=== PATIENT | female | born 1980 | race Caucasian/White ===

== ENCOUNTER 2018-02-25 14:19 | Observation (INO) | payer OTHER ==
--- OUTSIDE RECORDS SUMMARY | 2018-02-25 14:33 | XMS REPORT | Continuity of Care Document ---
:1980 Author Organization Interface Problems Problem Status Onset Classification Date Comments Source Date Reported Z98.84 Active 11/02/19 [facility] Nasal abscess 09/18/19 09/20/2017 18 [facility] NOSE PAIN Active 09/18/19 18 [facility] UNK Active 08/17/19 18 [facility] Epigastric pain 08/11/19 11/08/2017 18 [facility] SEVERE ABD PAIN X2 Active 08/03/19 DAYS 18 [facility] ACUTE COLITIS/ Active 03/10/20 ACUTE ABDOMINAL 17 [facility] PAIN ABDOMINAL PAIN Active 03/10/20 17 [facility] K95.1 Active 03/06/20 17 [facility] MRSA<sup>1, Active 02/13/20 Problem 11/08/2017 Problem 2</sup> 17 added by [facility] Discern Expert. CELLULITIS, Active 02/12/20 POST-OPERATIVE 17 [facility] COMPLICATION, OTHER Active 02/12/20 17 [facility] HISTORY OF GASTRIC Active 01/16/20 BYPASS, ABDOMINAL 17 [facility] JOSE ABD PAIN Active 01/16/20 17 [facility] K81.1 Active 01/14/20 17 [facility] INTUSSUSCEPTION Active 12/16/19 [facility] CHEST PAIN Active 04/06/20 [place] [id number] Adi Discharge 03/26/20 03/29/2014 [facility] Diagnosis: Benign 14 [facility] paroxysmal vertigo Center DIZZINESS Active 03/22/[address] Center SEIZURES Active 02/23/[address] Center OVERDOSE Active 12/09/[address] Anxiety Resolved Problem 11/08/2017 [facility] Chest pain Active Problem 11/08/2017 [facility] Fatty liver Active Problem 11/08/2017 [facility] Gastric bypass Resolved Problem 11/08/2017 status for obesity [facility] Anxiety and Active Problem 11/08/2017 depression [facility] History of heart Active Problem 11/08/2017 attack [facility] Schizoaffective Resolved Problem 11/08/2017 [facility] [place], [place] Seizure Resolved Problem 11/08/2017 [facility] Anxiety Resolved Problem 04/11/2016 [facility] Schizoaffective Resolved Problem 04/11/2016 [facility] [place] [facility] Seizure Resolved Problem 04/11/2016 [facility] Final: 12/19/2016 Intussusception [facility] CHF (<span Resolved Problem 11/08/2017 ID="[id number]"> [facility] Confirmed</span>) ND (<span Resolved Problem 11/08/2017 ID="[id number]"> [facility] Confirmed</span>) Final: Chronic 02/06/2017 cholecystitis [facility] Encounter for 09/14/2017 screening for [facility] malignant neoplasm of colon Diaphragmatic 09/14/2017 hernia without [facility] obstruction or gangrene Unspecified 09/14/2017 chronic gastritis [facility] without bleeding Gastro-esophageal 09/14/2017 reflux disease [facility] without esophagitis Old myocardial 11/08/2017 infarction [facility] Heart failure, 11/08/2017 unspecified [facility] Anxiety disorder, 09/14/2017 unspecified [facility] Fatty liver, not 09/14/2017 elsewhere [facility] classified Schizophrenia, 09/14/2017 unspecified [facility] Unspecified 09/14/2017 convulsions [facility] Unspecified 09/14/2017 osteoarthritis, [facility] unspecified site Nonrheumatic 09/14/2017 mitral prolapse [facility] Right upper 11/08/2017 quadrant pain [facility] Lower abdominal 11/08/2017 pain, unspecified [facility] Nicotine 11/08/2017 dependence, [facility] cigarettes, uncomplicated [facility] use of 11/08/2017 antithrombotics/an [facility] tiplatelets Morbid obesity Active Problem 03/28/2017 2.16.840.1. [id number] 1.. Anxiety Active Problem 03/28/2017 2.16.840.1. [id number] 1.. Leukocytosis Active Diagnosis 03/28/2017 2.16.840.1. [id number] 1.. Cellulitis Active Problem 03/28/2017 2.16.840.1. [id number] 1.. CAD Active Problem 03/28/2017 2.16.840.1. [id number] 1.. Murmur, cardiac Active Problem 03/28/2017 2.16.840.1. 600579.4.39 1 HTN Active Problem 03/28/2017 2.16.840.1. 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 [id number] , Enayet Rahim Encounter to Active Diagnosis 03/01/2017 Enayet establish care Rahim History of gastric Active Diagnosis 09/20/2017 En[facility] bypass Rahim Intractable Active Problem 09/26/2017 [facility] migraine with aura Rahim with status migrainosus Hx MRSA infection Active Diagnosis 09/26/2017 Enayet Rahim Cellulitis of nose Active Diagnosis 09/26/2017 Enayet Rahim Lower abdominal Active Diagnosis 08/11/2017 [facility] pain Rahim [id number] Active [facility] [place] [facility] FEBRILE Active [facility] CONVULSIONS [facility] Medical Center OTHER SPECIFIED Active POSTPROCEDURAL [facility] UNSPECIFIED Active ABDOMINAL PAIN [facility] CHRONIC Active CHOLECYSTITIS [facility] INTUSSUSCEPTION Active [facility] CELLULITIS, Active [facility] UNSPECIFIED [place] UNSPECIFIED Active COMPLICATION OF [facility] PROCEDURE, I SINGLE LIVEBORN Active , DELIVERED [facility] VAGINA Medications Medication Details Route Status Patient Ordering Order Source Instructions Provider Date Acetaminophen 1 tab, PO, No Longer 09/17/ 300 MG / Q6H, # 6 tab, Active 2017 Codeine 0 Refill(s) Phosphate 30 MG Oral Tablet [Tylenol with Codeine #3] tramadol 50 mg=1 tab, Inactive 09/17/ hydrochloride PO, Q4H, # 5 2018 [facility] 50 MG Oral tab, 0 Tablet Refill(s) Mupirocin 0.02 1 appl, TOP, Active MG/MG Topical BID, Apply to 2017 [facility] Ointment affected [Bactroban] area(s), X 7 day, # 22 gm, 0 Refill(s) Bactrim DS 1 tablet Orally Active 800-160 MG Latoya 09/15/ Enayet Orally Twice 2018 Rahim a day Sodium Chloride 1,000 mL, No Longer 0.9% IV 1,000 Rate: 25 Active 2017 [facility] mL ml/hr, Infuse over: 40 hr, Route: IV, Dosing Weight 67.273 kg, Total Volume: 1,000, Start date: 09/05/17 7:56:00 CDT, Duration: 1 day, Stop date: 09/06/17 7:55:00 CDT, 1.69, m2 NS (Bolus) IV 1,000 mL, Inactive 1,000 ml/hr, 2017 [facility] Infuse Over: 1 hr, Route: IV, ONCE, Priority: STAT, Dosing Weight 65.455 kg, Start date: 08/02/17 17:44:00 CDT, Stop date: 08/02/17 17:44:00 CDT Ondansetron 4 mg, 2 mL, Inactive Route: IVP, 2017 [facility] Drug form: INJ, ONCE, Dosing Weight 65.455, kg, Priority: STAT, Start date: 08/02/17 15:57:00 CDT, Stop date: 08/02/17 15:57:00 CDTNotes: (Same as: Zofran) MEDICATION WASTE Product Size: 4 mg Product Wasted: ___ mg Saline Flush 10 mL, Route: Inactive 0.9% IVP, Drug 2017 [facility] Form: INJ, Dosing Weight 65.455, kg, PRN, PRN Line Flush, Start date: 08/02/17 15:57:00 CDT, Duration: 30 day, Stop date: 09/01/17 15:56:00 CDTNotes: (Same as: BD Posiflush) [employer]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 Orally Active 10 MG Orally Latoya 07/06/ Enayet the tongue Once a day as 2018 Rahim and allow to needed dissolve as needed one time potassium 20 mEq, 1 Inactive 03/11/ MH chloride tab, Route: 2016 [facility] PO, Drug form: ERTAB, ONCE, Dosing Weight 63.636, kg, Start date: 03/11/17 14:43:00 CDT, Stop date: 03/11/17 14:43:00 CDTNotes: (Same as: K-Dur 20) "Do Not Crush" With food and full glass of water potassium 10 mEq, 100 Inactive 03/11/ MH chloride mL, Route: 2016 [facility] IVPB, Drug form: INJ, Q1H, Dosing Weight 63.636, kg, Total Dose=20 meq, Start date: 03/11/17 9:00:00 CDT, Duration: 2 doses or times, Stop date: 03/11/17 10:00:00 CDT, Peripheral LineNotes: Infuse at a rate of 10 mEq/hr. (Same as: KCL) sodium chloride 1,000 mL, Inactive 03/11/ MH 0.9% 1000 ml Rate: 75 2016 [facility] INJ 1,000 mL ml/hr, Infuse over: 13.3 hr, Route: IV, Dosing Weight 63.636 kg, Total Volume: 1,000, Start date: 03/11/17 6:47:00 CDT, Duration: 30 day, Stop date: 04/10/17 6:46:00 ENERGY DIRECTOR sodium 15 mmol, 5 Inactive 03/11/ MH phosphate + D5W mL, Route: 2016 [facility] 250 mL IVPB, PRN, Dosing Weight 63.636, kg, PRN Abnormal Lab Result, For NON-ICU Patients Only., Start date: 03/11/17 6:46:00 CDT, Duration: 30 day, Stop date: 04/10/17 5:45:00 ENERGY DIRECTOR potassium 15 mmol, 5 Inactive 03/11/ MH phosphate + mL, Route: 2016 [facility] sodium chloride IVPB, PRN, 0.9% INJ 250 mL Dosing Weight 63.636, kg, PRN Abnormal Lab Result, For NON-ICU Patients Only., Start date: 03/11/17 6:46:00 CDT, Duration: 30 day, Stop date: 04/10/17 5:45:00 CSTNotes: (Same as: K Phosphate.) 1 mMol phoshate has 1.47 mEq potassium Infuse over 4 hours potassium 2 pkt, Route: Inactive phosphate-sodiu PO, Drug 2016 [facility] phosphate 250 Form: mg-280 mg-160 PDR/REC, mg oral powder Dosing Weight for 63.636, kg, reconstitution PRN, PRN Abnormal Lab Result, For NON-ICU Patients Only, Start date: 03/11/17 6:46:00 CDT, Duration: 30 day, Stop date: 04/10/17 5:45:00 CSTNotes: (Same as: Phos-NaK) Each 1.5 gm pkt has 250mg phosphorous. Mix w/2.5oz water and stir. potassium 20 mEq, 15 Inactive chloride mL, Route: 2016 [facility] [place], Drug form: LIQ, PRN, Dosing Weight 63.636, kg, PRN Abnormal Lab Result, For NON-ICU Patients Only, Start date: 03/11/17 6:46:00 CDT, Duration: 30 day, Stop date: 04/10/17 5:45:00 CSTNotes: (Same as: Potassium Chloride) calcium 2 gm, 20 mL, Inactive gluconate + Route: IV2016 [facility] sodium chloride PRN, Dosing 0.9% INJ 100 mL Weight 63.636, kg, PRN Abnormal Lab Result, For NON-ICU Patients Only., Start date: 03/11/17 6:46:00 CDT, Duration: 30 day, Stop date: 04/10/17 5:45:00 CSTNotes: WASTE: F/P - Sink; E - Municipal Trash Bin magnesium 2 gm, 50 mL, Inactive sulfate Route: IV2016 [facility] Drug form: INJ, PRN, Dosing Weight 63.636, kg, PRN Abnormal Lab Result, For NON-ICU Patients Only., Start date: 03/11/17 6:46:00 CDT, Duration: 30 day, Stop date: 04/10/17 5:45:00 CSTNotes: WASTE: F/P - Sink; E - Municipal Trash Bin magnesium oxide 800 mg, 2 Inactive tab, Route: 2016 [facility] PO, Drug form: TAB, PRN, Dosing Weight 63.636, kg, PRN Abnormal Lab Result, For NON-ICU Patients Only., Start date: 03/11/17 6:46:00 CDT, Duration: 30 day, Stop date: 04/10/17 5:45:00 CSTNotes: (Same as: Mag-Ox 400) Magnesium oxide [id number] elemental magnesium Dose=____mg magnesium oxide (___mg elemental magnesium) acetaminophen-h 1 tab, Route: No Longer ydrocodone 325 PO, Drug Active 2016 [facility] mg-5 mg oral Form: TAB, tablet Dosing Weight 63.636, kg, Q4H, PRN Pain Score 4-6, Start date: 03/10/17 22:28:00 CDT, Duration: 30 day, Stop date: 04/09/17 22:27:00 CSTNotes: (Same as: [place] 325/5) Do not exceed 4gm/day of acetaminophen . ondansetron 4 mg, 2 mL, No Longer Route: IVP, Active 2016 [facility] Drug form: INJ, Q4H, Dosing Weight 63.636, kg, PRN Nausea, Start date: 03/10/17 21:50:00 CDT, Duration: 30 day, Stop date: 04/09/17 21:49:00 CSTNotes: (Same as: Krishna) MEDICATION WASTE Product Size: 4 mg Product Wasted: ___ mg morphine 4 mg, 1 mL, No Longer Sulfate Route: IVP, Active 2016 [facility] Drug form: SOLN, Q4H, Dosing Weight 63.636, kg, PRN Pain Score 7-10, Start date: 03/10/17 21:48:00 CDT, Duration: 30 day, Stop date: 04/09/17 21:47:00 CSTNotes: (Same as:MORPhine Sulfate) aspirin 81 mg, PO, Active Daily, 0 2016 Refill(s) nitroglycerin 0.4 mg=1 tab, Active 0.4 mg SL, Q5Min, 2016 sublingual PRN Chest tablet Pain, Give up to 3 doses. Call 911 if pain persists., # 25 tab, 3 Refill(s) Ranexa 500 mg 500 mg=1 tab, Active oral tablet, PO, BID, # 60 2016 [facility] extended tab, 0 release Refill(s) morphine 4 mg, Route: Inactive Sulfate IVP, ONCE, 2016 [facility] Dosing Weight 63.636, kg, Priority: STAT, Start date: 03/10/17 19:07:00 CDT, Stop date: 03/10/17 19:07:00 CDT ondansetron 4 mg, Route: Inactive IVP, Drug 2016 [facility] form: INJ, ONCE, Dosing Weight 63.636, kg, Priority: STAT, Start date: 03/10/17 14:07:00 CDT, Stop date: 03/10/17 14:07:00 CDT morphine 4 mg, Route: Inactive Sulfate IVP, ONCE, 2016 [facility] Dosing Weight 63.636, kg, Priority: STAT, Start date: 03/10/17 14:07:00 CDT, Stop date: 03/10/17 14:07:00 CDT Sodium Chloride 1,000 mL, Inactive 0.9% (Bolus) IV Infuse Over: 2016 [facility] 1 hr, Route: IV, ONCE, Priority: STAT, Dosing Weight 63.636 kg, Start date: 03/10/17 14:06:00 CDT, Duration: 1 doses or times, Stop date: 03/10/17 14:06:00 CDT Saline Flush 10 mL, Route: No Longer 0.9% IVP, Drug Active 2016 [facility] Form: INJ, Dosing Weight 60, kg, PRN, PRN Line Flush, Start date: 03/10/17 13:37:00 CDT, Duration: 30 day, Stop date: 04/09/17 12:36:00 CSTNotes: (Same as: BD Posiflush) Chlorhexidine as directed Externally Active 2 % Reyes ..840.1 Gluconate Externally 2016 .205776.4. once a day 68 Bactroban Nasal as directed Nasally Active 2 % Nasally Reyes .16.840.1 Twice a day [id number]. 68 Doxycycline 1 tablet Orally Active 100 MG Orally [facility] .16.840.1 Hyclate every 12 hrs 2016 .793236.4. [id number] 68 Acetaminophen 1-2 tab, PO, Active 325 MG / Q6H, PRN 2016 [facility] Hydrocodone Pain, X 5 Bitartrate 7.5 day, # 30 MG Oral Tablet tab, 0 [[place] 7.5/325] Refill(s), given to patient hydrocortisone See Active 10 mg oral Instructions, 2016 tablet 2 tab PO in the morning, 1 tab in the afternoon, # 90 tab, 0 Refill(s), Pharmacy: [facility] [id number] Hydrocortisone 20 mg, 2 tab, No Longer Route: PO, Active 2016 Drug form: TAB, BID, Dosing Weight 60, kg, Start date: 02/16/17 17:00:00 CDT, Duration: 30 day, Stop date: 03/18/17 9:00:00 CSTNotes: (Same as: Cortef) Take with food. MiraLax 17 gm, 1 pkt, No Longer Route: PO, Active 2016 [facility] Drug form: PWDR, Daily, Start date: 02/16/17 14:05:00 CDT, Duration: 30 day, Stop date: 03/18/17 9:00:00 CSTNotes: Dissolve in 8 oz of water or juice. (Same as: Miralax) Levaquin 500 mg, 100 Inactive mL, Route: 2016 PO, Drug form: SOLN, [id number], Dosing Weight 60, kg, Start date: 02/16/17 6:00:00 CDT, Stop date: 02/19/17 6:00:00 CDT, ABX Indication: Skin/Soft Tissue InfectionNote s: (Same as:Levaquin) TPN, adult 1,850 mL, No Longer solution 1,850 Rate: 75 Active 2016 mL ml/hr, Infuse over: 24.7 hr, Route: IV, Dosing Weight 60 kg, Total Volume: 1,850, Start date: 02/15/17 22:00:00 CDT, Duration: 1 day, Stop date: 02/16/17 21:59:00 CDT RN-do not RN-do not Inactive give vanc dose give vanc 2016 [facility] til trough dose til drawn 02/15 @ trough drawn 1944 02/15 @ 1944, attn, Drug form: MISC, Route: MISC, ONCE, 02/15/17 19:15:00 CDT, Stop date: 02/15/17 19:15:00 CDT Hydrocortisone 50 mg, 1 mL, No Longer Route: IV, Active 2016 [facility] Drug form: PDR/INJ, BID, Dosing Weight 60, kg, Start date: 02/15/17 17:00:00 CDT, Duration: 30 day, Stop date: 03/17/17 9:00:00 CSTNotes: (Same as: Solu-CORTEF) TPN, adult 1,850 mL, No Longer solution 1,850 Rate: 75 Active 2016 [facility] mL ml/hr, Infuse over: 24.7 hr, Route: IV, Dosing Weight 60 kg, Total Volume: 1,850, Start date: 02/14/17 22:00:00 CDT, Duration: 24 hr, Stop date: 02/15/17 21:59:00 CDT Vancomycin 1,000 mg, No Longer Route: IVPB, Active 2016 [facility] [id number], Dosing Weight 60, kg, Start date: 02/14/17 20:00:00 CDT, Duration: 14 day, Stop date: 02/28/17 12:00:00 CDT, ABX Indication: Skin/Soft Tissue InfectionNote s: TIME CRITICAL MEDICATION (Same As: Vancocin) Infusion rate 2001 mg: infuse over 2.5 hours MEDICATION WASTE Product Size: 1000 mg Product Wasted: __0_ mg Hydrocortisone 50 mg, 1 mL, No Longer Route: IV, Active 2016 [facility] Drug form: PDR/INJ, Q8H, Dosing Weight 60, kg, Start date: 02/14/17 16:00:00 CDT, Duration: 30 day, Stop date: 03/16/17 8:00:00 CSTNotes: (Same as: Solu-CORTEF) Milk of 30 ml, Route: Inactive Magnesia PO, Drug 2016 [facility] Form: SUSP, Dosing Weight 60, kg, ONCE, Start date: 02/14/17 13:39:00 CDT, Stop date: 02/14/17 13:39:00 CDTNotes: (Same as: Milk of Magnesia, MOM) Cosyntropin 250 Inactive microgram, 2016 [facility] Route: IVP, Drug form: PDR/INJ, ONCE, Dosing Weight 60, kg, Priority: STAT, Start date: 02/14/17 11:29:00 CDT, Stop date: 02/14/17 11:29:00 CDTNotes: (Same As: Cortrosyn) RN-do not RN-do not Inactive give vanc dose give vanc 2016 [facility] til trough dose til drawn 02/14 @ trough drawn 1030 02/14 @ 1030, attn, Drug form: MISC, Route: MISC, ONCE, 02/14/17 10:00:00 CDT, Stop date: 02/14/17 10:00:00 CDT potassium 20 mEq, 1 Inactive chloride 20 mEq tab, Route: 2016 [facility] oral tablet, PO, Drug extended form: ERTAB, release ONCE, Dosing Weight 60, kg, Start date: 02/14/17 6:43:00 CDT, Stop date: 02/14/17 6:43:00 CDTNotes: (Same as: K-Dur 20) "Do Not Crush" With food and full glass of water Magnesium 1 gm, 100 mL, Inactive Sulfate Route: IVPB, 2016 [facility] Drug form: INJ, ONCE, Dosing Weight 60, kg, Start date: 02/14/17 6:41:00 CDT, Stop date: 02/14/17 6:41:00 CDTNotes: WASTE: F/P - Sink; E - Municipal Trash Bin TPN, adult 1,850 mL, No Longer // MH solution 1,850 Rate: 75 Active 2016 [facility] mL ml/hr, Infuse over: 24.7 hr, Route: IV, Dosing Weight 60 kg, Total Volume: 1,850, Start date: 02/13/17 22:00:00 CDT, Duration: 1 day, Stop date: 02/14/17 21:59:00 CDT fat emulsion, IV, 31.25 Inactive intravenous 250 ml/hr, Start 2016 [facility] mL date: 02/13/17 22:00:00 CDT, Duration: 1, 250 ml, 60Notes: (Same as: Intralipid, Liposyn) Infuse through a 1.2 micron filter Furosemide 20 20 mg, 1 tab, No Longer MG Oral Tablet Route: PO, Active 2016 [facility] Drug form: TAB, Daily, Dosing Weight 60, kg, Start date: 02/13/17 9:00:00 CDT, Duration: 30 day, Stop date: 03/14/17 9:00:00 CSTNotes: (Same as: Lasix) May cause GI upset. Give with food or milk. Abilify 5 mg, 1 tab, No Longer Route: PO, Active 2016 [facility] Drug form: TAB, Daily, Dosing Weight 60, kg, Start date: 02/13/17 9:00:00 CDT, Stop date: 03/14/17 9:00:00 CSTNotes: Non-Formulary Drug. (Same as: Abilify) Levaquin 500 mg, 100 No Longer mL, Route: Active 2016 [facility] IVPB, Drug form: SOLN, [id number], Dosing Weight 60, kg, Start date: 02/13/17 4:00:00 CDT, Duration: 7 day, Stop date: 02/19/17 4:00:00 CDT, ABX Indication: Skin/Soft Tissue InfectionNote s: (Same as:Levaquin) NS (Bolus) IV 250 mL, 250 Inactive ml/hr, Infuse 2016 [facility] Over: 1 hr, Route: IV, 250, Drug form: INJ, ONCE, Priority: STAT, Dosing Weight 60 kg, Start date: 02/12/17 22:40:00 CDT, Duration: 1 doses or times, Stop date: 02/12/17 22:40:00 CDT Ambien 5 mg, 1 tab, No Longer Route: PO, Active 2016 [facility] Drug form: TAB, Bedtime, Dosing Weight 60, kg, Start date: 02/12/17 21:00:00 CDT, Duration: 30 day, Stop date: 03/13/17 21:00:00 CSTNotes: (Same As: Ambien) 12 HR 500 mg, 1 No Longer ranolazine 500 tab, Route: Active 2016 MG Extended PO, Drug Release Tablet form: TAB, [Ranexa] BID, Dosing Weight 60, kg, Start date: 02/12/17 21:00:00 CDT, Duration: 30 day, Stop date: 03/14/17 9:00:00 CSTNotes: Same as Ranexa "Do Not Crush" Clonazepam 1 mg, 1 tab, No Longer Route: PO, Active 2016 [facility] Drug form: TAB, BID, Dosing Weight 60, kg, Start date: 02/12/17 21:00:00 CDT, Duration: 30 day, Stop date: 03/14/17 9:00:00 CSTNotes: (Same As: KlonoPIN) Enoxaparin 30 mg, 0.3 No Longer mL, Route: Active 2016 [facility] SUB-Q, Drug form: INJ, [id number], Dosing Weight 60, kg, Start date: 02/12/17 21:00:00 CDT, Duration: 30 day, Stop date: 03/14/17 9:00:00 CSTNotes: (Same as: Lovenox) Per RN - supposed to go to OR for minor procedure but MD ended up doing procedure bedside NS (Bolus) IV 500 mL, 500 Inactive ml/hr, Infuse 2016 Over: 1 hr, Route: IV, 500, Drug form: INJ, ONCE, Priority: STAT, Dosing Weight 60 kg, Start date: 02/12/17 18:27:00 CDT, Duration: 1 doses or times, Stop date: 02/12/17 18:27:00 CDT Protonix 40 mg, 1 tab, No Longer Route: PO, Active 2016 [facility] Drug form: ECTAB, Before Dinner, Dosing Weight 60, kg, Start date: 02/12/17 16:30:00 CDT, Duration: 30 day, Stop date: 03/13/17 16:30:00 CSTNotes: Tablet should not be chewed or crushed. (Same as: Protonix) NURSE please NURSE No Longer bring home med please bring Active 2016 [facility] [id number] to home med Pharmacy for TIENLIFPamela to label Pharmacy for label, 1, Drug form: MISC, Route: MISC, TID, 02/12/17 15:00:00 CDT, Duration: 30 day, Stop date: 03/14/17 9:00:00 ENERGY DIRECTOR Vancomycin 1,000 mg, No Longer Route: IVPB, Active 2016 [facility] [id number], Dosing Weight 60, kg, Start date: 02/12/17 11:00:00 CDT, Duration: 7 day, Stop date: 02/18/17 23:00:00 CDT, ABX Indication: Skin/Soft Tissue InfectionNote s: TIME CRITICAL MEDICATION (Same As: Vancocin) Infusion rate 2001 mg: infuse over 2.5 hours MEDICATION WASTE Product Size: 1000 mg Product Wasted: ___ mg Vancomycin 1 ea, Route: Inactive MAYITO MOLINAALL, 2016 [facility] Dosing Weight 60, kg, Start date: 02/12/17 10:00:00 CDT, day, Stop date: 02/12/17 10:00:00 CDT, Pharmacy to dose, ABX Indication: Skin/Soft Tissue Infection Tylenol 650 mg, 2 No Longer tab, Route: Active 2016 [facility] PO, Drug form: TAB, Q6H, Dosing Weight 60, kg, PRN Pain 1-3/Temp > 100.4 F, Start date: 02/12/17 9:44:00 CDT, Duration: 30 day, Stop date: 03/14/17 9:43:00 CSTNotes: Do not exceed 4 gm/day. (Same as: Tylenol) Acetaminophen 1 tab, Route: No Longer 325 MG / PO, Drug Active 2016 [facility] Hydrocodone Form: TAB, Bitartrate 10 Dosing Weight MG Oral Tablet 60, kg, Q4H, [[place] 10/325] PRN Pain Score 6-10, Start date: 02/12/17 9:43:00 CDT, Duration: 30 day, Stop date: 03/14/17 9:42:00 CSTNotes: Do not exceed 4gm/day of acetaminophen . (Same as: [place] 325/10) Acetaminophen 1 tab, Route: No Longer 325 MG / PO, Drug Active 2016 [facility] Hydrocodone Form: TAB, Bitartrate 5 MG Dosing Weight Oral Tablet 60, kg, Q4H, [[place] 5/325] PRN Pain Score 4-6, Start date: 02/12/17 9:43:00 CDT, Duration: 30 day, Stop date: 03/14/17 9:42:00 CSTNotes: (Same as: [place] 325/5) Do not exceed 4gm/day of acetaminophen . Morphine 4 mg, 1 mL, No Longer Route: IVP, Active 2016 [facility] Drug form: SOLN, Q4H, Dosing Weight 60, kg, PRN Pain Score 6-10, Start date: 02/12/17 9:43:00 CDT, Duration: 30 day, Stop date: 03/14/17 9:42:00 CSTNotes: (Same as:MORPhine Sulfate) Saline Flush 10 ml, Route: No Longer 0.9% IVP, Drug Active 2016 [facility] Form: INJ, Dosing Weight 60, kg, PRN, PRN Line Flush, Start date: 02/12/17 9:40:00 CDT, Duration: 30 day, Stop date: 03/14/17 8:39:00 CSTNotes: (Same as: BD Posiflush) D5W 1/2NS + KCL 1,000 mL, No Longer 20mEq/L 1000ml Rate: 75 Active 2016 [facility] ([facility]) 1,000 ml/hr, Infuse mL over: 13.3 hr, Route: IV, Dosing Weight 60 kg, Total Volume: 1,000, Start date: 02/12/17 9:40:00 CDT, Duration: 30 day, Stop date: 03/14/17 9:39:00 CSTNotes: PREMIX IV - Do Not Alter WASTE: F/P - Sink; E - Municipal Trash Bin Ondansetron 4 mg, 2 mL, No Longer Route: IVP, Active 2016 [facility] Drug form: INJ, Q6H, Dosing Weight 60, kg, PRN Nausea & Vomiting, Start date: 02/12/17 9:40:00 CDT, Duration: 30 day, Stop date: 03/14/17 9:39:00 CSTNotes: (Same as: Zofran) MEDICATION WASTE Product Size: 4 mg Product Wasted: ___ mg Levaquin 750 mg, 150 Inactive mL, Route: 2017 [facility] IVPB, Drug form: SOLN, [id number], Dosing Weight 60, kg, Start date: 02/12/17 8:00:00 CDT, Duration: 1 doses or times, Stop date: 02/12/17 8:00:00 CDT, ABX Indication: ED - Suspected SepsisNotes: (Same as:Levaquin) sodium chloride 984.8 mL, Inactive 0.9% 1000 ml Rate: 100 2016 [facility] INJ 984.8 mL + ml/hr, Infuse M.V.I.-12 10 mL over: 10 hr, Daily + folic Route: IV, acid IV 1 mg Dosing Weight Daily + thia 60 kg, Total Volume: 1,000, Start date: 02/12/17 7:52:00 CDT, Duration: 10 hr, Stop date: 02/12/17 17:51:00 CDT Zofran 4 mg, Route: Inactive IVP, Drug 2016 [facility] form: INJ, ONCE, Dosing Weight 60, kg, Priority: STAT, Start date: 02/12/17 5:30:00 CDT, Stop date: 02/12/17 5:30:00 CDT Morphine 2 mg, Route: Inactive IVP, ONCE, 2016 [facility] Dosing Weight 60, kg, Priority: STAT, Start date: 02/12/17 5:29:00 CDT, Stop date: 02/12/17 5:29:00 CDT Sodium Chloride 1,000 mL, Inactive 0.9% IV 1000 mL Rate: 75 2016 [facility] ml/hr, Infuse over: 13.3 hr, Route: IV, Dosing Weight 60 kg, Total Volume: 1,000, Priority: STAT, Start date: 02/12/17 5:29:00 CDT, Duration: 1 doses or times, Stop date: 02/12/17 18:46:00 CDT sodium chloride 984.8 mL, Inactive 0.9% 1000 ml Rate: 100 2016 [facility] INJ 984.8 mL + ml/hr, Infuse M.V.I.-12 10 mL over: 10 hr, Daily + folic Route: IV, acid IV 1 mg Dosing Weight Daily + thia 60 kg, Total Volume: 1,000, Start date: 02/12/17 1:58:00 CDT, Duration: 1 doses or times, Stop date: 02/12/17 11:57:00 CDT Flagyl 500 mg, 100 Inactive mL, Route: 2016 [facility] IVPB, Drug form: INJ, ONCE, Dosing Weight 60, kg, Priority: STAT, Start date: 02/12/17 1:58:00 CDT, Duration: 1 doses or times, Stop date: 02/12/17 1:58:00 CDT, ABX Indication: Intra-abdomin al InfectionNote s: (Same as: Flagyl) Avoid alcohol. Levofloxacin 500 mg, 100 Inactive mL, Route: 2016 [facility] IVPB, Drug form: SOLN, ONCE, Dosing Weight 60, kg, Start date: 02/12/17 1:57:00 CDT, Duration: 1 doses or times, Stop date: 02/12/17 1:57:00 CDT, ABX Indication: Intra-abdomin al InfectionNote s: (Same as:Levaquin) Zofran 4 mg, 2 mL, Inactive Route: IVP2016 [facility] Drug form: INJ, ONCE, Dosing Weight 60, kg, Priority: STAT, Start date: 02/12/17 1:55:00 CDT, Stop date: 02/12/17 1:55:00 CDTNotes: (Same as: Zofran) MEDICATION WASTE Product Size: 4 mg Product Wasted: ___ mg Morphine 4 mg, 1 mL, Inactive Route: IVP, 2016 [facility] Drug form: SOLN, ONCE, Dosing Weight 60, kg, Priority: STAT, Start date: 02/12/17 1:54:00 CDT, Stop date: 02/12/17 1:54:00 CDTNotes: (Same as:MORPhine Sulfate) Sodium Chloride 1,000 mL, Inactive 0.9% (Bolus) IV 1,000 ml/hr, 2016 [facility] Infuse Over: 1 hr, Route: IV, 1,000, Drug form: INJ, ONCE, Priority: STAT, Dosing Weight 60 kg, Start date: 02/12/17 1:53:00 CDT, Duration: 1 doses or times, Stop date: 02/12/17 1:53:00 CDT Tylenol with 15 ml, Route: Inactive Codeine 120 PO, Drug 2016 [facility] mg-12 mg/5 mL Form: LIQ, oral liquid Dosing Weight 62.33, kg, Q4H, PRN Pain Score 1-3, Start date: 02/03/17 7:36:00 CDT, Duration: 30 day, Stop date: 03/05/17 7:35:00 CDTNotes: (acetaminophe n-codeine 120-12 mg/5 ml oral liq) Do not exceed 4gm/day of acetaminophen . (Same as: Tylenol w/Codeine) Omnipaque 300 50 ml, Route: Inactive PO, Drug 2016 [facility] Form: SOLN, Dosing Weight 62.33, kg, ONCE, Start date: 02/02/17 14:28:00 CDT, Stop date: 02/02/17 14:28:00 CDTNotes: (Same as:Omnipaque 300). WASTE: F/P - Black; E - Municipal Trash Bin influenza virus 0.5 mL, Inactive vaccine, Route: IM, 2016 [facility] inactivated Drug Form: SUSP, Daily, Start date: 02/02/17 12:00:00 CDT, Stop date: 02/02/17 23:00:00 CDTNotes: (Same as: Fluzone Quadrivalent, Fluarix Quadrivalent) For 3 years of age and older (0.5 mL IM) Shake well before use Lovenox 30 mg, 0.3 No Longer mL, Route: Active 2016 [facility] SUB-Q, Drug form: INJ, [id number], Dosing Weight 62.33, kg, Start date: 02/01/17 16:00:00 CDT, Duration: 30 day, Stop date: 03/02/17 22:00:00 CDTNotes: (Same as: Lovenox) Hydromorphone 15 mg, 30 mL, No Longer Route: IV, [facility] 2016 [facility] Initial Loading Dose: 0.4mg, COLD STORAGE SUPERINTENDENT Dose: 0.2 mg, COLD STORAGE SUPERINTENDENT Lockout: 10 minutes, Continuous Basal Rate: 0 mg, 4 Hour Limit (In MG): 6, Drug Form: INJ, Continuous, Start date: 02/01/17 10:00:00 CDT, Duration: 30 day, Stop date: 03/03/17...No sydnee: (Same as: Dilaudid) conc=0.5 mg/ml Hydromorphone COLD STORAGE SUPERINTENDENT Dose: ;Delay: ;Basal: Naloxone 0.04 mg, 0.1 No Longer mL, Route: [facility] 2016 [facility] IVP, Drug form: INJ, Q2MIN, Dosing Weight 62.33, kg, PRN Narcotic Reversal, Start date: 02/01/17 9:41:00 CDT, Duration: 30 day, Stop date: 03/03/17 9:40:00 CDTNotes: Same as Narcan influenza virus 0.5 mL, No Longer vaccine, Route: IM, [facility] 2016 [facility] inactivated Drug Form: SUSP, Daily, Start date: 02/01/17 9:00:00 CDT, Duration: 1 doses or times, Stop date: 02/01/17 9:00:00 CDTNotes: (Same as: Fluzone Quadrivalent, Fluarix Quadrivalent) For 3 years of age and older (0.5 mL IM) Shake well before use Metoclopramide 10 mg, 2 mL, No Longer Route: IVP, [facility] 2016 [facility] Drug form: INJ, Q8H, Dosing Weight 61.364, kg, Start date: 02/01/17 0:00:00 CDT, Duration: 30 day, Stop date: 03/02/17 16:00:00 CDTNotes: (Same as: Reglan) Famotidine 20 mg, 2 mL, No Longer Route: IVP, 2016 [facility] Drug form: INJ, Q12H, Dosing Weight 62.33, kg, Start date: 01/31/17 21:00:00 CDT, Duration: 30 day, Stop date: 03/02/17 9:00:00 CDTNotes: (Same as: Pepcid) Can be dilute in 5-10cc NS IVP: Slow IV push over at least 2 minutes. Ondansetron 4 mg, 2 mL, No Longer Route: IVP, Active 2016 [facility] Drug form: INJ, Q4H, Dosing Weight 61.364, kg, Start date: 01/31/17 20:00:00 CDT, Duration: 30 day, Stop date: 03/02/17 16:00:00 CDTNotes: (Same as: Zofran) MEDICATION WASTE Product Size: 4 mg Product Wasted: ___ mg Sucralfate 100 1 gm, 1 tab, No Longer MG/ML Oral Route: PO, Active 2016 [facility] Suspension Drug form: [Carafate] TAB, QID, Dosing Weight 61.364, kg, Start date: 01/31/17 17:00:00 CDT, Duration: 30 day, Stop date: 03/02/17 13:00:00 CDTNotes: May interfere w/enteral feeds - Take 1 hr before or 2 hr after antacids, dairy pdt, meals & minerals - On empty stomach. For patients unable to swallow tablet, dissolve in 10mL - 30mL of water or juice and stir before giving. (Same As: Carafate) Dilaudid 0.5 mg, Inactive Route: IVP, 2016 ONCE, Dosing Weight 62.33, kg, Start date: 01/31/17 16:31:00 CDT, Stop date: 01/31/17 16:31:00 CDT Insulin Lispro 3 unit, 0.03 No Longer mL, Route: Active 2016 [facility] SUB-Q, Drug form: SOLN, Bedtime, Dosing Weight 62.33, kg, PRN Blood Glucose Results, Start date: 01/31/17 16:25:00 CDT, Duration: 30 day, Stop date: 03/02/17 16:24:00 CDTNotes: Roll in palms of hands gently; Do not shake `vigorously. (Same as: Humalog ) "Single Patient Use Only " WASTE: F/P - Black; E - Municipal Trash Bin Stable for 28 days at room temperature. Expires in days from _Date Lactated 1,000 mL, Inactive Ringers Rate: 125 2016 [facility] Injection IV ml/hr, Infuse 1000 mL over: 8 hr, Route: IV, Dosing Weight 62.33 kg, Total Volume: 1,000, Start date: 01/31/17 16:25:00 CDT, Duration: 30 day, Stop date: 03/02/17 16:24:00 CDT Hydromorphone 0.5 mg, 0.5 No Longer mL, Route: Active 2016 [facility] IV, Drug form: INJ, Q3H, Dosing Weight 61.364, kg, PRN Pain Score 6-10, Start date: 01/31/17 16:25:00 CDT, Duration: 30 day, Stop date: 03/02/17 16:24:00 CDT Promethazine 25 mg, 1 No Longer supp, Route: Active 2016 [facility] NM, Drug form: SUPP, Q4H, Dosing Weight 61.364, kg, PRN Nausea & Vomiting, Start date: 01/31/17 16:25:00 CDT, Duration: 30 day, Stop date: 03/02/17 16:24:00 CDTNotes: (Same as: Phenergan) Acetaminophen 15 mL, Route: No Longer 21.7 MG/ML / PO, Drug Active 2016 [facility] Hydrocodone Form: SOLN, Bitartrate 0.5 Dosing Weight MG/ML Oral 62.33, kg, Solution Q4H, PRN Pain Score 4-6, Start date: 01/31/17 16:25:00 CDT, Duration: 30 day, Stop date: 03/02/17 16:24:00 CDTNotes: Do not exceed 4gm/day of acetaminophen . (Same as: [place] 325/7.5) Metoprolol 2.5 mg, 2.5 No Longer mL, Route: Active 2016 [facility] IVP, Drug form: INJ, Q6H, Dosing Weight 62.33, kg, PRN Elevated BP, Systolic BP >180 or Diastolic BP >100, Start date: 01/31/17 16:25:00 CDT, Duration: 30 day, Stop date: 03/02/17 16:24:00 CDTNotes: (Same as: Lopressor) Push over 2 minutes Calcium 1,000 mL, No Longer Chloride 0.0014 Rate: 125 Active 2016 [facility] MEQ/ML / ml/hr, Infuse Potassium over: 8 hr, Chloride 0.004 Route: IV, MEQ/ML / Sodium Dosing Weight Chloride 0.103 62.33 kg, MEQ/ML / Sodium Total Volume: Lactate 0.028 1,000, Start MEQ/ML date: Injectable 01/31/17 Solution 16:25:00 CDT, Duration: 30 day, Stop date: 03/02/17 16:24:00 CDT Dilaudid 0.5 mg, Inactive Route: IVP, 2016 [facility] ONCE, Dosing Weight 62.33, kg, Start date: 01/31/17 16:07:00 CDT, Stop date: 01/31/17 16:07:00 CDT Dilaudid 0.5 mg, Inactive Route: IVP, 2016 [facility] ONCE, Dosing Weight 62.33, kg, Start date: 01/31/17 15:55:00 CDT, Stop date: 01/31/17 15:55:00 CDT hydromorphone Route: IV, Inactive (ANES) Drug form: 2016 [facility] INJ, ONCE, Stop date: 01/31/17 15:47:00 CDT Dilaudid 0.5 mg, Inactive Route: IVP, 2016 [facility] ONCE, Dosing Weight 62.33, kg, Start date: 01/31/17 15:47:00 CDT, Stop date: 01/31/17 15:47:00 CDT rocuronium Route: IV, Inactive (ANES) Drug form: 2016 [facility] INJ, ONCE, Stop date: 01/31/17 14:08:00 CDT lidocaine Route: IV, Inactive (ANES) Drug form: 2016 [facility] INJ, ONCE, Stop date: 01/31/17 14:08:00 CDT fentaNYL (ANES) Route: IV, Inactive Drug form: 2016 [facility] INJ, ONCE, Stop date: 01/31/17 13:38:00 CDT propofol (ANES) Route: IV, Inactive Drug form: 2016 [facility] INJ, ONCE, Stop date: 01/31/17 13:38:00 CDT acetaminophen Route: IV, Inactive (ANES) Drug form: 2016 [facility] INJ, ONCE, Stop date: 01/31/17 13:33:00 CDT midazolam Route: IV, Inactive (ANES) Drug form: 2016 [facility] SOLN, ONCE, Stop date: 01/31/17 13:23:00 CDT ondansetron Route: IV, Inactive (ANES) Drug form: 2016 [facility] INJ, ONCE, Stop date: 01/31/17 13:23:00 CDT levofloxacin Route: IV, Inactive (ANES) Drug form: 2016 [facility] INJ, ONCE, Stop date: 01/31/17 13:18:00 CDT sodium chloride Route: IV, Inactive 0.9% 1000 ml Total Volume: 2016 [facility] INJ (ANES) 1,000, Start date: 01/31/17 12:40:00 CDT, Stop date: 01/31/17 13:40:00 CDT LR 1000 mL INJ Route: IV, Inactive (ANES) Total Volume: 2016 [facility] 1,000, Start date: 01/31/17 12:34:00 CDT, Stop date: 01/31/17 13:34:00 CDT Acetaminophen 1 tab, PO, Active 325 MG / Q6H, 0 2016 [facility] Hydrocodone Refill(s) Bitartrate 5 MG Oral Tablet [[place] 5/325] heparin 5,000 unit, Inactive Route: SUB-Q, 2016 [facility] ONCE, Dosing Weight 62.33, kg, Start date: 01/31/17 11:21:00 CDT, Stop date: 01/31/17 11:21:00 CDT sodium chloride 984.8 mL, Inactive 0.9% 1000 ml Rate: 100 2016 [facility] INJ 984.8 mL + ml/hr, Infuse M.V.I.-12 10 mL over: 10 hr, Daily + folic Route: IV, acid IV 1 mg Dosing Weight Daily + thia 62.33 kg, Total Volume: 1,000, Start date: 01/31/17 11:21:00 CDT, Duration: 1 doses or times, Stop date: 01/31/17 21:20:00 CDT Levofloxacin 500 mg, Inactive Route: IVPB, 2017 [facility] ONCALL, Dosing Weight 62.33, kg, Start date: 01/31/17 11:00:00 CDT, Duration: 1 doses or times, ABX Indication: Surgical Prophylaxis Emend 40 mg, Route: Inactive PO, Drug 2016 [facility] form: CAP, PRE OP, Dosing Weight 61.364, kg, Start date: 01/31/17 11:00:00 CDT, Duration: 1 doses or times Sodium Chloride 984.8 mL, Inactive 0.9% IV 984.8 Rate: 125 2016 [facility] mL + M.V.I.-12 ml/hr, Infuse 10 mL + folic over: 7.9 hr, acid IV 1 mg + Route: IV, thiamine IV 500 Dosing Weight mg 62.33 kg, Total Volume: 984.8, Start date: 01/31/17 10:13:00 CDT, Duration: 1 doses or times, Stop date: 01/31/17 18:06:00 CDT 72 HR 1 patch, Inactive Scopolamine Route: TOP, 2016 [facility] 0.0139 MG/HR Drug Form: Transdermal ERFILM, Patch Dosing Weight 61.364, kg, ONCE, Start date: 01/31/17 10:13:00 CDT, Stop date: 01/31/17 10:13:00 CDT Lactated 1,000 mL, Inactive Ringers Rate: 125 2016 [facility] Injection IV ml/hr, Infuse 1000 mL over: 8 hr, Route: IV, Dosing Weight 62.33 kg, Total Volume: 1,000, Start date: 01/31/17 10:13:00 CDT, Duration: 11 day, Stop date: 02/11/17 10:12:00 CDT thiamine 100 mg 100 mg=1 tab, Active oral tablet PO, Daily, # 2017 [facility] 30 tab, 0 Refill(s), Pharmacy: [facility] [id number] sodium chloride 984.8 mL, Inactive 0.9% 1000 ml Rate: 100 2016 [facility] INJ 984.8 mL + ml/hr, Infuse M.V.I.-12 10 mL over: 10 hr, Daily + folic Route: IV, acid IV 1 mg Dosing Weight Daily + thia 61.364 kg, Total Volume: 1,000, Start date: 01/18/17 11:37:00 CDT, Duration: 1 doses or times, Stop date: 01/18/17 21:36:00 CDT ferric oxide, 300 mg, 15 Inactive saccharated mL, Route: 2016 [facility] IVPB, Drug form: INJ, ONCE, Dosing Weight 61.364, kg, Start date: 01/18/17 7:57:00 CDT, Duration: 1 doses or times, Stop date: 01/18/17 7:57:00 CDTNotes: Each 5ml contains 100mg elemental iron. Mix with NS Non-Formulary (Same as:Venofer) Administer IV only. MEDICATION WASTE Product Size: 100 mg Product Wasted: ___ mg Ferrlecit 100 mg, 8 mL, No Longer Route: IVPB, Active 2016 [facility] Drug form: INJ, ONCE, Dosing Weight 61.364, kg, Start date: 01/17/17 23:28:00 CDT, Stop date: 01/17/17 23:28:00 CDTNotes: (sodium ferric gluconate complex (elemental iron) 62.5 mg/5 ml INJ) "Limited stability. Use immediately after admixture" (Same as: Ferrlecit) MEDICATION WASTE Product Size: 62.5 mg Product Wasted: 25 mg sodium chloride 984.8 mL, Inactive 0.9% 1000 ml Rate: 100 2016 [facility] INJ 984.8 mL + ml/hr, Infuse M.V.I.-12 10 mL over: 10 hr, Daily + folic Route: IV, acid IV 1 mg Dosing Weight Daily + thia 61.364 kg, Total Volume: 1,000, Start date: 01/17/17 12:26:00 CDT, Duration: 1 doses or times, Stop date: 01/17/17 22:25:00 CDT sodium chloride 250 mL, Rate: No Longer 0.9% INJ 250 mL scallop dredger for Active 2016 [facility] use with blood product administratio n, Dosing Weight 61.364, kg, Route: IV, Total Volume: 250, Start Date: 01/17/17 12:20:00 CDT, Duration: 30 day, Stop date: 02/16/17 12:19:00 CDT, Replace Every: 24 hr potassium 10 mEq, 100 Inactive chloride mL, Route: 2016 IVPB, Drug form: INJ, Q1H, Start date: 01/16/17 15:00:00 CDT, Duration: 2 doses or times, Stop date: 01/16/17 16:00:00 CDTNotes: Infuse at a rate of 10 mEq/hr. (Same as: KCL) Potassium 20 mEq, Inactive Chloride Route: IVPB, 2016 [facility] ONCE, Dosing Weight 61.364, kg, Start date: 01/16/17 13:41:00 CDT, Stop date: 01/16/17 13:41:00 CDT D5W 1/2NS + KCL 1,000 mL, No Longer 20mEq/L 1000ml Rate: 60 Active 2016 [facility] (Premix) 1,000 ml/hr, Infuse mL over: 16.7 hr, Route: IV, Dosing Weight 61.364 kg, Total Volume: 1,000, Start date: 01/16/17 13:40:00 CDT, Stop date: 02/15/17 13:39:00 CDTNotes: PREMIX IV - Do Not Alter WASTE: F/P - Sink; E - Municipal Trash Bin Clonazepam 1 mg, 1 tab, No Longer Route: PO, Active 2016 [facility] Drug form: TAB, BID, Dosing Weight 61.364, kg, Start date: 01/16/17 12:00:00 CDT, Duration: 30 day, Stop date: 02/15/17 9:00:00 CDTNotes: (Same As: KlonoPIN) Thiamine 100 mg, 1 mL, No Longer Route: IVPB, Active 2016 [facility] Drug form: INJ, Daily, Dosing Weight 61.364, kg, Priority: NOW, Start date: 01/16/17 9:33:00 CDT, Duration: 30 day, Stop date: 02/15/17 9:00:00 CDTNotes: (Same As: Vitamin B1) Protonix 40 mg, Route: No Longer IVP, Drug Active 2016 [facility] form: INJ, Daily, Dosing Weight 60, kg, Patient is NPO, Start date: 01/16/17 9:00:00 CDT, Duration: 30 day, Stop date: 02/14/17 9:00:00 CDTNotes: For IV push reconstitute with 10 ml 0.9% sodium chloride and push over 2 minutes. (Same as: Protonix) Clonazepam 1 mg, PO, Active BID, 0 2016 Refill(s) Morphine 4 mg, 1 mL, No Longer Route: IV, 2016 [facility] Drug form: SOLN, Q4H, Dosing Weight 60, kg, PRN Pain Score 6-10, Start date: 01/15/17 17:25:00 CDT, Duration: 30 day, Stop date: 02/14/17 17:24:00 CDTNotes: (Same as:MORPhine Sulfate) Clonidine 0.1 mg, 1 No Longer Hydrochloride tab, Route: 2016 [facility] 0.1 MG Oral PO, Drug Tablet form: TAB, Q6H, Dosing Weight 60, kg, PRN Elevated BP, Start date: 01/15/17 17:24:00 CDT, Duration: 30 day, Stop date: 02/14/17 17:23:00 CDT, SBP > 165Notes: (Same As: Catapres) Restoril 15 mg, 1 cap, No Longer Route: PO, 2016 [facility] Drug form: CAP, Bedtime, Dosing Weight 60, kg, PRN Sleep, Start date: 01/15/17 17:24:00 CDT, Duration: 30 day, Stop date: 02/14/17 17:23:00 CDTNotes: (Same As: Restoril) Tylenol 650 mg, 20.3 No Longer mL, Route: 2016 [facility] PO, Drug form: LIQ, Q6H, Dosing Weight 60, kg, PRN Other -See Comment, Start date: 01/15/17 17:24:00 CDT, Duration: 30 day, Stop date: 02/14/17 17:23:00 CDT, fever, pain, headacheNotes : Max acetaminophen =4000mg/day (4 gm/day). (Same as: Tylenol) sodium chloride 1,000 mL, No Longer 0.9% 1000 ml Rate: 100 Active 2016 [facility] INJ 1,000 mL ml/hr, Infuse over: 10 hr, Route: IV, Dosing Weight 60 kg, Total Volume: 1,000, Start date: 01/15/17 17:24:00 CDT, Duration: 30 day, Stop date: 02/14/17 17:23:00 CDT Ondansetron 4 mg, 2 mL, No Longer Route: IVP, Active 2016 [facility] Drug form: INJ, Q6H, Dosing Weight 60, kg, PRN Nausea & Vomiting, Start date: 01/15/17 17:23:00 CDT, Duration: 30 day, Stop date: 02/14/17 17:22:00 CDTNotes: (Same as: Krishna) MEDICATION WASTE Product Size: 4 mg Product Wasted: ___ mg Sodium Chloride 1,000 mL, Inactive 0.9% IV 1000 mL Rate: 100 2016 [facility] + M.V.I.-12 10 ml/hr, Infuse mL Daily + over: 10 hr, folic acid IV 1 Route: IV, mg Daily + Dosing Weight thiamine IV 10 60 kg, Total Volume: 1,000, Start date: 01/15/17 14:50:00 CDT, Duration: 1 doses or times, Stop date: 01/16/17 0:49:00 CDT Morphine 4 mg, 1 mL, Inactive Route: IVP2016 [facility] Drug form: SOLN, ONCE, Dosing Weight 62.273, kg, Priority: STAT, Start date: 01/15/17 14:03:00 CDT, Stop date: 01/15/17 14:03:00 CDTNotes: (Same as:MORPhine Sulfate) Ondansetron 4 mg, 2 mL, Inactive Route: IV2016 [facility] Drug form: INJ, ONCE, Dosing Weight 62.273, kg, Priority: STAT, Start date: 01/15/17 14:03:00 CDT, Stop date: 01/15/17 14:03:00 CDTNotes: (Same as: Zoherber) MEDICATION WASTE Product Size: 4 mg Product Wasted: ___ mg Sodium Chloride 1,000 mL, Inactive 0.9% (Bolus) IV 1000 ml/hr, 2016 [facility] Infuse Over: 1 hr, Route: IV, 1,000, Drug form: INJ, ONCE, Priority: STAT, Dosing Weight 62.273 kg, Start date: 01/15/17 14:03:00 CDT, Duration: 1 doses or times, Stop date: 01/15/17 14:03:00 CDT Saline Flush 10 mL, Route: No Longer 0.9% IVP, Drug Active 2016 [facility] Form: INJ, Dosing Weight 62.273, kg, PRN, PRN Line Flush, Start date: 01/15/17 14:03:00 CDT, Duration: 30 day, Stop date: 02/14/17 14:02:00 CDTNotes: (Same as: BD Posiflush) ferrous sulfate 325 mg, 1 No Longer tab, Route: Active 2016 [facility] PO, Drug form: ECTAB, Daily, Dosing Weight 62.273, kg, Start date: 12/17/16 9:00:00 CDT, Duration: 30 day, Stop date: 01/15/17 9:00:00 CDTNotes: Give with food. "Do Not Crush" Famotidine 20 20 mg, 1 tab, Inactive MG Oral Tablet Route: PO, 2016 [Pepcid] Drug form: TAB, Q12H, Dosing Weight 62.273, kg, Start date: 12/16/16 21:00:00 CDT, Duration: 30 day, Stop date: 01/15/17 9:00:00 CDTNotes: (Same as: Pepcid) Docusate Sodium 100 mg, 1 Inactive 100 MG Oral cap, Route: 2017 [facility] Capsule PO, Drug [Colace] form: CAP, Bedtime, Dosing Weight 62.273, kg, Start date: 12/16/16 21:00:00 CDT, Duration: 30 day, Stop date: 01/14/17 21:00:00 CDTNotes: (Same as: Colace) (Do Not Crush) ferrous sulfate 325 mg, PO, Active 325 mg oral Daily, # 30 2017 [facility] enteric coated tab, 0 tablet Refill(s), Pharmacy: [facility] [id number] Docusate Sodium 100 mg=1 cap, Active 100 MG Oral PO, Bedtime, 2017 [facility] Capsule # 30 cap, 0 [Colace] Refill(s), Pharmacy: [facility] [id number] pantoprazole 20 40 mg=2 tab, Active MG Enteric PO, Daily, # 2017 [facility] Coated Tablet 60 tab, 0 [Protonix] Refill(s), Pharmacy: [facility] [id number] Pepcid 20 mg, 2 mL, No Longer Route: IVP, Active 2016 [facility] Drug form: INJ, Q12H, Dosing Weight 62.273, kg, Start date: 12/15/16 21:00:00 CDT, Duration: 30 day, Stop date: 01/14/17 9:00:00 CDTNotes: (Same as: Pepcid) Can be dilute in 5-10cc NS IVP: Slow IV push over at least 2 minutes. Ambien 10 mg, 1 tab, No Longer Route: PO, Active 2016 [facility] Drug form: TAB, Bedtime, Dosing Weight 62.273, kg, Start date: 12/15/16 21:00:00 CDT, Duration: 30 day, Stop date: 01/13/17 21:00:00 CDTNotes: (Same As: Ambien) Insulin, 4 unit, 0.04 No Longer Aspart, Human mL, Route: Active 2016 [facility] SUB-Q, Drug form: SOLN, TID-Before Meals, Dosing Weight 62.273, kg, PRN Blood Glucose Results, Start date: 12/15/16 20:56:00 CDT, Duration: 30 day, Stop date: 01/14/17 20:55:00 CDTNotes: Roll in palms of hands gently; Do not shake vigorously. (Same as: NovoLOG) "single patient use only" WASTE: F/P - Black; E - Municipal Trash Bin Stable for 28 days at room temperature. Expires in days from _Date Glucagon 1 mg, Route: No Longer IM, Drug Active 2016 [facility] form: PDR/INJ, PRN, Dosing Weight 62.273, kg, PRN Blood Glucose Results, Start date: 12/15/16 20:56:00 CDT, Duration: 30 day, Stop date: 01/14/17 20:55:00 CDT Dextrose 50% 25 gm, 50 mL, No Longer Syringe Route: IVP, Active 2016 [facility] Drug Form: INJ, Dosing Weight 62.273, kg, PRN, PRN Blood Glucose Results, Start date: 12/15/16 20:56:00 CDT, Duration: 30 day, Stop date: 01/14/17 20:55:00 CDT sodium chloride 1,000 mL, Inactive 0.9% 1000 ml Rate: 100 2016 [facility] INJ 1,000 mL + ml/hr, Infuse M.V.I.-12 10 mL over: 10.2 Daily + folic hr, Route: acid IV 1 mg IV, Dosing Daily + thia Weight 62.273 kg, Total Volume: 1,015.2, Start date: 12/15/16 15:54:00 CDT, Duration: 1 doses or times, Stop date: 12/16/16 2:05:00 CDT D5W 1/2NS + KCL 1,000 mL, No Longer 20mEq/L 1000ml Rate: 125 Active 2016 [facility] ([facility]) 1,000 ml/hr, Infuse mL over: 8 hr, Route: IV, Dosing Weight 62.273 kg, Total Volume: 1,000, Start date: 12/15/16 12:18:00 CDT, Duration: 30 day, Stop date: 01/14/17 12:17:00 CDTNotes: PREMIX IV - Do Not Alter WASTE: F/P - Sink; E - Municipal Trash Bin Omnipaque 300 100 ml, Inactive Route: IV, 2016 [facility] Drug Form: SOLN, Dosing Weight 62.273, kg, ONCE, Start date: 12/15/16 11:58:00 CDT, Stop date: 12/15/16 11:58:00 CDTNotes: (Same as:Omnipaque 300). WASTE: F/P - Black; E - [facility] Omnipaque 300 25 ml, Route: Inactive PO, Drug 2016 [facility] Form: SOLN, Dosing Weight 62.273, kg, ONCE, Start date: 12/15/16 11:57:00 CDT, Stop date: 12/15/16 11:57:00 CDTNotes: (Same as:Omnipaque 300). WASTE: F/P - Black; E - [facility] 12 HR 500 mg, 1 No Longer ranolazine 500 tab, Route: Active 2016 MG Extended PO, Drug Release Tablet form: TAB, [Ranexa] BID, Dosing Weight 62.273, kg, Start date: 12/15/16 9:00:00 CDT, Duration: 30 day, Stop date: 01/13/17 17:00:00 CDTNotes: Same as Ranexa "Do Not Crush" Isosorbide 10 mg, 1 tab, No Longer Dinitrate Route: PO, Active 2016 [facility] Drug form: TAB, BID, Dosing Weight 62.273, kg, Start date: 12/15/16 9:00:00 CDT, Duration: 30 day, Stop date: 01/13/17 17:00:00 CDTNotes: (Same as:Isordil) Take on empty stomach/ full glass of water Abilify 5 mg, 1 tab, No Longer Route: PO, Active 2016 [facility] Drug form: TAB, Daily, Dosing Weight 62.273, kg, Start date: 12/15/16 9:00:00 CDT, Duration: 30 day, Stop date: 01/13/17 9:00:00 CDTNotes: Non-Formulary Drug. (Same as: Abilify) Protonix 40 mg, 1 tab, No Longer Route: PO, Active 2016 [facility] Drug form: ECTAB, Before Breakfast, Dosing Weight 62.273, kg, Start date: 12/15/16 7:30:00 CDT, Duration: 30 day, Stop date: 01/13/17 7:30:00 CDTNotes: Tablet should not be chewed or crushed. (Same as: Protonix) Emend 40 mg, 1 cap, Inactive Route: PO, 2016 [facility] Drug form: CAP, ONCE, Dosing Weight 62.273, kg, Start date: 12/15/16 6:00:00 CDT, Stop date: 12/15/16 6:00:00 CDTNotes: Same as: Emend restricted to the Hematology/On cology service for high and moderate emetogenic regimen according to ASCO Guidelines Passthrough Only for Chemotherapy- Induced nausea & vomiting sodium chloride 984.8 mL, Inactive 0.9% 1000 ml Rate: 100 2016 [facility] INJ 984.8 mL + ml/hr, Infuse M.V.I.-12 10 mL over: 10 hr, Daily + folic Route: IV, acid IV 1 mg Dosing Weight Daily + thia 62.273 kg, Total Volume: 1,000, Start date: 12/15/16 5:53:00 CDT, Duration: 3 day, Stop date: 12/18/16 5:52:00 CDT Acetaminophen 1 tab, Route: No Longer 325 MG / PO, Drug Active 2016 [facility] Hydrocodone Form: TAB, Bitartrate 10 Dosing Weight MG Oral Tablet 62.273, kg, [[place] 10/325] Q4H, PRN Pain Score 4-6, Start date: 12/15/16 3:13:00 CDT, Duration: 30 day, Stop date: 01/14/17 3:12:00 CDTNotes: Do not exceed 4gm/day of acetaminophen . (Same as: [place] 325/10) sodium chloride 1,000 mL, Inactive 0.9% 1000 ml Rate: 75 2016 [facility] INJ 1,000 mL ml/hr, Infuse over: 13.3 hr, Route: IV, Dosing Weight 62.273 kg, Total Volume: 1,000, Start date: 12/15/16 3:13:00 CDT, Duration: 30 day, Stop date: 01/14/17 3:12:00 CDT Ondansetron 4 mg, 2 mL, No Longer Route: IVP, Active 2016 [facility] Drug form: INJ, Q6H, Dosing Weight 62.273, kg, PRN Nausea & Vomiting, Start date: 12/15/16 3:11:00 CDT, Duration: 30 day, Stop date: 01/14/17 3:10:00 CDTNotes: (Same as: Zofran) MEDICATION WASTE Product Size: 4 mg Product Wasted: ___ mg Morphine 2 mg, 1 mL, No Longer Route: IVP, Active 2016 [facility] Drug form: INJ, Q4H, Dosing Weight 62.273, kg, PRN Pain Score 7-10, Start date: 12/15/16 3:11:00 CDT, Duration: 30 day, Stop date: 01/14/17 3:10:00 CDTNotes: (Same as:MORPhine Sulfate) Acetaminophen 650 mg, 2 No Longer tab, Route: 2016 [facility] PO, Drug form: TAB, Q4H, Dosing Weight 62.273, kg, PRN Pain 1-3/Temp > 100.4 F, Start date: 12/15/16 3:11:00 CDT, Duration: 30 day, Stop date: 01/14/17 3:10:00 CDTNotes: Do not exceed 4 gm/day. (Same as: Tylenol) Cardizem 0 Refill(s) Active 2016 12 HR 500 mg=1 tab, Active ranolazine 500 PO, BID, # 60 2016 MG Extended tab, 0 Release Tablet Refill(s) [Ranexa] aripiprazole 5 5 mg=1 tab, Active MG Oral Tablet PO, Daily, # 2017 [Abilify] 30 tab, 0 Refill(s) pantoprazole 20 40 mg=2 tab, No Longer MG Enteric PO, Daily, # Active 2016 Coated Tablet 60 tab, 0 [Protonix] Refill(s) Acetaminophen 2 tab, PO, Active 325 MG / Q6H, PRN for 2016 Oxycodone pain, 0 Hydrochloride Refill(s) 10 MG Oral Tablet Furosemide 20 20 mg=1 tab, Active MG Oral Tablet PO, Daily, # 2017 [place] 30 tab, 0 Refill(s) clopidogrel 75 75 mg=1 tab, Active MG Oral Tablet PO, Daily, # 2017 [place] [Plavix] 30 tab, 0 Refill(s) isosorbide 10 mg=1 tab, Active dinitrate 10 mg PO, BID, # 60 2015 [place] oral tablet tab, 0 Refill(s) Aspirin 325 MG 325 mg, No Longer Oral Tablet Route: PO, Active 2015 [place] Drug form: TAB, Daily, Dosing Weight 65.028, kg, Start date: 04/08/16 9:00:00 ENERGY DIRECTOR, Duration: 30 day, Stop date: 05/07/16 9:00:00 ENERGY DIRECTOR Plavix 75 mg, 1 tab, Inactive Route: PO, 2015 [place] Drug form: TAB, Daily, Dosing Weight 65.028, kg, Start date: 04/08/16 9:00:00 ENERGY DIRECTOR, Duration: 30 day, Stop date: 05/07/16 9:00:00 CSTNotes: (Same As: Plavix) Verapamil 40 mg, 1 tab, Inactive Route: PO, 2015 [place] Drug form: TAB, Daily, Dosing Weight 65.028, kg, Start date: 04/08/16 9:00:00 ENERGY DIRECTOR, Duration: 30 day, Stop date: 05/07/16 9:00:00 CSTNotes: (Same As: Luke Zhang) "Avoid grapefruit and grapefruit juice" Clonazepam 1 mg, 1 tab, No Longer Route: PO, Active 2015 [place] Drug form: TAB, BID, Dosing Weight 65.028, kg, Start date: 04/07/16 17:00:00 ENERGY DIRECTOR, Duration: 30 day, Stop date: 05/07/16 9:00:00 CSTNotes: (Same As: KlonoPIN) Isordil 10 mg, 1 tab, No Longer Titradose Route: PO, Active 2015 [place] Drug form: TAB, BID, Dosing Weight 65.028, kg, Start date: 04/07/16 17:00:00 ENERGY DIRECTOR, Duration: 30 day, Stop date: 05/07/16 9:00:00 CSTNotes: (Same as:Isordil) Take on empty stomach/ full glass of water Protonix 40 mg, 1 tab, No Longer Route: PO, Active 2015 [place] Drug form: ECTAB, Before Dinner, Dosing Weight 65.028, kg, Start date: 04/07/16 16:30:00 ENERGY DIRECTOR, Duration: 30 day, Stop date: 05/06/16 16:30:00 CSTNotes: Tablet should not be chewed or crushed. (Same as: Protonix) Morphine 1 mg, 0.5 mL, No Longer Route: IVP, Active 2015 [place] Drug form: INJ, Q4H, Dosing Weight 65.028, kg, PRN Pain Score 7-10, Start date: 04/07/16 14:20:00 ENERGY DIRECTOR, Duration: 30 day, Stop date: 05/07/16 14:19:00 CSTNotes: (Same as:MORPhine Sulfate) Abilify 5 mg, 1 tab, No Longer Route: PO, Active 2015 [place] Drug form: TAB, Daily, Dosing Weight 65.028, kg, Priority: STAT, Start date: 04/07/16 14:09:00 ENERGY DIRECTOR, Duration: 30 day, Stop date: 05/07/16 9:00:00 CSTNotes: Non-Formulary Drug. (Same as: Abilify) Ambien 5 mg, Route: Inactive PO, Bedtime, 2015 [place] Dosing Weight 65.028, kg, PRN as needed for sleep, Start date: 04/07/16 14:06:00 ENERGY DIRECTOR, Duration: 30 day, Stop date: 05/07/16 14:05:00 ENERGY DIRECTOR Saline Flush 10 ml, Route: No Longer 0.9% IVP, Drug Active 2015 [place] Form: INJ, Dosing Weight 61.818, kg, Q12H, Start date: 04/07/16 9:00:00 ENERGY DIRECTOR, Duration: 30 day, Stop date: 05/06/16 21:00:00 CSTNotes: (Same as: BD Posiflush) aspirin 81 mg 81 mg, 1 tab, No Longer tablet, enteric Route: PO, Active 2015 [place] coated Drug form: ECTAB, Daily, Dosing Weight 61.818, kg, Start date: 04/07/16 9:00:00 ENERGY DIRECTOR, Duration: 30 day, Stop date: 05/06/16 9:00:00 CSTNotes: Do not crush or chew. (Same As: Ecotrin) pneumococcal 0.5 mL, Inactive capsular Route: IM, 2015 [place] polysaccharide Drug Form: type 1 vaccine INJ, Daily, / pneumococcal Start date: capsular 04/07/16 polysaccharide 9:00:00 ENERGY DIRECTOR, type 10A Duration: 1 vaccine / doses or pneumococcal times, Stop capsular date: polysaccharide 04/07/16 type 11A 9:00:00 vaccine / CSTNotes: pneumococcal (Same as: capsular Pneumovax 23) polysaccharide Refrigerate type 12F vaccine / pneumococcal capsular polysacchar Ambien 5 mg, 1 tab, No Longer Route: PO, Active 2015 [place] Drug form: TAB, Bedtime, PRN Sleep, Start date: 04/07/16 2:32:00 ENERGY DIRECTOR, Duration: 30 day, Stop date: 05/07/16 2:31:00 CSTNotes: (Same As: Ambien) Saline Flush 10 ml, Route: No Longer 0.9% IVP, Drug Active 2015 [place] Form: INJ, Dosing Weight 61.818, kg, PRN, PRN Line Flush, Start date: 04/07/16 1:32:00 ENERGY DIRECTOR, Duration: 30 day, Stop date: 05/07/16 1:31:00 CSTNotes: (Same as: BD Posiflush) Ondansetron 4 mg, 1 tab, No Longer Route: PO, Active 2015 [place] Drug form: TAB, Q8H, Dosing Weight 61.818, kg, PRN Nausea & Vomiting, Start date: 04/07/16 1:32:00 ENERGY DIRECTOR, Duration: 30 day, Stop date: 05/07/16 1:31:00 CSTNotes: (Same as: Zofran) Nitroglycerin 0.4 mg, 1 No Longer tab, Route: Active 2015 [place] SL, Drug form: TAB, Q5Min, Dosing Weight 61.818, kg, PRN Chest Pain, Start date: 04/07/16 1:32:00 ENERGY DIRECTOR, Duration: 3 doses or times, Stop date: Limited # of timesNotes: (Same as:Nitroquick , Nitrostat) "Do Not Crush" Sublingual tablet Acetaminophen 1 tab, Route: No Longer 325 MG / PO, Drug Active 2015 [place] Hydrocodone Form: TAB, Bitartrate 10 Dosing Weight MG Oral Tablet 61.818, kg, [[place] 10/325] Q4H, PRN Pain Score 1-3, Start date: 04/07/16 1:28:00 ENERGY DIRECTOR, Duration: 30 day, Stop date: 05/07/16 1:27:00 CSTNotes: Do not exceed 4gm/day of acetaminophen . (Same as: [place] 325/10) Ambien 10 mg, Route: Inactive PO, Bedtime, 2015 [place] Dosing Weight 61.818, kg, PRN Insomnia, Start date: 04/07/16 1:28:00 ENERGY DIRECTOR, Duration: 30 day, Stop date: 05/07/16 1:27:00 ENERGY DIRECTOR meclizine 25 mg 25 mg=1 tab, Active [place] oral tablet PO, BID, as 2014 Medical needed for Center dizziness, # 60 tab, 0 Refill(s) Sodium Chloride 1,000 mL, Inactive [place] 0.154 MEQ/ML 1,000 ml/hr, 2013 Medical Injectable Infuse Over: Center Solution 1 hr, Route: IV, 1,000, Drug form: INJ, ONCE, Priority: STAT, Dosing Weight 61.818 kg, Start date: 03/26/14 0:06:00, Duration: 1 doses or times, Stop date: 03/26/14 0:06:00 phenytoin 100 100 mg=1 cap, Active [place] mg oral PO, BID, # 60 2013 Medical capsule, cap, 2 Center extended Refill(s) release Tylenol 650 mg, 2 Inactive [place] tab, Route: 2013 Medical PO, Drug Center form: TAB, Q6H, Dosing Weight 90.909, kg, PRN Pain Score 1-3, Priority: NOW, Start date: 02/24/14 10:14:00, Stop date: 03/26/14 11:10:00Notes : Do not exceed 4 gm/day. (Same as: Tylenol) Tylenol 650 mg, Inactive [facility] Route: PO, 2013 Medical Drug form: Center TAB, Q6H, Dosing Weight 90.909, kg, PRN Pain Score 1-3, Priority: NOW, Start date: 02/24/14 10:11:00, Duration: 30 day, Stop date: 03/26/14 10:10:00 Fluoxetine 80 mg, 4 cap, Inactive [facility] Route: PO2013 Medical Drug form: [place] CAP, Daily, Dosing Weight 90.909, kg, Start date: 02/24/14 9:00:00, Duration: 30 day, Stop date: 03/25/14 9:00:00Notes: (Same as: ProzacJarrettafemeagan) Ambien 5 mg, 1 tab, Inactive [facility] Route: PO2013 Medical Drug form: Center TAB, Bedtime, Dosing Weight 90.909, kg, Start date: 02/24/14 0:45:00, Duration: 30 day, Stop date: 03/25/14 21:00:00Notes : (Same As: Ambien) Ambien 20 mg, PO, Active [facility] Bedtime, 0 2013 Medical Refill(s) Center Lamictal 400 mg, Inactive [facility] Route: PO, 2013 Medical Bedtime, Center Dosing Weight 90.909, kg, Start date: 02/23/14 21:00:00, Duration: 30 day, Stop date: 03/24/14 21:00:00 Lamictal 400 mg, 2 No Longer [facility] tab, Route: Active 2013 Medical PO, Drug Center form: TAB, QAM, Dosing Weight 90.909, kg, Start date: 02/23/14 13:05:00, Duration: 30 day, Stop date: 03/25/14 9:00:00Notes: (Same as:LaMICtal) FLUoxetine 40 80 mg=2 cap, Active [place] mg oral capsule PO, Daily, # 2014 [facility] 30 cap, 0 Center Refill(s) phenytoin 100 100 mg=1 cap, No Longer [place] mg oral PO, BID, 0 Active 2013 [facility] capsule, Refill(s) Center extended release lamotrigine 200 400 mg=2 tab, Active [place] MG Oral Tablet PO, Bedtime, 2013 Medical # 180 tab, 0 Center Refill(s) OXcarbazepine 900 mg=3 tab, Active [place] 300 mg oral PO, BID 2013 Medical tablet Center rizatriptan 10 10 mg=1 tab, Active [place] mg oral tablet, PO, Daily, 2013 Medical disintegrating for migraine Center headache terbinafine 250 250 mg=1 tab, Active [place] mg oral tablet PO, Daily, 0 2013 Medical Refill(s) Center Dilantin 100 mg, 1 No Longer [place] cap, Route: Active 2013 Medical PO, Drug Center form: ERCAP, BID, Dosing Weight 90.909, kg, Start date: 02/23/14 9:00:00, Duration: 30 day, Stop date: 03/24/14 17:00:00Notes : (Same as: Dilantin) Do not open, crush, or chew. Trileptal 900 mg, 3 No Longer [place] tab, Route: Active 2013 Medical PO, Drug Center form: TAB, BID, Dosing Weight 90.909, kg, Start date: 02/23/14 9:00:00, Duration: 30 day, Stop date: 03/24/14 17:00:00Notes : Do not crush or chew. (Same as: Trileptal) Lorazepam 1 mg, 0.5 mL, No Longer [place] Route: IVP, Active 2013 [facility] Drug form: Center INJ, Q15Min, Dosing Weight 90.909, kg, PRN Seizure, Start date: 02/23/14 5:07:00, Duration: 30 day, Stop date: 03/25/14 4:06:00Notes: (Same as: Ativan) Keppra 1,500 mg, Inactive [place] Route: IV, 2013 Medical ONCE, Dosing Center Weight 90.909, kg, Start date: 02/23/14 1:42:00, Stop date: 02/23/14 1:42:00Notes: Same as Keppra Mix with 100ml NS, LR, or D5W Sodium Chloride 1,000 mL, Inactive [place] 0.154 MEQ/ML 1,000 ml/hr, 2013 Medical Injectable Infuse Over: Center Solution 1 hr, Route: IV, ONCE, Priority: STAT, Dosing Weight 90.909 kg, Start date: 02/23/14 1:18:00, Duration: 1 doses or times, Stop date: 02/23/14 1:18:00 Ativan 2 mg, Route: Inactive [place] IVP, Drug 2013 Medical form: INJ, Center ONCE, Dosing Weight 90.909, kg, Priority: STAT, Start date: 02/23/14 1:08:00, Stop date: 02/23/14 1:08:00 Hydrocortisone not defined Oral Active 10 MG Oral [place] 2.16.840.1 .117274.4. [id number] 68 Carafate TK 10 ML PO Oral Active 1 GM/10ML [place] 2.16.840.1 FOUR TIMES A Oral .363312.4. DAY FOR 6 391.11.225 WEEKS 68 Ferrous Sulfate TK 1 T PO QD Oral Active 325 (65 Fe) [place] 2.16.840.1 MG Oral .722283.4. [id number] 68 Aripiprazole TK 1 T PO QD Oral Active 5 MG Oral [place] 2.16.840.1 .599924.4. [id number] 68 Vancomycin HCl not defined Intravenou Active 1.75-0.9 [place] 2.16.840.1 in NaCl s GM/300ML .286619.4. Intravenous [id number] 1 T Sublingual Active 0.4 MG [place] 2.16.840.1 UNDER THE Sublingual .785889.4. TONGUE Q 5 [id number] MINUTES PRN 68 FOR CHEST PAIN. DO NOT EXCEED 3 DOSES IN 15 MINUTES. Oxycodone-Aceta (Schedule II Oral Active 10-325 MG [place] 2.16.840.1 minophen Drug) TK 1 T Oral .866925.4. PO Q 6 H PRN [id number] 1 T Sublingual Active 0.4 MG [place] 2.16.840.1 UNDER THE Sublingual .108386.4. TONGUE Q 5 [id number] MINUTES PRF 68 CHEST PAIN. DO NOT EXCEED 3 DOSES IN 15 MINUTES. Clonazepam (Schedule IV Oral Active 1 MG Oral [place] 2.16.840.1 Drug) TK 1 T .030016.4. PO BID. [id number] 68 Omeprazole TK 1 C PO Oral Active 20 MG Oral [place] 2.16.840.1 TWICE A DAY .219989.4. FOR 6 WEEKS 391.11.225 68 Clopidogrel TK 1 T PO Oral Active 75 MG Oral [place] 2.16.840.1 Bisulfate ONCE D. .177207.4. [id number] 68 Zolpidem (Schedule IV Oral Active 10 MG Oral [place] 2.16.840.1 Tartrate Drug) TK 1 T .257195.4. PO HS PRN [id number] 68 Furosemide TK 1 T PO Oral Active 20 MG Oral [place] 2.16.840.1 ONCE DAILY .656151.4. [id number] 68 Pantoprazole TK 2 TS PO D Oral Active 20 MG Oral [place] 2.16.840.1 Sodium .125793.4. [id number] 68 DOK TK 1 C PO HS Oral Active 100 MG Oral [place] 2.16.840.1 .372473.4. [id number] 68 Hydrocodone-Thomas (Schedule II Oral Active 10-325 MG [place] 2.16.840.1 taminophen Drug) TK 1 T Oral .166748.4. PO Q 6 H 391.11.225 PRN. 68 Ropinirole HCl TK 1 T PO TID Oral Active 1 MG Oral [place] 2.16.840.1 PRN .445678.4. [id number] 68 Vancomycin HCl not defined Intravenou Active 1.75-0.9 [place] 2.16.840.1 in NaCl s GM/300ML .371369.4. Intravenous 391.11.225 68 Clonazepam 1 tablet Orally Active 1 MG Orally Latoya Enayet Twice a day Rahim Abilify 1 tablet Orally Active 5 MG Orally Latoya Enayet Once a day Rahim Ambien 1 tablet at Orally Active 10 mg Orally Latoya Enayet bedtime as Once a day Rahim needed Vancomycin not defined NA Active Latoya Enayet Rahim Aspirin Adult 1 tablet Orally Active 81 MG Orally Latoya Enayet Low Dose Once a day Rahim Plavix 1 tablet Orally Active 75 MG Orally Latoya Enayet Once a day Rahim Nitroglycerin 1 tablet Sublingual Active 0.4 MG Latoya Enayet Sublingual as Rahim needed (prn) Ranexa 1 tablet Orally Active 500 MG Orally Latoya Enayet Twice a day Rahim [place] 1 tablet as Orally Active 10-325 MG Latoya Enayet needed Orally every Rahim 6 hrs Protonix 1 packet Orally Active 40 MG Orally Latoya Enayet BID Rahim Protonix 2 tablets Orally Active 20 MG Orally Latoya Enayet Once a day Rahim Allergies, Adverse Reactions, Alerts Substance Category Reaction Severity Reaction Status Date Comments Source type Reported NSAIDS Adverse Info Not Adverse Active 2.16.840.1 Reaction Available Reaction 7 .840690.4. [id number] 68 penicillin Adverse Info Not Adverse Active Enayet Reaction Available Reaction 8 Rahim Fentanyl Adverse Info Not Adverse Active [place] Reaction Available Reaction 8 Rahim Aspirin Adverse stomach Adverse Active [place] Reaction upset Reaction 8 Rahim aspirin Assertion Drug Active allergy [place] Depo-Provera Assertion Drug Active [facility] allergy [place] fentaNYL Assertion Drug Active MH allergy [place] NSAIDs Assertion Drug Active MH allergy [place] penicillins Assertion Drug Active allergy [place] aspirin<sup> Assertion Drug Active causes MH 1</sup> allergy upset [place] stomach, pt takes Aspirin 81 mg po daily for 2 years now Immunizations Immunization Date Site Status Last Updated Comments Source Given [facility], 7 deltoid inactivated pneumococcal Not Given [facility] 23-valent 6 vaccine pneumococcal Not Given 23-valent 6 [place], vaccine [facility] Results Order Name Results Value Reference Date Interpretation Comments Source Range Small Small bowel Patient Name: MARY SABA 01/16 - bowel series DX /2017 - [place] series DX : 1980; Age: 37 years Female MR: [id number] Read by: Seven Grover MD Dictated Date/time: 01/16/18 11:52 Electronically Signed by: Seven Grover MD 01/16/18 13:24 FINAL REPORT Study: Small bowel series DX 01/16/2018 9:11 AM CDT Clinical Indication: - R11.2 Nausea with vomiting, unspecified, 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 CAT scan March 10, 2017. TECHNIQUE: Patient swallowed water-soluble contrast without difficulty. Multiple images of the abdomen are performed. FINDINGS: SMALL BOWEL: Reservation Clerk image demonstrates a normal bowel gas pattern. There appear to be left upper quadrant renal stones versus granulomas. There is prompt opacification of the stomach and proximal small b owel postingestion. Marked degree of retained material is noted in the stomach. There is prompt progression of contrast through normal-appearing small bowel. Contrast progresses to the colon at 90 minutes. IMPRESSION: Normal small bowel series. Normal progression of contrast to the colon at 90 minutes. [id number] URINE CHEM U Preg Negative Negative 09/05 [facility] (09/05/17 7:46 AM) CHEM PANEL Lipase Lvl 136 unit/L 73 - 393 08/02 [facility] ELECTROLYT AGAP 13.1 meq/L 10.0 - 08/02 ES 20.0 [facility] ELECTROLYT A/G Ratio 1.0 0.7 - 1.6 08/02 [facility] ELECTROLYT Globulin 3.8 g/dL 2.7 - 4.2 08/02 [facility] ELECTROLYT B/C Ratio 30 6 - 25 08/02 [facility] ELECTROLYT eGFR 123 08/02 Result Comment: The eGFR is calculated using the CKD-EPI formula. In most young, healthy individuals the eGFR will be >90 mL/ min/1.73m2. The eGFR declines with age. An eGFR of 60-89 may be normal in ES mL/min/1.7 /2017 some populations, particularly the elderly, for whom the CKD-EPI formula has not been extensively validated. Use of the eGFR is not recommended in the following populations: [facility] 3m2 Individuals with unstable creatinine concentrations, including patients and those with serious co-morbid conditions. Patients with extremes in muscle mass or diet. The data above are obtained from the National Kidney Disease Education Program (NKDEP) which additionally recommends that when the eGFR is used in patients with extremes of body mass index for purposes of drug dosing, the eGFR should be multiplied by the estimated BMI. ELECTROLYT Alk Phos 65 unit/L 39 - 136 08/02 [facility] ELECTROLYT Bili Total 0.3 mg/dL 0.2 - 1.3 08/02 [place] ELECTROLYT Potassium 4.1 meq/L 3.5 - 5.1 08/02 ES Lvl /2017 [place] ELECTROLYT Sodium Lvl 143 meq/L 135 - 145 08/02 [place] ELECTROLYT BUN 16 mg/dL 7 - 22 08/02 [place] ELECTROLYT Glucose Lvl 68 mg/dL 70 - 99 08/02 [place] ELECTROLYT Creatinine 0.53 mg/dL 0.50 - 08/02 [facility] Lvl 1.40 /2017 [place] ELECTROLYT Albumin Lvl 3.7 g/dL 3.5 - 5.0 08/02 [facility] ELECTROLYT Chloride Lvl 109 meq/L 95 - 109 08/02 [facility] ELECTROLYT Calcium Lvl 8.9 mg/dL 8.5 - 10.5 08/02 [facility] ELECTROLYT CO2 25 meq/L 24 - 32 08/02 [place] ELECTROLYT Total 7.5 g/dL 6.4 - 8.4 08/02 [facility] ELECTROLYT AST 15 unit/L 0 - 37 08/02 [facility] ELECTROLYT ALT 25 unit/L 0 - 65 08/02 [facility] HEMATOLOGY Platelet 302 K/CMM 133 - 450 08/02 [facility] HEMATOLOGY MCHC 32.5 g/dL 32.0 - 08/02 36.0 [facility] HEMATOLOGY RDW 18.4 % 11.5 - 08/02 14. [facility] HEMATOLOGY MCH 26.4 pg 27.0 - 08/02 31.0 [facility] HEMATOLOGY Hct 41.7 % 36.0 - 08/02 48.0 [facility] HEMATOLOGY Hgb 13.5 g/dL 12.0 - 08/02 16. [facility] HEMATOLOGY MCV 81.4 fL 80.0 - 08/02 98.0 [facility] HEMATOLOGY MPV 9.0 fL 7.4 - 10.4 08/02 [facility] HEMATOLOGY WBC 8.8 K/CMM 3.7 - 10.4 08/02 [facility] HEMATOLOGY RBC 5.12 M/CMM 4.20 - 08/02 MH 5.40 /2018 [facility] HEMATOLOGY Basophils # 0.1 K/CMM 0.0 - 0.2 08/02 [facility] HEMATOLOGY Monocytes # 0.5 K/CMM 0.0 - 0.8 08/02 [facility] HEMATOLOGY Lymphocytes 2.6 K/CMM 1.0 - 5.5 08/02 MH # /2018 [facility] HEMATOLOGY Segs-Bands # 5.5 K/CMM 1.5 - 8.1 08/02 [facility] HEMATOLOGY Basophils 0.7 % 0.0 - 1.0 08/02 [facility] HEMATOLOGY Eosinophils 0.5 % 0.0 - 4.0 08/02 [facility] HEMATOLOGY Lymphocytes 29.9 % 20.0 - 08/02 MH 40.0 /2017 [facility] HEMATOLOGY Segs 62.7 % 45.0 - 08/02 MH 75.0 /2017 [facility] HEMATOLOGY Monocytes 6.2 % 2.0 - 12.0 08/02 [facility] URINE AND UA RBC 51 /HPF 0 - 2 08/02 STOOL [place] URINE AND UA WBC 2 /HPF 0 - 5 08/02 [facility] URINE AND UA Mucus Few /LPF None Seen 08/02 STOOL /LPF [facility] URINE AND UA Sq Epi Moderate Few /LPF 08/02 STOOL /LPF /2017 [facility] URINE AND UA <=1.0 0.1 - 1.0 08/02 STOOL Urobilinogen mg/dL /2017 [facility] URINE AND UA Turbidity Clear Clear 08/02 [place] (08/02/17 5:33 PM) URINE AND UA Color Yellow Yellow 08/02 STOOL [facility] *NA* (08/02/17 5:33 PM) URINE AND UA Ketones Negative Negative 08/02 [facility] mg/dL mg/dL /2017 [facility] URINE AND UA Glucose Negative Negative 08/02 [facility] mg/dL mg/dL [facility] URINE AND UA Spec Grav 1.034 <=1.030 08/02 [facility] URINE AND UA Protein Negative Negative 08/02 [facility] mg/dL mg/dL [facility] URINE AND UA pH 5.0 5.0 - 8.0 08/02 [place] URINE AND UA Bili Negative Negative 08/02 [facility] *NA* (08/02/17 5:33 PM) URINE AND UA Leuk Est Negative Negative 08/02 [facility] (08/02/17 5:33 PM) URINE AND UA Blood Small Negative 08/02 [facility] *ABN* (08/02/17 5:33 PM) URINE AND UA Nitrite Negative Negative 08/02 [facility] (08/02/17 5:33 PM) URINE CHEM U Preg Negative Negative 08/02 [facility] (08/02/17 5:33 PM) CARDIAC BNP 62 pg/mL <=100 03/11 ENZYMES pg/mL [facility] ELECTROLYT Chloride Lvl 110 meq/L 95 - 109 03/11 ES [facility] ELECTROLYT Calcium Lvl 7.7 mg/dL 8.5 - 10.5 03/11 [facility] ELECTROLYT CO2 24 meq/L 24 - 32 03/11 [facility] ELECTROLYT AGAP 12.1 meq/L 10.0 - 03/11 ES 20.0 [facility] ELECTROLYT Potassium 3.1 meq/L 3.5 - 5.1 03/11 ES Lvl [facility] ELECTROLYT Sodium Lvl 143 meq/L 135 - 145 03/11 [facility] [facility] ELECTROLYT Creatinine 0.38 mg/dL 0.50 - 03/11 ES Lvl 1.40 [facility] ELECTROLYT eGFR 137 03/11 Result Comment: The eGFR is calculated using the CKD-EPI formula. In most young, healthy individuals the eGFR will be >90 mL/ min/1.73m2. The eGFR declines with age. An eGFR of 60-89 may be normal in [facility] mL/min/1.7 /2016 some populations, particularly the elderly, for whom the CKD-EPI formula has not been extensively validated. Use of the eGFR is not recommended in the following populations: [facility] 3m2 Individuals with unstable creatinine concentrations, including patients and those with serious co-morbid conditions. Patients with extremes in muscle mass or diet. The data above are obtained from the National Kidney Disease Education Program (NKDEP) which additionally recommends that when the eGFR is used in patients with extremes of body mass index for purposes of drug dosing, the eGFR should be multiplied by the estimated BMI. ELECTROLYT BUN 11 mg/dL 7 - 22 03/11 [facility] ELECTROLYT Glucose Lvl 95 mg/dL 70 - 99 03/11 [facility] HEMATOLOGY MPV 8.5 fL 7.4 - 10.4 03/11 [facility] HEMATOLOGY Platelet 214 K/CMM 133 - 450 03/11 [facility] HEMATOLOGY RDW 24.3 % 11.5 - 03/11 14.5 [facility] HEMATOLOGY RBC 3.78 M/CMM 4.20 - 03/11 5.40 [facility] HEMATOLOGY WBC 5.2 K/CMM 3.7 - 10.4 03/11 [facility] HEMATOLOGY MCHC 31.8 g/dL 32.0 - 03/11 36.0 [facility] HEMATOLOGY MCH 24.9 pg 27.0 - 03/11 31.0 [facility] HEMATOLOGY MCV 78.2 fL 80.0 - 03/11 98.0 [facility] HEMATOLOGY Hct 29.6 % 36.0 - 03/11 48.0 [facility] HEMATOLOGY Hgb 9.4 g/dL 12.0 - 03/11 16.0 [facility] HEMATOLOGY Microcyte 1+ None Seen 03/11 [facility] *ABN* (03/11/17 4:24 AM) HEMATOLOGY Lymphocytes 2.4 K/CMM 1.0 - 5.5 03/11 /2016 [facility] HEMATOLOGY Monocytes # 0.4 K/CMM 0.0 - 0.8 03/11 [facility] HEMATOLOGY Eosinophils 0.3 K/CMM 0.0 - 0.5 03/11 /2016 [facility] HEMATOLOGY Segs-Bands # 2.1 K/CMM 1.5 - 8.1 03/11 [facility] HEMATOLOGY Basophils 0.9 % 0.0 - 1.0 03/11 [facility] HEMATOLOGY Lymphocytes 45.6 % 20.0 - 03/11 40.0 [facility] HEMATOLOGY Eosinophils 5.0 % 0.0 - 4.0 03/11 [facility] HEMATOLOGY Monocytes 8.3 % 2.0 - 12.0 03/11 [facility] HEMATOLOGY Segs 40.2 % 45.0 - 03/11 75.0 [facility] HEMATOLOGY Plt Morph Normal 03/11 [facility] (03/11/17 4:24 AM) Chest Chest 1view Clinical Indication: - anasarca 03/10 - 1view DX DX /2016 - [facility] Comparison: March 06, 2017 Read by: Jarrett Rueda MD Dictated Date/time: 03/10/17 23:01 FINDINGS: Electronically Signed by: Jarrett Rueda MD 03/10/17 23:02 FINAL REPORT The frontal chest radiograph shows normal lung volumes without interstitial or airspace opacities, pleural effusions or pneumothorax. The cardiomediastinal contours are normal. The trachea is midline. There are no clinically significant osseous abnormalities noted. Right-sided PICC catheter tip remains in the superior vena cava near the cavoatrial junction. IMPRESSION: No chest radiographic evidence of acute cardiopulmonary disease. SL: 82 CHEM PANEL Lipase Lvl 175 unit/L 73 - 393 03/10 [facility] CHEM PANEL BUN 12 mg/dL 7 - 22 03/10 [facility] CHEM PANEL Glucose Lvl 92 mg/dL 70 - 99 03/10 [facility] CHEM PANEL Chloride Lvl 108 meq/L 95 - 109 03/10 [facility] CHEM PANEL Potassium 3.5 meq/L 3.5 - 5.1 03/10 Lvl [facility] CHEM PANEL Sodium Lvl 141 meq/L 135 - 145 03/10 [facility] CHEM PANEL Creatinine 0.51 mg/dL 0.50 - 03/10 Lvl 1.40 [facility] CHEM PANEL eGFR 125 03/10 Result Comment: The eGFR is calculated using the CKD-EPI formula. In most young, healthy individuals the eGFR will be >90 mL/ min/1.73m2. The eGFR declines with age. An eGFR of 60-89 may be normal in mL/min/1.7 some populations, particularly the elderly, for whom the CKD-EPI formula has not been extensively validated. Use of the eGFR is not recommended in the following populations: [facility] 3m2 Individuals with unstable creatinine concentrations, including patients and those with serious co-morbid conditions. Patients with extremes in muscle mass or diet. The data above are obtained from the National Kidney Disease Education Program (NKDEP) which additionally recommends that when the eGFR is used in patients with extremes of body mass index for purposes of drug dosing, the eGFR should be multiplied by the estimated BMI. CHEM PANEL AST 16 unit/L 0 - 37 03/10 [facility] CHEM PANEL Alk Phos 86 unit/L 39 - 136 03/10 [facility] CHEM PANEL Bili Total 0.2 mg/dL 0.2 - 1.3 03/10 [facility] CHEM PANEL Total 7.8 g/dL 6.4 - 8.4 03/10 [facility] CHEM PANEL Albumin Lvl 3.9 g/dL 3.5 - 5.0 03/10 [facility] CHEM PANEL ALT 24 unit/L 0 - 65 03/10 [facility] CHEM PANEL CO2 26 meq/L 24 - 32 03/10 [facility] CHEM PANEL Calcium Lvl 9.1 mg/dL 8.5 - 10.5 03/10 [facility] CHEM PANEL Globulin 3.9 g/dL 2.7 - 4.2 03/10 [facility] CHEM PANEL A/G Ratio 1.0 0.7 - 1.6 03/10 [facility] CHEM PANEL AGAP 10.5 meq/L 10.0 - 03/10 20.0 [facility] CHEM PANEL B/C Ratio 24 6 - 25 03/10 [facility] HEMATOLOGY Segs-Bands # 5.8 K/CMM 1.5 - 8.1 03/10 [facility] HEMATOLOGY Basophils 0.6 % 0.0 - 1.0 03/10 [facility] HEMATOLOGY Monocytes 5.2 % 2.0 - 12.0 03/10 [facility] HEMATOLOGY Segs 77.0 % 45.0 - 03/10 75.0 /2016 [facility] HEMATOLOGY Lymphocytes 16.1 % 20.0 - 03/10 40.0 [facility] HEMATOLOGY Lymphocytes 1.2 K/CMM 1.0 - 5.5 03/10 MH /2016 [facility] HEMATOLOGY Monocytes # 0.4 K/CMM 0.0 - 0.8 03/10 [facility] HEMATOLOGY Anisocyte 2+ None Seen 03/10 [facility] *ABN* (03/10/17 2:17 PM) HEMATOLOGY Microcyte 1+ None Seen 03/10 [facility] *ABN* (03/10/17 2:17 PM) HEMATOLOGY Hypochrom 1+ None Seen 03/10 [facility] (03/10/17 2:17 PM) HEMATOLOGY Eosinophils 0.1 K/CMM 0.0 - 0.5 03/10 /2016 [facility] HEMATOLOGY Eosinophils 1.1 % 0.0 - 4.0 03/10 [facility] HEMATOLOGY Polychrom Slight 03/10 [facility] HEMATOLOGY Large Plt Moderate None Seen 03/10 [facility] *ABN* (03/10/17 2:17 PM) HEMATOLOGY RDW 25.1 % 11.5 - 03/10 14.5 /2016 [facility] HEMATOLOGY Platelet 296 K/CMM 133 - 450 03/10 [facility] HEMATOLOGY MPV 8.2 fL 7.4 - 10.4 03/10 [facility] HEMATOLOGY RBC 4.74 M/CMM 4.20 - 03/10 5.40 /2016 [facility] HEMATOLOGY WBC 7.5 K/CMM 3.7 - 10.4 03/10 [facility] HEMATOLOGY MCHC 31.9 g/dL 32.0 - 03/10 36.0 /2016 [facility] HEMATOLOGY MCH 25.0 pg 27.0 - 03/10 31.0 /2016 [facility] HEMATOLOGY MCV 78.3 fL 80.0 - 03/10 98.0 /2016 [facility] HEMATOLOGY Hct 37.2 % 36.0 - 03/10 48.0 [facility] HEMATOLOGY Hgb 11.9 g/dL 12.0 - 03/10 16.0 [facility] URINE AND UA <=1.0 0.1 - 1.0 03/10 STOOL Urobilinogen mg/dL /2016 [facility] URINE AND UA Color Ltyellow 03/10 [facility] URINE AND UA pH 8.0 5.0 - 8.0 03/10 [facility] URINE AND UA Protein Negative Negative 03/10 STOOL mg/dL mg/dL [facility] URINE AND UA Spec Grav 1.013 <=1.030 03/10 [facility] URINE AND UA Turbidity Clear Clear 03/10 [facility] (03/10/17 2:17 PM) URINE AND UA Nitrite Negative Negative 03/10 STOOL [facility] (03/10/17 2:17 PM) URINE AND UA Blood Negative Negative 03/10 [facility] (03/10/17 2:17 PM) URINE AND UA Bili Negative Negative 03/10 [facility] *NA* (03/10/17 2:17 PM) URINE AND UA Ketones Negative Negative 03/10 STOOL mg/dL mg/dL [facility] URINE AND UA Glucose Negative Negative 03/10 STOOL mg/dL mg/dL [facility] URINE AND UA RBC 2 /HPF 0 - 2 03/10 STOOL [facility] URINE AND UA WBC 1 /HPF 0 - 5 03/10 STOOL [facility] URINE AND UA Sq Epi Occasional Few /LPF 03/10 STOOL /LPF [facility] URINE AND UA Leuk Est Negative Negative 03/10 STOOL [facility] (03/10/17 2:17 PM) URINE CHEM U Preg Negative Negative 03/10 [facility] (03/10/17 2:17 PM) CHEM PANEL Lactic Acid 1.3 mMol/L 0.5 - 2.2 03/10 Lvl [facility] ED ED Patient Name: MARY SABA 03/10 - Abdomen/Pe Abdomen/Pelv - [facility] lvis IV is IV : 1980; Age: 36 years y/o Female contrast contrast only CT only CT MR: [id number] Read by: Andi Mulligan MD Dictated Date/time: 03/10/17 16:19 Electronically Signed by: Andi Mulligan MD 03/10/17 16:44 FINAL REPORT Study: ED Abdomen/Pelvis IV contrast only CT 03/10/2017 1:37 PM CDT Ordering Physician: Jose Otto Comparison: 02/12/2017 CT Radiation Dose DLP mGy-cm Clinical Indication: 100ml omnipaque, ct [id number] - Abdominal pain. Postoperative surgical infection cleared on February 05. Increased pain fever today.; Multiple computerized axial tomograms of the abdomen and pelvis were obtained after administration of IV contrast and without oral contrast. The lack of oral contrast limits diagnostic detail at the ent musa tract and mesentery. 2-D sagittal and coronal reformation reconstruction images were obtained. Lung bases are clear. Postoperative changes are noted at the stomach. Surgical clips are noted at the gallbladder fossa status post cholecystectomy. Compensatory dilatation of the biliary tree status post cholecystectomy is noted. Correlation with liver function tests to exclude an obstructive pattern i s suggested. A 3 mm and a 4 mm nonobstructing calculi are noted at the mid left kidney. Liver, kidneys, spleen, pancreas and adrenal glands have an otherwise normal CT appearance. No adenopathy, abdominal mass or free fluid. No pneumoperitoneum. Generalized skin thickening and subcutaneous edema are noted at the abdomen and pelvis. Soft tissue thickening at the umbilicus is noted. A 9 x 11 mm fluid collection with rim enhancement is noted at th e supraumbilical abdominal wall in the midline (series 2, image 50). A 7 mm fluid collection with rim enhancement is noted at the infraumbilical abdominal wall in the midline (series 2, image 60). Posto perative change is noted in the midline at the infraumbilical abdominal wall. A tiny to small infraumbilical ventral abdominal wall hernia defect is noted in the midline (series 2, image 69). Interval removal of skin luis antonio at the incision. Fluidic distention of proximal jejunum and distal ileum is noted. A single dilated fluid-filled segments of small bowel is noted at the proximal jejunum at the left upper quadrant. Generalized small bow el wall and mucosal fold thickening is noted accentuated by incomplete distention. Fluidic stool and bowel wall thickening with stranding in the perirectal and pericolonic fat is noted at the rectum and sigmoid colon. Fluidic stool and bowel wall thickening are noted at the right, transverse and descending colon as well as the flexures. The appendix is not conclusively identified. A tampon is in place at the vagina. The uterus and adnexa are unremarkable. Tiny amount of free fluid is noted at the pelvis. There is mild urinary bladder wall thickening which is nonspecific. IMPRESSION: 1. Nonspecific proctocolitis without toxic megacolon. 2. Generalized enteritis to be distinguished from anasarca. 3. Near complete resolution of incisional fluid collection at the ventral abdominal wall in the midline with 2 small rim-enhancing fluid collections at the supraumbilical and infraumbilical abdominal wall in the midline as described above. 4. Generalized skin thickening and subcutaneous edema at the abdomen and pelvis is suggestive of anasarca or persistent "3rd spacing". 5. Localized ileus at the proximal jejunum. 6. Postoperative change at the stomach. Status post cholecystectomy. 7. Tiny amount of free fluid is noted at the pelvis. 8. Mild nonspecific urinary bladder wall thickening is noted which could represent chronic cystitis. 9. Nonobstructing left renal calculi. SL: DOMIN[facility]-PC Chest 2 Chest 2 Clinical Indication: - shortness of breath, fever,K59.1 Functional diarrhea 03/06 - views DX views - [facility] Comparison: 02/13/2017 Read by: Nolan Clayton MD Dictated Date/time: 03/06/17 14:24 FINDINGS: PA and lateral views the chest are submitted for interpretation. Electronically Signed by: Nolan Clayton MD 14:25 FINAL REPORT The lungs are clear and there are no effusions. There is no visible pneumothorax. Multiple skin folds overlie the left lateral lung base. The cardiomediastinal contours are within normal limits. There are no clinically significant osseous abnormalities noted. Right-sided PICC line tip continues to overlie the lower SVC. IMPRESSION: 1. No radiographic evidence of acute cardiopulmonary process. SL: [facility] CHEM PANEL eGFR 144 02/17 Result Comment: The eGFR is calculated using the CKD-EPI formula. In most young, healthy individuals the eGFR will be >90 mL/ min/1.73m2. The eGFR declines with age. An eGFR of 60-89 may be normal in mL/min/1. some populations, particularly the elderly, for whom the CKD-EPI formula has not been extensively validated. Use of the eGFR is not recommended in the following populations: [address] Individuals with unstable creatinine concentrations, including patients and those with serious co-morbid conditions. Patients with extremes in muscle mass or diet. The data above are obtained from the National Kidney Disease Education Program (NKDEP) which additionally recommends that when the eGFR is used in patients with extremes of body mass index for purposes of drug dosing, the eGFR should be multiplied by the estimated BMI. CHEM PANEL Potassium 4.1 meq/L 3.5 - 5.1 02/17 MH Lvl [facility] CHEM PANEL Chloride Lvl 106 meq/L 95 - 109 02/17 [facility] CHEM PANEL Calcium Lvl 8.1 mg/dL 8.5 - 10.5 02/17 [facility] CHEM PANEL CO2 28 meq/L 24 - 32 02/17 [facility] CHEM PANEL Creatinine 0.33 mg/dL 0.50 - 02/17 MH Lvl 1.40 [facility] CHEM PANEL Sodium Lvl 142 meq/L 135 - 145 02/17 [facility] CHEM PANEL Glucose Lvl 88 mg/dL 70 - 99 02/17 [facility] CHEM PANEL BUN 14 mg/dL 7 - 22 02/17 [facility] CHEM PANEL AGAP 12.1 meq/L 10.0 - 02/17 MH 20.0 /2017 [facility] HEMATOLOGY Eosinophils 1.7 % 0.0 - 4.0 02/17 [facility] HEMATOLOGY Lymphocytes 20.8 % 20.0 - 02/17 MH 40.0 /2016 [facility] HEMATOLOGY Basophils 1.1 % 0.0 - 1.0 02/17 [facility] HEMATOLOGY Segs-Bands # 9.0 K/CMM 1.5 - 8.1 02/17 [facility] HEMATOLOGY Monocytes 5.5 % 2.0 - 12.0 02/17 [facility] HEMATOLOGY Lymphocytes 2.6 K/CMM 1.0 - 5.5 02/17 # /2016 [facility] HEMATOLOGY Monocytes # 0.7 K/CMM 0.0 - 0.8 02/17 [facility] HEMATOLOGY Anisocyte 2+ None Seen 02/17 [facility] *ABN* (02/17/17 3:51 AM) HEMATOLOGY Eosinophils 0.2 K/CMM 0.0 - 0.5 02/17 # /2016 [facility] HEMATOLOGY Basophils # 0.1 K/CMM 0.0 - 0.2 02/17 [facility] HEMATOLOGY Plt Morph Normal 02/17 [facility] (02/17/17 3:51 AM) HEMATOLOGY Segs 70.9 % 45.0 - 02/17 75.0 [facility] HEMATOLOGY Microcyte 1+ None Seen 02/17 [facility] *ABN* (02/17/17 3:51 AM) HEMATOLOGY Hgb 8.5 g/dL 12.0 - 02/17 16.0 [facility] HEMATOLOGY Hct 27.2 % 36.0 - 02/17 48.0 2017 [facility] HEMATOLOGY MCV 76.3 fL 80.0 - 02/17 98.0 2017 [facility] HEMATOLOGY MCH 23.9 pg 27.0 - 02/17 31.0 2017 [facility] HEMATOLOGY MCHC 31.4 g/dL 32.0 - 02/17 36.0 [facility] HEMATOLOGY RDW 27.4 % 11.5 - 02/17 14. [facility] HEMATOLOGY Platelet 381 K/CMM 133 - 450 02/17 [facility] HEMATOLOGY MPV 8.8 fL 7.4 - 10.4 02/17 [facility] HEMATOLOGY WBC 12.7 K/CMM 3.7 - 10.4 02/17 [facility] HEMATOLOGY RBC 3.57 M/CMM 4.20 - 10 MH 5.40 /2016 [facility] CHEM PANEL Phosphorus 4.3 mg/dL 2.5 - 4.5 02/16 [facility] CHEM PANEL Magnesium 2.0 mg/dL 1.8 - 2.4 02/16 Lvl [facility] CHEM PANEL Glucose Lvl 95 mg/dL 70 - 99 02/16 [facility] CHEM PANEL eGFR 135 02/16 Result Comment: The eGFR is calculated using the CKD-EPI formula. In most young, healthy individuals the eGFR will be >90 mL/ min/1.73m2. The eGFR declines with age. An eGFR of 60-89 may be normal in mL/min/1.7 some populations, particularly the elderly, for whom the CKD-EPI formula has not been extensively validated. Use of the eGFR is not recommended in the following populations: [facility] 3m2 Individuals with unstable creatinine concentrations, including patients and those with serious co-morbid conditions. Patients with extremes in muscle mass or diet. The data above are obtained from the National Kidney Disease Education Program (NKDEP) which additionally recommends that when the eGFR is used in patients with extremes of body mass index for purposes of drug dosing, the eGFR should be multiplied by the estimated BMI. CHEM PANEL Chloride Lvl 108 meq/L 95 - 109 02/16 [facility] CHEM PANEL Sodium Lvl 141 meq/L 135 - 145 02/16 [facility] CHEM PANEL Potassium 4.4 meq/L 3.5 - 5.1 02/16 Lv [facility] CHEM PANEL Creatinine 0.40 mg/dL 0.50 - 02/16 MH Lvl 1.40 [facility] CHEM PANEL BUN 15 mg/dL 7 - 22 02/16 [facility] CHEM PANEL AGAP 10.4 meq/L 10.0 - 02/16 MH 20.0 [facility] CHEM PANEL Calcium Lvl 8.7 mg/dL 8.5 - 10.5 02/16 [facility] CHEM PANEL CO2 27 meq/L 24 - 32 02/16 [facility] IMMUNOLOGY Prealbumin 18.5 mg/dL 18.0 - 02/16 MH 45.0 [facility] IMMUNOLOGY Prealbumin 15.0 mg/dL 18.0 - 02/16 MH 45. [facility] ENDOCRINOL Cortisol 38.9 ug/dl 10/10 MH OGY /2017 [facility] ENDOCRINOL Cortisol 29.5 ug/dl 02/14 [facility] CHEM PANEL Globulin 3.6 g/dL 2.7 - 4.2 02/14 [facility] CHEM PANEL A/G Ratio 0.6 0.7 - 1.6 02/14 [facility] CHEM PANEL ALT 11 unit/L 0 - 65 02/14 [facility] CHEM PANEL eGFR 144 02/14 Result Comment: The eGFR is calculated using the CKD-EPI formula. In most young, healthy individuals the eGFR will be >90 mL/ min/1.73m2. The eGFR declines with age. An eGFR of 60-89 may be normal in mL/min/1.7 some populations, particularly the elderly, for whom the CKD-EPI formula has not been extensively validated. Use of the eGFR is not recommended in the following populations: [facility] 3m2 Individuals with unstable creatinine concentrations, including patients and those with serious co-morbid conditions. Patients with extremes in muscle mass or diet. The data above are obtained from the National Kidney Disease Education Program (NKDEP) which additionally recommends that when the eGFR is used in patients with extremes of body mass index for purposes of drug dosing, the eGFR should be multiplied by the estimated BMI. CHEM PANEL Bili Total 0.1 mg/dL 0.2 - 1.3 02/14 [facility] CHEM PANEL Alk Phos 60 unit/L 39 - 136 02/14 [facility] CHEM PANEL AST 6 unit/L 0 - 37 02/14 [facility] CHEM PANEL CO2 26 meq/L 24 - 32 02/14 [facility] CHEM PANEL AGAP 10.6 meq/L 10.0 - 02/14 MH 20.0 [facility] CHEM PANEL Calcium Lvl 8.5 mg/dL 8.5 - 10.5 02/14 [facility] CHEM PANEL B/C Ratio 21 6 - 25 02/14 [facility] CHEM PANEL Creatinine 0.33 mg/dL 0.50 - 02/14 MH Lvl 1.40 [facility] CHEM PANEL Sodium Lvl 141 meq/L 135 - 145 02/14 [facility] CHEM PANEL Potassium 3.6 meq/L 3.5 - 5.1 02/14 MH Lvl [facility] CHEM PANEL Chloride Lvl 108 meq/L 95 - 109 02/14 [facility] CHEM PANEL BUN 7 mg/dL 7 - 22 02/14 [facility] CHEM PANEL Total 5.8 g/dL 6.4 - 8.4 02/14 [facility] CHEM PANEL Albumin Lvl 2.2 g/dL 3.5 - 5.0 02/14 [facility] CHEM PANEL Glucose Lvl 94 mg/dL 70 - 99 02/14 [facility] CHEM PANEL Magnesium 1.9 mg/dL 1.8 - 2.4 02/14 Lvl /2016 [facility] HEMATOLOGY Platelet 347 K/CMM 133 - 450 02/14 [facility] HEMATOLOGY MPV 8.6 fL 7.4 - 10.4 02/14 [facility] HEMATOLOGY WBC 7.9 K/CMM 3.7 - 10.4 02/14 [facility] HEMATOLOGY RBC 3.60 M/CMM 4.20 - 02/14 5.40 /2016 [facility] HEMATOLOGY Hgb 8.8 g/dL 12.0 - 02/14 16.0 [facility] HEMATOLOGY MCV 76.4 fL 80.0 - 02/14 98.0 /2016 [facility] HEMATOLOGY Hct 27.5 % 36.0 - 02/14 48.0 /2016 [facility] HEMATOLOGY RDW 26.7 % 11.5 - 02/14 14.5 [facility] HEMATOLOGY MCH 24.4 pg 27.0 - 02/14 31.0 [facility] HEMATOLOGY MCHC 32.0 g/dL 32.0 - 02/14 36.0 /2017 [facility] HEMATOLOGY Monocytes # 0.6 K/CMM 0.0 - 0.8 02/14 [facility] HEMATOLOGY Lymphocytes 1.9 K/CMM 1.0 - 5.5 02/14 # /2016 [facility] HEMATOLOGY Eosinophils 0.2 K/CMM 0.0 - 0.5 02/14 # /2016 [facility] HEMATOLOGY Basophils # 0.1 K/CMM 0.0 - 0.2 02/14 [facility] HEMATOLOGY Microcyte 1+ None Seen 02/14 [facility] *ABN* (02/14/17 4:48 AM) HEMATOLOGY Monocytes 7.7 % 2.0 - 12.0 02/14 [facility] HEMATOLOGY Segs 65.5 % 45.0 - 02/14 75.0 /2016 [facility] HEMATOLOGY Lymphocytes 23.4 % 20.0 - 02/14 40.0 /2017 [facility] HEMATOLOGY Eosinophils 2.7 % 0.0 - 4.0 02/14 [facility] HEMATOLOGY Basophils 0.7 % 0.0 - 1.0 02/14 [facility] HEMATOLOGY Segs-Bands # 5.2 K/CMM 1.5 - 8.1 02/14 [facility] IMMUNOLOGY Prealbumin 9.8 mg/dL 18.0 - 02/14 45.0 /2017 [facility] ENDOCRINOL Cortisol 3.9 ug/dl 02/13 OGY [facility] Chest Chest 1view Portable chest: The PICC line tip is in good position at the cavoatrial junction. There is no other change compared to 01/31/2017. - 1view DX DX /2016 - [facility] SL [id number] Read by: Niranjan Choudhary MD Dictated Date/time: 02/13/17 13:49 Electronically Signed by: Niranjan Choudhary MD 02/13/17 13:50 FINAL REPORT CHEM PANEL Magnesium 1.9 mg/dL 1.8 - 2.4 02/13 Lvl [facility] CHEM PANEL Globulin 3.7 g/dL 2.7 - 4.2 02/13 [facility] CHEM PANEL A/G Ratio 0.6 0.7 - 1.6 02/13 [facility] CHEM PANEL ALT 11 unit/L 0 - 65 02/13 [facility] CHEM PANEL Albumin Lvl 2.2 g/dL 3.5 - 5.0 02/13 [facility] CHEM PANEL Total 5.9 g/dL 6.4 - 8.4 02/13 [facility] CHEM PANEL Alk Phos 68 unit/L 39 - 136 02/13 [facility] CHEM PANEL AST 6 unit/L 0 - 37 02/13 [facility] CHEM PANEL Bili Total 0.7 mg/dL 0.2 - 1.3 02/13 [facility] CHEM PANEL B/C Ratio 17 6 - 25 02/13 [facility] CHEM PANEL Phosphorus 3.8 mg/dL 2.5 - 4.5 02/13 [facility] HEMATOLOGY Microcyte 1+ None Seen 02/13 [facility] *ABN* (02/13/17 6:35 AM) HEMATOLOGY Target Cell Slight 02/13 [facility] HEMATOLOGY Anisocyte 2+ None Seen 02/13 [facility] *ABN* (02/13/17 6:35 AM) HEMATOLOGY Basophils # 0.1 K/CMM 0.0 - 0.2 02/13 [facility] HEMATOLOGY Eosinophils 0.2 K/CMM 0.0 - 0.5 02/13 # /2016 [facility] HEMATOLOGY Lymphocytes 1.6 K/CMM 1.0 - 5.5 02/13 # /2016 [facility] HEMATOLOGY Monocytes # 0.7 K/CMM 0.0 - 0.8 02/13 [facility] HEMATOLOGY Monocytes 7.8 % 2.0 - 12.0 02/13 [facility] HEMATOLOGY Eosinophils 2.1 % 0.0 - 4.0 02/13 [facility] HEMATOLOGY Segs-Bands # 6.0 K/CMM 1.5 - 8.1 02/13 [facility] HEMATOLOGY Basophils 0.8 % 0.0 - 1.0 02/13 [facility] HEMATOLOGY Plt Morph Normal 02/13 [facility] (02/13/17 6:35 AM) HEMATOLOGY Lymphocytes 19.2 % 20.0 - 02/13 MH 40.0 [facility] HEMATOLOGY Segs 70.1 % 45.0 - 02/13 MH 75.0 /2016 [facility] HEMATOLOGY MPV 8.5 fL 7.4 - 10.4 02/13 [facility] HEMATOLOGY MCHC 32.1 g/dL 32.0 - 02/13 MH 36.0 /2016 [facility] HEMATOLOGY RDW 26.7 % 11.5 - 02/13 14.5 /2016 [facility] HEMATOLOGY Platelet 356 K/CMM 133 - 450 02/13 [facility] HEMATOLOGY MCH 24.2 pg 27.0 - 02/13 31.0 [facility] HEMATOLOGY MCV 75.3 fL 80.0 - 02/13 98.0 /2016 [facility] HEMATOLOGY Hct 29.3 % 36.0 - 02/13 48.0 [facility] HEMATOLOGY Hgb 9.4 g/dL 12.0 - 02/13 16.0 [facility] HEMATOLOGY RBC 3.89 M/CMM 4.20 - 02/13 MH 5.40 /2016 [facility] HEMATOLOGY WBC 8.5 K/CMM 3.7 - 10.4 02/13 [facility] LIPIDS Trig 85 mg/dL <=149 02/13 mg/dL /2016 [facility] HEMATOLOGY INR 1.04 0.85 - 02/12 1.17 [facility] HEMATOLOGY PT 13.8 s 12.0 - 02/12 14.7 /2016 [facility] HEMATOLOGY PTT 41.9 s 22.9 - 02/12 35.8 [facility] BLOOD BANK ABO/Rh A POS 02/12 RESULTS [facility] CHEM PANEL Lipase Lvl 97 unit/L 73 - 393 02/12 [facility] CHEM PANEL B/C Ratio 26 6 - 25 02/12 [facility] CHEM PANEL A/G Ratio 0.7 0.7 - 1.6 02/12 [facility] CHEM PANEL Globulin 4.3 g/dL 2.7 - 4.2 02/12 [facility] CHEM PANEL Alk Phos 81 unit/L 39 - 136 02/12 [facility] CHEM PANEL Bili Total 0.2 mg/dL 0.2 - 1.3 02/12 [facility] CHEM PANEL AST 9 unit/L 0 - 37 02/12 [facility] CHEM PANEL Total 7.1 g/dL 6.4 - 8.4 02/12 [facility] CHEM PANEL ALT 10 unit/L 0 - 65 02/12 [facility] CHEM PANEL Albumin Lvl 2.8 g/dL 3.5 - 5.0 02/12 [facility] CHEM PANEL Lactic Acid 1.2 mMol/L 0.5 - 2.2 02/12 Lvl [facility] HEMATOLOGY Large Plt Marked None Seen 02/12 [facility] *ABN* (02/12/17 2:20 AM) HEMATOLOGY Anisocyte 3+ None Seen 02/12 [facility] (02/12/17 2:20 AM) URINE AND UA Hyal Cast 1 /LPF 0 - 2 02/12 STOOL [facility] URINE AND UA Spec Grav 1.034 <=1.030 02/12 STOOL [facility] URINE AND UA pH 5.0 5.0 - 8.0 02/12 STOOL [facility] URINE AND UA Protein Negative Negative 02/12 [facility] mg/dL mg/dL [facility] URINE AND UA Glucose Negative Negative 02/12 [facility] mg/dL mg/dL [facility] URINE AND UA Ketones Negative Negative 02/12 [facility] mg/dL mg/dL [facility] URINE AND UA Bili Negative Negative 02/12 [facility] *NA* (02/12/17 2:20 AM) URINE AND UA Blood Negative Negative 02/12 [facility] (02/12/17 2:20 AM) URINE AND UA Leuk Est Trace Negative 02/12 [facility] *ABN* (02/12/17 2:20 AM) URINE AND UA Sq Epi Moderate Few /LPF 02/12 [facility] /LPF URINE AND UA 2.0 mg/dL 0.1 - 1.0 02/12 [facility] Urobilinogen [facility] URINE AND UA WBC 4 /HPF 0 - 5 02/12 STOOL [facility] URINE AND UA Nitrite Negative Negative 02/12 STOOL [facility] (02/12/17 2:20 AM) URINE AND UA Mucus Few /LPF None Seen 02/12 [facility] /LPF URINE AND UA RBC 4 /HPF 0 - 2 02/12 STOOL [facility] URINE AND UA Bacteria Occasional None Seen 02/12 [facility] /HPF /HPF [facility] URINE AND UA Turbidity Slight Clear 02/12 *ABN* (02/12/17 2:20 AM) URINE AND UA Color Yellow Yellow 02/12 [facility] *NA* (02/12/17 2:20 AM) URINE CHEM U Preg Negative Negative 02/12 (02/12/17 2:20 AM) Abdomen/Pe Abdomen/Pelv Clinical Indication: Abdominal pain and swelling. Abdominal surgery 01/31/2017. 02/12 - lvis w IV is w IV - [facility] contrast contrast CT Comparison: None CT Read by: Silvano Abdalla MD Dictated Date/time: 02/12/17 05:22 TECHNIQUE: Helical imaging was performed after injection of IV contrast, from the diaphragm through the symphysis with multiplanar reformations obtained. Electronically Signed by: Silvano Abdalla MD 02/12/17 05:38 FINAL REPORT IV CONTRAST: 100 mL of Omnipaque GI CONTRAST: No oral contrast was administered. DLP: 1290.49 mGy-cm FINDINGS: LOWER CHEST: Dependent atelectasis is seen at the lung bases. LIVER: The liver parenchyma is normal in appearance without masses or intrahepatic biliary ductal dilatation. The portal vein is normal in caliber. BILIARY TREE: There is no significant biliary ductal dilatation. GALLBLADDER: The gallbladder is surgically absent, surgical clips are seen within the gallbladder fossa. PANCREAS: The pancreas is unremarkable. The pancreatic duct is normal in caliber. SPLEEN: The spleen is normal in size and there are no parenchymal abnormalities. ADRENALS: The right adrenal gland is unremarkable. The left adrenal gland is unremarkable. KIDNEYS: The kidneys demonstrates normal contrast enhancement. There are no masses. There are 4 mm nonobstructing stones within the left mid pole kidney. There is no evidence of hydronephrosis. BOWEL: There is contrast within the colon, which is most likely from a prior contrast study. A moderate to large amount of fecal material noted throughout the colon. There are postsurgical changes from prior gastric surgery. No evidence of bowel obstruction is noted. APPENDIX: The appendix is within normal limits. PELVIS: There are no pelvic masses. The urinary bladder is unremarkable. The uterus and ovaries are unremarkable. PERITONEUM: There is a small amount of pelvic free fluid. No free air is seen. SOFT TISSUES: There is a irregular fluid collection along the midline abdominal incision above the level of the umbilicus, which measures 4.3 x 5.7 x 7.9 cm. There is an additional irregular fluid colle ction inferior to the level of the umbilicus which measures 2.6 x 3.8 x 5.8 cm. There is minimal discontinuous rim enhancement around these collections. There is subcutaneous soft tissue swelling along the anterior abdominal wall. There is skin luis antonio overlying the midline abdominal incision. LYMPH NODES: There are small mesenteric and periaortic lymph nodes, which are most likely reactive in etiology. VASCULATURE: The abdominal aorta is normal in caliber. The branches of the abdominal aorta are widely patent. MUSCULOSKELETAL: The visualized bony skeleton is unremarkable. IMPRESSION: 1. Irregular fluid collections within the midline abdominal incision with discontinuous rim enhancement. The collection superior to the umbilicus measures 4.3 x 5.7 x 7.9 cm. The collection inferior to the umbilicus measures 2.6 x 3.8 x 5.8 cm. Differential includes developing abscesses versus postoperative seromas. 2. Subcutaneous soft tissue swelling along the anterior abdomen, which may represent cellulitis. 3. Evidence of prior gastric surgery. No evidence of bowel obstruction. Moderate to large amount of fecal material throughout the colon. 4. Nonobstructing stones within the left kidney. SL: KPATEL-M CHEM PANEL ALT 52 unit/L 0 - 65 02/03 [facility] CHEM PANEL BUN 3 mg/dL 7 - 22 02/03 [facility] CHEM PANEL Glucose Lvl 81 mg/dL 70 - 99 02/03 [facility] CHEM PANEL CO2 21 meq/L 24 - 32 02/03 [facility] CHEM PANEL Albumin Lvl 2.6 g/dL 3.5 - 5.0 02/03 [facility] CHEM PANEL Potassium 4.0 meq/L 3.5 - 5.1 02/03 MH Lvl [facility] CHEM PANEL Calcium Lvl 7.7 mg/dL 8.5 - 10.5 02/03 [facility] CHEM PANEL Sodium Lvl 138 meq/L 135 - 145 02/03 [facility] CHEM PANEL Chloride Lvl 105 meq/L 95 - 109 02/03 [facility] CHEM PANEL Alk Phos 53 unit/L 39 - 136 02/03 [facility] CHEM PANEL Total 5.1 g/dL 6.4 - 8.4 02/03 [facility] CHEM PANEL Bili Total 0.6 mg/dL 0.2 - 1.3 02/03 [facility] CHEM PANEL eGFR 158 02/03 Result Comment: The eGFR is calculated using the CKD-EPI formula. In most young, healthy individuals the eGFR will be >90 mL/ min/1.73m2. The eGFR declines with age. An eGFR of 60-89 may be normal in mL/min/1. some populations, particularly the elderly, for whom the CKD-EPI formula has not been extensively validated. Use of the eGFR is not recommended in the following populations: [address] Individuals with unstable creatinine concentrations, including patients and those with serious co-morbid conditions. Patients with extremes in muscle mass or diet. The data above are obtained from the National Kidney Disease Education Program (NKDEP) which additionally recommends that when the eGFR is used in patients with extremes of body mass index for purposes of drug dosing, the eGFR should be multiplied by the estimated BMI. CHEM PANEL Creatinine 0.25 mg/dL 0.50 - 02/03 Lvl 1.40 [facility] CHEM PANEL AST 48 unit/L 0 - 37 02/03 [facility] CHEM PANEL AGAP 16.0 meq/L 10.0 - 02/03 MH 20.0 [facility] CHEM PANEL Globulin 2.5 g/dL 2.7 - 4.2 02/03 [facility] CHEM PANEL A/G Ratio 1.0 0.7 - 1.6 02/03 [facility] CHEM PANEL B/C Ratio 12 6 - 25 02/03 [facility] HEMATOLOGY Lymphocytes 1.6 K/CMM 1.0 - 5.5 02/03 MH # /2017 [facility] HEMATOLOGY Monocytes # 0.8 K/CMM 0.0 - 0.8 02/03 [facility] HEMATOLOGY Segs-Bands # 5.0 K/CMM 1.5 - 8.1 02/03 [facility] HEMATOLOGY Monocytes 10.1 % 2.0 - 12.0 02/03 [facility] HEMATOLOGY Lymphocytes 21.6 % 20.0 - 02/03 40.0 [facility] HEMATOLOGY Basophils # 0.1 K/CMM 0.0 - 0.2 02/03 [facility] HEMATOLOGY Eosinophils 0.1 K/CMM 0.0 - 0.5 02/03 /2016 [facility] HEMATOLOGY Eosinophils 1.1 % 0.0 - 4.0 02/03 [facility] HEMATOLOGY Basophils 1.2 % 0.0 - 1.0 02/03 [facility] HEMATOLOGY Macrocyte 1+ None Seen 02/03 [facility] *ABN* (02/03/17 9:29 AM) HEMATOLOGY Anisocyte 3+ None Seen 02/03 [facility] (02/03/17 9:29 AM) HEMATOLOGY Microcyte 1+ None Seen 02/03 [facility] *ABN* (02/03/17 9:29 AM) HEMATOLOGY Segs 66.0 % 45.0 - 02/03 75.0 [facility] HEMATOLOGY Plt Morph Normal 02/03 [facility] (02/03/17 9:29 AM) HEMATOLOGY RBC 3.94 M/CMM 4.20 - 02/03 MH 5.40 /2017 [facility] HEMATOLOGY WBC 7.6 K/CMM 3.7 - 10.4 02/03 [facility] HEMATOLOGY Hct 30.3 % 36.0 - 02/03 48.0 [facility] HEMATOLOGY Hgb 9.7 g/dL 12.0 - 02/03 MH 16.0 [facility] HEMATOLOGY RDW 29.1 % 11.5 - 02/03 14.5 [facility] HEMATOLOGY Platelet 158 K/CMM 133 - 450 02/03 [facility] HEMATOLOGY MPV 9.9 fL 7.4 - 10.4 02/03 [facility] HEMATOLOGY MCHC 32.2 g/dL 32.0 - 02/03 MH 36.0 [facility] HEMATOLOGY MCH 24.7 pg 27.0 - 02/03 31.0 [facility] HEMATOLOGY MCV 76.7 fL 80.0 - 02/03 98.0 /2016 [facility] Upper GI Upper GI Patient Name: MARY SABA 02/02 - Series w Series w - [facility] water : 1980; Age: 36 years Female soluble DX soluble DX MR: [id number] Read by: Seven Grover MD Dictated Date/time: 02/02/17 16:06 Electronically Signed by: Seven Grover MD 02/02/17 16:08 FINAL REPORT Study: Upper GI Series w water soluble DX Order Time: 02/02/2017 10:28 AM CDT Clinical Indication: Fluoro time: 3.2min Total Dose: 87.493mGy Total DAP: 25.741Gbpw0 Dr. Grover - gastric bypass reversal 2 days ago. COMPARISON: None TECHNIQUE: Patient ingested water-soluble contrast under fluoroscopic observation with spot images obtained. FINDINGS: There is postoperative free air. The water soluble limited upper GI evaluation shows appropriate distal esophageal motility without stricture or mass. Evaluation of the stomach shows conformational davis ges in keeping with reported gastric bypass reversal without leak or obstruction. IMPRESSION: Normal postoperative water-soluble upper GI. SL: [id number] ELECTROLYT AGAP 12.5 meq/L 10.0 - 02/02 ES 20.0 [facility] ELECTROLYT B/C Ratio 14 6 - 25 02/02 [facility] ELECTROLYT A/G Ratio 0.8 0.7 - 1.6 02/02 ES [facility] ELECTROLYT Globulin 3.3 g/dL 2.7 - 4.2 02/02 [facility] ELECTROLYT Total 5.9 g/dL 6.4 - 8.4 02/02 [facility] ELECTROLYT Albumin Lvl 2.6 g/dL 3.5 - 5.0 02/02 [facility] ELECTROLYT Alk Phos 56 unit/L 39 - 136 02/02 [facility] ELECTROLYT Bili Total 0.4 mg/dL 0.2 - 1.3 02/02 [facility] ELECTROLYT ALT 73 unit/L 0 - 65 02/02 [facility] ELECTROLYT AST 64 unit/L 0 - 37 02/02 [facility] ELECTROLYT Sodium Lvl 140 meq/L 135 - 145 02/02 [facility] ELECTROLYT Potassium 4.5 meq/L 3.5 - 5.1 02/02 [facility] Lv [facility] ELECTROLYT CO2 25 meq/L 24 - 32 02/02 [facility] ELECTROLYT Calcium Lvl 8.4 mg/dL 8.5 - 10.5 02/02 [facility] ELECTROLYT Chloride Lvl 107 meq/L 95 - 109 02/02 [facility] ELECTROLYT BUN 5 mg/dL 7 - 22 02/02 [facility] ELECTROLYT Glucose Lvl 96 mg/dL 70 - 99 02/02 [facility] ELECTROLYT Creatinine 0.35 mg/dL 0.50 - 02/02 [facility] Lvl 1.40 [facility] ELECTROLYT eGFR 141 02/02 Result Comment: The eGFR is calculated using the CKD-EPI formula. In most young, healthy individuals the eGFR will be >90 mL/ min/1.73m2. The eGFR declines with age. An eGFR of 60-89 may be normal in mL/min/1. some populations, particularly the elderly, for whom the CKD-EPI formula has not been extensively validated. Use of the eGFR is not recommended in the following populations: [facility] 3m2 Individuals with unstable creatinine concentrations, including patients and those with serious co-morbid conditions. Patients with extremes in muscle mass or diet. The data above are obtained from the National Kidney Disease Education Program (NKDEP) which additionally recommends that when the eGFR is used in patients with extremes of body mass index for purposes of drug dosing, the eGFR should be multiplied by the estimated BMI. HEMATOLOGY PT 14.4 s 12.0 - 02/02 14.7 [facility] HEMATOLOGY PTT 38.0 s 22.9 - 02/02 35.8 /2016 [facility] HEMATOLOGY INR 1.10 0.85 - 02/02 1.17 [facility] HEMATOLOGY RBC 4.16 M/CMM 4.20 - 02/02 5.40 [facility] HEMATOLOGY Hgb 10.1 g/dL 12.0 - 02/02 MH 16.0 [facility] HEMATOLOGY WBC 11.7 K/CMM 3.7 - 10.4 02/02 [facility] HEMATOLOGY Hct 31.7 % 36.0 - 02/02 MH 48.0 [facility] HEMATOLOGY MCV 76.2 fL 80.0 - 02/02 MH 98.0 [facility] MCH 24.2 pg 27.0 - 02/02 MH 31.0 [facility] MCHC 31.7 g/dL 32.0 - 02/02 MH 36.0 [facility] HEMATOLOGY RDW 28.5 % 11.5 - 02/02 MH 14.5 [facility] HEMATOLOGY Platelet 223 K/CMM 133 - 450 02/02 [facility] HEMATOLOGY MPV 9.6 fL 7.4 - 10.4 02/02 [facility] HEMATOLOGY Segs 77.1 % 45.0 - 02/02 MH 75.0 [facility] Microcyte 1+ None Seen 02/02 [facility] *ABN* (02/02/17 6:18 AM) HEMATOLOGY Lymphocytes 1.6 K/CMM 1.0 - 5.5 02/02 MH # /2016 [facility] HEMATOLOGY Monocytes # 1.0 K/CMM 0.0 - 0.8 02/02 [facility] HEMATOLOGY Segs-Bands # 9.1 K/CMM 1.5 - 8.1 02/02 [facility] HEMATOLOGY Basophils 0.3 % 0.0 - 1.0 02/02 [facility] HEMATOLOGY Eosinophils 0.1 % 0.0 - 4.0 02/02 [facility] HEMATOLOGY Lymphocytes 14.0 % 20.0 - 02/02 MH 40.0 [facility] HEMATOLOGY Monocytes 8.5 % 2.0 - 12.0 02/02 [facility] CHEM PANEL eGFR 141 02/01 Result Comment: The eGFR is calculated using the CKD-EPI formula. In most young, healthy individuals the eGFR will be >90 mL/ min/1.73m2. The eGFR declines with age. An eGFR of 60-89 may be normal in MH mL/min/1. some populations, particularly the elderly, for whom the CKD-EPI formula has not been extensively validated. Use of the eGFR is not recommended in the following populations: [facility] 3m2 Individuals with unstable creatinine concentrations, including patients and those with serious co-morbid conditions. Patients with extremes in muscle mass or diet. The data above are obtained from the National Kidney Disease Education Program (NKDEP) which additionally recommends that when the eGFR is used in patients with extremes of body mass index for purposes of drug dosing, the eGFR should be multiplied by the estimated BMI. CHEM PANEL Albumin Lvl 3.1 g/dL 3.5 - 5.0 02/01 [facility] CHEM PANEL Globulin 2.8 g/dL 2.7 - 4.2 02/01 [facility] CHEM PANEL Total 5.9 g/dL 6.4 - 8.4 02/01 [facility] CHEM PANEL ALT 85 unit/L 0 - 65 02/01 [facility] CHEM PANEL AST 98 unit/L 0 - 37 02/01 [facility] CHEM PANEL Bili Total 0.7 mg/dL 0.2 - 1.3 02/01 [facility] CHEM PANEL Alk Phos 58 unit/L 39 - 136 02/01 [facility] CHEM PANEL A/G Ratio 1.1 0.7 - 1.6 02/01 [facility] CHEM PANEL CO2 19 meq/L 24 - 32 02/01 [facility] CHEM PANEL Calcium Lvl 8.1 mg/dL 8.5 - 10.5 02/01 [facility] CHEM PANEL B/C Ratio 14 6 - 25 02/01 [facility] CHEM PANEL AGAP 14.0 meq/L 10.0 - 02/01 20.0 [facility] CHEM PANEL Chloride Lvl 107 meq/L 95 - 109 02/01 [facility] CHEM PANEL Glucose Lvl 120 mg/dL 70 - 99 02/01 [facility] CHEM PANEL Creatinine 0.35 mg/dL 0.50 - 02/01 Lvl 1.40 [facility] CHEM PANEL Sodium Lvl 136 meq/L 135 - 145 02/01 [facility] CHEM PANEL Potassium 4.0 meq/L 3.5 - 5.1 02/01 Lvl [facility] CHEM PANEL BUN 5 mg/dL 7 - 22 02/01 [facility] HEMATOLOGY Monocytes # 0.7 K/CMM 0.0 - 0.8 02/01 [facility] HEMATOLOGY Microcyte 1+ None Seen 02/01 [facility] *ABN* (02/01/17 5:18 AM) HEMATOLOGY Basophils 0.1 % 0.0 - 1.0 02/01 /2016 [facility] HEMATOLOGY Lymphocytes 0.7 K/CMM 1.0 - 5.5 02/01 MH # /2016 [facility] HEMATOLOGY Segs-Bands # 12.1 K/CMM 1.5 - 8.1 02/01 /2016 [facility] HEMATOLOGY Monocytes 5.2 % 2.0 - 12.0 02/01 /2016 [facility] HEMATOLOGY Lymphocytes 4.9 % 20.0 - 02/01 40.0 /2016 [facility] HEMATOLOGY Segs 89.8 % 45.0 - 02/01 75.0 /2016 [facility] HEMATOLOGY MCV 75.4 fL 80.0 - 02/01 98.0 /2016 [facility] HEMATOLOGY MPV 9.4 fL 7.4 - 10.4 02/01 [facility] HEMATOLOGY Platelet 242 K/CMM 133 - 450 02/01 /2016 [facility] HEMATOLOGY MCH 23.8 pg 27.0 - 02/01 31.0 /2016 [facility] HEMATOLOGY RDW 28.2 % 11.5 - 02/01 14.5 /2016 [facility] HEMATOLOGY MCHC 31.5 g/dL 32.0 - 02/01 36.0 /2016 [facility] HEMATOLOGY Hct 33.2 % 36.0 - 02/01 48.0 /2016 [facility] HEMATOLOGY Hgb 10.5 g/dL 12.0 - 02/01 16.0 /2016 [facility] HEMATOLOGY WBC 13.4 K/CMM 3.7 - 10.4 02/01 /2016 [facility] HEMATOLOGY RBC 4.40 M/CMM 4.20 - 02/01 5.40 /2016 [facility] BLOOD BANK ABO/Rh A POS 01/31 RESULTS /2016 [facility] BLOOD BANK Antibody Negative 01/31 RESULTS Scrn /2016 [facility] (01/31/17 10:19 AM) CHEM PANEL Magnesium 2.6 mg/dL 1.8 - 2.4 01/31 Lvl /2016 [facility] ENDOCRINOL S Preg Negative Negative 01/31 OGY /2016 [facility] *NA* (01/31/17 10:19 AM) HEMATOLOGY Eosinophils 0.1 K/CMM 0.0 - 0.5 01/31 MH # /2016 [facility] HEMATOLOGY Anisocyte 2+ None Seen 01/31 [facility] *ABN* (01/31/17 10:19 AM) HEMATOLOGY Target Cell Slight 01/31 [facility] HEMATOLOGY Plt Morph Normal 01/31 [facility] (01/31/17 10:19 AM) HEMATOLOGY Eosinophils 0.9 % 0.0 - 4.0 01/31 [facility] HEMATOLOGY INR 0.98 0.85 - 01/31 MH 1. [facility] HEMATOLOGY PT 13.2 s 12.0 - 01/31 MH 14.7 [facility] HEMATOLOGY PTT 35.5 s 22.9 - 01/31 MH 35.8 [facility] Chest Chest 1view Study: Chest 1view DX 01/31 - 1view DX DX - [facility] Clinical Indication: Coughing - preop exam Read by: Lj Spann MD Dictated Date/time: 01/31/17 10:48 Electronically Signed by: Lj Spann MD 01/31/17 10:48 FINAL REPORT Comparison: Chest x-ray from 12/09/2013 FINDINGS: The cardiac silhouette is normal in size. The lungs are clear and without consolidation or congestion. No pleural effusion or pneumothorax is seen. The osseous structures are unremarkable. IMPRESSION: No acute cardiopulmonary disease. SL: [id number] CHEM PANEL eGFR 138 01/18 Result Comment: The eGFR is calculated using the CKD-EPI formula. In most young, healthy individuals the eGFR will be >90 mL/ min/1.73m2. The eGFR declines with age. An eGFR of 60-89 may be normal in /min/1. some populations, particularly the elderly, for whom the CKD-EPI formula has not been extensively validated. Use of the eGFR is not recommended in the following populations: [facility] 3m2 Individuals with unstable creatinine concentrations, including patients and those with serious co-morbid conditions. Patients with extremes in muscle mass or diet. The data above are obtained from the National Kidney Disease Education Program (NKDEP) which additionally recommends that when the eGFR is used in patients with extremes of body mass index for purposes of drug dosing, the eGFR should be multiplied by the estimated BMI. CHEM PANEL Chloride Lvl 113 meq/L 95 - 109 01/18 [facility] CHEM PANEL Sodium Lvl 144 meq/L 135 - 145 01/18 [facility] CHEM PANEL Potassium 3.9 meq/L 3.5 - 5.1 01/18 Lvl [facility] CHEM PANEL CO2 22 meq/L 24 - 32 01/18 [facility] CHEM PANEL Calcium Lvl 7.8 mg/dL 8.5 - 10.5 01/18 [facility] CHEM PANEL Glucose Lvl 74 mg/dL 70 - 99 01/18 [facility] CHEM PANEL BUN 10 mg/dL 7 - 22 01/18 [facility] CHEM PANEL Creatinine 0.38 mg/dL 0.50 - 01/18 MH Lvl 1.40 /2016 [facility] CHEM PANEL AGAP 12.9 meq/L 10.0 - 01/18 MH 20.0 [facility] HEMATOLOGY MPV 8.9 fL 7.4 - 10.4 01/18 [facility] HEMATOLOGY Platelet 243 K/CMM 133 - 450 01/18 [facility] HEMATOLOGY RDW 22.0 % 11.5 - 01/18 14. [facility] HEMATOLOGY MCHC 31.0 g/dL 32.0 - 01/18 MH 36.0 [facility] HEMATOLOGY Hgb 9.6 g/dL 12.0 - 01/18 16.0 [facility] HEMATOLOGY RBC 4.34 M/CMM 4.20 - 01/18 MH 5.40 [facility] HEMATOLOGY MCH 22.1 pg 27.0 - 01/18 MH 31.0 [facility] HEMATOLOGY MCV 71.4 fL 80.0 - 01/18 MH 98.0 [facility] HEMATOLOGY Hct 31.0 % 36.0 - 01/18 MH 48.0 [facility] HEMATOLOGY WBC 5.9 K/CMM 3.7 - 10.4 01/18 [facility] HEMATOLOGY Lymphocytes 2.6 K/CMM 1.0 - 5.5 01/18 MH # /2016 [facility] HEMATOLOGY Monocytes # 0.4 K/CMM 0.0 - 0.8 01/18 [facility] HEMATOLOGY Segs-Bands # 2.9 K/CMM 1.5 - 8.1 01/18 [facility] HEMATOLOGY Eosinophils 1.1 % 0.0 - 4.0 01/18 [facility] HEMATOLOGY Basophils 0.7 % 0.0 - 1.0 01/18 [facility] HEMATOLOGY Monocytes 6.4 % 2.0 - 12.0 01/18 [facility] HEMATOLOGY Eosinophils 0.1 K/CMM 0.0 - 0.5 01/18 MH # /2016 [facility] HEMATOLOGY Microcyte 1+ None Seen 01/18 [facility] *ABN* (9/13/17 4:08 AM) HEMATOLOGY Segs 48.3 % 45.0 - 01/18 MH 75.0 [facility] HEMATOLOGY Lymphocytes 43.5 % 20.0 - 01/18 MH 40.0 [facility] BLOOD BANK Antibody Negative 01/17 RESULTS Scrn [facility] (01/17/17 1:40 PM) BLOOD BANK ABO/Rh A POS 01/17 RESULTS [facility] BLOOD BANK RBC product Product available 1 01/17 Result Comment: 2016 16:31 [id number] RESULTS spoke to fabricio at 01/17/2017 16:31 [facility] (01/17/17 12:20 PM) ANEMIA % Satur Fe 3 % 12 - 57 01/17 STUDY [facility] ANEMIA UIBC 328 ug/dl 110 - 370 01/17 STUDY [facility] ANEMIA TIBC 339 ug/dl 228 - 428 01/17 STUDY [facility] ANEMIA Iron 11 ug/dl 30 - 160 01/17 STUDY [facility] ANEMIA Ferritin Lvl 4 ng/mL 5 - 204 01/17 STUDY [facility] ANEMIA Vitamin B12 null 254 - 1320 01/17 STUDY Lvl [facility] ANEMIA Folate Lvl 43.3 ng/mL >=3.0 01/17 STUDY ng/mL [facility] CHEM PANEL Phosphorus 3.0 mg/dL 2.5 - 4.5 01/17 [facility] CHEM PANEL Magnesium 2.1 mg/dL 1.8 - 2.4 01/17 Lvl [facility] CHEM PANEL eGFR 137 01/17 Result Comment: The eGFR is calculated using the CKD-EPI formula. In most young, healthy individuals the eGFR will be >90 mL/ min/1.73m2. The eGFR declines with age. An eGFR of 60-89 may be normal in mL/min/1. some populations, particularly the elderly, for whom the CKD-EPI formula has not been extensively validated. Use of the eGFR is not recommended in the following populations: [facility] 3m2 Individuals with unstable creatinine concentrations, including patients and those with serious co-morbid conditions. Patients with extremes in muscle mass or diet. The data above are obtained from the National Kidney Disease Education Program (NKDEP) which additionally recommends that when the eGFR is used in patients with extremes of body mass index for purposes of drug dosing, the eGFR should be multiplied by the estimated BMI. CHEM PANEL Chloride Lvl 112 meq/L 95 - 109 01/17 [facility] CHEM PANEL Potassium 3.7 meq/L 3.5 - 5.1 01/17 MH Lvl /2016 [facility] CHEM PANEL Sodium Lvl 142 meq/L 135 - 145 01/17 [facility] CHEM PANEL Creatinine 0.39 mg/dL 0.50 - 01/17 MH Lvl 1.40 /2016 [facility] CHEM PANEL BUN 5 mg/dL 7 - 22 01/17 [facility] CHEM PANEL Glucose Lvl 76 mg/dL 70 - 99 01/17 [facility] CHEM PANEL Calcium Lvl 7.6 mg/dL 8.5 - 10.5 01/17 [facility] CHEM PANEL AGAP 11.7 meq/L 10.0 - 01/17 20.0 [facility] CHEM PANEL CO2 22 meq/L 24 - 32 01/17 [facility] HEMATOLOGY Lymphocytes 2.1 K/CMM 1.0 - 5.5 01/17 MH # /2017 [facility] HEMATOLOGY Microcyte 3+ None Seen 01/17 [facility] *NA* (01/17/17 7:46 AM) HEMATOLOGY Monocytes # 0.3 K/CMM 0.0 - 0.8 01/17 [facility] HEMATOLOGY Monocytes 6.9 % 2.0 - 12.0 01/17 [facility] HEMATOLOGY Lymphocytes 44.7 % 20.0 - 01/17 MH 40.0 /2017 [facility] HEMATOLOGY Segs 46.8 % 45.0 - 01/17 75.0 /2017 [facility] HEMATOLOGY Basophils 0.6 % 0.0 - 1.0 01/17 [facility] HEMATOLOGY Eosinophils 1.0 % 0.0 - 4.0 01/17 [facility] HEMATOLOGY Segs-Bands # 2.2 K/CMM 1.5 - 8.1 01/17 [facility] HEMATOLOGY Retic Auto 1.9 % 0.5 - 1.5 01/17 [facility] HEMATOLOGY Hct 25.8 % 36.0 - 01/17 48.0 /2017 [facility] HEMATOLOGY MCV 68.4 fL 80.0 - 01/17 98.0 [facility] HEMATOLOGY WBC 4.8 K/CMM 3.7 - 10.4 01/17 [facility] HEMATOLOGY Hgb 7.9 g/dL 12.0 - 01/17 16.0 [facility] HEMATOLOGY RBC 3.78 M/CMM 4.20 - 01/17 MH 5.40 [facility] HEMATOLOGY RDW 19.0 % 11.5 - 01/17 MH 14. [facility] HEMATOLOGY MCH 20.9 pg 27.0 - 01/17 MH 31.0 [facility] HEMATOLOGY MCHC 30.6 g/dL 32.0 - 01/17 MH 36.0 [facility] HEMATOLOGY MPV 9.1 fL 7.4 - 10.4 01/17 [facility] HEMATOLOGY Platelet 240 K/CMM 133 - 450 01/17 [facility] CHEM PANEL eGFR 134 01/16 Result Comment: The eGFR is calculated using the CKD-EPI formula. In most young, healthy individuals the eGFR will be >90 mL/ min/1.73m2. The eGFR declines with age. An eGFR of 60-89 may be normal in mL/min/1. some populations, particularly the elderly, for whom the CKD-EPI formula has not been extensively validated. Use of the eGFR is not recommended in the following populations: [address] Individuals with unstable creatinine concentrations, including patients and those with serious co-morbid conditions. Patients with extremes in muscle mass or diet. The data above are obtained from the National Kidney Disease Education Program (NKDEP) which additionally recommends that when the eGFR is used in patients with extremes of body mass index for purposes of drug dosing, the eGFR should be multiplied by the estimated BMI. CHEM PANEL Chloride Lvl 111 meq/L 95 - 109 01/16 [facility] CHEM PANEL CO2 25 meq/L 24 - 32 01/16 [facility] CHEM PANEL Calcium Lvl 7.6 mg/dL 8.5 - 10.5 01/16 [facility] CHEM PANEL Potassium 3.1 meq/L 3.5 - 5.1 01/16 Lvl [facility] CHEM PANEL Creatinine 0.41 mg/dL 0.50 - 01/16 Lvl 1.40 [facility] CHEM PANEL Sodium Lvl 142 meq/L 135 - 145 01/16 [facility] CHEM PANEL BUN 11 mg/dL 7 - 22 01/16 [facility] CHEM PANEL Glucose Lvl 78 mg/dL 70 - 99 01/16 [facility] CHEM PANEL AGAP 9.1 meq/L 10.0 - 01/16 MH 20.0 /2016 [facility] HEMATOLOGY Monocytes 6.8 % 2.0 - 12.0 01/16 /2016 [facility] HEMATOLOGY Eosinophils 0.8 % 0.0 - 4.0 01/16 [facility] HEMATOLOGY Basophils 0.5 % 0.0 - 1.0 01/16 /2016 [facility] HEMATOLOGY Lymphocytes 44.8 % 20.0 - 01/16 MH 40.0 /2016 [facility] HEMATOLOGY Segs 47.1 % 45.0 - 01/16 75.0 /2016 [facility] HEMATOLOGY Plt Morph Normal 01/16 [facility] (01/16/17 3:56 AM) HEMATOLOGY Target Cell few 01/16 [facility] HEMATOLOGY Monocytes # 0.4 K/CMM 0.0 - 0.8 01/16 [facility] HEMATOLOGY Eosinophils 0.1 K/CMM 0.0 - 0.5 01/16 MH # /2016 [facility] HEMATOLOGY Microcyte 3+ None Seen 01/16 [facility] *NA* (01/16/17 3:56 AM) HEMATOLOGY Segs-Bands # 2.9 K/CMM 1.5 - 8.1 01/16 [facility] HEMATOLOGY Lymphocytes 2.8 K/CMM 1.0 - 5.5 01/16 MH # /2016 [facility] HEMATOLOGY Platelet 266 K/CMM 133 - 450 01/16 [facility] HEMATOLOGY MPV 8.7 fL 7.4 - 10.4 01/16 [facility] HEMATOLOGY RDW 19.6 % 11.5 - 01/16 14.5 [facility] HEMATOLOGY Hct 27.3 % 36.0 - 01/16 48.0 /2016 [facility] HEMATOLOGY MCV 68.3 fL 80.0 - 01/16 98.0 /2016 [facility] HEMATOLOGY RBC 4.00 M/CMM 4.20 - 01/16 MH 5.40 /2016 [facility] HEMATOLOGY Hgb 8.4 g/dL 12.0 - 01/16 16.0 /2016 [facility] HEMATOLOGY MCH 20.9 pg 27.0 - 01/16 31.0 [facility] HEMATOLOGY MCHC 30.7 g/dL 32.0 - 01/16 36.0 /2016 [facility] HEMATOLOGY WBC 6.2 K/CMM 3.7 - 10.4 01/16 [facility] HEMATOLOGY PTT 37.4 s 22.9 - 01/16 35.8 /2016 [facility] HEMATOLOGY INR 1.18 0.85 - 01/16 1.17 /2016 [facility] HEMATOLOGY PT 15.2 s 12.0 - 01/16 14.7 [facility] CHEM PANEL VITAMIN B1 114.9 66.5 - 01/15 Result Comment: Performed At: [facility] ([place]IAMINE) nMol/L 200.0 /2017 [address], [place] [id number] [facility] WHOLE BLOOD Neeraj Menjivar MD Ph:[phone] CHEM PANEL Lipase Lvl 146 unit/L 73 - 393 01/15 [facility] CHEM PANEL ALT 29 unit/L 0 - 65 01/15 [facility] CHEM PANEL Total 7.7 g/dL 6.4 - 8.4 01/15 [facility] CHEM PANEL AST 19 unit/L 0 - 37 01/15 [facility] CHEM PANEL Albumin Lvl 3.9 g/dL 3.5 - 5.0 01/15 [facility] CHEM PANEL Alk Phos 85 unit/L 39 - 136 01/15 [facility] CHEM PANEL Bili Total 0.3 mg/dL 0.2 - 1.3 01/15 [facility] CHEM PANEL A/G Ratio 1.0 0.7 - 1.6 01/15 [facility] CHEM PANEL B/C Ratio 25 6 - 25 01/15 [facility] CHEM PANEL Globulin 3.8 g/dL 2.7 - 4.2 01/15 [facility] ENDOCRINOL S Preg Negative Negative 01/15 OGY [facility] *NA* (01/15/17 2:25 PM) HEMATOLOGY Basophils # 0.1 K/CMM 0.0 - 0.2 01/15 [facility] URINE AND UA Nitrite Negative Negative 01/15 STOOL [facility] (01/15/17 2:25 PM) URINE AND UA Leuk Est Negative Negative 01/15 STOOL [facility] (01/15/17 2:25 PM) URINE AND UA Glucose Negative Negative 01/15 STOOL (01/15/17 2:25 PM) URINE AND UA Protein Trace Negative 01/15 [facility] *ABN* (01/15/17 2:25 PM) URINE AND UA Spec Grav 1.020 <=1.030 01/15 [facility] URINE AND UA pH 6.5 5.0 - 8.0 01/15 STOOL [facility] URINE AND UA Turbidity Clear Clear 01/15 STOOL [facility] (01/15/17 2:25 PM) URINE AND UA Color Yellow Yellow 01/15 STOOL [facility] *NA* (01/15/17 2:25 PM) URINE AND UA 0.2 EU/dL 0.1 - 1.0 01/15 STOOL Urobilinogen [facility] URINE AND UA Ketones 15 Negative 01/15 STOOL [facility] *ABN* (01/15/17 2:25 PM) URINE AND UA Blood Negative Negative 01/15 STOOL [facility] (01/15/17 2:25 PM) URINE AND UA Bili Small Negative 01/15 STOOL [facility] *ABN* (01/15/17 2:25 PM) URINE AND UA Mucus Many /LPF None Seen 01/15 STOOL /LPF [facility] URINE AND UA WBC null 0 - 5 01/15 STOOL [facility] URINE AND UA Bacteria Occasional None Seen 01/15 STOOL /HPF /HPF [facility] URINE AND UA Sq Epi Few /LPF Few /LPF 01/15 STOOL [facility] Abdomen/Pe Abdomen/Pelv Patient Name: MARY SABA 01/15 - lvis w IV is w IV - [facility] contrast contrast CT : 1980; Age: [address] MR: [id number] Read by: Margaret Tran MD Dictated Date/time: 01/15/17 15:53 Study: Abdomen/Pelvis w IV contrast CT 01/15/2017 2:03 PM CDT Electronically Signed by: Margaret Tran MD 01/15/17 16 :01 FINAL REPORT CLINICAL INDICATION: [address] dose DLP 1289.55 mGy-cm - abd pain, gastric bypass COMPARISON: CT on 12/15/2016 TECHNIQUE: Multidetector CT imaging of the abdomen and pelvis was performed from the diaphragm through the lesser trochanters WITH IV contrast. Coronal and sagittal reconstructions were generated and reviewed. FINDINGS: Lower thorax: Unchanged 3 mm groundglass nodule within the left lower lobe. Hepatobiliary: No focal hepatic lesion. Unremarkable gallbladder. Pancreas: No focal mass or ductal dilatation. Spleen: No splenomegaly. Adrenals: No nodules. Kidneys: Two small nonobstructive calculi within the mid left kidney. No hydronephrosis. Pelvic organs: Unremarkable uterus and bladder. Physiologic ovarian cysts. Peritoneum/Retroperitoneum: Trace free pelvic fluid. Lymph nodes: No lymphadenopathy. Vessels: Unremarkable. GI: Postsurgical changes of the stomach related to gastric bypass. No significant bowel wall thickening or obstruction. No evidence of intussusception. Bones and soft tissues: No acute bony abnormalities. IMPRESSION: No acute abdominal or pelvic abnormalities. Nonobstructive left nephrolithiasis. SL: [id number] ANEMIA Folate Lvl 53.0 ng/mL >=3.0 12/16 STUDY ng/mL [facility] ANEMIA UIBC 381 ug/dl 110 - 370 12/16 STUDY [facility] ANEMIA TIBC 395 ug/dl 228 - 428 12/16 STUDY [facility] ANEMIA Iron 14 ug/dl 30 - 160 12/16 STUDY [facility] ANEMIA % Satur Fe 4 % 12 - 57 12/16 STUDY [facility] ANEMIA Vitamin B12 null 254 - 1320 12/16 STUDY Lvl [facility] CHEM PANEL Lipase Lvl 144 unit/L 73 - 393 12/16 [facility] HEMATOLOGY Eosinophils 0.3 % 0.0 - 4.0 12/16 [facility] HEMATOLOGY Monocytes 7.3 % 2.0 - 12.0 12/16 [facility] HEMATOLOGY Lymphocytes 27.8 % 20.0 - 12/16 40.0 [facility] HEMATOLOGY Segs 64.1 % 45.0 - 12/16 75.0 [facility] HEMATOLOGY Microcyte 3+ None Seen 12/16 [facility] *NA* (12/16/16 3:50 AM) HEMATOLOGY Monocytes # 0.5 K/CMM 0.0 - 0.8 12/16 [facility] HEMATOLOGY Lymphocytes 1.8 K/CMM 1.0 - 5.5 12/16 # /2016 [facility] HEMATOLOGY Segs-Bands # 4.2 K/CMM 1.5 - 8.1 12/16 [facility] HEMATOLOGY Basophils 0.5 % 0.0 - 1.0 12/16 [facility] HEMATOLOGY Hct 29.7 % 36.0 - 12/16 48.0 [facility] HEMATOLOGY Hgb 9.1 g/dL 12.0 - 12/16 16.0 [facility] HEMATOLOGY RBC 4.39 M/CMM 4.20 - 12/16 5.40 /2017 [facility] HEMATOLOGY WBC 6.5 K/CMM 3.7 - 10.4 12/16 [facility] HEMATOLOGY MCV 67.7 fL 80.0 - 12/16 98.0 [facility] HEMATOLOGY MPV 8.7 fL 7.4 - 10.4 12/16 [facility] HEMATOLOGY Platelet 235 K/CMM 133 - 450 12/16 [facility] HEMATOLOGY RDW 19.3 % 11.5 - 12/16 14.5 [facility] HEMATOLOGY MCHC 30.8 g/dL 32.0 - 12/16 36.0 [facility] HEMATOLOGY MCH 20.8 pg 27.0 - 12/16 31.0 [facility] Gallbladde Gallbladder Patient Name: MARY SABA 12/16 - r /2016 - [facility] : 1980; Age: 36 years y/o Female MR: [id number] Read by: Adalberto Galan MD Dictated Date/time: 12/16/16 08:25 Electronically Signed by: Adalberto Galan MD 12/16/16 08:28 FINAL REPORT GALLBLADDER ULTRASOUND HISTORY: Generalized nonspecific abdominal pain and vomiting. Technique: The right upper quadrant of the abdomen was evaluated with dynamic ultrasound scanning. Prior studies reviewed: Computed tomography scan of the abdomen and pelvis yesterday. FINDINGS: * Gallbladder: There is a very small (4.5 mm) gallbladder polyp involving the anterior wall. No gallstones are seen. There is no abnormal distention. There is no wall thickening or fluid around the gallbladder. * * Common bile duct: Within normal limits, 4.5 mm in diameter. * Intrahepatic ducts: Not dilated. * Liver: Normal in size and echogenicity. No focal lesions are seen. * Right kidney: Normal in size and echogenicity without hydronephrosis. No focal lesions are seen. The right kidney measures 11.4 x 5.6 x 4.0 cm. ( ) IMPRESSION: 1. No evidence of cholelithiasis or biliary ductal dilatation. 2. Note is made of a small gallbladder polyp. ( ) ( ) SL: [id number] BLOOD BANK ABO/Rh A POS 12/15 RESULTS /2016 [facility] BLOOD BANK Antibody Negative 12/15 RESULTS Scrn /2016 [facility] (12/15/16 12:23 PM) Abdomen/Pe Abdomen/Pelv Addendum: Outside institution CT dated 12/14/2016 has now been made available for review. Small bowel intussusception is visualized at the jejunojejunal anastomosis on this outside scan. No intussuscept 12/15 - lvis w IV is w IV ion was noted on the CT study of 12/15/2016 performed at [facility]. This indicates intermittent intussusception. Case discussed with the referring physician, Dr. Walker on 12/16/2016 at 1425 hours. - [facility] contrast contrast CT CT Abdomen/Pelvis w IV contrast CT Read by: Beto Bhagat MD Dictated Date/time: 12/16/16 14:03 Electronically Signed by: Beto Bhagat MD 12/16/16 14:39 TECHNIQUE: Contiguous transaxial images of the abdomen and pelvis were performed from the lung bases to the superior pubic rami with IV contrast. FINAL REPORT - - CLINICAL HX: 25cc omni oral; 100cc omni iv; dlp: 650; SM - Repeat CT for improved symptoms, prev CT w intussusception; Read by: Beto Bhagat MD Dictated Date/time: 12/15/16 15:20 Electronically Signed by: Beto Bhagat MD 12/15/16 15:42 COMPARISON: None FINAL REPORT CT ABDOMEN: Lower Chest: The lung bases are clear. GI Tract: Oral contrast was given as per standard protocol on the initial CT study. Repeat CT was performed with additional oral contrast just prior to imaging. As result, there is opacification of esse ntially the entire small bowel in the abdomen. There is no CT evidence to suggest intussusception. There is reflux of small amount of the oral contrast into the pancreaticobiliary limb. There is no sign ificant dilation of the afferent or efferent limbs. No other secondary signs to suggest obstruction. Contrast is also visualized in the colon consistent with CT scan performed on a previous CT study at an outside imaging center. No swirling of the mesentery is visualized to suggest an internal hernia. The appendix demonstrates normal morphology. There is no evidence for free fluid or free air in the abdomen. Tract and retroperitoneum: Nonobstructing calyceal calculi lower pole left kidney. The kidneys demonstrate normal morphology and symmetric excretion. Lymph Nodes: No significant retroperitoneal lymphadenopathy is noted. Abdominal viscera: Mild fatty infiltration of liver. The spleen, pancreas and both adrenals are unremarkable in appearance. Gallbladder demonstrates normal morphology. Vasculature: Aorta demonstrates normal morphology. Bone and Soft tissues: No significant bony abnormality is noted. CT PELVIS: The bladder and the uterus demonstrate normal morphology. Small left ovarian cyst. No free fluid is present in the pelvis. IMPRESSION: No CT evidence to suggest intussusception. No other significant acute abnormality is noted in the contrast CT of abdomen and pelvis. Mild fatty infiltration of liver. Nonobstructing calyceal calculi, left kidney. Small left ovarian cyst. SL: [id number] URINE CHEM U Preg Negative Negative 12/15 [facility] (12/15/16 9:02 AM) Abdomen AP Abdomen AP Abdomen AP DX 12/15 - DX - [facility] CLINICAL INDICATION: - Poss intussusception: willl see if needs po contrast Read by: Beto Bhagat MD Dictated Date/time: 12/15/16 11:43 Electronically Signed by: Beto Bhagat MD 12/15/16 11:44 FINAL REPORT COMPARISON: 12/08/2013 FINDINGS: Support Lines/Tubes: none Retained oral contrast in the colon. No evidence to suggest small or large bowel obstruction. No contour deforming masses are visualized. No tract calculi are evident. No significant bony abnormality is noted. IMPRESSION: Retained oral contrast in the colon. No acute abnormality noted. SL: [id number] ANEMIA Folate Lvl 44.7 ng/mL >=3.0 12/15 STUDY ng/mL [facility] ANEMIA Vitamin B12 null 254 - 1320 12/15 STUDY Lvl [facility] ANEMIA Iron 17 ug/dl 30 - 160 12/15 [facility] CHEM PANEL Vitamin D 68 pg/mL 12/15 Result Comment: Reference Range: 1,25 ([place])2 Adults: 21 - 65 [facility] Total CHEM PANEL Vitamin D2 null 12/15 1,25 ([place])2 [facility] CHEM PANEL Vitamin D3 68 pg/mL 12/15 Result Comment: Performed At: [facility] ,[address] ([place] [place], [place] [id number] [facility] Piper Diaz MD Ph:[phone] CHEM PANEL Magnesium 2.4 mg/dL 1.8 - 2.4 12/15 [facility] CHEM PANEL eGFR 139 12/15 Result Comment: The eGFR is calculated using the CKD-EPI formula. In most young, healthy individuals the eGFR will be >90 mL/ min/1.73m2. The eGFR declines with age. An eGFR of 60-89 may be normal in mL/min/1.7 /2017 some populations, particularly the elderly, for whom the CKD-EPI formula has not been extensively validated. Use of the eGFR is not recommended in the following populations: [address] Individuals with unstable creatinine concentrations, including patients and those with serious co-morbid conditions. Patients with extremes in muscle mass or diet. The data above are obtained from the National Kidney Disease Education Program (NKDEP) which additionally recommends that when the eGFR is used in patients with extremes of body mass index for purposes of drug dosing, the eGFR should be multiplied by the estimated BMI. CHEM PANEL Bili Total 0.8 mg/dL 0.2 - 1.3 12/15 [facility] CHEM PANEL Creatinine 0.37 mg/dL 0.50 - 12/15 MH Lvl 1.40 [facility] CHEM PANEL BUN 11 mg/dL 7 - 22 12/15 [facility] CHEM PANEL Glucose Lvl 85 mg/dL 70 - 99 12/15 [facility] CHEM PANEL Calcium Lvl 8.0 mg/dL 8.5 - 10.5 12/15 [facility] CHEM PANEL CO2 25 meq/L 24 - 32 12/15 [facility] CHEM PANEL Chloride Lvl 109 meq/L 95 - 109 12/15 [facility] CHEM PANEL Potassium 3.3 meq/L 3.5 - 5.1 12/15 [facility] CHEM PANEL Sodium Lvl 141 meq/L 135 - 145 12/15 [facility] CHEM PANEL ALT 22 unit/L 0 - 65 12/15 [facility] CHEM PANEL Albumin Lvl 3.1 g/dL 3.5 - 5.0 12/15 [facility] CHEM PANEL Total 6.3 g/dL 6.4 - 8.4 12/15 [facility] CHEM PANEL AST 14 unit/L 0 - 37 12/15 [facility] CHEM PANEL Alk Phos 69 unit/L 39 - 136 12/15 [facility] CHEM PANEL AGAP 10.3 meq/L 10.0 - 08 MH 20.0 /2016 [facility] CHEM PANEL Globulin 3.2 g/dL 2.7 - 4.2 12/15 [facility] CHEM PANEL B/C Ratio 30 6 - 25 12/15 /2016 [facility] CHEM PANEL A/G Ratio 1.0 0.7 - 1.6 08 [facility] CHEM PANEL VITAMIN B1 107.8 66.5 - 12/15 Result Comment: Performed At: [facility] ([place]) nMol/L 200.0 /2016 [address], [place] [id number] [facility] WHOLE BLOOD Neeraj Menjivar MD Ph:[phone] HEMATOLOGY PT 13.8 s 12.0 - 12/15 14.7 [facility] HEMATOLOGY PTT 34.3 s 22.9 - 12/15 35.8 [facility] HEMATOLOGY INR 1.04 0.85 - 12/15 1.17 [facility] HEMATOLOGY Hct 27.8 % 36.0 - 12/15 48.0 [facility] HEMATOLOGY MCV 67.6 fL 80.0 - 12/15 98.0 [facility] HEMATOLOGY MCH 20.8 pg 27.0 - 08 MH 31.0 /2016 [facility] HEMATOLOGY MCHC 30.8 g/dL 32.0 - 12/15 36.0 [facility] HEMATOLOGY RDW 19.2 % 11.5 - 12/15 14. [facility] HEMATOLOGY Platelet 261 K/CMM 133 - 450 12/15 [facility] HEMATOLOGY MPV 8.4 fL 7.4 - 10.4 12/15 [facility] HEMATOLOGY WBC 6.8 K/CMM 3.7 - 10.4 12/15 [facility] HEMATOLOGY Hgb 8.6 g/dL 12.0 - 12/15 16.0 [facility] HEMATOLOGY RBC 4.11 M/CMM 4.20 - 12/15 5.40 /2016 [facility] HEMATOLOGY Basophils # 0.1 K/CMM 0.0 - 0.2 12/15 [facility] HEMATOLOGY Microcyte 3+ None Seen 12/15 [facility] *NA* (12/15/16 5:02 AM) HEMATOLOGY Lymphocytes 2.6 K/CMM 1.0 - 5.5 12/15 # /2016 [facility] HEMATOLOGY Monocytes # 0.5 K/CMM 0.0 - 0.8 12/15 /2016 [facility] HEMATOLOGY Eosinophils 0.1 K/CMM 0.0 - 0.5 08/ MH # /2017 [facility] HEMATOLOGY Lymphocytes 37.9 % 20.0 - 08 MH 40.0 /2016 [facility] HEMATOLOGY Monocytes 7.8 % 2.0 - 12.0 12/15 [facility] HEMATOLOGY Eosinophils 0.8 % 0.0 - 4.0 12/15 /2016 [facility] HEMATOLOGY Basophils 0.7 % 0.0 - 1.0 12/15 [facility] HEMATOLOGY Segs-Bands # 3.6 K/CMM 1.5 - 8.1 12/15 [facility] HEMATOLOGY Segs 52.8 % 45.0 - 08 MH 75.0 /2016 [facility] SPECIAL Hgb A1C 5.1 % <=5.6 % 04/08 CHEMISTRY [place] CARDIAC CK MB 1.9 ng/mL 0.5 - 3.6 04/07 ENZYMES [place] CARDIAC CK-MB INDEX 1.3 0.0 - 2.5 04/07 [facility] CARDIAC Troponin-I null 0.00 - 04/07 [facility] 0.40 [facility] CARDIAC Total CK 141 unit/L 12 - 191 04/07 [facility] CARDIAC Troponin-I null 0.00 - 04/07 [facility] 0.40 [place] CARDIAC Total CK 157 unit/L 12 - 191 04/07 [facility] CARDIAC CK MB 2.4 ng/mL 0.5 - 3.6 04/07 [facility] CARDIAC CK-MB INDEX 1.5 0.0 - 2.5 04/07 [facility] HEMATOLOGY aPTT 34.7 s 22.9 - 04/07 [facility] 35.8 /2015 [facility] HEMATOLOGY PROTIME 13.2 s 12.0 - 04/07 [facility] 14.7 [facility] HEMATOLOGY INR 0.98 0.85 - 04/07 1.17 [facility] LIPIDS CHD Risk 2.96 3.90 - 12 5.80 /2015 [facility] LIPIDS LDL 85 mg/dL <=99 mg/dL 04/07 (Calculated) [facility] LIPIDS VLDL 9 04/07 /2015 [facility] LIPIDS Chol 142 mg/dL <=199 04/07 mg/dL [facility] LIPIDS Trig 47 mg/dL <=149 04/07 mg/dL [facility] LIPIDS HDL 48 mg/dL >=61 mg/dL 04/07 [facility] CHEM PANEL Lactic Acid 0.6 mMol/L 0.5 - 2.2 03/26 [facility] CHEM PANEL Phosphorus 3.5 mg/dL 2.5 - 4.5 03/26 [facility] CHEM PANEL Magnesium 2.2 mg/dL 1.8 - 2.4 03/26 [facility] CHEM PANEL eGFR 75 03/26 1Result Comment: The eGFR is calculated using the CKD-EPI formula. In most young, healthy individuals the eGFR will be >90 mL/ min/1.73m2. The eGFR declines with age. An eGFR of 60-89 may be normal in mL/min/1. some populations, particularly the elderly, for whom the CKD-EPI formula has not been extensively validated. Use of the eGFR is not recommended in the following populations: [address] Individuals with unstable creatinine concentrations, including patients and those with serious co-morbid conditions. Patients with extremes in muscle mass or diet. The data above are obtained from the National Kidney Disease Education Program (NKDEP) which additionally recommends that when the eGFR is used in patients with extremes of body mass index for purposes of drug dosing, the eGFR should be multiplied by the estimated BMI. CHEM PANEL BUN 18 mg/dL 7 - 22 03/26 [facility] CHEM PANEL Glucose Lvl 86 mg/dL 70 - 99 03/26 2Interpretive Data: Adult reference range values reflect the clinical guidelines of the [place] [employer]. [facility] CHEM PANEL Chloride Lvl 101 meq/L 95 - 109 03/26 [facility] CHEM PANEL CO2 32 meq/L 24 - 32 03/26 [facility] CHEM PANEL Calcium Lvl 9.2 mg/dL 8.5 - 10.5 03/26 [facility] CHEM PANEL Creatinine 1.0 mg/dL 0.5 - 1.4 03/26 [facility] CHEM PANEL Sodium Lvl 141 meq/L 135 - 145 03/26 [facility] CHEM PANEL Potassium 3.5 meq/L 3.5 - 5.1 03/26 Lvl /2013 [facility] CHEM PANEL AGAP 11.5 meq/L 10.0 - 03/26 20.0 [facility] HEMATOLOGY Platelet 348 K/CMM 133 - 450 03/26 [facility] HEMATOLOGY MPV 8.8 fL 7.4 - 10.4 03/26 [facility] HEMATOLOGY RDW 16.1 % 11.5 - 03/26 14.5 [facility] HEMATOLOGY MCHC 34.1 g/dL 32.0 - 03/26 [place] 36.0 [facility] HEMATOLOGY MCV 83.7 fL 80.0 - 03/26 98.0 [facility] HEMATOLOGY MCH 28.5 pg 27.0 - 03/26 31.0 [facility] HEMATOLOGY Hgb 12.3 g/dL 12.0 - 03/26 16.0 [facility] HEMATOLOGY RBC 4.31 M/CMM 4.20 - 03/26 5.40 [facility] HEMATOLOGY Hct 36.1 % 36.0 - 03/26 48.0 [facility] HEMATOLOGY WBC 8.9 K/CMM 3.7 - 10.4 03/26 [facility] HEMATOLOGY Monocytes # 0.6 K/CMM 0.0 - 0.8 03/26 [facility] HEMATOLOGY Eosinophils 0.0 K/CMM 0.0 - 0.5 03/26 /2013 [facility] HEMATOLOGY Basophils # 0.1 K/CMM 0.0 - 0.2 03/26 [facility] HEMATOLOGY Lymphocytes 3.0 K/CMM 1.0 - 5.5 03/26 [facility] HEMATOLOGY Segs-Bands # 5.2 K/CMM 1.5 - 8.1 03/26 [facility] HEMATOLOGY Basophils 1.6 % 0.0 - 1.0 03/26 [facility] HEMATOLOGY Eosinophils 0.2 % 0.0 - 4.0 03/26 [facility] HEMATOLOGY Lymphocytes 33.7 % 20.0 - 03/26 [place] 40.0 /2013 [facility] HEMATOLOGY Segs 57.3 % 45.0 - 03/26 [place] [facility]0 [facility] HEMATOLOGY Monocytes 7.2 % 2.0 - 12.0 03/26 [facility] URINE CHEM U Preg Negative Negative 02/24 [facility] (02/24/14 11:40 AM) Center CHEM PANEL Phosphorus 3.3 mg/dL 2.5 - 4.5 02/24 [facility] CHEM PANEL Magnesium 2.0 mg/dL 1.8 - 2.4 02/24 [facility] Lvl [facility] CHEM PANEL Alk Phos 78 unit/L 39 - 136 02/24 [facility] CHEM PANEL Total 6.2 g/dL 6.4 - 8.4 02/24 [facility] CHEM PANEL A/G Ratio 1.3 0.7 - 1.6 02/24 [facility] CHEM PANEL Globulin 2.7 g/dL 2.0 - 4.0 02/24 [facility] CHEM PANEL AST 13 unit/L 0 - 37 02/24 [facility] CHEM PANEL ALT 36 unit/L 0 - 65 02/24 [facility] CHEM PANEL Albumin Lvl 3.5 g/dL 3.5 - 5.0 02/24 [facility] CHEM PANEL Bili 0.1 mg/dL 0.0 - 1.0 02/24 [facility] CHEM PANEL Bili Total 0.2 mg/dL 0.2 - 1.3 02/24 [facility] CHEM PANEL Bili Direct 0.1 mg/dL 0.0 - 0.3 02/24 [facility] CHEM PANEL Glucose Lvl 79 mg/dL 70 - 99 02/24 4Interpretive Data: Adult reference range values reflect the clinical guidelines of the [place] [employer]. [facility] ELECTROLYT AGAP 14.0 meq/L 10. - 02/24 [facility] ES . [facility] ELECTROLYT eGFR 128 02/24 1Result Comment: The eGFR is calculated using the CKD-EPI formula. In most young, healthy individuals the eGFR will be > 90 mL/min/1.73m2. The eGFR declines with age. An eGFR of 60-89 may be normal in [facility] ES mL/min/1.7 some populations, particularly the elderly, for whom the CKD-EPI formula has not been extensively validated. Use of the eGFR is not recommended in the following populations: [address] Individuals with unstable creatinine concentrations, including patients and those with serious co-morbid conditions. Patients with extremes in muscle mass or diet. The data above are obtained from the National Kidney Disease Education Program (NKDEP) which additionally recommends that when the eGFR is used in patients with extremes of body mass index for purposes of drug dosing, the eGFR should be multiplied by the estimated BMI. ELECTROLYT CO2 22 meq/L 24 - 32 02/24 [facility] ELECTROLYT Sodium Lvl 141 meq/L 135 - 145 02/24 [facility] ELECTROLYT Chloride Lvl 109 meq/L 95 - 109 02/24 [facility] ELECTROLYT Potassium 4.0 meq/L 3.5 - 5.1 02/24 [facility] ELECTROLYT Calcium Lvl 8.5 mg/dL 8.5 - 10.5 02/24 [facility] ELECTROLYT Creatinine 0.5 mg/dL 0.5 - 1.4 02/24 [facility] ELECTROLYT BUN 11 mg/dL 7 - 22 02/24 [facility] ELECTROLYT Glucose Lvl 79 mg/dL 70 - 99 02/24 3Interpretive Data: Adult reference range values reflect the clinical guidelines of the [place] [employer]. [facility] HEMATOLOGY MCH 29.7 pg 27.0 - 02/24 31.0 [facility] HEMATOLOGY MCV 87.6 fL 80.0 - 02/24 98.0 [facility] HEMATOLOGY RDW 18.0 % 11.5 - 02/24 [place] 14.5 [facility] HEMATOLOGY MCHC 33.9 g/dL 32.0 - 02/24 [place] 36.0 [facility] HEMATOLOGY Hgb 11.2 g/dL 12.0 - 02/24 16.0 [facility] HEMATOLOGY Hct 33.0 % 36.0 - 02/24 [place] 48.0 [facility] HEMATOLOGY RBC 3.77 M/CMM 4.20 - 02/24 [place] 5.40 [facility] HEMATOLOGY WBC 8.0 K/CMM 3.7 - 10.4 02/24 [facility] HEMATOLOGY MPV 8.0 fL 7.4 - 10.4 02/24 [facility] HEMATOLOGY Platelet 528 K/CMM 133 - 450 02/24 [facility] HEMATOLOGY Basophils # 0.1 K/CMM 0.0 - 0.2 02/24 [facility] HEMATOLOGY Basophils 0.6 % 0.0 - 1.0 02/24 [facility] HEMATOLOGY Monocytes # 0.7 K/CMM 0.0 - 0.8 02/24 [facility] HEMATOLOGY Lymphocytes 2.9 K/CMM 1.0 - 5.5 02/24 [place] # [facility] HEMATOLOGY Segs-Bands # 4.3 K/CMM 1.5 - 8.1 02/24 [facility] HEMATOLOGY Eosinophils 0.1 % 0.0 - 4.0 02/24 [facility] HEMATOLOGY Monocytes 9.0 % 2.0 - 12.0 02/24 [facility] HEMATOLOGY Lymphocytes 35.9 % 20.0 - 02/24 [place] 40.0 [facility] HEMATOLOGY Segs 54.4 % 45.0 - 02/24 [place] 75.0 [facility] PARATHYROI Ca Ion WB 1.07 1.05 - 02/24 [facility] D PROFILE mMol/L 1. [facility] PARATHYROI Ca Norm WB 1.09 1.05 - 02/24 [facility] D PROFILE mMol/L . [facility] CHEM PANEL Phosphorus 3.1 mg/dL 2.5 - 4.5 02/23 [facility] CHEM PANEL Magnesium 2.1 mg/dL 1.8 - 2.4 02/23 [facility] Lvl [facility] URINE AND UA Protein Trace Negative 02/23 [facility] STOOL [facility] *ABN* [place] (02/23/14 3:37 AM) URINE AND UA pH 6.0 5.0 - 8.0 02/[address] [facility] URINE AND UA Spec Grav 1.034 <=1.030 02/[address] [facility] URINE AND UA Turbidity Clear Clear 02/[address] [facility] (02/23/14 3:37 AM) [place] URINE AND UA 0.2 EU/dL 0.1 - 1.0 02/[address] [facility] Urobilinogen [facility] URINE AND UA Leuk Est Negative Negative 02/23 [facility] (02/23/14 3:37 AM) [place] URINE AND UA Nitrite Negative Negative 02/23 [facility] (02/23/14 3:37 AM) [place] URINE AND UA Blood Negative Negative 02/23 [facility] (02/23/14 3:37 AM) [place] URINE AND UA Ketones Trace Negative 02/23 [facility] *ABN* [place] (02/23/14 3:37 AM) URINE AND UA Bili Small Negative 02/23 [facility] *ABN* [place] (02/23/14 3:37 AM) URINE AND UA Glucose Negative Negative 02/23 [facility] (02/23/14 3:37 AM) [place] URINE AND UA Color Yellow Yellow 02/23 [facility] *NA* [place] (02/23/14 3:37 AM) URINE AND UA Bacteria Few /HPF None Seen 02/[address] [facility] /HPF [facility] URINE AND UA WBC 0-2 /HPF None Seen 02/[address] [facility] /HPF [facility] URINE AND UA RBC 3-5 /HPF 0 - 2 02/23 [facility] URINE AND Micro? Performed 02/23 [facility] (02/23/14 3:37 AM) [place] URINE AND UA Sq Epi Occasional Few /LPF 02/[address] [facility] /LPF [facility] URINE AND UA Mucus Moderate None Seen 02/[address] [facility] /LPF /LPF [facility] Brain wo Brain wo EXAM: MRI BRAIN WITHOUT CONTRAST 02/23 - [facility] contrast contrast MRI - Medical MRI DATE: Feb 23, 2014 07:30:14 AM This report was dictated by a [employer]orer/Fellow. I have personally reviewed the images as Center well as the Resident's interpretation and agree with the findings. INDICATION: Seizures Read by: Sebastian Goldsmith MD Resident: Sebastian Goldsmith MD Dictated Date/time: 02/23/14 11:04 COMPARISON: 02/23/2014 CT Electronically Signed by: Atul Giang 02/23/14 11:21 FINAL REPORT TECHNIQUE: Multiplanar, multisequence MR imaging of the brain. DISCUSSION: The hippocampal formations are structurally normal. No heterotopia or definite cortical dysplasia is identified. No focal signal abnormalities are identified in the brain parenchyma. There is no evidence of restricted diffusion on the DWI sequence. There is no evidence of intraparenchymal or extra-axial hemorrhage, mass, mass-effect, or hydrocephalus. Appropriate flow-voids are present in the vessels at the base of the brain. Incidental imaging of the orbits, paranasal sinuses, skull, and skull base is unremarkable. IMPRESSION: No seizure focus detected. DRUG UDS Note See Note 6 02/23 6Interpretive Data: Drugs reported as positive have not been confirmed by a second method and should be used for medical purposes only. To order Medical (02/23/14 1:25 AM) confirmation, contact laboratory. Center note: Below are cut-off concentrations for all urine drugs of abuse performed in the laboratory. Some drugs listed in the table may not be included in this panel. Description Cut-off concentration Amphetamine 1000 ng/mL Barbiturates 200 ng/mL Benzodiazepines 300 ng/mL Cocaine metabolites 300 ng/mL Opiates 300 ng/mL Phencyclidine 25 ng/mL Propoxyphene 300 ng/mL Marijuana metabolites 50 ng/mL Methadone 300 ng/mL Urine alcohol 20 mg/dL DRUG U Phencyc Negative Negative 02/23 [place] [facility] *NA* Center (02/23/14 1:25 AM) DRUG U Sheila Scr Negative Negative 02/23 [facility] *NA* Center (02/23/14 1:25 AM) DRUG U Benzodia Positive Negative 02/23 [place] SCREEN Medical *ABN* Center (02/23/14 1:25 AM) DRUG U Cocaine Negative Negative 02/23 [facility] *NA* Center (02/23/14 1:25 AM) DRUG U Opiate Scr Positive Negative 02/23 [facility] *ABN* Center (02/23/14 1:25 AM) DRUG U Cannab Scr Negative Negative 02/23 [facility] *NA* Center (02/23/14 1:25 AM) DRUG U Amph Scr Negative Negative 02/23 [facility] *NA* Center (02/23/14 1:25 AM) CARDIAC CK-MB INDEX 1.1 0.0 - 2.5 02/23 [place] [facility] CARDIAC CK MB 1.4 ng/mL 0.5 - 3.6 02/23 [facility] CARDIAC Total CK 126 unit/L 12 - 191 02/23 [facility] CHEM PANEL Lactic Acid 1.5 mMol/L 0.5 - 2.2 02/23 [place] Lv [facility] ELECTROLYT AGAP 16.4 meq/L 10.0 - 02/23 [place] ES 20.0 [facility] ELECTROLYT Chloride Lvl 104 meq/L 95 - 109 02/23 [facility] ELECTROLYT CO2 24 meq/L 24 - 32 02/23 [facility] ELECTROLYT Calcium Lvl 9.2 mg/dL 8.5 - 10.5 02/23 [facility] ELECTROLYT eGFR 115 02/23 2Result Comment: The eGFR is calculated using the CKD-EPI formula. In most young, healthy individuals the eGFR will be > 90 mL/min/1.73m2. The eGFR declines with age. An eGFR of 60-89 may be normal in [facility] mL/min/1.7 some populations, particularly the elderly, for whom the CKD-EPI formula has not been extensively validated. Use of the eGFR is not recommended in the following populations: [place] [address] [facility] Individuals with unstable creatinine concentrations, including patients and those with serious co-morbid conditions. Patients with extremes in muscle mass or diet. The data above are obtained from the National Kidney Disease Education Program (NKDEP) which additionally recommends that when the eGFR is used in patients with extremes of body mass index for purposes of drug dosing, the eGFR should be multiplied by the estimated BMI. ELECTROLYT Potassium 4.4 meq/L 3.5 - 5.1 02/23 [facility] ES Lvl [facility] ELECTROLYT Sodium Lvl 140 meq/L 135 - 145 02/23 [facility] ELECTROLYT Creatinine 0.7 mg/dL 0.5 - 1.4 02/23 [facility] ES Lvl [facility] ELECTROLYT BUN 13 mg/dL 7 - 22 02/23 [facility] ELECTROLYT Glucose Lvl 134 mg/dL 70 - 99 02/23 5Interpretive Data: Adult reference range values reflect the clinical guidelines of the [place] [employer]. Medical [place] HEMATOLOGY WBC 14.7 K/CMM 3.7 - 10.4 02/23 [facility] HEMATOLOGY RBC 4.61 M/CMM 4.20 - 02/23 5.40 [facility] HEMATOLOGY Hgb 13.2 g/dL 12.0 - 02/23 16.0 [facility] HEMATOLOGY MCV 84.3 fL 80.0 - 02/23 [facility] 98.0 /2013 [facility] HEMATOLOGY Hct 38.8 % 36.0 - 02/23 48.0 [facility] HEMATOLOGY MCH 28.8 pg 27.0 - 02/23 [facility] 31.0 [facility] HEMATOLOGY RDW 17.5 % 11.5 - 02/23 [facility] 14.5 [facility] HEMATOLOGY MCHC 34.1 g/dL 32.0 - 02/23 36.0 [facility] HEMATOLOGY Platelet 649 K/CMM 133 - 450 02/23 [facility] HEMATOLOGY MPV 8.8 fL 7.4 - 10.4 02/23 [facility] MYOGLOBIN U Myoglobin null 0 - 30 02/23 [facility] Brain wo Brain wo EXAM: CT BRAIN WITHOUT CONTRAST 02/23 - [facility] contrast contrast CT /2013 - [facility] CT Center DATE: 02/23/2014 Read by: Tahir Eric MD Dictated Date/time: 02/23/14 09:11 Electronically Signed by: Tahir Eric MD 02/23/14 09:13 FINAL REPORT INDICATION: Seizures TECHNIQUE: Noncontrast axial imaging was obtained from the vertex to the skull base. COMPARISON: None FINDINGS: No acute intracranial hemorrhage or extra-axial collection. No hydrocephalus or midline shift. The lopez-white matter interface is preserved. The included paranasal sinuses and tympanomastoid cavities are clear. The calvarium and skull base are intact. IMPRESSION: Negative exam. Vital Signs Vital Sign Value Date Comments Source Respitory Rate 18 09/17/2017 [place] Systolic (mm Hg) 110 09/17/2017 [facility] Diastolic (mm Hg) 70 09/17/2017 [facility] Temperature Oral (F) 98.7 F 09/17/2017 [facility] Heart Rate 80 09/17/2017 [facility] Temperature Oral (F) 98.8 F 09/17/2017 [facility] Heart Rate 85 09/17/2017 [facility] Respitory Rate 18 09/17/2017 [facility] Height 152.4 cm 09/17/2017 [facility] BMI Calculated 29.36 09/17/2017 [facility] Weight 68.182 09/17/2017 [facility] Systolic (mm Hg) 112 09/17/2017 [facility] Diastolic (mm Hg) 72 09/17/2017 [facility] Weight 152 09/15/2017 [facility] Height 58 09/15/2017 [facility] Temperature Oral (F) 98.6 F 09/15/2017 [facility] Diastolic (mm Hg) 83 09/15/2017 [facility] Systolic (mm Hg) 126 09/15/2017 [facility] Weight 152 09/12/2017 [facility] Height 58 09/12/2017 [facility] Temperature Oral (F) 98.0 F 09/12/2017 [facility] Diastolic (mm Hg) 77 09/12/2017 [facility] Systolic (mm Hg) 113 09/12/2017 [facility] Respitory Rate 16 09/05/2017 [facility] Systolic (mm Hg) 102 09/05/2017 [facility] Diastolic (mm Hg) 59 09/05/2017 [facility] Respitory Rate 16 09/05/2017 [facility] Systolic (mm Hg) 87 09/05/2017 [facility] Diastolic (mm Hg) 64 09/05/2017 [facility] Respitory Rate 13 09/05/2017 [facility] Systolic (mm Hg) 68 09/05/2017 [facility] Diastolic (mm Hg) 49 09/05/2017 [facility] Heart Rate 65 09/05/2017 [facility] Height 147.32 cm 09/04/2017 [facility] BMI Calculated 31 09/04/2017 [facility] Weight 67.273 09/04/2017 [facility] Weight 149 08/03/2017 [facility] Height 58 08/03/2017 [facility] Temperature Oral (F) 98.8 F 08/03/2017 [facility] Diastolic (mm Hg) 72 08/03/2017 [facility] Systolic (mm Hg) 100 08/03/2017 [facility] Weight 65.455 08/02/2017 [facility] Heart Rate 85 08/02/2017 [facility] Height 152.4 cm 08/02/2017 [facility] Temperature Oral (F) 98.7 F 08/02/2017 [facility] Respitory Rate 18 08/02/2017 [facility] BMI Calculated 28.18 08/02/2017 [facility] Systolic (mm Hg) 108 08/02/2017 [facility] Diastolic (mm Hg) 72 08/02/2017 [facility] Weight 147 07/06/2017 [facility] Height 58 07/06/2017 [facility] Temperature Oral (F) 98.9 F 07/06/2017 [facility] Diastolic (mm Hg) 70 07/06/2017 [facility] Systolic (mm Hg) 106 07/06/2017 [facility] Temperature Oral (F) 98.5 F 03/11/2017 [facility] Respitory Rate 17 03/11/2017 [facility] Systolic (mm Hg) 96 03/11/2017 [facility] Diastolic (mm Hg) 55 03/11/2017 [facility] Heart Rate 68 03/11/2017 [facility] Heart Rate 70 03/11/2017 [facility] Temperature Oral (F) 97.9 F 03/11/2017 [facility] Systolic (mm Hg) 95 03/11/2017 [facility] Diastolic (mm Hg) 57 03/11/2017 [facility] Respitory Rate 17 03/11/2017 [facility] Systolic (mm Hg) 91 03/11/2017 [facility] Diastolic (mm Hg) 57 03/11/2017 [facility] Respitory Rate 18 03/11/2017 [facility] Heart Rate 60 03/11/2017 [facility] Temperature Oral (F) 97.9 F 03/11/2017 [facility] Height 147.32 cm 03/11/2017 [facility] Weight 63.636 03/11/2017 [facility] BMI Calculated 29.32 03/11/2017 [facility] Height 147.32 cm 03/10/2017 [facility] Weight 63.636 03/10/2017 [facility] BMI Calculated 29.32 03/10/2017 [facility] Weight 137 03/09/2017 [id number] Height 58 03/09/2017 [id number] Temperature Oral (F) 98.5 F 03/09/2017 [id number]. [id number] Heart Rate 86 03/09/2017 [id number]. [id number] Diastolic (mm Hg) 61 03/09/2017 [id number]. [id number] Systolic (mm Hg) 99 03/09/2017 [id number]. [id number] Weight 142 02/27/2017 [id number]. [id number] Height 58 02/27/2017 [id number]. [id number] Temperature Oral (F) 98.6 F 02/27/2017 [id number]. [id number] Heart Rate 82 02/27/2017 [id number]. [id number] Diastolic (mm Hg) 71 02/27/2017 [id number]. [id number] Systolic (mm Hg) 110 02/27/2017 [id number]. [id number] Weight 148 02/24/2017 [facility] Height 58 02/24/2017 [facility] Temperature Oral (F) 97.9 F 02/24/2017 [facility] Diastolic (mm Hg) 79 02/24/2017 [facility] Systolic (mm Hg) 118 02/24/2017 [facility] Systolic (mm Hg) 110 02/18/2017 [facility] Diastolic (mm Hg) 69 02/18/2017 [facility] Heart Rate 82 02/18/2017 [facility] Temperature Oral (F) 98.1 F 02/18/2017 [facility] Systolic (mm Hg) 125 02/17/2017 [facility] Diastolic (mm Hg) 78 02/17/2017 [facility] Temperature Oral (F) 98.1 F 02/17/2017 [facility] Heart Rate 84 02/17/2017 [facility] Systolic (mm Hg) 111 02/17/2017 [facility] Diastolic (mm Hg) 69 02/17/2017 [facility] Temperature Oral (F) 98.4 F 02/17/2017 [facility] Heart Rate 91 02/17/2017 [facility] Respitory Rate 16 02/17/2017 [facility] Respitory Rate 16 02/17/2017 [facility] Respitory Rate 16 02/17/2017 [facility] Weight 60 02/12/2017 [facility] BMI Calculated 27.65 02/12/2017 [facility] Height 147.32 cm 02/12/2017 [facility] Heart Rate 69 02/03/2017 [facility] Temperature Oral (F) 98.2 F 02/03/2017 [facility] Systolic (mm Hg) 114 02/03/2017 [facility] Diastolic (mm Hg) 75 02/03/2017 [facility] Respitory Rate 16 02/03/2017 [facility] Temperature Oral (F) 98.5 F 02/03/2017 [facility] Systolic (mm Hg) 130 02/03/2017 [facility] Diastolic (mm Hg) 77 02/03/2017 [facility] Heart Rate 59 02/03/2017 [facility] Temperature Oral (F) 98.4 F 02/03/2017 [facility] Heart Rate 76 02/03/2017 [facility] Systolic (mm Hg) 118 02/03/2017 [facility] Diastolic (mm Hg) 74 02/03/2017 [facility] Respitory Rate 14 02/03/2017 [facility] Respitory Rate 14 02/02/2017 [facility] Weight 62.33 01/31/2017 [facility] BMI Calculated 28.72 01/31/2017 [facility] Height 147.32 cm 01/31/2017 [facility] Temperature Oral (F) 98.8 F 01/18/2017 [facility] Systolic (mm Hg) 100 01/18/2017 [facility] Diastolic (mm Hg) 66 01/18/2017 [facility] Respitory Rate 18 01/18/2017 [facility] Heart Rate 62 01/18/2017 [facility] Heart Rate 72 01/18/2017 [facility] Temperature Oral (F) 98.1 F 01/18/2017 [facility] Systolic (mm Hg) 112 01/18/2017 [facility] Diastolic (mm Hg) 68 01/18/2017 [facility] Respitory Rate 16 01/18/2017 [facility] Heart Rate 74 01/18/2017 [facility] Temperature Oral (F) 98.0 F 01/18/2017 [facility] Systolic (mm Hg) 103 01/18/2017 [facility] Diastolic (mm Hg) 68 01/18/2017 [facility] Respitory Rate 16 01/18/2017 [facility] Weight 61.364 01/16/2017 [facility] BMI Calculated 28.27 01/16/2017 [facility] Height 147.32 cm 01/16/2017 [facility] Height 147.32 cm 01/15/2017 [facility] BMI Calculated 27.65 01/15/2017 [facility] Weight 60 01/15/2017 [facility] Temperature Oral (F) 98.4 F 12/16/2016 [facility] Heart Rate 79 12/16/2016 [facility] Systolic (mm Hg) 111 12/16/2016 [facility] Diastolic (mm Hg) 74 12/16/2016 [facility] Respitory Rate 16 12/16/2016 [facility] Temperature Oral (F) 98.3 F 12/16/2016 [facility] Respitory Rate 16 12/16/2016 [facility] Systolic (mm Hg) 103 12/16/2016 [facility] Diastolic (mm Hg) 69 12/16/2016 [facility] Heart Rate 81 12/16/2016 [facility] Heart Rate 79 12/16/2016 [facility] Respitory Rate 16 12/16/2016 [facility] Systolic (mm Hg) 99 12/16/2016 [facility] Diastolic (mm Hg) 66 12/16/2016 [facility] Temperature Oral (F) 98.4 F 12/16/2016 [facility] BMI Calculated 28.69 12/15/2016 [facility] Weight 62.273 12/15/2016 [facility] Height 147.32 cm 12/15/2016 [facility] Systolic (mm Hg) 99 04/08/2016 [facility] Diastolic (mm Hg) 65 04/08/2016 [facility] Respitory Rate 18 04/08/2016 [facility] Temperature Oral (F) 98.1 F 04/08/2016 [facility] Heart Rate 85 04/08/2016 [facility] Systolic (mm Hg) 89 04/08/2016 [facility] Diastolic (mm Hg) 58 04/08/2016 [facility] Heart Rate 73 04/08/2016 [facility] Respitory Rate 18 04/08/2016 [facility] Temperature Oral (F) 98.5 F 04/08/2016 [facility] Systolic (mm Hg) 89 04/08/2016 [facility] Diastolic (mm Hg) 55 04/08/2016 [facility] Heart Rate 71 04/08/2016 [facility] Temperature Oral (F) 98.1 F 04/08/2016 [facility] Respitory Rate 18 04/08/2016 [facility] Weight 65.028 04/07/2016 [facility] BMI Calculated 29.97 04/07/2016 [facility] Height 147.3 cm 04/07/2016 [facility] Height 147.32 cm 04/07/2016 [facility] Respitory Rate 18 03/26/2014 [facility] Heart Rate 85 03/26/2014 [facility] Center Systolic (mm Hg) 94 03/26/2014 [facility] Diastolic (mm Hg) 62 03/26/2014 [facility] Height 152.4 cm 03/26/2014 [facility] Weight 61.818 03/26/2014 [facility] BMI Calculated 26.62 03/26/2014 [facility] Temperature Oral (F) 98.0 F 03/26/2014 [facility] Center Systolic (mm Hg) 92 03/26/2014 [facility] Heart Rate 87 03/26/2014 [facility] Center Diastolic (mm Hg) 66 03/26/2014 [facility] Respitory Rate 18 03/26/2014 [facility] Diastolic (mm Hg) 85 02/24/2014 [facility] Heart Rate 64 02/24/2014 [facility] Center Systolic (mm Hg) 111 02/24/2014 [facility] Respitory Rate 18 02/24/2014 [facility] Temperature Oral (F) 98.1 F 02/24/2014 [facility] Heart Rate 74 02/24/2014 [facility] Respitory Rate 18 02/24/2014 [facility] Center Diastolic (mm Hg) 85 02/24/2014 [facility] Systolic (mm Hg) 119 02/24/2014 [facility] Temperature Oral (F) 97.6 F 02/24/2014 [facility] Heart Rate 81 02/24/2014 [facility] Temperature Oral (F) 98.1 F 02/24/2014 [facility] Systolic (mm Hg) 107 02/24/2014 [facility] Diastolic (mm Hg) 69 02/24/2014 [facility] Respitory Rate 16 02/24/2014 [facility] Weight 90.909 02/23/2014 [facility] Height 157.48 cm 02/23/2014 [facility] BMI Calculated 36.66 02/23/2014 [facility] Encounters Location Location Encounter Encounter Reason Attending ADM DC Status Source Details Type Number For Provider Date Date Visit [facility] [id number] Tana 02/23 02/24 [facility] Adi Belle /2013 [facility] [id number] Felicia 03/26 03/26 [facility] Micky /2013 [facility] Observation [id number] Link 04/07 04/08 Adi Farmer /2015 [facility] Inpatient [id number] Lucio 12/15 12/17 Adi Frazier /2016 [facility] Inpatient [id number] Mian Mccarthy 01/15 01/18 Adi /2016 [facility] Inpatient [id number] Mian Mccarthy 01/31 02/03 Adi /2016 [facility] Inpatient [id number] Mian Mccarthy 02/12 02/18 Adi /2016 [facility] Outpatient [id number] Jigar 03/06 03/07 Adi Taylor /2016 [facility] Observation [id number] Gyanendra 03/10 03/11 Adi Roman /2016 [facility] Emergency [id number] Sebastian 08/02 08/03 Adi Martinez /2017 [facility] Bedded [id number] Sajan 09/05 09/05 [facility] Outpatient Ladarius /2017 [facility] Emergency [id number] Musa Tanieme 09/17 09/17 [facility] Procedures Procedure Code Date Perfomer Comments Source [facility] [id number] [facility] Gastric bypass [id number] [facility] operation Gastric bypass [id number] [facility] operation Cholecystectomy [id number] [facility] Gastric bypass [id number] [facility]
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
--- OUTSIDE RECORDS SUMMARY | 2018-02-25 14:36 | XMS REPORT | Summary of Care ---
:1980 Author Organization [facility] Address [id number] [place] [id number]- Encounter HQ Millie_jose miguel(FIN) [id number] Date(s): 04/07/16 - 04/08/16 [facility] [id number] [place] [phone] Discharge Disposition: Home or Self Care Attending Physician: Link Farmer MD Admitting Physician: Link Farmer MD Vital Signs Most recent to oldest 1 2 3 [Reference Range]: Height 147.3 cm 147.32 cm (04/07/16 2:28 AM) (04/07/16 12:54 AM) Current Weight 65.028 kg (04/07/16 12:54 AM) Temperature Oral [96.4-99.1 98.1 DegF 98.5 DegF 98.1 DegF DegF] (04/08/16 3:17 PM) (04/08/16 8:51 AM) (04/08/16 4:43 AM) Blood Pressure [90-140/60-90 99/65 mmHg 89/58 mmHg 89/55 mmHg mmHg] (04/08/16 3:17 PM) *LOW* *LOW* (04/08/16 8:51 AM) (04/08/16 4:43 AM) Respiratory Rate [14-20 18 BRMIN 18 BRMIN 18 BRMIN BRMIN] (04/08/16 3:17 PM) (04/08/16 8:51 AM) (04/08/16 4:43 AM) Peripheral Pulse Rate [60-100 85 bpm 73 bpm 71 bpm bpm] (04/08/16 3:17 PM) (04/08/16 8:51 AM) (04/08/16 4:43 AM) Weight 65.028 kg (04/07/16 2:28 AM) Body Mass Index 29.97 m2 (04/07/16 2:28 AM) Problem List Condition Effective Dates Status Health Status Informant Anxiety(Confirmed) Resolved Schizoaffective disorder(Confirmed) Resolved Seizure(Confirmed) Resolved Allergies, Adverse Reactions, Alerts Substance Reaction Severity Status aspirin Active Medications Abilify 5 mg, 1 tab, Route: PO, Drug form: TAB, Daily, Dosing Weight 65.028, kg, Priority: STAT, Start date:04/07/16 14:09:00 [employer]Y ENGINEER, Duration: 30 day, Stop date: 05/07/16 9:00:00 [employer] S[employer]ETY ENGINEER Notes: Non-Formulary Drug. (Same as: Abilify) Start Date: 04/07/16 Stop Date: 04/08/16 Status: DiscontinuedAmbien 5 mg, Route: PO, Bedtime, Dosing Weight 65.028, kg, PRN as needed for sleep, Start date: 04/07/16 14:06:00 [employer] SYSTEMS SAFETY ENGINEER, Duration: 30 day, Stop date: 05/07/16 14:05: 00 [employer] S[employer]ETY ENGINEER Start Date: 04/07/16 Stop Date: 04/07/16 Status: DeletedAmbien 10 mg, Route: PO, Bedtime, Dosing Weight 61.818, kg, PRN Insomnia, Start date: 04/07/16 1:28:00 RH[employer] SYSTEMS SAFETY ENGINEER,Duration: 30 day, Stop date: 05/07/16 1:27:00 [employer] SAFETY ENGINEER Start Date: 04/07/16 Stop Date: 04/07/16 Status: DeletedAmbien 5 mg, 1 tab, Route: PO, Drug form: TAB, Bedtime, PRN Sleep, Start date: 2:32:00 [employer] SAFETY ENGINEER, Duration: 30 day, Stop date: 05/07/16 2:31:00 [employer] SYSTEM[employer] SAFETY ENGINEER Notes: (Same As: Ambien) Start Date: 04/07/16 Stop Date: 04/08/16 Status: Discontinuedaspirin 325 mg tablet 325 mg, Route: PO, Drug form: TAB, Daily, Dosing Weight 65.028, kg, Start date: 04/08/16 9:00:00 [employer] S[employer]ETY ENGINEER, Duration: 30 day, Stop date: 05/07/16 9:00:00 [employer] SYSTEM[employer] SAFETY ENGINEER Start Date: 04/08/16 Stop Date: 04/07/16 Status: Canceledaspirin 81 mg tablet, enteric coated 81 mg, 1 tab, Route: PO, Drug form: ECTAB, Daily, Dosing Weight 61.818, kg, Start date: 04/07/16 9:00:00 [employer] SAFETY ENGINEER, Duration: 30 day, Stop date: 05/06/16 9:00:00 [employer] SYSTEM[employer] SAFETY ENGINEER Notes: Do not crush or chew.(Same As: Ecotrin) Start Date: 04/07/16 Stop Date: 04/08/16 Status: DiscontinuedclonazePAM 1 mg, 1 tab, Route: PO, Drug form: TAB, BID, Dosing Weight 65.028, kg, Start date: 04/07/16 17:00:00CST, Duration: 30 day, Stop date: 05/07/16 9:00:00 [employer] S[employer]ETY ENGINEER Notes: (Same As: KlonoPIN) Start Date: 04/07/16 Stop Date: 04/08/16 Status: DiscontinuedIsordil Titradose 10 mg, 1 tab, Route: PO, Drug form: TAB, BID, Dosing Weight 65.028, kg, Start date: 04/07/16 17:00:00 [employer] S[employer]ETY ENGINEER, Duration: 30 day, Stop date: 05/07/16 9:00:00 [employer] SYSTEMS SAFETY ENGINEER Notes: (Same as:Isordil) Take on empty stomach/ full glass of water Start Date: 04/07/16 Stop Date: 04/08/16 Status: Discontinuedisosorbide dinitrate 10 mg oral tablet 10 mg=1 tab, PO, BID, # 60 tab, 0 Refill(s) Start Date: 04/08/16 Stop Date: 05/08/16 Status: Orderedmorphine Sulfate 1 mg, 0.5 mL, Route: IVP, Drug form: INJ, Q4H, Dosing Weight 65.028, kg, PRN Pain Score 7-10, Start date: 04/07/16 14:20:00 [employer] S[employer]Y ENGINEER, Duration: 30 day, Stop date : 05/07/16 14:19:00 [employer] SYSTEM[employer] SAFETY ENGINEER Notes: (Same as:MORPhine Sulfate) Start Date: 04/07/16 Stop Date: 04/08/16 Status: Discontinuednitroglycerin SL Tab 0.4 mg, 1 tab, Route: SL, Drug form: TAB, Q5Min, Dosing Weight 61.818, kg, PRN Chest Pain, Start date: 04/07/16 1:32:00 [employer] SYSTEM[employer] SAFETY ENGINEER, Duration: 3 doses or times, Stop date: Limited # of times Notes: (Same as:Nitroquick, Nitrostat)"Do Not Crush" Sublingual tablet Start Date: 04/07/16 Stop Date: 04/08/16 Status: DiscontinuedNorco 10/325 oral tablet 1 tab, Route: PO, Drug Form: TAB, Dosing Weight 61.818, kg, Q4H, PRN Pain Score 1-3, Start date: 04/07/16 1:28:00 [employer] S[employer]ETY ENGINEER, Duration: 30 day, Stop date: 05/07/16 1: 27:00 [employer]IC SYSTEMS SAFETY ENGINEER Notes: Do not exceed 4gm/day of acetaminophen. (Same as: [place] 325/10) Start Date: 04/07/16 Stop Date: 04/08/16 Status: Discontinuedondansetron 4 mg, 1 tab, Route: PO, Drug form: TAB, Q8H, Dosing Weight 61.818, kg, PRN Nausea & Vomiting, Start date: 04/07/16 1:32:00 [employer] SYSTEM[employer] SAFETY ENGINEER, Duration: 30 day, Stop date: 05/07/16 1:31:00 [employer] SYSTEMS SAFETY ENGINEER Notes: (Same as: Zofran) Start Date: 04/07/16 Stop Date: 04/08/16 Status: DiscontinuedPlavix 75 mg, 1 tab, Route: PO, Drug form: TAB, Daily, Dosing Weight 65.028, kg, Start date: 04/08/16 9:00:00 [employer] SAFETY ENGINEER, Duration: 30 day, Stop date: 05/07/16 9:00:00 RH[employer] SYSTEMS SAFETY ENGINEER Notes: (Same As: Plavix) Start Date: 04/08/16 Stop Date: 04/08/16 Status: Discontinuedpneumococcal 23-valent vaccine 0.5 mL, Route: IM, Drug Form: INJ, Daily, Start date: 04/07/16 9:00:00 [employer] SYSTEM[employer] SAFETY ENGINEER, Duration: 1 doses or times, Stop date: 04/07/16 9:00:00 RHIC SYSTEMS SAFETY ENGINEER Notes: (Same as: Pneumovax 23) Refrigerate Start Date: 04/07/16 Stop Date: 04/07/16 Status: CompletedProtonix 40 mg, 1 tab, Route: PO, Drug form: ECTAB, Before Dinner, Dosing Weight 65.028, kg, Start date: 04/07/16 16:30:00 [employer] SYSTEMS SAFETY ENGINEER, Duration: 30 day, Stop date: 05/06/16 16: 30:00 RHIC SYSTEMS SAFETY ENGINEER Notes: Tablet should not be chewed or crushed.(Same as: Protonix) Start Date: 04/07/16 Stop Date: 04/08/16 Status: DiscontinuedSaline Flush 0.9% 10 ml, Route: IVP, Drug Form: INJ, Dosing Weight 61.818, kg, PRN, PRN Line Flush , Start date: 04/07/16 1:32:00 RHIC SYSTEMS SAFETY ENGINEER, Duration: 30 day, Stop date: 05/07/16 1:31: 00 [employer]IC SYSTEMS SAFETY ENGINEER Notes: (Same as: BD Posiflush) Start Date: 04/07/16 Stop Date: 04/08/16 Status: DiscontinuedSaline Flush 0.9% 10 ml, Route: IVP, Drug Form: INJ, Dosing Weight 61.818, kg, Q12H, Start date: 04/07/16 9:00:00 RHIC SYSTEMS SAFETY ENGINEER,Duration: 30 day, Stop date: 05/06/16 21:00:00 RHIC SYSTEMS SAFETY ENGINEER Notes: (Same as: BD Posiflush) Start Date: 04/07/16 Stop Date: 04/08/16 Status: Discontinuedverapamil 40 mg, 1 tab, Route: PO, Drug form: TAB, Daily, Dosing Weight 65.028, kg, Start date: 04/08/16 9:00:00 RHIC SYSTEMS SAFETY ENGINEER, Duration: 30 day, Stop date: 05/07/16 9:00:00 RHIC SYSTEMS SAFETY ENGINEER Notes: (Same As: Luke Zhang) "Avoid grapefruit and grapefruit juice" Start Date: 04/08/16 Stop Date: 04/08/16 Status: Discontinued Results CARDIAC ENZYMES Most recent to oldest [Reference Range]: 1 2 Total CK [12-191 unit/L] 141 unit/L 157 unit/L (04/07/16 7:02 AM) (04/07/16 2:35 AM) CK MB [0.5-3.6 ng/mL] 1.9 ng/mL 2.4 ng/mL (04/07/16 7:02 AM) (04/07/16 2:35 AM) CK MB Index [0.0-2.5] 1.3 1.5 (04/07/16 7:02 AM) (04/07/16 2:35 AM) Troponin-I [0.00-0.40 ng/mL] <0.02 ng/mL <0.02 ng/mL (04/07/16 7:02 AM) (04/07/16 2:35 AM) LIPIDS Most recent to oldest [Reference Range]: 1 2 CHD Risk [3.90-5.80] 2.96 *LOW* (04/07/16 2:35 AM) Chol [<=199 mg/dL] 142 mg/dL (04/07/16 2:35 AM) Trig [<=149 mg/dL] 47 mg/dL (04/07/16 2:35 AM) HDL [>=61 mg/dL] 48 mg/dL *LOW* (04/07/16 2:35 AM) LDL (Calculated) [<=99 mg/dL] 85 mg/dL (04/07/16 2:35 AM) VLDL 9 *NA* (04/07/16 2:35 AM) SPECIAL CHEMISTRY Most recent to oldest [Reference Range]: 1 2 Hgb A1C [<=5.6 %] 5.1 % (04/08/16 4:27 AM) HEMATOLOGY Most recent to oldest [Reference Range]: 1 2 PT [12.0-14.7 seconds] 13.2 seconds (04/07/16 2:35 AM) INR [0.85-1.17] 0.98 (04/07/16 2:35 AM) PTT [22.9-35.8 seconds] 34.7 seconds (04/07/16 2:35 AM) Immunizations Not Given Vaccine Date Status Refusal Reason pneumococcal 23-valent vaccine 04/07/16 Not Given Patient Refuses Procedures Procedure Date Related Diagnosis Body Site Gastric bypass operation Social History Social History Type Response Smoking Status Current every day smoker; Type: Cigarettes; Ready to change: No ; Lives with someone who smokes; Cigarette Smoking Last 365 Days Yes; Reg Smoking Cessation Counseling No Assessment and Plan Extracted from: Title: [facility] * Author: Guevara He MD Date: 04/08/16 Impression and Plan Ms. Saba is a 35-year-old female with a history of recently diagnosed Printzmetal's angina as well as mitral regurgitation in addition to anxiety, schizoaffective disorder, and seizure disorder. 1. Possible unstable angina related to Printzmetal's angina. ACS ruled out. No ischemic ST changes. Symptoms have improved with PO Isordil. No [facility] from [facility] yet. Cont PO isordil and d/c verapamil given her chronic borderline hypotension. Cont ASA and Plavix for now. 2. Reported h/o mitral valve prolapse with mitral regurgitation, but no MVP and only trace MR on yesterday's echo. 3. Anxiety disorder. 4. Seizure disorder. 5. Schizoaffective disorder. Otherwise stable CV status and ok for d/c home on current CV meds. Pt to follow up as outpt to re-asses symptoms. Thank you, Guevara He MD [facility] [phone]
--- OUTSIDE RECORDS SUMMARY | 2018-02-25 14:36 | XMS REPORT | Summary of Care ---
:1980 Author Encounter JESUS Sandoval(LUIS) [id number] Date(s): 03/25/14 - 03/26/[address] Discharge Diagnosis: Benign paroxysmal vertigo Discharge Disposition: Home Physician Attending: Felicia Weeks MD Reason for Visit DIZZINESS Vital Signs Most recent to oldest [Reference Range]: 1 2 Height 152.4 cm (03/25/14 10:58 PM) Temperature Oral [96.4-99.1 DegF] 98.0 DegF (03/25/14 10:58 PM) Systolic Blood Pressure [90-140 mmHg] 94 mmHg 92 mmHg (03/26/14 2:20 AM) (03/25/14 10:58 PM) Diastolic Blood Pressure [60-90 mmHg] 62 mmHg 66 mmHg (03/26/14 2:20 AM) (03/25/14 10:58 PM) Respiratory Rate [14-20 BRMIN] 18 BRMIN 18 BRMIN (03/26/14 2:20 AM) (03/25/14 10:58 PM) Peripheral Pulse Rate [60-100 bpm] 85 bpm 87 bpm (03/26/14 2:20 AM) (03/25/14 10:58 PM) Weight 61.818 kg (03/25/14 10:58 PM) Body Mass Index 26.62 m2 (03/25/14 10:58 PM) Problem List Condition Effective Dates Status Health Status Informant Anxiety(Confirmed) Resolved Schizoaffective disorder(Confirmed) Resolved Seizure(Confirmed) Resolved Allergies, Adverse Reactions, Alerts Substance Reaction Severity Status aspirin Active Medications meclizine 25 mg oral tablet 25 mg=1 tab, PO, BID, as needed for dizziness, # 60 tab, 0 Refill(s) Start Date: 03/26/14 Status: OrderedNS (Bolus) IV 1,000 mL, 1,000 ml/hr, Infuse Over: 1 hr, Route: IV, 1,000, Drug form: INJ, ONCE , Priority: STAT, Dosing Weight 61.818 kg, Start date: 03/26/14 0:06:00, Duration: 1 doses or times, Stop date: 03/26/14 0:06:00 Start Date: 03/26/14 Stop Date: 03/26/14 Status: Completed Results ELECTROLYTES Most recent to oldest [Reference Range]: 1 Sodium Lvl [135-145 mEq/L] 141 mEq/L (03/26/14 12:34 AM) Potassium Lvl [3.5-5.1 mEq/L] 3.5 mEq/L (03/26/14 12:34 AM) Chloride Lvl [95-109 mEq/L] 101 mEq/L (03/26/14 12:34 AM) CO2 [24-32 mEq/L] 32 mEq/L (03/26/14 12:34 AM) AGAP [10.0-20.0 mEq/L] 11.5 mEq/L (03/26/14 12:34 AM) CHEM PANEL Most recent to oldest [Reference Range]: 1 Creatinine Lvl [0.5-1.4 mg/dL] 1.0 mg/dL (03/26/14 12:34 AM) eGFR 75 mL/min/1.73m2 1 *NA* (03/26/14 12:34 AM) BUN [7-22 mg/dL] 18 mg/dL (03/26/14 12:34 AM) Glucose Lvl [70-99 mg/dL] 86 mg/dL 2 (03/26/14 12:34 AM) Calcium Lvl [8.5-10.5 mg/dL] 9.2 mg/dL (03/26/14 12:34 AM) Phosphorus [2.5-4.5 mg/dL] 3.5 mg/dL (03/26/14 12:34 AM) Magnesium Lvl [1.8-2.4 mg/dL] 2.2 mg/dL (03/26/14 12:34 AM) Lactic Acid Lvl [0.5-2.2 mMol/L] 0.6 mMol/L (03/26/14 12:45 AM) 1Result Comment: The eGFR is calculated [...] eGFR should be multiplied by the estimated BMI.2Interpretive Data: Adult reference range values reflect the clinical guidelines of the [place] [employer].TOXICOLOGY Most recent to oldest [Reference Range]: 1 Phenytoin Total [10.0-20.0 ug/ml] 4.5 ug/ml *LOW* (03/26/14 12:30 AM) HEMATOLOGY Most recent to oldest [Reference Range]: 1 WBC [3.7-10.4 K/CMM] 8.9 K/CMM (03/26/14 12:34 AM) RBC [4.20-5.40 M/CMM] 4.31 M/CMM (03/26/14 12:34 AM) Hgb [12.0-16.0 g/dL] 12.3 g/dL (03/26/14 12:34 AM) Hct [36.0-48.0 %] 36.1 % (03/26/14 12:34 AM) MCV [80.0-98.0 fL] 83.7 fL (03/26/14 12:34 AM) MCH [27.0-31.0 pg] 28.5 pg (03/26/14 12:34 AM) MCHC [32.0-36.0 g/dL] 34.1 g/dL (03/26/14 12:34 AM) RDW [11.5-14.5 %] 16.1 % *HI* (03/26/14 12:34 AM) Platelet [133-450 K/CMM] 348 K/CMM (03/26/14 12:34 AM) MPV [7.4-10.4 fL] 8.8 fL (03/26/14 12:34 AM) Segs [45.0-75.0 %] 57.3 % (03/26/14 12:34 AM) Lymphocytes [20.0-40.0 %] 33.7 % (03/26/14 12:34 AM) Monocytes [2.0-12.0 %] 7.2 % (03/26/14 12:34 AM) Eosinophils [0.0-4.0 %] 0.2 % (03/26/14 12:34 AM) Basophils [0.0-1.0 %] 1.6 % *HI* (03/26/14 12:34 AM) Segs-Bands # [1.5-8.1 K/CMM] 5.2 K/CMM (03/26/14 12:34 AM) Lymphocytes # [1.0-5.5 K/CMM] 3.0 K/CMM (03/26/14 12:34 AM) Monocytes # [0.0-0.8 K/CMM] 0.6 K/CMM (03/26/14 12:34 AM) Eosinophils # [0.0-0.5 K/CMM] 0.0 K/CMM (03/26/14 12:34 AM) Basophils # [0.0-0.2 K/CMM] 0.1 K/CMM (03/26/14 12:34 AM) Medications Administered During Your Visit No data available for this section Immunizations No data available for this section Social History Social History Type Response Smoking Status Current every day smoker, Type: Cigarettes, Lives with someone who smokes, Cigarette Smoking Last 365 Days Yes, Reg Smoking Cessation Counseling No
--- OUTSIDE RECORDS SUMMARY | 2018-02-25 14:36 | XMS REPORT | Summary of Care ---
:[address] [facility] Address [address] [place], [place] [address]- Encounter HQ Jaime(LUIS) [id number] Date(s): 02/12/17 - 02/17/[address] [facility] [address] [place] [address]- [phone] Discharge Disposition: Home or Self Care Attending Physician: Mian Mccarthy DO Admitting Physician: Mian Mccarthy DO Vital Signs Most recent to oldest 1 2 3 [Reference Range]: Height 147.32 cm (02/12/17 1:33 AM) Current Weight 65.028 kg (02/12/17 10:21 AM) Temperature Oral 98.1 DegF 98.1 DegF 98.4 DegF [96.4-99.1 DegF] (02/17/17 9:55 PM) (02/17/17 3:45 PM) (02/17/17 11:45 AM) Blood Pressure 110/69 mmHg 125/78 mmHg 111/69 mmHg [90-140/60-90 mmHg] (02/17/17 9:55 PM) (02/17/17 3:45 PM) (02/17/17 11:45 AM ) Respiratory Rate [14-20 16 BRMIN 16 BRMIN 16 BRMIN BRMIN] (02/17/17 3:00 AM) (02/17/17 12:58 AM) (02/16/17 7:32 PM) Peripheral Pulse Rate 82 bpm 84 bpm 91 bpm [60-100 bpm] (02/17/17 9:55 PM) (02/17/17 3:45 PM) (02/17/17 11:45 AM) Weight 60 kg (02/12/17 1:33 AM) Body Mass Index 27.65 m2 (02/12/17 1:33 AM) Problem List Condition Effective Dates Status Health Status Informant Anxiety(Confirmed) Resolved Chest pain(Confirmed) Active Fatty liver(Confirmed) Active Gastric bypass status for Resolved obesity(Confirmed) Anxiety and depression(Confirmed) Active MRSA(Confirmed)1, 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 Allergies, Adverse Reactions, Alerts Substance Reaction Severity Status aspirin Active Depo-Provera Active fentaNYL Active NSAIDs Active penicillins Active Medications NURSE please bring home med ABILIFY to Pharmacy for label NURSE please bring home med ABILIFY to Pharmacy for label, 1, Drug form: MISC , Route: MISC, TID, 02/12/17 15:00:00 CDT, Duration: 30 day, Stop date: 9:00:00 [employer] Start Date: 02/12/17 Stop Date: 02/13/17 Status: DiscontinuedRN-do not give vanc dose til trough drawn 02/14 @ 1030 RN-do not give vanc dose til trough drawn 02/14 @ 1030, attn, Drug form: MISC, Route: MISC, ONCE, 02/14/17 10:00:00 CDT, Stop date: 02/14/17 10:00:00 CDT Start Date: 02/14/17 Stop Date: 02/14/17 Status: CompletedRN-do not give vanc dose til trough drawn 02/15 @ 1945 RN-do not give vanc dose til trough drawn 02/15 @ 1945, attn, Drug form: MISC, Route: MISC, ONCE, 02/15/17 19:15:00 CDT, Stop date: 02/15/17 19:15:00 CDT Start Date: 02/15/17 Stop Date: 02/15/17 Status: CompletedAbilify 5 mg, 1 tab, Route: PO, Drug form: TAB, Daily, Dosing Weight 60, kg, Start date : 02/13/17 9:00:00 CDT, Stop date: 03/14/17 9:00:00 [employer]ER Notes: Non-Formulary Drug. (Same as: Abilify) Start Date: 02/13/17 Stop Date: 02/18/17 Status: DiscontinuedAmbien 5 mg, 1 tab, Route: PO, Drug form: TAB, Bedtime, Dosing Weight 60, kg, Start date: 02/12/17 21:00:00CDT, Duration: 30 day, Stop date: 03/13/17 21:00:00 [employer]ER Notes: (Same As: Ambien) Start Date: 02/12/17 Stop Date: 02/18/17 Status: DiscontinuedclonazePAM 1 mg, 1 tab, Route: PO, Drug form: TAB, BID, Dosing Weight 60, kg, Start date: 02/12/17 21:00:00 CDT, Duration: 30 day, Stop date: 03/14/17 9:00:00 [employer] CLE[employer]ER Notes: (Same As: KlonoPIN) Start Date: 02/12/17 Stop Date: 02/18/17 Status: Discontinuedcosyntropin 250 microgram, Route: IVP, Drug form: PDR/INJ, ONCE, Dosing Weight 60, kg, Priority: STAT, Start date: 02/14/17 11:29:00 CDT, Stop date: 02/14/17 11:29:00 CDT Notes: (Same As: Cortrosyn) Start Date: 02/14/17 Stop Date: 02/14/17 Status: [id number] 1/2NS + KCL 20mEq/L 1000ml (Premix) 1,000 mL 1,000 mL, Rate: 75 ml/hr, Infuse over: 13.3 hr, Route: IV, Dosing Weight 60 kg, Total Volume: 1,000,Start date: 02/12/17 9:40:00 CDT, Duration: 30 day, Stop date: 03/14/17 9:39:00 D[employer]IC CLE[employer]ER Notes: PREMIX IV - Do Not AlterWASTE: F/P - Sink; E - Municipal Trash Bin Start Date: 02/12/17 Stop Date: 02/13/17 Status: Discontinuedenoxaparin 30 mg, 0.3 mL, Route: SUB-Q, Drug form: INJ, [id number], Dosing Weight 60, kg, Start date: 02/12/17 21:00:00 CDT, Duration: 30 day, Stop date: 03/14/17 9:00: 00 [employer]ER Notes: (Same as: Lovenox)Per RN - supposed to go to OR for minor procedure but MD ended up doing procedure bedside Start Date: 02/12/17 Stop Date: 02/18/17 Status: Discontinuedfat emulsion, intravenous 250 mL IV, 31.25 ml/hr, Start date: 02/13/17 22:00:00 CDT, Duration: 1, 250 ml, 60 Notes: (Same as: Intralipid, Liposyn)Infuse through a 1.2 micron filter Start Date: 02/13/17 Stop Date: 02/13/17 Status: CompletedFlagyl 500 mg, 100 mL, Route: IVPB, Drug form: INJ, ONCE, Dosing Weight 60, kg, Priority: STAT, Start date:02/12/17 1:58:00 CDT, Duration: 1 doses or times, Stop date: 02/12/17 1:58:00 CDT, ABX Indication: Intra-abdominal Infection Notes: (Same as: Flagyl) Avoid alcohol. Start Date: 02/12/17 Stop Date: 02/12/17 Status: Completedfurosemide 20 mg oral tablet 20 mg, 1 tab, Route: PO, Drug form: TAB, Daily, Dosing Weight 60, kg, Start date : 02/13/17 9:00:00 CDT, Duration: 30 day, Stop date: 03/14/17 9:00:00 [employer] CLE[employer]ER Notes: (Same as: Lasix) May cause GI upset. Give with food or milk. Start Date: 02/13/17 Stop Date: 02/16/17 Status: Discontinuedhydrocortisone 50 mg, 1 mL, Route: IV, Drug form: PDR/INJ, Q8H, Dosing Weight 60, kg, Start date: 02/14/17 16:00:00CDT, Duration: 30 day, Stop date: 03/16/17 8:00:00 [employer] CLE[employer]ER Notes: (Same as: Solu-CORTEF) Start Date: 02/14/17 Stop Date: 02/15/17 Status: Discontinuedhydrocortisone 20 mg, 2 tab, Route: PO, Drug form: TAB, BID, Dosing Weight 60, kg, Start date: 02/16/17 17:00:00 CDT, Duration: 30 day, Stop date: 03/18/17 9:00:00 D[employer] CLE[employer]ER Notes: (Same as: Cortef) Take with food. Start Date: 02/16/17 Stop Date: 02/18/17 Status: Discontinuedhydrocortisone 50 mg, 1 mL, Route: IV, Drug form: PDR/INJ, BID, Dosing Weight 60, kg, Start date: 02/15/17 17:00:00CDT, Duration: 30 day, Stop date: 03/17/17 9:00:00 D[employer] CLE[employer]ER Notes: (Same as: Solu-CORTEF) Start Date: 02/15/17 Stop Date: 02/16/17 Status: Discontinuedhydrocortisone 10 mg oral tablet See Instructions, 2 tab PO in the morning, 1 tab in the afternoon, # 90 tab, 0 Refill(s), Pharmacy: [facility] [id number] Start Date: 02/17/17 Status: OrderedLevaquin 500 mg, 100 mL, Route: IVPB, Drug form: SOLN, [id number], Dosing Weight 60, kg, Start date: 02/13/17 4:00:00 CDT, Duration: 7 day, Stop date: 02/19/17 4:00:00 CDT, ABX Indication: Skin/Soft Tissue Infection Notes: (Same as:Levaquin) Start Date: 02/13/17 Stop Date: 02/15/17 Status: DiscontinuedLevaquin 500 mg, 100 mL, Route: PO, Drug form: SOLN, [id number], Dosing Weight 60, kg, Start date: 02/16/17 6:00:00 CDT, Stop date: 02/19/17 6:00:00 CDT, ABX Indication: Skin/Soft Tissue Infection Notes: (Same as:Levaquin) Start Date: 02/16/17 Stop Date: 02/16/17 Status: DiscontinuedLevaquin 750 mg, 150 mL, Route: IVPB, Drug form: SOLN, [id number], Dosing Weight 60, kg, Start date: 02/12/17 8:00:00 CDT, Duration: 1 doses or times, Stop date: 8:00:00 CDT, ABX Indication: ED - Suspected Sepsis Notes: (Same as:Levaquin) Start Date: 02/12/17 Stop Date: 02/12/17 Status: Completedlevofloxacin 500 mg, 100 mL, Route: IVPB, Drug form: SOLN, ONCE, Dosing Weight 60, kg, Start date: 02/12/17 1:57:00 CDT, Duration: 1 doses or times, Stop date: 02/12/17 1:57 :00 CDT, ABX Indication: Intra-abdominal Infection Notes: (Same as:Levaquin) Start Date: 02/12/17 Stop Date: 02/12/17 Status: Completedmagnesium sulfate 1 gm, 100 mL, Route: IVPB, Drug form: INJ, ONCE, Dosing Weight 60, kg, Start date: 02/14/17 6:41:00 CDT, Stop date: 02/14/17 6:41:00 CDT Notes: WASTE: F/P - Sink; E - Municipal Trash Bin Start Date: 02/14/17 Stop Date: 02/14/17 Status: CompletedMilk of Magnesia 30 ml, Route: PO, Drug Form: SUSP, Dosing Weight 60, kg, ONCE, Start date: 02/14 13:39:00 CDT, Stop date: 02/14/17 13:39:00 CDT Notes: (Same as: Milk of Magnesia, MOM) Start Date: 02/14/17 Stop Date: 02/14/17 Status: CompletedMiraLax 17 gm, 1 pkt, Route: PO, Drug form: PWDR, Daily, Start date: 02/16/17 14:05:00 CDT, Duration: 30 day, Stop date: 03/18/17 9:00:00 D[employer]STIC CLEANER Notes: Dissolve in 8 oz of water or juice.(Same as: Miralax) Start Date: 02/16/17 Stop Date: 02/18/17 Status: Discontinuedmorphine Sulfate 2 mg, Route: IVP, ONCE, Dosing Weight 60, kg, Priority: STAT, Start date: 5:29:00 CDT, Stopdate: 02/12/17 5:29:00 CDT Start Date: 02/12/17 Stop Date: 02/12/17 Status: Completedmorphine Sulfate 4 mg, 1 mL, Route: IVP, Drug form: SOLN, ONCE, Dosing Weight 60, kg, Priority: STAT, Start date: 02/12/17 1:54:00 CDT, Stop date: 02/12/17 1:54:00 CDT Notes: (Same as:MORPhine Sulfate) Start Date: 02/12/17 Stop Date: 02/12/17 Status: Completedmorphine Sulfate 4 mg, 1 mL, Route: IVP, Drug form: SOLN, Q4H, Dosing Weight 60, kg, PRN Pain Score 6-10, Start date:02/12/17 9:43:00 CDT, Duration: 30 day, Stop date: 9:42:00 DOMESTIC CLEANER Notes: (Same as:MORPhine Sulfate) Start Date: 02/12/17 Stop Date: 02/18/17 Status: Discontinuedmorphine Sulfate 2 mg, 1 mL, Route: IVP, Drug form: SOLN, Q4H, Dosing Weight 60, kg, PRN Pain Score 4-6, Start date: 02/12/17 9:43:00 CDT, Duration: 30 day, Stop date: 9:42:00 D[employer]IC CLE[employer]ER Start Date: 02/12/17 Stop Date: 02/18/17 Status: DiscontinuedNorco 10/325 oral tablet 1 tab, Route: PO, Drug Form: TAB, Dosing Weight 60, kg, Q4H, PRN Pain Score 6-10 , Start date: 02/12/17 9:43:00 CDT, Duration: 30 day, Stop date: 03/14/17 9:42: 00 DOMESTIC CLEANER Notes: Do not exceed 4gm/day of acetaminophen. (Same as: [employer] 325/10) Start Date: 02/12/17 Stop Date: 02/18/17 Status: DiscontinuedNorco 5/325 oral tablet 1 tab, Route: PO, Drug Form: TAB, Dosing Weight 60, kg, Q4H, PRN Pain Score 4-6 , Start date: 02/12/17 9:43:00 CDT, Duration: 30 day, Stop date: 03/14/17 9:42: 00 DOMESTIC CLEANER Notes: (Same as: [employer] 325/5) Do not exceed 4gm/day of acetaminophen. Start Date: 02/12/17 Stop Date: 02/18/17 Status: DiscontinuedNorco 7.5/325 oral tablet 1-2 tab, PO, Q6H, PRN Pain, X 5 day, # 30 tab, 0 Refill(s), given to patient Start Date: 02/17/17 Stop Date: 02/22/17 Status: OrderedNS (Bolus) IV 250 mL, 250 ml/hr, Infuse Over: 1 hr, Route: IV, 250, Drug form: INJ, ONCE, Priority: STAT, Dosing Weight 60 kg, Start date: 02/12/17 22:40:00 CDT, Duration : 1 doses or times, Stop date: 02/12/17 22:40:00 CDT Start Date: 02/12/17 Stop Date: 02/12/17 Status: CompletedNS (Bolus) IV 500 mL, 500 ml/hr, Infuse Over: 1 hr, Route: IV, 500, Drug form: INJ, ONCE, Priority: STAT, Dosing Weight 60 kg, Start date: 02/12/17 18:27:00 CDT, Duration : 1 doses or times, Stop date: 02/12/17 18:27:00 CDT Start Date: 02/12/17 Stop Date: 02/12/17 Status: Completedondansetron 4 mg, 2 mL, Route: IVP, Drug form: INJ, Q6H, Dosing Weight 60, kg, PRN Nausea & amp; Vomiting, Start date: 02/12/17 9:40:00 CDT, Duration: 30 day, Stop date: 9:39:00 DOMESTIC CLEANER Notes: (Same as: Krishna) MEDICATION WASTE Product Size: 4 mgProduct Wasted: ___ mg Start Date: 02/12/17 Stop Date: 02/18/17 Status: Discontinuedpotassium chloride 20 mEq oral tablet, extended release 20 mEq, 1 tab, Route: PO, Drug form: ERTAB, ONCE, Dosing Weight 60, kg, Start date: 02/14/17 6:43:00CDT, Stop date: 02/14/17 6:43:00 CDT Notes: (Same as: [employer] 20)"Do Not Crush" With food and full glass of water Start Date: 02/14/17 Stop Date: 02/14/17 Status: CompletedProtonix 40 mg, 1 tab, Route: PO, Drug form: ECTAB, Before Dinner, Dosing Weight 60, kg, Start date: 02/13/1716:30:00 CDT, Duration: 30 day, Stop date: 03/13/17 16:30: 00 DOMESTIC CLEANER Notes: Tablet should not be chewed or crushed.(Same as: Protonix) Start Date: 02/12/17 Stop Date: 02/18/17 Status: DiscontinuedRanexa 500 mg oral tablet, extended release 500 mg, 1 tab, Route: PO, Drug form: TAB, BID, Dosing Weight 60, kg, Start date : 02/12/17 21:00:00 CDT, Duration: 30 day, Stop date: 03/14/17 9:00:00 DOMESTIC CLEANER Notes: Same as Ranexa"Do Not Crush" Start Date: 02/12/17 Stop Date: 02/16/17 Status: DiscontinuedSaline Flush 0.9% 10 ml, Route: IVP, Drug Form: INJ, Dosing Weight 60, kg, PRN, PRN Line Flush, Start date: 02/12/17 9:40:00 CDT, Duration: 30 day, Stop date: 03/14/17 8:39:00 DOMESTIC CLEANER Notes: (Same as: BD Posiflush) Start Date: 02/12/17 Stop Date: 02/18/17 Status: DiscontinuedSodium Chloride 0.9% (Bolus) IV 1,000 mL, 1,000 ml/hr, Infuse Over: 1 hr, Route: IV, 1,000, Drug form: INJ, ONCE , Priority: STAT, Dosing Weight 60 kg, Start date: 02/12/17 1:53:00 CDT, Duration: 1 doses or times, Stop date: 02/12/17 1:53:00 CDT Start Date: 02/12/17 Stop Date: 02/12/17 Status: Completedsodium chloride 0.9% 1000 ml INJ 984.8 mL + M.V.I.-12 10 mL Daily + folic acid IV 1 mg Daily + thia 984.8 mL, Rate: 100 ml/hr, Infuse over: 10 hr, Route: IV, Dosing Weight 60 kg, Total Volume: 1,000, Start date: 02/12/17 1:58:00 CDT, Duration: 1 doses or times, Stop date: 02/12/17 11:57:00 CDT Start Date: 02/12/17 Stop Date: 02/12/17 Status: Completedsodium chloride 0.9% 1000 ml INJ 984.8 mL + M.V.I.-12 10 mL Daily + folic acid IV 1 mg Daily + thia 984.8 mL, Rate: 100 ml/hr, Infuse over: 10 hr, Route: IV, Dosing Weight 60 kg, Total Volume: 1,000, Start date: 02/12/17 7:52:00 CDT, Duration: 10 hr, Stop date: 02/12/17 17:51:00 CDT Start Date: 02/12/17 Stop Date: 02/12/17 Status: CompletedSodium Chloride 0.9% IV 1000 mL 1,000 mL, Rate: 75 ml/hr, Infuse over: 13.3 hr, Route: IV, Dosing Weight 60 kg, Total Volume: 1,000,Priority: STAT, Start date: 02/12/17 5:29:00 CDT, Duration: 1 doses or times, Stop date: 02/12/17 18:46:00 CDT Start Date: 02/12/17 Stop Date: 02/12/17 Status: CompletedTPN, adult solution 1,850 mL 1,850 mL, Rate: 75 ml/hr, Infuse over: 24.7 hr, Route: IV, Dosing Weight 60 kg, Total Volume: 1,850,Start date: 02/15/17 22:00:00 CDT, Duration: 1 day, Stop date: 02/16/17 21:59:00 CDT Start Date: 02/15/17 Stop Date: 02/16/17 Status: CompletedTPN, adult solution 1,850 mL 1,850 mL, Rate: 75 ml/hr, Infuse over: 24.7 hr, Route: IV, Dosing Weight 60 kg, Total Volume: 1,850,Start date: 02/14/17 22:00:00 CDT, Duration: 24 hr, Stop date: 02/15/17 21:59:00 CDT Start Date: 02/14/17 Stop Date: 02/15/17 Status: CompletedTPN, adult solution 1,850 mL 1,850 mL, Rate: 75 ml/hr, Infuse over: 24.7 hr, Route: IV, Dosing Weight 60 kg, Total Volume: 1,850,Start date: 02/13/17 22:00:00 CDT, Duration: 1 day, Stop date: 02/14/17 21:59:00 CDT Start Date: 02/13/17 Stop Date: 02/14/17 Status: CompletedTylenol 650 mg, 2 tab, Route: PO, Drug form: TAB, Q6H, Dosing Weight 60, kg, PRN Pain 1- 3/Temp > 100.4 F, Start date: 02/12/17 9:44:00 CDT, Duration: 30 day, Stop date : 03/14/17 9:43:00 DOMESTIC CLEANER Notes: Do not exceed 4 gm/day. (Same as: Tylenol) Start Date: 02/12/17 Stop Date: 02/18/17 Status: Discontinuedvancomycin + sodium chloride 0.9% INJ 250 mL 1,000 mg, Route: IVPB, [id number], Dosing Weight 60, kg, Start date: 02/12/17 11:00 :00 CDT, Duration: 7day, Stop date: 02/18/17 23:00:00 CDT, ABX Indication: Skin/ Soft Tissue Infection Notes: TIME CRITICAL MEDICATION(Same As: Vancocin)Infusion rate< 1000 mg: infuse over 1 [id number] - 1500 mg: infuse over 1.5 [id number] - 2000 mg: infuse over 2 hours> 2001 mg: infuse over 2.5 hours MEDICATION WASTE Product Size: 1000 mgProduct Wasted: ___ mg Start Date: 02/12/17 Stop Date: 02/14/17 Status: Discontinuedvancomycin + sodium chloride 0.9% INJ 250 mL 1,000 mg, Route: IVPB, [id number], Dosing Weight 60, kg, Start date: 02/14/17 20:00: 00 CDT, Duration: 14day, Stop date: 02/28/17 12:00:00 CDT, ABX Indication: Skin/ Soft Tissue Infection Notes: TIME CRITICAL MEDICATION(Same As: Vancocin)Infusion rate< 1000 mg: infuse over 1 [id number] - 1500 mg: infuse over 1.5 [id number] - 2000 mg: infuse over 2 hours> 2001 mg: infuse over 2.5 hours MEDICATION WASTE Product Size: 1000 mgProduct Wasted: __0_mg Start Date: 02/14/17 Stop Date: 02/18/17 Status: DiscontinuedVancomycin Pharmacy Dosing 1 ea, Route: MISC, ONCALL, Dosing Weight 60, kg, Start date: 02/12/17 10:00:00 CDT, day, Stop date: 02/12/17 10:00:00 CDT, Pharmacy to dose, ABX Indication: Skin/Soft Tissue Infection Start Date: 02/12/17 Stop Date: 02/12/17 Status: DeletedZofran 4 mg, Route: IVP, Drug form: INJ, ONCE, Dosing Weight 60, kg, Priority: STAT, Start date: 02/12/17 5:30:00 CDT, Stop date: 02/12/17 5:30:00 CDT Start Date: 02/12/17 Stop Date: 02/12/17 Status: CompletedZofran 4 mg, 2 mL, Route: IVP, Drug form: INJ, ONCE, Dosing Weight 60, kg, Priority: STAT, Start date: 02/12/17 1:55:00 CDT, Stop date: 02/12/17 1:55:00 CDT Notes: (Same as: Zofran) MEDICATION WASTE Product Size: 4 mgProduct Wasted: ___ mg Start Date: 02/12/17 Stop Date: 02/12/17 Status: Completed Results BLOOD BANK RESULTS Most recent to oldest [Reference Range]: 1 2 3 ABO/Rh A POS *Unknown* (02/12/17 2:20 AM) ELECTROLYTES Most recent to oldest 1 2 3 [Reference Range]: Sodium Lvl [135-145 mEq/L] 142 mEq/L 141 mEq/L 141 mEq/L (02/17/17 3:51 AM) (02/16/17 9:13 AM) (02/14/17 4:48 AM) Potassium Lvl [3.5-5.1 4.1 mEq/L 4.4 mEq/L 3.6 mEq/L mEq/L] (02/17/17 3:51 AM) (02/16/17 9:13 AM) (02/14/17 4:48 AM) Chloride Lvl [95-109 mEq/L] 106 mEq/L 108 mEq/L 108 mEq/L (02/17/17 3:51 AM) (02/16/17 9:13 AM) (02/14/17 4:48 AM) CO2 [24-32 mEq/L] 28 mEq/L 27 mEq/L 26 mEq/L (02/17/17 3:51 AM) (02/16/17 9:13 AM) (02/14/17 4:48 AM) AGAP [10.0-20.0 mEq/L] 12.1 mEq/L 10.4 mEq/L 10.6 mEq/L (02/17/17 3:51 AM) (02/16/17 9:13 AM) (02/14/17 4:48 AM) CHEM PANEL Most recent to oldest 1 2 3 [Reference Range]: Creatinine Lvl [0.50-1.40 0.33 mg/dL 0.40 mg/dL 0.33 mg/dL mg/dL] *LOW* *LOW* *LOW* (02/17/17 3:51 AM) (02/16/17 9:13 AM) (02/14/17 4:48 AM) eGFR 144 mL/min/1.73m2 1 135 mL/min/1.73m2 2 144 mL/min/1.73m2 3 *NA* *NA* *NA* (02/17/17 3:51 AM) (02/16/17 9:13 AM) (02/14/17 4:48 AM) BUN [7-22 mg/dL] 14 mg/dL 15 mg/dL 7 mg/dL (02/17/17 3:51 AM) (02/16/17 9:13 AM) (02/14/17 4:48 AM) B/C Ratio [6-25] 21 17 26 (02/14/17 4:48 AM) (02/13/17 6:35 AM) *HI* (02/12/17 2:20 AM) Glucose Lvl [70-99 mg/dL] 88 mg/dL 95 mg/dL 94 mg/dL (02/17/17 3:51 AM) (02/16/17 9:13 AM) (02/14/17 4:48 AM) Total Protein [6.4-8.4 5.8 g/dL 5.9 g/dL 7.1 g/dL g/dL] *LOW* *LOW* (02/12/17 2:20 AM) (02/14/17 4:48 AM) (02/13/17 6:35 AM) Albumin Lvl [3.5-5.0 g/dL] 2.2 g/dL 2.2 g/dL 2.8 g/dL *LOW* *LOW* *LOW* (02/14/17 4:48 AM) (02/13/17 6:35 AM) (02/12/17 2:20 AM) Globulin [2.7-4.2 g/dL] 3.6 g/dL 3.7 g/dL 4.3 g/dL (02/14/17 4:48 AM) (02/13/17 6:35 AM) *HI* (02/12/17 2:20 AM) A/G Ratio [0.7-1.6] 0.6 0.6 0.7 *LOW* *LOW* (02/12/17 2:20 AM) (02/14/17 4:48 AM) (02/13/17 6:35 AM) Calcium Lvl [8.5-10.5 8.1 mg/dL 8.7 mg/dL 8.5 mg/dL mg/dL] *LOW* (02/16/17 9:13 AM) (02/14/17 4:48 AM) (02/17/17 3:51 AM) Phosphorus [2.5-4.5 mg/dL] 4.3 mg/dL 3.8 mg/dL (02/16/17 9:13 AM) (02/13/17 6:35 AM) Magnesium Lvl [1.8-2.4 2.0 mg/dL 1.9 mg/dL 1.9 mg/dL mg/dL] (02/16/17 9:13 AM) (02/14/17 4:48 AM) (02/13/17 6:35 AM) ALT [0-65 unit/L] 11 unit/L 11 unit/L 10 unit/L (02/14/17 4:48 AM) (02/13/17 6:35 AM) (02/12/17 2:20 AM) AST [0-37 unit/L] 6 unit/L 6 unit/L 9 unit/L (02/14/17 4:48 AM) (02/13/17 6:35 AM) (02/12/17 2:20 AM) Alk Phos [39-136 unit/L] 60 unit/L 68 unit/L 81 unit/L (02/14/17 4:48 AM) (02/13/17 6:35 AM) (02/12/17 2:20 AM) Bili Total [0.2-1.3 mg/dL] 0.1 mg/dL 0.7 mg/dL 0.2 mg/dL *LOW* (02/13/17 6:35 AM) (02/12/17 2:20 AM) (02/14/17 4:48 AM) Lipase Lvl [73-393 unit/L] 97 unit/L (02/12/17 2:20 AM) Lactic Acid Lvl [0.5-2.2 1.2 mMol/L mMol/L] (02/12/17 2:20 AM) 1Result Comment: The eGFR is calculated [...] eGFR should be multiplied by the estimated BMI.3Result Comment: The eGFR is calculated using the [...] eGFR should be multiplied by the estimated BMI.LIPIDS Most recent to oldest [Reference Range]: 1 2 3 Trig [<=149 mg/dL] 85 mg/dL (02/13/17 6:35 AM) TOXICOLOGY Most recent to oldest [Reference Range]: 1 2 3 Vanco Tr TND 1945 1030 *NA* *NA* (02/15/17 8:37 PM) (02/14/17 9:10 AM) Vanco Tr 11.2 ug/ml 7.6 ug/ml *NA* *NA* (02/15/17 8:37 PM) (02/14/17 9:10 AM) ENDOCRINOLOGY Most recent to oldest 1 2 3 [Reference Range]: Cortisol 38.9 ug/dl 29.5 ug/dl 3.9 ug/dl *NA* *NA* *NA* (02/14/17 3:45 PM) (02/14/17 11:56 AM) (02/13/17 6:19 PM) URINE CHEM Most recent to oldest [Reference Range]: 1 2 3 U Preg [Negative] Negative (02/12/17 2:20 AM) URINE AND STOOL Most recent to oldest [Reference Range]: 1 2 3 UA Turbidity [Clear] Slight *ABN* (02/12/17 2:20 AM) UA Color [Yellow] Yellow *NA* (02/12/17 2:20 AM) UA pH [5.0-8.0] 5.0 (02/12/17 2:20 AM) UA Spec Grav [<=1.030] 1.034 *HI* (02/12/17 2:20 AM) UA Glucose [Negative mg/dL] Negative mg/dL *NA* (02/12/17 2:20 AM) UA Blood [Negative] Negative (02/12/17 2:20 AM) UA Ketones [Negative mg/dL] Negative mg/dL *NA* (02/12/17 2:20 AM) UA Protein [Negative mg/dL] Negative mg/dL (02/12/17 2:20 AM) UA Urobilinogen [0.1-1.0 mg/dL] 2.0 mg/dL *HI* (02/12/17 2:20 AM) UA Bili [Negative] Negative *NA* (02/12/17 2:20 AM) UA Leuk Est [Negative] Trace *ABN* (02/12/17 2:20 AM) UA Nitrite [Negative] Negative (02/12/17 2:20 AM) UA WBC [0-5 /HPF] 4 /HPF (02/12/17 2:20 AM) UA RBC [0-2 /HPF] 4 /HPF *HI* (02/12/17 2:20 AM) UA Bacteria [None Seen /HPF] Occasional /HPF *NA* (02/12/17 2:20 AM) UA Sq Epi [Few /LPF] Moderate /LPF *ABN* (02/12/17 2:20 AM) UA Hyal Cast [0-2 /LPF] 1 /LPF (02/12/17 2:20 AM) UA Mucus [None Seen /LPF] Few /LPF *NA* (02/12/17 2:20 AM) IMMUNOLOGY Most recent to oldest 1 2 3 [Reference Range]: Prealbumin [18.0-45.0 mg/dL] 18.5 mg/dL 15.0 mg/dL 9.8 mg/dL (02/16/17 9:13 AM) *LOW* *LOW* (02/16/17 4:17 AM) (02/14/17 4:48 AM) HEMATOLOGY Most recent to oldest 1 2 3 [Reference Range]: WBC [3.7-10.4 K/CMM] 12.7 K/CMM 7.9 K/CMM 8.5 K/CMM *HI* (02/14/17 4:48 AM) (02/13/17 6:35 AM) (02/17/17 3:51 AM) RBC [4.20-5.40 M/CMM] 3.57 M/CMM 3.60 M/CMM 3.89 M/CMM *LOW* *LOW* *LOW* (02/17/17 3:51 AM) (02/14/17 4:48 AM) (02/13/17 6:35 AM) Hgb [12.0-16.0 g/dL] 8.5 g/dL 8.8 g/dL 9.4 g/dL *LOW* *LOW* *LOW* (02/17/17 3:51 AM) (02/14/17 4:48 AM) (02/13/17 6:35 AM) Hct [36.0-48.0 %] 27.2 % 27.5 % 29.3 % *LOW* *LOW* *LOW* (02/17/17 3:51 AM) (02/14/17 4:48 AM) (02/13/17 6:35 AM) MCV [80.0-98.0 fL] 76.3 fL 76.4 fL 75.3 fL *LOW* *LOW* *LOW* (02/17/17 3:51 AM) (02/14/17 4:48 AM) (02/13/17 6:35 AM) MCH [27.0-31.0 pg] 23.9 pg 24.4 pg 24.2 pg *LOW* *LOW* *LOW* (02/17/17 3:51 AM) (02/14/17 4:48 AM) (02/13/17 6:35 AM) MCHC [32.0-36.0 g/dL] 31.4 g/dL 32.0 g/dL 32.1 g/dL *LOW* (02/14/17 4:48 AM) (02/13/17 6:35 AM) (02/17/17 3:51 AM) RDW [11.5-14.5 %] 27.4 % 26.7 % 26.7 % *HI* *HI* *HI* (02/17/17 3:51 AM) (02/14/17 4:48 AM) (02/13/17 6:35 AM) Platelet [133-450 K/CMM] 381 K/CMM 347 K/CMM 356 K/CMM (02/17/17 3:51 AM) (02/14/17 4:48 AM) (02/13/17 6:35 AM) MPV [7.4-10.4 fL] 8.8 fL 8.6 fL 8.5 fL (02/17/17 3:51 AM) (02/14/17 4:48 AM) (02/13/17 6:35 AM) Segs [45.0-75.0 %] 70.9 % 65.5 % 70.1 % (02/17/17 3:51 AM) (02/14/17 4:48 AM) (02/13/17 6:35 AM) Lymphocytes [20.0-40.0 %] 20.8 % 23.4 % 19.2 % (02/17/17 3:51 AM) (02/14/17 4:48 AM) *LOW* (02/13/17 6:35 AM) Monocytes [2.0-12.0 %] 5.5 % 7.7 % 7.8 % (02/17/17 3:51 AM) (02/14/17 4:48 AM) (02/13/17 6:35 AM) Eosinophils [0.0-4.0 %] 1.7 % 2.7 % 2.1 % (02/17/17 3:51 AM) (02/14/17 4:48 AM) (02/13/17 6:35 AM) Basophils [0.0-1.0 %] 1.1 % 0.7 % 0.8 % *HI* (02/14/17 4:48 AM) (02/13/17 6:35 AM) (02/17/17 3:51 AM) Segs-Bands # [1.5-8.1 9.0 K/CMM 5.2 K/CMM 6.0 K/CMM K/CMM] *HI* (02/14/17 4:48 AM) (02/13/17 6:35 AM) (02/17/17 3:51 AM) Lymphocytes # [1.0-5.5 2.6 K/CMM 1.9 K/CMM 1.6 K/CMM K/CMM] (02/17/17 3:51 AM) (02/14/17 4:48 AM) (02/13/17 6:35 AM) Monocytes # [0.0-0.8 K/CMM] 0.7 K/CMM 0.6 K/CMM 0.7 K/CMM (02/17/17 3:51 AM) (02/14/17 4:48 AM) (02/13/17 6:35 AM) Eosinophils # [0.0-0.5 0.2 K/CMM 0.2 K/CMM 0.2 K/CMM K/CMM] (02/17/17 3:51 AM) (02/14/17 4:48 AM) (02/13/17 6:35 AM) Basophils # [0.0-0.2 K/CMM] 0.1 K/CMM 0.1 K/CMM 0.1 K/CMM (02/17/17 3:51 AM) (02/14/17 4:48 AM) (02/13/17 6:35 AM) Anisocyte [None Seen] 2+ 2+ 3+ *ABN* *ABN* (02/12/17 2:20 AM) (02/17/17 3:51 AM) (02/13/17 6:35 AM) Microcyte [None Seen] 1+ 1+ 1+ *ABN* *ABN* *ABN* (02/17/17 3:51 AM) (02/14/17 4:48 AM) (02/13/17 6:35 AM) Target Cell Slight *NA* (02/13/17 6:35 AM) Plt Morph Normal Normal (02/17/17 3:51 AM) (02/13/17 6:35 AM) Large Plt [None Seen] Marked *ABN* (02/12/17 2:20 AM) PT [12.0-14.7 seconds] 13.8 seconds (02/12/17 7:17 AM) INR [0.85-1.17] 1.04 (02/12/17 7:17 AM) PTT [22.9-35.8 seconds] 41.9 seconds *HI* (02/12/17 7:17 AM) Immunizations Given and Recorded Vaccine Date Status Refusal Reason influenza virus vaccine, inactivated 02/02/17 Given Not Given Vaccine Date Status Refusal Reason pneumococcal 23-valent vaccine 04/07/16 Not Given Patient Refuses Procedures Procedure Date Related Diagnosis Body Site Cardiac catheterization Gastric bypass operation Social History Social History Type Response Substance Abuse Use: None. Alcohol Never, Previous treatment: None. Smoking Status Current every day smoker; Type: Cigarettes; Ready to change: No ; Lives with someone who smokes; Cigarette Smoking Last 365 Days Yes; Reg Smoking Cessation Counseling No Assessment and Plan Extracted from: Title: Discharge Summary * Author: Mian Mccarthy DO Date: 02/17/17 Discharge Plan Discharge Summary Plan Discharge Status: stable. Discharge instructions given: to patient. Discharge disposition: discharge to home with home health care. Prescriptions: continue same medications, called to pharmacy, written and given to patient. Diagnosis Cellulitis with infected seroma around incision site status post drainage with MRSA Severe constipation Generalized anxiety Severe protein caloric malnutrition - low prealbumin Recent partial gastrectomy with gastro-gastrostomy with a partial antrectomy with end to end anastomosis with cholecystectomy Hypotension due to transient adrenal inssuficency . Course Progressing as expected. Education and Follow-up Counseled: patient, regarding diagnosis, regarding treatment, regarding medications. Extracted from: Title: Progress Note * Author: Mian Mccarthy DO Date: 02/17/17 Impression and Plan Cellulitis with infected seroma around incision site status post drainage with MRSA Severe constipation Generalized anxiety Severe protein caloric malnutrition - low prealbumin Recent partial gastrectomy with gastro-gastrostomy with a partial antrectomy with end to end anastomosis with cholecystectomy Wean down hydrocortisone Cultures noted to be MRSA, still waiting for ID input on antibiotics Off TPN Appreciate infectious disease input-which continue antibiotics for total 3 weeks Home health improve IV antibiotics as well as wound VAC Plan to discharge today once home health issues has been finalize Patient to follow-up with surgeon as well as infectious disease for ongoing care as outpatient Extracted from: Title: General Admission H&P * Author: Mian Mccarthy DO Date: 10/8/17 Impression and Plan Cellulitis and possible infected seroma around incision site Severe constipation Generalized anxiety Recent partial gastrectomy with gastro-gastrostomy with a partial antrectomy with end to end anastomosis with cholecystectomy Given the possibility of infection, patient was started on broad-spectrum antibiotics Bariatric surgery has been consulted for further evaluation, patient states that it will take him to the OR today for further evaluation. Apart from that we will try to resume home medications Patient will need lactulose for her constipation at this time and will see how she does on that aspect of it but however onto patient becomes p.o. We will get labs for tomorrow and plan has been discussed with patient in detail Continue with IV fluids with by bariatric multivitamin bag
--- OUTSIDE RECORDS SUMMARY | 2018-02-25 14:37 | XMS REPORT | Summary of Care ---
:1980 Author Organization [facility] Address [address] [place], [place] [address]- Encounter HQ Millie_jose miguel(FIN) [id number] Date(s): 03/06/17 - 03/06/17 [facility] [address] [place] [address]- [phone] Discharge Disposition: Home or Self Care Attending Physician: Jigar Taylor MD Vital Signs No data available for this section Problem List Condition Effective Dates Status Health Status Informant Anxiety(Confirmed) Resolved Chest pain(Confirmed) Active Fatty liver(Confirmed) Active Gastric bypass status for Resolved obesity(Confirmed) Anxiety and depression(Confirmed) Active MRSA(Confirmed)1, 2 02/12/17 Active History of heart attack(Confirmed) Active Schizoaffective disorder(Confirmed) Resolved Seizure(Confirmed) Resolved 1wound, 02/12/[id number] added by Discern Expert. Allergies, Adverse Reactions, Alerts Substance Reaction Severity Status aspirin Active Depo-Provera Active fentaNYL Active NSAIDs Active penicillins Active Medications No data available for this section Results No data available for this section Immunizations Given and Recorded Vaccine Date Status [...] Smoking Cessation Counseling No Assessment and Plan No data available for this section
--- OUTSIDE RECORDS SUMMARY | 2018-02-25 14:37 | XMS REPORT | Summary of Care ---
:1980 Author Organization [facility] Address [address] [place], [place] [address]- Encounter HQ Jaime(LUIS) [id number] Date(s): 12/15/16 - 12/16/16 [facility] [address] [place] [address]- Final: Intussusception Discharge Disposition: Home or Self Care Attending Physician: Lucio Frazier MD Admitting Physician: Lucio Frazier MD Referring Physician: Brian Graham MD Vital Signs Most recent to oldest 1 2 3 [Reference Range]: Height 147.32 cm (12/15/16 2:30 AM) Temperature Oral [96.4-99.1 98.4 DegF 98.3 DegF 98.4 DegF DegF] (12/16/16 3:38 PM) (12/16/16 11:28 AM) (12/16/16 7:30 AM) Blood Pressure [90-140/60-90 111/74 mmHg 103/69 mmHg 99/66 mmHg mmHg] (12/16/16 3:38 PM) (12/16/16 11:28 AM) (12/16/16 7:30 AM) Respiratory Rate [14-20 BRMIN] 16 BRMIN 16 BRMIN 16 BRMIN (12/16/16 3:38 PM) (12/16/16 11:28 AM) (12/16/16 7:30 AM) Peripheral Pulse Rate [60-100 79 bpm 81 bpm 79 bpm bpm] (12/16/16 3:38 PM) (12/16/16 11:28 AM) (12/16/16 7:30 AM) Weight 62.273 kg (12/15/16 2:30 AM) Body Mass Index 28.69 m2 (12/15/16 2:30 AM) Problem List Condition Effective Dates Status Health Status Informant Anxiety(Confirmed) Resolved Gastric bypass status for Resolved obesity(Confirmed) Schizoaffective disorder(Confirmed) Resolved Seizure(Confirmed) Resolved Allergies, Adverse Reactions, Alerts Substance Reaction Severity Status aspirin Active Depo-Provera Active NSAIDs Active penicillins Active Medications Abilify 5 mg, 1 tab, Route: PO, Drug form: TAB, Daily, Dosing Weight 62.273, kg, Start date: 12/15/16 9:00:00 CDT, Duration: 30 day, Stop date: 01/13/17 9:00:00 CDT Notes: Non-Formulary Drug. (Same as: Abilify) Start Date: 12/15/16 Stop Date: 12/16/16 Status: DiscontinuedAbilify 5 mg oral tablet 5 mg=1 tab, PO, Daily, # 30 tab, 0 Refill(s) Start Date: 12/15/16 Status: Orderedacetaminophen 650 mg, 2 tab, Route: PO, Drug form: TAB, Q4H, Dosing Weight 62.273, kg, PRN Pain 1-3/Temp > 100.4 F, Start date: 12/15/16 3:11:00 CDT, Duration: 30 day, Stop date: 01/14/17 3:10:00 CDT Notes: Do not exceed 4 gm/day. (Same as: Tylenol) Start Date: 12/15/16 Stop Date: 12/16/16 Status: Discontinuedacetaminophen-oxycodone 325 mg-10 mg oral tablet 2 tab, PO, Q6H, PRN for pain, 0 Refill(s) Start Date: 12/15/16 Stop Date: 12/22/16 Status: OrderedAmbien 10 mg, 1 tab, Route: PO, Drug form: TAB, Bedtime, Dosing Weight 62.273, kg, Start date: 12/15/16 21:00:00 CDT, Duration: 30 day, Stop date: 01/13/17 21:00: 00 CDT Notes: (Same As: Ambien) Start Date: 12/15/16 Stop Date: 12/16/16 Status: DiscontinuedCardizem 0 Refill(s) Start Date: 12/15/16 Status: OrderedColace 100 mg oral capsule 100 mg=1 cap, PO, Bedtime, # 30 cap, 0 Refill(s), Pharmacy: [facility] [id number] Start Date: 12/16/16 Status: OrderedColace 100 mg oral capsule 100 mg, 1 cap, Route: PO, Drug form: CAP, Bedtime, Dosing Weight 62.273, kg, Start date: 12/16/16 21:00:00 CDT, Duration: 30 day, Stop date: 01/14/17 21:00: 00 CDT Notes: (Same as: Colace) (Do Not Crush) Start Date: 12/16/16 Stop Date: 12/16/16 Status: [id number] 1/2NS + KCL 20mEq/L 1000ml (Premix) 1,000 mL 1,000 mL, Rate: 125 ml/hr, Infuse over: 8 hr, Route: IV, Dosing Weight 62.273 kg , Total Volume: 1,000, Start date: 12/15/16 12:18:00 CDT, Duration: 30 day, Stop date: 01/14/17 12:17:00 CDT Notes: PREMIX IV - Do Not AlterWASTE: F/P - Sink; E - Municipal Trash Bin Start Date: 12/15/16 Stop Date: 12/16/16 Status: DiscontinuedDextrose 50% Syringe 25 gm, 50 mL, Route: IVP, Drug Form: INJ, Dosing Weight 62.273, kg, PRN, PRN Blood Glucose Results, Start date: 12/15/16 20:56:00 CDT, Duration: 30 day, Stop date: 01/14/17 20:55:00 CDT Start Date: 12/15/16 Stop Date: 12/16/16 Status: DiscontinuedDextrose 50% Syringe 12.5 gm, 25 mL, Route: IVP, Drug Form: INJ, Dosing Weight 62.273, kg, PRN, PRN Blood Glucose Results, Start date: 12/15/16 20:56:00 CDT, Duration: 30 day, Stop date: 01/14/17 20:55:00 CDT Start Date: 12/15/16 Stop Date: 12/16/16 Status: DiscontinuedEmend 40 mg, 1 cap, Route: PO, Drug form: CAP, ONCE, Dosing Weight 62.273, kg, Start date: 12/15/16 6:00:00 CDT, Stop date: 12/15/16 6:00:00 CDT Notes: Same as: Emendrestricted to the Hematology/Oncology service for high and moderate emetogenic regimen according to ASCO Guidelines PassthroughOnly for Chemotherapy-Induced nausea & vomiting Start Date: 12/15/16 Stop Date: 12/15/16 Status: Discontinuedferrous sulfate 325 mg, 1 tab, Route: PO, Drug form: ECTAB, Daily, Dosing Weight 62.273, kg, Start date: 12/17/16 9:00:00 CDT, Duration: 30 day, Stop date: 01/15/17 9:00:00 CDT Notes: Give with food. "Do Not Crush" Start Date: 12/17/16 Stop Date: 12/16/16 Status: Canceledferrous sulfate 325 mg oral enteric coated tablet 325 mg, PO, Daily, # 30 tab, 0 Refill(s), Pharmacy: [facility] [id number] Start Date: 12/16/16 Status: Orderedfurosemide 20 mg oral tablet 20 mg=1 tab, PO, Daily, # 30 tab, 0 Refill(s) Start Date: 12/15/16 Status: Orderedglucagon 1 mg, Route: IM, Drug form: PDR/INJ, PRN, Dosing Weight 62.273, kg, PRN Blood Glucose Results, Startdate: 12/15/16 20:56:00 CDT, Duration: 30 day, Stop date: 01/14/17 20:55:00 CDT Start Date: 12/15/16 Stop Date: 12/16/16 Status: Discontinuedinsulin aspart 4 unit, 0.04 mL, Route: SUB-Q, Drug form: SOLN, TID-Before Meals, Dosing Weight 62.273, kg, PRN Blood Glucose Results, Start date: 12/15/16 20:56:00 CDT, Duration: 30 day, Stop date: 01/14/17 20:55:00 CDT Notes: Roll in palms of hands gently; Do not shake vigorously. (Same as: NovoLOG)"single patient use only"WASTE: F/P - Black; E - Municipal Trash Bin Stable for 28 days at room temperature.Expires in days from Date Start Date: 12/15/16 Stop Date: 12/16/16 Status: Discontinuedinsulin aspart 5 unit, 0.05 mL, Route: SUB-Q, Drug form: SOLN, TID-Before Meals, Dosing Weight 62.273, kg, PRN Blood Glucose Results, Start date: 12/15/16 20:56:00 CDT, Duration: 30 day, Stop date: 01/14/17 20:55:00 CDT Notes: Roll in palms of hands gently; Do not shake vigorously. (Same as: NovoLOG)"single patient use only"WASTE: F/P - Black; E - Municipal Trash Bin Stable for 28 days at room temperature.Expires in days from Date Start Date: 12/15/16 Stop Date: 12/16/16 Status: Discontinuedinsulin aspart 1 unit, 0.01 mL, Route: SUB-Q, Drug form: SOLN, TID-Before Meals, Dosing Weight 62.273, kg, PRN Blood Glucose Results, Start date: 12/15/16 20:56:00 CDT, Duration: 30 day, Stop date: 01/14/17 20:55:00 CDT Notes: Roll in palms of hands gently; Do not shake vigorously. (Same as: NovoLOG)"single patient use only"WASTE: F/P - Black; E - Municipal Trash Bin Stable for 28 days at room temperature.Expires in days from Date Start Date: 12/15/16 Stop Date: 12/16/16 Status: Discontinuedinsulin aspart 2 unit, 0.02 mL, Route: SUB-Q, Drug form: SOLN, TID-Before Meals, Dosing Weight 62.273, kg, PRN Blood Glucose Results, Start date: 12/15/16 20:56:00 CDT, Duration: 30 day, Stop date: 01/14/17 20:55:00 CDT Notes: Roll in palms of hands gently; Do not shake vigorously. (Same as: NovoLOG)"single patient use only"WASTE: F/P - Black; E - Municipal Trash Bin Stable for 28 days at room temperature.Expires in days from Date Start Date: 12/15/16 Stop Date: 12/16/16 Status: Discontinuedinsulin aspart 3 unit, 0.03 mL, Route: SUB-Q, Drug form: SOLN, TID-Before Meals, Dosing Weight 62.273, kg, PRN Blood Glucose Results, Start date: 12/15/16 20:56:00 CDT, Duration: 30 day, Stop date: 01/14/17 20:55:00 CDT Notes: Roll in palms of hands gently; Do not shake vigorously. (Same as: NovoLOG)"single patient use only"WASTE: F/P - Black; E - Municipal Trash Bin Stable for 28 days at room temperature.Expires in days from Date Start Date: 12/15/16 Stop Date: 12/16/16 Status: Discontinuedisosorbide dinitrate 10 mg, 1 tab, Route: PO, Drug form: TAB, BID, Dosing Weight 62.273, kg, Start date: 12/15/16 9:00:00CDT, Duration: 30 day, Stop date: 01/13/17 17:00:00 CDT Notes: (Same as:Isordil) Take on empty stomach/ full glass of water Start Date: 12/15/16 Stop Date: 12/16/16 Status: Discontinuedmorphine Sulfate 2 mg, 1 mL, Route: IVP, Drug form: INJ, Q4H, Dosing Weight 62.273, kg, PRN Pain Score 7-10, Start date: 12/15/16 3:11:00 CDT, Duration: 30 day, Stop date: 01/14 3:10:00 CDT Notes: (Same as:MORPhine Sulfate) Start Date: 12/15/16 Stop Date: 12/16/16 Status: DiscontinuedNorco 10/325 oral tablet 1 tab, Route: PO, Drug Form: TAB, Dosing Weight 62.273, kg, Q4H, PRN Pain Score 4-6, Start date: 12/15/16 3:13:00 CDT, Duration: 30 day, Stop date: 01/14/17 3: 12:00 CDT Notes: Do not exceed 4gm/day of acetaminophen. (Same as: [place] 325/10) Start Date: 12/15/16 Stop Date: 12/16/16 Status: DiscontinuedOmnipaque 300 100 ml, Route: IV, Drug Form: SOLN, Dosing Weight 62.273, kg, ONCE, Start date: 12/15/16 11:58:00 CDT, Stop date: 12/15/16 11:58:00 CDT Notes: (Same as:Omnipaque 300).WASTE: F/P - Black; E - Municipal Trash Bin Start Date: 12/15/16 Stop Date: 12/15/16 Status: OrderedOmnipaque 300 25 ml, Route: PO, Drug Form: SOLN, Dosing Weight 62.273, kg, ONCE, Start date: 12/15/16 11:57:00 CDT, Stop date: 12/15/16 11:57:00 CDT Notes: (Same as:Omnipaque 300).WASTE: F/P - Black; E - Municipal Trash Bin Start Date: 12/15/16 Stop Date: 12/15/16 Status: Orderedondansetron 4 mg, 2 mL, Route: IVP, Drug form: INJ, Q6H, Dosing Weight 62.273, kg, PRN Nausea & Vomiting, Start date: 12/15/16 3:11:00 CDT, Duration: 30 day, Stop date: 01/14/17 3:10:00 CDT Notes: (Same as: Krishna) MEDICATION WASTE Product Size: 4 mgProduct Wasted: ___ mg Start Date: 12/15/16 Stop Date: 12/16/16 Status: DiscontinuedPepcid 20 mg, 2 mL, Route: IVP, Drug form: INJ, Q12H, Dosing Weight 62.273, kg, Start date: 12/15/16 21:00:00 CDT, Duration: 30 day, Stop date: 01/14/17 9:00:00 CDT Notes: (Same as: Pepcid)Can be dilute in 5-10cc NS IVP: Slow IV push over at least 2 minutes. Start Date: 12/15/16 Stop Date: 12/16/16 Status: DiscontinuedPepcid 20 mg oral tablet 20 mg, 1 tab, Route: PO, Drug form: TAB, Q12H, Dosing Weight 62.273, kg, Start date: 12/16/16 21:00:00 CDT, Duration: 30 day, Stop date: 01/15/17 9:00:00 CDT Notes: (Same as: Pepcid) Start Date: 12/16/16 Stop Date: 12/16/16 Status: DiscontinuedPlavix 75 mg oral tablet 75 mg=1 tab, PO, Daily, # 30 tab, 0 Refill(s) Start Date: 12/15/16 Status: OrderedProtonix 40 mg, 1 tab, Route: PO, Drug form: ECTAB, Before Breakfast, Dosing Weight 62.273, kg, Start date: 12/15/16 7:30:00 CDT, Duration: 30 day, Stop date: 01/13 7:30:00 CDT Notes: Tablet should not be chewed or crushed.(Same as: Protonix) Start Date: 12/15/16 Stop Date: 12/16/16 Status: DiscontinuedProtonix 20 mg oral enteric coated tablet 40 mg=2 tab, PO, Daily, # 60 tab, 0 Refill(s), Pharmacy: [facility] [id number] Start Date: 12/16/16 Status: OrderedProtonix 20 mg oral enteric coated tablet 40 mg=2 tab, PO, Daily, # 60 tab, 0 Refill(s) Start Date: 12/15/16 Stop Date: 12/16/16 Status: DiscontinuedRanexa 500 mg oral tablet, extended release 500 mg=1 tab, PO, BID, # 60 tab, 0 Refill(s) Start Date: 12/15/16 Status: OrderedRanexa 500 mg oral tablet, extended release 500 mg, 1 tab, Route: PO, Drug form: TAB, BID, Dosing Weight 62.273, kg, Start date: 12/15/16 9:00:00 CDT, Duration: 30 day, Stop date: 01/13/17 17:00:00 CDT Notes: Same as Ranexa"Do Not Crush" Start Date: 12/15/16 Stop Date: 12/16/16 Status: Discontinuedsodium chloride 0.9% 1000 ml INJ 1,000 mL 1,000 mL, Rate: 75 ml/hr, Infuse over: 13.3 hr, Route: IV, Dosing Weight 62.273 kg, Total Volume: 1,000, Start date: 12/15/16 3:13:00 CDT, Duration: 30 day, Stop date: 01/14/17 3:12:00 CDT Start Date: 12/15/16 Stop Date: 12/15/16 Status: Discontinuedsodium chloride 0.9% 1000 ml INJ 1,000 mL + M.V.I.-12 10 mL Daily + folic acid IV 1 mg Daily + thia 1,000 mL, Rate: 100 ml/hr, Infuse over: 10.2 hr, Route: IV, Dosing Weight 62.273 kg, Total Volume: 1,015.2, Start date: 12/15/16 15:54:00 CDT, Duration: 1 doses or times, Stop date: 12/16/16 2:05:00 CDT Start Date: 12/15/16 Stop Date: 12/15/16 Status: Completedsodium chloride 0.9% 1000 ml INJ 984.8 mL + M.V.I.-12 10 mL Daily + folic acid IV 1 mg Daily + thia 984.8 mL, Rate: 100 ml/hr, Infuse over: 10 hr, Route: IV, Dosing Weight 62.273 kg, Total Volume: 1,000, Start date: 12/15/16 5:53:00 CDT, Duration: 3 day, Stop date: 12/18/16 5:52:00 CDT Start Date: 12/15/16 Stop Date: 12/15/16 Status: Discontinued Results BLOOD BANK RESULTS Most recent to oldest [Reference Range]: 1 2 ABO/Rh A POS *Unknown* (12/15/16 12:23 PM) Antibody Scrn Negative (12/15/16 12:23 PM) ELECTROLYTES Most recent to oldest [Reference Range]: 1 2 Sodium Lvl [135-145 mEq/L] 141 mEq/L (12/15/16 5:02 AM) Potassium Lvl [3.5-5.1 mEq/L] 3.3 mEq/L *LOW* (12/15/16 5:02 AM) Chloride Lvl [95-109 mEq/L] 109 mEq/L (12/15/16 5:02 AM) CO2 [24-32 mEq/L] 25 mEq/L (12/15/16 5:02 AM) AGAP [10.0-20.0 mEq/L] 10.3 mEq/L (12/15/16 5:02 AM) CHEM PANEL Most recent to oldest [Reference Range]: 1 2 Creatinine Lvl [0.50-1.40 mg/dL] 0.37 mg/dL *LOW* (12/15/16 5:02 AM) eGFR 139 mL/min/1.73m2 1 *NA* (12/15/16 5:02 AM) BUN [7-22 mg/dL] 11 mg/dL (12/15/16 5:02 AM) B/C Ratio [6-25] 30 *HI* (12/15/16 5:02 AM) Glucose Lvl [70-99 mg/dL] 85 mg/dL (12/15/16 5:02 AM) Total Protein [6.4-8.4 g/dL] 6.3 g/dL *LOW* (12/15/16 5:02 AM) Albumin Lvl [3.5-5.0 g/dL] 3.1 g/dL *LOW* (12/15/16 5:02 AM) Globulin [2.7-4.2 g/dL] 3.2 g/dL (12/15/16 5:02 AM) A/G Ratio [0.7-1.6] 1.0 (12/15/16 5:02 AM) Calcium Lvl [8.5-10.5 mg/dL] 8.0 mg/dL *LOW* (12/15/16 5:02 AM) Magnesium Lvl [1.8-2.4 mg/dL] 2.4 mg/dL (12/15/16 5:02 AM) ALT [0-65 unit/L] 22 unit/L (12/15/16 5:02 AM) AST [0-37 unit/L] 14 unit/L (12/15/16 5:02 AM) Alk Phos [39-136 unit/L] 69 unit/L (12/15/16 5:02 AM) Bili Total [0.2-1.3 mg/dL] 0.8 mg/dL (12/15/16 5:02 AM) Lipase Lvl [73-393 unit/L] 144 unit/L (12/16/16 3:50 AM) Vitamin B1 [66.5-200.0 nMol/L] 107.8 nMol/L 2 *NA* (12/15/16 5:02 AM) Vitamin D 1,25 (OH)2 Total 68 pg/mL 3 *NA* (12/15/16 5:02 AM) Vitamin D2 1,25 (OH)2 <10 pg/mL *NA* (12/15/16 5:02 AM) Vitamin D3 1,25 (OH)2 68 pg/mL 4 *NA* (12/15/16 5:02 AM) 1Result Comment: The eGFR is calculated [...] be multiplied by the estimated BMI.2Result Comment: Performed At: [facility] [id number] Neeraj Menjivar MD Ph:[phone] Comment: Reference Range: Adults: 21 - 654Result Comment: Performed At: [facility] [address] [place] [id number] Piper Diaz MD Ph:[phone] STUDY Most recent to oldest [Reference Range]: 1 2 Iron [30-160 ug/dl] 14 ug/dl 17 ug/dl *LOW* *LOW* (12/16/16 3:50 AM) (12/15/16 5:02 AM) % Satur Fe [12-57 %] 4 % *LOW* (12/16/16 3:50 AM) UIBC [110-370 ug/dl] 381 ug/dl *HI* (12/16/16 3:50 AM) Vitamin B12 Lvl [254-1320 pg/mL] >2000 pg/mL >2000 pg/mL *HI* *HI* (12/16/16 3:50 AM) (12/15/16 5:02 AM) Folate Lvl [>=3.0 ng/mL] 53.0 ng/mL 44.7 ng/mL (12/16/16 3:50 AM) (12/15/16 5:02 AM) TIBC [228-428 ug/dl] 395 ug/dl (12/16/16 3:50 AM) URINE CHEM Most recent to oldest [Reference Range]: 1 2 U Preg [Negative] Negative (12/15/16 9:02 AM) HEMATOLOGY Most recent to oldest [Reference Range]: 1 2 WBC [3.7-10.4 K/CMM] 6.5 K/CMM 6.8 K/CMM (12/16/16 3:50 AM) (12/15/16 5:02 AM) RBC [4.20-5.40 M/CMM] 4.39 M/CMM 4.11 M/CMM (12/16/16 3:50 AM) *LOW* (12/15/16 5:02 AM) Hgb [12.0-16.0 g/dL] 9.1 g/dL 8.6 g/dL *LOW* *LOW* (12/16/16 3:50 AM) (12/15/16 5:02 AM) Hct [36.0-48.0 %] 29.7 % 27.8 % *LOW* *LOW* (12/16/16 3:50 AM) (12/15/16 5:02 AM) MCV [80.0-98.0 fL] 67.7 fL 67.6 fL *LOW* *LOW* (12/16/16 3:50 AM) (12/15/16 5:02 AM) MCH [27.0-31.0 pg] 20.8 pg 20.8 pg *LOW* *LOW* (12/16/16 3:50 AM) (12/15/16 5:02 AM) MCHC [32.0-36.0 g/dL] 30.8 g/dL 30.8 g/dL *LOW* *LOW* (12/16/16 3:50 AM) (12/15/16 5:02 AM) RDW [11.5-14.5 %] 19.3 % 19.2 % *HI* *HI* (12/16/16 3:50 AM) (12/15/16 5:02 AM) Platelet [133-450 K/CMM] 235 K/CMM 261 K/CMM (12/16/16 3:50 AM) (12/15/16 5:02 AM) MPV [7.4-10.4 fL] 8.7 fL 8.4 fL (12/16/16 3:50 AM) (12/15/16 5:02 AM) Segs [45.0-75.0 %] 64.1 % 52.8 % (12/16/16 3:50 AM) (12/15/16 5:02 AM) Lymphocytes [20.0-40.0 %] 27.8 % 37.9 % (12/16/16 3:50 AM) (12/15/16 5:02 AM) Monocytes [2.0-12.0 %] 7.3 % 7.8 % (12/16/16 3:50 AM) (12/15/16 5:02 AM) Eosinophils [0.0-4.0 %] 0.3 % 0.8 % (12/16/16 3:50 AM) (12/15/16 5:02 AM) Basophils [0.0-1.0 %] 0.5 % 0.7 % (12/16/16 3:50 AM) (12/15/16 5:02 AM) Segs-Bands # [1.5-8.1 K/CMM] 4.2 K/CMM 3.6 K/CMM (12/16/16 3:50 AM) (12/15/16 5:02 AM) Lymphocytes # [1.0-5.5 K/CMM] 1.8 K/CMM 2.6 K/CMM (12/16/16 3:50 AM) (12/15/16 5:02 AM) Monocytes # [0.0-0.8 K/CMM] 0.5 K/CMM 0.5 K/CMM (12/16/16 3:50 AM) (12/15/16 5:02 AM) Eosinophils # [0.0-0.5 K/CMM] 0.1 K/CMM (12/15/16 5:02 AM) Basophils # [0.0-0.2 K/CMM] 0.1 K/CMM (12/15/16 5:02 AM) Microcyte [None Seen] 3+ 3+ *NA* *NA* (12/16/16 3:50 AM) (12/15/16 5:02 AM) PT [12.0-14.7 seconds] 13.8 seconds (12/15/16 5:02 AM) INR [0.85-1.17] 1.04 (12/15/16 5:02 AM) PTT [22.9-35.8 seconds] 34.3 seconds (12/15/16 5:02 AM) Immunizations Not Given Vaccine Date Status Refusal Reason pneumococcal 23-valent vaccine 04/07/16 Not Given Patient Refuses Procedures Procedure Date Related Diagnosis Body Site Gastric bypass operation Social History Social History Type Response Smoking Status Current every day smoker; Type: Cigarettes; Tobacco use per day : 20; Number of years: 20; Started at age: 16.0; Previous treatment: None; Ready to change: No; Concerns about tobacco use in household: No; Exposure to Tobacco Smoke Unable to obtain; Cigarette Smoking Last 365 Days Yes; Reg Smoking Cessation Counseling No Assessment and Plan Extracted from: Title: Clinical Document Author: Rosa Hannon MD Date: 12/16/16 Cardiology [facility] Impression: Perioperative cardia vascular care Morbid obesity status post gastric bypass Tobacco use disorder Prinzmetal angina Intussusception Plan: Hemodynamically stable Keep current regimen Allow to proceed with plans for surgical intervention to correct intussusception She went for a walk We will follow Labs (Last four charted values) WBC 6.5 (DEC 16) 6.8 (DEC 15) Hgb L 9.1 (DEC 16) L 8.6 (DEC 15) Hct L 29.7 (DEC 16) L 27.8 (DEC 15) Plt 235 (DEC 16) 261 (DEC 15) Na 141 (DEC 15) K L 3.3 (DEC 15) CO2 25 (DEC 15) Cl 109 (DEC 15) Cr L 0.37 (DEC 15) BUN 11 (DEC 15) Glucose Random 85 (DEC 15) Mg 2.4 (DEC 15) Ca L 8.0 (DEC 15) PT 13.8 (DEC 15) INR 1.04 (DEC 15) PTT 34.3 (DEC 15) Scheduled Meds (6): 12/15/16 ARIPiprazole (Abilify) 5 mg PO Daily 12/15/16 famotidine (Pepcid) 20 mg IVP Q12H 12/15/16 isosorbide dinitrate 10 mg PO BID 12/15/16 pantoprazole (Protonix) 40 mg PO Before Breakfast 12/15/16 ranolazine (Ranexa 500 mg oral tablet, extended release) 500 mg PO BID 12/15/16 zolpidem (Ambien) 10 mg PO Bedtime Extracted from: Title: General Admission H&P * Author: Brian Graham MD Date: 12/15/16 Impression and Plan - Abdominal pain secondary to Intussuception NPO, IVF [place], morphine for pain Case discussed with surgery Dr Taylor, likely OR in Am - Prinzmetal angina Imdur, Ranexa hold plavix - Schizoaffective disorder: abilify - Chronic microcytic anemia f/u as out pt - Tobacco abuse counselled DVT ppx; SCD, no chemical ppx in view of low platelets DISPO: expect 2 MN stay
--- OUTSIDE RECORDS SUMMARY | 2018-02-25 14:37 | XMS REPORT | Summary of Care ---
:1980 Author Organization [facility] Address [address] [place], [place] [address]- Encounter HQ Jaime(LUIS) [id number] Date(s): 01/31/17 - 02/03/17 [facility] [address] [place] [address]- [phone] Final: Chronic cholecystitis Discharge Disposition: Home or Self Care Attending Physician: Mian Mccarthy DO Admitting Physician: Mian Mccarthy DO Referring Physician: Jigar Taylor MD Vital Signs Most recent to oldest 1 2 3 [Reference Range]: Height 147.32 cm (01/31/17 10:09 AM) Temperature Oral [96.4-99.1 98.2 DegF 98.5 DegF 98.4 DegF DegF] (02/03/17 12:00 PM) (02/03/17 8:00 AM) (02/03/17 4:00 AM) Blood Pressure [90-140/60-90 114/75 mmHg 130/77 mmHg 118/74 mmHg mmHg] (02/03/17 12:00 PM) (02/03/17 8:00 AM) (02/03/17 4:00 AM) Respiratory Rate [14-20 BRMIN] 16 BRMIN 14 BRMIN 14 BRMIN (02/03/17 9:00 AM) (02/02/17 9:43 PM) (02/02/17 3:30 PM) Peripheral Pulse Rate [60-100 69 bpm 59 bpm 76 bpm bpm] (02/03/17 12:00 PM) *LOW* (02/03/17 4:00 AM) (02/03/17 8:00 AM) Weight 62.33 kg (01/31/17 10:09 AM) Body Mass Index 28.72 m2 (01/31/17 10:09 AM) Problem List Condition Effective Dates Status Health Status Informant Anxiety(Confirmed) Resolved Chest pain(Confirmed) Active Fatty liver(Confirmed) Active Gastric bypass status for Resolved obesity(Confirmed) Anxiety and depression(Confirmed) Active History of heart attack(Confirmed) Active Schizoaffective disorder(Confirmed) Resolved Seizure(Confirmed) Resolved Allergies, Adverse Reactions, Alerts Substance Reaction Severity Status aspirin Active Depo-Provera Active fentaNYL Active NSAIDs Active penicillins Active Medications acetaminophen (ANES) Route: IV, Drug form: INJ, ONCE, Stop date: 01/31/17 13:33:00 CDT Start Date: 01/31/17 Stop Date: 01/31/17 Status: Completedacetaminophen-hydrocodone 325 mg-7.5 mg/15 mL oral solution 15 mL, Route: PO, Drug Form: SOLN, Dosing Weight 62.33, kg, Q4H, PRN Pain Score 4-6, Start date: 01/31/17 16:25:00 CDT, Duration: 30 day, Stop date: 03/02/17 16 :24:00 CDT Notes: Do not exceed 4gm/day of acetaminophen. (Same as: Beasley 325/7.5) Start Date: 01/31/17 Stop Date: 02/01/17 Status: DiscontinuedDilaudid 0.5 mg, Route: IVP, ONCE, Dosing Weight 62.33, kg, Start date: 01/31/17 16:07: 00 CDT, Stop date: 01/31/17 16:07:00 CDT Start Date: 01/31/17 Stop Date: 01/31/17 Status: CompletedDilaudid 0.5 mg, Route: IVP, ONCE, Dosing Weight 62.33, kg, Start date: 01/31/17 16:31: 00 CDT, Stop date: 01/31/17 16:31:00 CDT Start Date: 01/31/17 Stop Date: 01/31/17 Status: CompletedDilaudid 0.5 mg, Route: IVP, ONCE, Dosing Weight 62.33, kg, Start date: 01/31/17 15:55: 00 CDT, Stop date: 01/31/17 15:55:00 CDT Start Date: 01/31/17 Stop Date: 01/31/17 Status: CompletedDilaudid 0.5 mg, Route: IVP, ONCE, Dosing Weight 62.33, kg, Start date: 01/31/17 15:47: 00 CDT, Stop date: 01/31/17 15:47:00 CDT Start Date: 01/31/17 Stop Date: 01/31/17 Status: CompletedEmend 40 mg, Route: PO, Drug form: CAP, PRE OP, Dosing Weight 61.364, kg, Start date: 01/31/17 11:00:00 CDT, Duration: 1 doses or times Start Date: 01/31/17 Stop Date: 01/31/17 Status: Completedfamotidine 20 mg, 2 mL, Route: IVP, Drug form: INJ, Q12H, Dosing Weight 62.33, kg, Start date: 01/31/17 21:00:00 CDT, Duration: 30 day, Stop date: 03/02/17 9:00:00 CDT Notes: (Same as: Pepcid)Can be dilute in 5-10cc NS IVP: Slow IV push over at least 2 minutes. Start Date: 01/31/17 Stop Date: 02/03/17 Status: DiscontinuedfentaNYL (ANES) Route: IV, Drug form: INJ, ONCE, Stop date: 01/31/17 13:38:00 CDT Start Date: 01/31/17 Stop Date: 01/31/17 Status: Completedheparin 5,000 unit, Route: SUB-Q, ONCE, Dosing Weight 62.33, kg, Start date: 01/31/17 11 :21:00 CDT, Stop date: 01/31/17 11:21:00 CDT Start Date: 01/31/17 Stop Date: 01/31/17 Status: Completedhydromorphone 0.5 mg, 0.5 mL, Route: IV, Drug form: INJ, Q3H, Dosing Weight 61.364, kg, PRN Pain Score 6-10, Startdate: 01/31/17 16:25:00 CDT, Duration: 30 day, Stop date: 03/02/17 16:24:00 CDT Start Date: 01/31/17 Stop Date: 02/01/17 Status: Discontinuedhydromorphone (ANES) Route: IV, Drug form: INJ, ONCE, Stop date: 01/31/17 15:47:00 CDT Start Date: 01/31/17 Stop Date: 01/31/17 Status: CompletedHYDROmorphone [employer]FITTERS SUPERVISOR 0.5mg/ml 30ml INJ 15 mg 15 mg, 30 mL, Route: IV, Initial Loading Dose: 0.4mg, [employer] SUPERVISOR Dose: 0.2 mg, [employer]PER[employer]OR Lockout: 10 minutes, Continuous Basal Rate: 0 mg, 4 Hour Limit (In MG): 6, Drug Form: INJ, Continuous, Start date: 02/01/17 10:00:00 CDT, Duration: 30 day, Stop date: 03/03/17... Notes: (Same as: Dilaudid) conc=0.5 mg/mlHydromorphone [employer]S SUPERVISOR Dose: ;Delay : ;Basal: Start Date: 02/01/17 Stop Date: 02/03/17 Status: Discontinuedinfluenza virus vaccine, inactivated 0.5 mL, Route: IM, Drug Form: SUSP, Daily, Start date: 02/01/17 9:00:00 CDT, Duration: 1 doses or times, Stop date: 02/01/17 9:00:00 CDT Notes: (Same as: Fluzone Quadrivalent, Fluarix Quadrivalent)For 3 years of age and older (0.5 mL IM)Shake well before use Start Date: 02/01/17 Stop Date: 02/02/17 Status: Deletedinfluenza virus vaccine, inactivated 0.5 mL, Route: IM, Drug Form: SUSP, Daily, Start date: 02/02/17 12:00:00 CDT, Stop date: 02/02/17 23:00:00 CDT Notes: (Same as: Fluzone Quadrivalent, Fluarix Quadrivalent)For 3 years of age and older (0.5 mL IM)Shake well before use Start Date: 02/02/17 Stop Date: 02/02/17 Status: Completedinsulin lispro 3 unit, 0.03 mL, Route: SUB-Q, Drug form: SOLN, Bedtime, Dosing Weight 62.33, kg , PRN Blood Glucose Results, Start date: 01/31/17 16:25:00 CDT, Duration: 30 day , Stop date: 03/02/17 16:24:00 CDT Notes: Roll in palms of hands gently; Do not shake `vigorously. (Same as: Humalog )"Single Patient Use Only "WASTE: F/P - Black; E - Municipal Trash Bin Stable for 28 days at room temperature.Expiresin days from Date Start Date: 01/31/17 Stop Date: 02/01/17 Status: Discontinuedinsulin lispro 2 unit, 0.02 mL, Route: SUB-Q, Drug form: SOLN, Bedtime, Dosing Weight 62.33, kg , PRN Blood Glucose Results, Start date: 01/31/17 16:25:00 CDT, Duration: 30 day , Stop date: 03/02/17 16:24:00 CDT Notes: Roll in palms of hands gently; Do not shake `vigorously. (Same as: Humalog )"Single Patient Use Only "WASTE: F/P - Black; E - Municipal Trash Bin Stable for 28 days at room temperature.Expiresin days from Date Start Date: 01/31/17 Stop Date: 02/01/17 Status: Discontinuedinsulin lispro 1 unit, 0.01 mL, Route: SUB-Q, Drug form: SOLN, Bedtime, Dosing Weight 62.33, kg , PRN Blood Glucose Results, Start date: 01/31/17 16:25:00 CDT, Duration: 30 day , Stop date: 03/02/17 16:24:00 CDT Notes: Roll in palms of hands gently; Do not shake `vigorously. (Same as: Humalog )"Single Patient Use Only "WASTE: F/P - Black; E - Municipal Trash Bin Stable for 28 days at room temperature.Expiresin days from Date Start Date: 01/31/17 Stop Date: 02/01/17 Status: Discontinuedinsulin lispro 4 unit, 0.04 mL, Route: SUB-Q, Drug form: SOLN, Bedtime, Dosing Weight 62.33, kg , PRN Blood Glucose Results, Start date: 01/31/17 16:25:00 CDT, Duration: 30 day , Stop date: 03/02/17 16:24:00 CDT Notes: Roll in palms of hands gently; Do not shake `vigorously. (Same as: Humalog )"Single Patient Use Only "WASTE: F/P - Black; E - Municipal Trash Bin Stable for 28 days at room temperature.Expiresin days from Date Start Date: 01/31/17 Stop Date: 02/01/17 Status: DiscontinuedLactated Ringers 1,000 mL 1,000 mL, Rate: 125 ml/hr, Infuse over: 8 hr, Route: IV, Dosing Weight 62.33 kg , Total Volume: 1,000, Start date: 01/31/17 16:25:00 CDT, Duration: 30 day, Stop date: 03/02/17 16:24:00 CDT Start Date: 01/31/17 Stop Date: 02/03/17 Status: DiscontinuedLactated Ringers Injection IV 1000 mL 1,000 mL, Rate: 125 ml/hr, Infuse over: 8 hr, Route: IV, Dosing Weight 62.33 kg , Total Volume: 1,000, Start date: 01/31/17 16:25:00 CDT, Duration: 30 day, Stop date: 03/02/17 16:24:00 CDT Start Date: 01/31/17 Stop Date: 01/31/17 Status: DeletedLactated Ringers Injection IV 1000 mL 1,000 mL, Rate: 125 ml/hr, Infuse over: 8 hr, Route: IV, Dosing Weight 62.33 kg , Total Volume: 1,000, Start date: 01/31/17 10:13:00 CDT, Duration: 11 day, Stop date: 02/11/17 10:12:00 CDT Start Date: 01/31/17 Stop Date: 01/31/17 Status: Voided With Resultslevofloxacin 500 mg, Route: IVPB, ONCALL, Dosing Weight 62.33, kg, Start date: 01/31/17 11:00 :00 CDT, Duration: 1doses or times, ABX Indication: Surgical Prophylaxis Start Date: 01/31/17 Stop Date: 01/31/17 Status: Completedlevofloxacin (ANES) Route: IV, Drug form: INJ, ONCE, Stop date: 01/31/17 13:18:00 CDT Start Date: 01/31/17 Stop Date: 01/31/17 Status: Completedlidocaine (ANES) Route: IV, Drug form: INJ, ONCE, Stop date: 01/31/17 14:08:00 CDT Start Date: 01/31/17 Stop Date: 01/31/17 Status: CompletedLovenox 30 mg, 0.3 mL, Route: SUB-Q, Drug form: INJ, [id number], Dosing Weight 62.33, kg, Start date: 02/02/1716:00:00 CDT, Duration: 30 day, Stop date: 03/02/17 22:00: 00 CDT Notes: (Same as: Lovenox) Start Date: 02/01/17 Stop Date: 02/03/17 Status: DiscontinuedLR 1000 mL INJ (ANES) Route: IV, Total Volume: 1,000, Start date: 01/31/17 12:34:00 CDT, Stop date: 13:34:00 CDT Start Date: 01/31/17 Stop Date: 01/31/17 Status: Completedmetoclopramide 10 mg, 2 mL, Route: IVP, Drug form: INJ, Q8H, Dosing Weight 61.364, kg, Start date: 02/01/17 0:00:00CDT, Duration: 30 day, Stop date: 03/02/17 16:00:00 CDT Notes: (Same as: Reglan) Start Date: 02/01/17 Stop Date: 02/03/17 Status: Discontinuedmetoprolol 2.5 mg, 2.5 mL, Route: IVP, Drug form: INJ, Q6H, Dosing Weight 62.33, kg, PRN Elevated BP, Systolic BP >180 or Diastolic BP >100, Start date: 01/31/17 16:25: 00 CDT, Duration: 30 day, Stop date: 03/02/17 16:24:00 CDT Notes: (Same as: Lopressor)Push over 2 minutes Start Date: 01/31/17 Stop Date: 02/03/17 Status: Discontinuedmidazolam (ANES) Route: IV, Drug form: SOLN, ONCE, Stop date: 01/31/17 13:23:00 CDT Start Date: 01/31/17 Stop Date: 01/31/17 Status: Completednaloxone 0.04 mg, 0.1 mL, Route: IVP, Drug form: INJ, Q2MIN, Dosing Weight 62.33, kg, PRN Narcotic Reversal, Start date: 02/01/17 9:41:00 CDT, Duration: 30 day, Stop date: 03/03/17 9:40:00 CDT Notes: Same as Narcan Start Date: 02/01/17 Stop Date: 02/03/17 Status: DiscontinuedNorco 5/325 oral tablet 1 tab, PO, Q6H, 0 Refill(s) Start Date: 01/31/17 Status: OrderedOmnipaque 300 50 ml, Route: PO, Drug Form: SOLN, Dosing Weight 62.33, kg, ONCE, Start date: 14:28:00 CDT,Stop date: 02/02/17 14:28:00 CDT Notes: (Same as:Omnipaque 300).WASTE: F/P - Black; E - Municipal Trash Bin Start Date: 02/02/17 Stop Date: 02/02/17 Status: Orderedondansetron 4 mg, 2 mL, Route: IVP, Drug form: INJ, Q4H, Dosing Weight 61.364, kg, Start date: 01/31/17 20:00:00CDT, Duration: 30 day, Stop date: 03/02/17 16:00:00 CDT Notes: (Same as: Krishna) MEDICATION WASTE Product Size: 4 mgProduct Wasted: ___ mg Start Date: 01/31/17 Stop Date: 02/03/17 Status: Discontinuedondansetron (ANES) Route: IV, Drug form: INJ, ONCE, Stop date: 01/31/17 13:23:00 CDT Start Date: 01/31/17 Stop Date: 01/31/17 Status: Completedpromethazine 25 mg, 1 supp, Route: RI, Drug form: SUPP, Q4H, Dosing Weight 61.364, kg, PRN Nausea & Vomiting,Start date: 01/31/17 16:25:00 CDT, Duration: 30 day, Stop date: 03/02/17 16:24:00 CDT Notes: (Same as: Phenergan) Start Date: 01/31/17 Stop Date: 02/03/17 Status: Discontinuedpropofol (ANES) Route: IV, Drug form: INJ, ONCE, Stop date: 01/31/17 13:38:00 CDT Start Date: 01/31/17 Stop Date: 01/31/17 Status: Completedrocuronium (ANES) Route: IV, Drug form: INJ, ONCE, Stop date: 01/31/17 14:08:00 CDT Start Date: 01/31/17 Stop Date: 01/31/17 Status: Completedscopolamine 1.5 mg transdermal film 1 patch, Route: TOP, Drug Form: ERFILM, Dosing Weight 61.364, kg, ONCE, Start date: 01/31/17 10:13:00 CDT, Stop date: 01/31/17 10:13:00 CDT Start Date: 01/31/17 Stop Date: 01/31/17 Status: Completedsodium chloride 0.9% 1000 ml INJ (ANES) Route: IV, Total Volume: 1,000, Start date: 01/31/17 12:40:00 CDT, Stop date: 13:40:00 CDT Start Date: 01/31/17 Stop Date: 01/31/17 Status: Completedsodium chloride 0.9% 1000 ml INJ 984.8 mL + M.V.I.-12 10 mL Daily + folic acid IV 1 mg Daily + thia 984.8 mL, Rate: 100 ml/hr, Infuse over: 10 hr, Route: IV, Dosing Weight 62.33 kg , Total Volume: 1,000, Start date: 01/31/17 11:21:00 CDT, Duration: 1 doses or times, Stop date: 01/31/17 21:20:00 CDT Start Date: 01/31/17 Stop Date: 01/31/17 Status: CompletedSodium Chloride 0.9% IV 984.8 mL + M.V.I.-12 10 mL + folic acid IV 1 mg + thiamine IV 500 mg 984.8 mL, Rate: 125 ml/hr, Infuse over: 7.9 hr, Route: IV, Dosing Weight 62.33 kg, Total Volume: 984.8, Start date: 01/31/17 10:13:00 CDT, Duration: 1 doses or times, Stop date: 01/31/17 18:06:00 CDT Start Date: 01/31/17 Stop Date: 01/31/17 Status: Deletedsucralfate 1 gm, 1 tab, Route: PO, Drug form: TAB, QID, Dosing Weight 61.364, kg, Start date: 01/31/17 17:00:00CDT, Duration: 30 day, Stop date: 03/02/17 13:00:00 CDT Notes: May interfere w/enteral feeds - Take 1 hr before or 2 hr after antacids , dairy pdt, meals & minerals - On empty stomach.For patients unable to swallow tablet, dissolve in 10mL - 30mL of water or juice and stir before giving. (Same As: Carafate) Start Date: 01/31/17 Stop Date: 02/03/17 Status: DiscontinuedTylenol with Codeine 120 mg-12 mg/5 mL oral liquid 15 ml, Route: PO, Drug Form: LIQ, Dosing Weight 62.33, kg, Q4H, PRN Pain Score 1 -3, Start date: 02/03/17 7:36:00 CDT, Duration: 30 day, Stop date: 03/05/17 7:35 :00 CDT Notes: (acetaminophen-codeine 120-12 mg/5 ml oral liq) Do not exceed 4gm/day of acetaminophen. (Same as: Tylenol w/Codeine) Start Date: 02/03/17 Stop Date: 02/03/17 Status: Discontinued Results BLOOD BANK RESULTS Most recent to oldest [Reference Range]: 1 2 3 ABO/Rh A POS *Unknown* (01/31/17 10:19 AM) Antibody Scrn Negative (01/31/17 10:19 AM) ELECTROLYTES Most recent to oldest 1 2 3 [Reference Range]: Sodium Lvl [135-145 mEq/L] 138 mEq/L 140 mEq/L 136 mEq/L (02/03/17 9:29 AM) (02/02/17 6:18 AM) (02/01/17 5:18 AM) Potassium Lvl [3.5-5.1 4.0 mEq/L 4.5 mEq/L 4.0 mEq/L mEq/L] (02/03/17 9:29 AM) (02/02/17 6:18 AM) (02/01/17 5:18 AM) Chloride Lvl [95-109 mEq/L] 105 mEq/L 107 mEq/L 107 mEq/L (02/03/17 9:29 AM) (02/02/17 6:18 AM) (02/01/17 5:18 AM) CO2 [24-32 mEq/L] 21 mEq/L 25 mEq/L 19 mEq/L *LOW* (02/02/17 6:18 AM) *LOW* (02/03/17 9:29 AM) (02/01/17 5:18 AM) AGAP [10.0-20.0 mEq/L] 16.0 mEq/L 12.5 mEq/L 14.0 mEq/L (02/03/17 9:29 AM) (02/02/17 6:18 AM) (02/01/17 5:18 AM) CHEM PANEL Most recent to oldest 1 2 3 [Reference Range]: Creatinine Lvl [0.50-1.40 0.25 mg/dL 0.35 mg/dL 0.35 mg/dL mg/dL] *LOW* *LOW* *LOW* (02/03/17 9:29 AM) (02/02/17 6:18 AM) (02/01/17 5:18 AM) eGFR 158 mL/min/1.73m2 1 141 mL/min/1.73m2 2 141 mL/min/1.73m2 3 *NA* *NA* *NA* (02/03/17 9:29 AM) (02/02/17 6:18 AM) (02/01/17 5:18 AM) BUN [7-22 mg/dL] 3 mg/dL 5 mg/dL 5 mg/dL *LOW* *LOW* *LOW* (02/03/17 9:29 AM) (02/02/17 6:18 AM) (02/01/17 5:18 AM) B/C Ratio [6-25] 12 14 14 (02/03/17 9:29 AM) (02/02/17 6:18 AM) (02/01/17 5:18 AM) Glucose Lvl [70-99 mg/dL] 81 mg/dL 96 mg/dL 120 mg/dL (02/03/17 9:29 AM) (02/02/17 6:18 AM) *HI* (02/01/17 5:18 AM) Total Protein [6.4-8.4 5.1 g/dL 5.9 g/dL 5.9 g/dL g/dL] *LOW* *LOW* *LOW* (02/03/17 9:29 AM) (02/02/17 6:18 AM) (02/01/17 5:18 AM) Albumin Lvl [3.5-5.0 g/dL] 2.6 g/dL 2.6 g/dL 3.1 g/dL *LOW* *LOW* *LOW* (02/03/17 9:29 AM) (02/02/17 6:18 AM) (02/01/17 5:18 AM) Globulin [2.7-4.2 g/dL] 2.5 g/dL 3.3 g/dL 2.8 g/dL *LOW* (02/02/17 6:18 AM) (02/01/17 5:18 AM) (02/03/17 9:29 AM) A/G Ratio [0.7-1.6] 1.0 0.8 1.1 (02/03/17 9:29 AM) (02/02/17 6:18 AM) (02/01/17 5:18 AM) Calcium Lvl [8.5-10.5 7.7 mg/dL 8.4 mg/dL 8.1 mg/dL mg/dL] *LOW* *LOW* *LOW* (02/03/17 9:29 AM) (02/02/17 6:18 AM) (02/01/17 5:18 AM) Magnesium Lvl [1.8-2.4 2.6 mg/dL mg/dL] *HI* (01/31/17 10:19 AM) ALT [0-65 unit/L] 52 unit/L 73 unit/L 85 unit/L (02/03/17 9:29 AM) *HI* *HI* (02/02/17 6:18 AM) (02/01/17 5:18 AM) AST [0-37 unit/L] 48 unit/L 64 unit/L 98 unit/L *HI* *HI* *HI* (02/03/17 9:29 AM) (02/02/17 6:18 AM) (02/01/17 5:18 AM) Alk Phos [39-136 unit/L] 53 unit/L 56 unit/L 58 unit/L (02/03/17 9:29 AM) (02/02/17 6:18 AM) (02/01/17 5:18 AM) Bili Total [0.2-1.3 mg/dL] 0.6 mg/dL 0.4 mg/dL 0.7 mg/dL (02/03/17 9:29 AM) (02/02/17 6:18 AM) (02/01/17 5:18 AM) 1Result Comment: The eGFR is calculated [...] eGFR should be multiplied by the estimated BMI.ENDOCRINOLOGY Most recent to oldest [Reference Range]: 1 2 3 S Preg [Negative] Negative *NA* (01/31/17 10:19 AM) HEMATOLOGY Most recent to oldest 1 2 3 [Reference Range]: WBC [3.7-10.4 K/CMM] 7.6 K/CMM 11.7 K/CMM 13.4 K/CMM (02/03/17 9:29 AM) *HI* *HI* (02/02/17 6:18 AM) (02/01/17 5:18 AM) RBC [4.20-5.40 M/CMM] 3.94 M/CMM 4.16 M/CMM 4.40 M/CMM *LOW* *LOW* (02/01/17 5:18 AM) (02/03/17 9:29 AM) (02/02/17 6:18 AM) Hgb [12.0-16.0 g/dL] 9.7 g/dL 10.1 g/dL 10.5 g/dL *LOW* *LOW* *LOW* (02/03/17 9:29 AM) (02/02/17 6:18 AM) (02/01/17 5:18 AM) Hct [36.0-48.0 %] 30.3 % 31.7 % 33.2 % *LOW* *LOW* *LOW* (02/03/17 9:29 AM) (02/02/17 6:18 AM) (02/01/17 5:18 AM) MCV [80.0-98.0 fL] 76.7 fL 76.2 fL 75.4 fL *LOW* *LOW* *LOW* (02/03/17 9:29 AM) (02/02/17 6:18 AM) (02/01/17 5:18 AM) MCH [27.0-31.0 pg] 24.7 pg 24.2 pg 23.8 pg *LOW* *LOW* *LOW* (02/03/17 9:29 AM) (02/02/17 6:18 AM) (02/01/17 5:18 AM) MCHC [32.0-36.0 g/dL] 32.2 g/dL 31.7 g/dL 31.5 g/dL (02/03/17 9:29 AM) *LOW* *LOW* (02/02/17 6:18 AM) (02/01/17 5:18 AM) RDW [11.5-14.5 %] 29.1 % 28.5 % 28.2 % *HI* *HI* *HI* (02/03/17 9:29 AM) (02/02/17 6:18 AM) (02/01/17 5:18 AM) Platelet [133-450 K/CMM] 158 K/CMM 223 K/CMM 242 K/CMM (02/03/17 9:29 AM) (02/02/17 6:18 AM) (02/01/17 5:18 AM) MPV [7.4-10.4 fL] 9.9 fL 9.6 fL 9.4 fL (02/03/17 9:29 AM) (02/02/17 6:18 AM) (02/01/17 5:18 AM) Segs [45.0-75.0 %] 66.0 % 77.1 % 89.8 % (02/03/17 9:29 AM) *HI* *HI* (02/02/17 6:18 AM) (02/01/17 5:18 AM) Lymphocytes [20.0-40.0 %] 21.6 % 14.0 % 4.9 % (02/03/17 9:29 AM) *LOW* *LOW* (02/02/17 6:18 AM) (02/01/17 5:18 AM) Monocytes [2.0-12.0 %] 10.1 % 8.5 % 5.2 % (02/03/17 9:29 AM) (02/02/17 6:18 AM) (02/01/17 5:18 AM) Eosinophils [0.0-4.0 %] 1.1 % 0.1 % 0.9 % (02/03/17 9:29 AM) (02/02/17 6:18 AM) (01/31/17 10:19 AM) Basophils [0.0-1.0 %] 1.2 % 0.3 % 0.1 % *HI* (02/02/17 6:18 AM) (02/01/17 5:18 AM) (02/03/17 9:29 AM) Segs-Bands # [1.5-8.1 5.0 K/CMM 9.1 K/CMM 12.1 K/CMM K/CMM] (02/03/17 9:29 AM) *HI* *HI* (02/02/17 6:18 AM) (02/01/17 5:18 AM) Lymphocytes # [1.0-5.5 1.6 K/CMM 1.6 K/CMM 0.7 K/CMM K/CMM] (02/03/17 9:29 AM) (02/02/17 6:18 AM) *LOW* (02/01/17 5:18 AM) Monocytes # [0.0-0.8 K/CMM] 0.8 K/CMM 1.0 K/CMM 0.7 K/CMM (02/03/17 9:29 AM) *HI* (02/01/17 5:18 AM) (02/02/17 6:18 AM) Eosinophils # [0.0-0.5 0.1 K/CMM 0.1 K/CMM K/CMM] (02/03/17 9:29 AM) (01/31/17 10:19 AM) Basophils # [0.0-0.2 K/CMM] 0.1 K/CMM (02/03/17 9:29 AM) Anisocyte [None Seen] 3+ 2+ (02/03/17 9:29 AM) *ABN* (01/31/17 10:19 AM) Macrocyte [None Seen] 1+ *ABN* (02/03/17 9:29 AM) Microcyte [None Seen] 1+ 1+ 1+ *ABN* *ABN* *ABN* (02/03/17 9:29 AM) (02/02/17 6:18 AM) (02/01/17 5:18 AM) Target Cell Slight *NA* (01/31/17 10:19 AM) Plt Morph Normal Normal (02/03/17 9:29 AM) (01/31/17 10:19 AM) PT [12.0-14.7 seconds] 14.4 seconds 13.2 seconds (02/02/17 6:18 AM) (01/31/17 10:19 AM) INR [0.85-1.17] 1.10 0.98 (02/02/17 6:18 AM) (01/31/17 10:19 AM) PTT [22.9-35.8 seconds] 38.0 seconds 35.5 seconds *HI* (01/31/17 10:19 AM) (02/02/17 6:18 AM) Immunizations Given and Recorded Vaccine Date [...] Summary * Author: Mian Mccarthy DO Date: 02/03/17 Discharge Plan Discharge Summary Plan Discharge Status: stable. Discharge instructions given: to patient. Discharge disposition: discharge to home. Prescriptions: continue same medications. Diagnosis 1. Partial gastrectomy with gastrogastrostomy. 2. Partial antrectomy with end-to-end anastomosis. 3. Cholecystectomy 4. Intussusception. . Education and Follow-up Counseled: patient, regarding diagnosis, regarding treatment, regarding medications. 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 pain medications Disposal as per surgery discussed plan with patient at bedside Extracted from: Title: General Admission H&P * Author: Mian Mccarthy DO Date: 01/31/17 Impression and Plan Recurrent small bowel intussusception History of bariatric surgery Bulmaro-en-Y Status post bariatric surgery Bulmaro-en-Y reversal with intussusception repair Iron deficiency anemia Postop care as per bariatric team Continue n.p.o. Await for return for bowel function IV pain medication and antiemetics as needed Ambulation and incentive spirometry Discussed plan with surgeon at bedside
--- OUTSIDE RECORDS SUMMARY | 2018-02-25 14:37 | XMS REPORT | Summary of Care ---
:1980 Author Organization [facility] Address [address] [place], [place] [address]- Encounter HQ Jaime(LUIS) [id number] Date(s): 01/15/17 - 01/18/17 [facility] [address] [place] [address]- [phone] Discharge Disposition: Home or Self Care Attending Physician: Mian Mccarthy DO Admitting Physician: Mian Mccarthy DO Vital Signs Most recent to oldest 1 2 3 [Reference Range]: Height 147.32 cm 147.32 cm (01/15/17 9:36 PM) (01/15/17 2:07 PM) Temperature Oral [96.4-99.1 98.8 DegF 98.1 DegF 98.0 DegF DegF] (01/18/17 11:45 AM) (01/18/17 7:51 AM) (01/18/17 4:00 AM) Blood Pressure [90-140/60-90 100/66 mmHg 112/68 mmHg 103/68 mmHg mmHg] (01/18/17 11:45 AM) (01/18/17 7:51 AM) (01/18/17 4:00 AM) Respiratory Rate [14-20 18 BRMIN 16 BRMIN 16 BRMIN BRMIN] (01/18/17 11:45 AM) (01/18/17 4:00 AM) (01/18/17 12:00 AM) Peripheral Pulse Rate [60-100 62 bpm 72 bpm 74 bpm bpm] (01/18/17 11:45 AM) (01/18/17 7:51 AM) (01/18/17 4:00 AM) Weight 61.364 kg 60 kg (01/15/17 9:36 PM) (01/15/17 2:07 PM) Body Mass Index 28.27 m2 27.65 m2 (01/15/17 9:36 PM) (01/15/17 2:07 PM) Problem List Condition Effective Dates Status Health Status Informant Anxiety(Confirmed) Resolved Gastric bypass status for Resolved obesity(Confirmed) Schizoaffective disorder(Confirmed) Resolved Seizure(Confirmed) Resolved Allergies, Adverse Reactions, Alerts Substance Reaction Severity Status aspirin Active Depo-Provera Active NSAIDs Active penicillins Active Medications clonazePAM 1 mg, 1 tab, Route: PO, Drug form: TAB, BID, Dosing Weight 61.364, kg, Start date: 01/16/17 12:00:00CDT, Duration: 30 day, Stop date: 02/15/17 9:00:00 CDT Notes: (Same As: KlonoPIN) Start Date: 01/16/17 Stop Date: 01/18/17 Status: DiscontinuedclonazePAM 1 mg, PO, BID, 0 Refill(s) Start Date: 01/15/17 Status: OrderedcloNIDine 0.1 mg oral tablet 0.1 mg, 1 tab, Route: PO, Drug form: TAB, Q6H, Dosing Weight 60, kg, PRN Elevated BP, Start date: 01/15/17 17:24:00 CDT, Duration: 30 day, Stop date: 02/21 17:23:00 CDT, SBP > 165 Notes: (Same As: Catapres) Start Date: 01/15/17 Stop Date: 01/18/17 Status: NsnmeykrlztvI0H 1/2NS + KCL 20mEq/L 1000ml (Premix) 1,000 mL 1,000 mL, Rate: 60 ml/hr, Infuse over: 16.7 hr, Route: IV, Dosing Weight 61.364 kg, Total Volume: 1,000, Start date: 01/16/17 13:40:00 CDT, Stop date: 02/15/17 13:39:00 CDT Notes: PREMIX IV - Do Not AlterWASTE: F/P - Sink; E - Municipal Trash Bin Start Date: 01/16/17 Stop Date: 01/18/17 Status: DiscontinuedFerrlecit + sodium chloride 0.9% INJ 100 mL 100 mg, 8 mL, Route: IVPB, Drug form: INJ, ONCE, Dosing Weight 61.364, kg, Start date: 01/17/17 23:28:00 CDT, Stop date: 01/17/17 23:28:00 CDT Notes: (sodium ferric gluconate complex (elemental iron) 62.5 mg/5 ml INJ) "Limited stability. Use immediately after admixture"(Same as: Ferrlecit) MEDICATION WASTE Product Size: 62.5 mgProduct Wasted: 25 mg Start Date: 01/17/17 Stop Date: 01/18/17 Status: Completediron sucrose + sodium chloride 0.9% INJ 250 mL 300 mg, 15 mL, Route: IVPB, Drug form: INJ, ONCE, Dosing Weight 61.364, kg, Start date: 01/18/17 7:57:00 CDT, Duration: 1 doses or times, Stop date: 7:57:00 CDT Notes: Each 5ml contains 100mg elemental iron. Mix with NSNon-Formulary(Same as :Venofer)Administer IV only. MEDICATION WASTE Product Size: 100 mgProduct Wasted: ___ mg Start Date: 01/18/17 Stop Date: 01/18/17 Status: Completedmorphine Sulfate 4 mg, 1 mL, Route: IVP, Drug form: SOLN, ONCE, Dosing Weight 62.273, kg, Priority: STAT, Start date:01/15/17 14:03:00 CDT, Stop date: 01/15/17 14:03:00 CDT Notes: (Same as:MORPhine Sulfate) Start Date: 01/15/17 Stop Date: 01/15/17 Status: Completedmorphine Sulfate 4 mg, 1 mL, Route: IV, Drug form: SOLN, Q4H, Dosing Weight 60, kg, PRN Pain Score 6-10, Start date: 01/15/17 17:25:00 CDT, Duration: 30 day, Stop date: 02/21 17:24:00 CDT Notes: (Same as:MORPhine Sulfate) Start Date: 01/15/17 Stop Date: 01/18/17 Status: Discontinuedondansetron 4 mg, 2 mL, Route: IVP, Drug form: INJ, ONCE, Dosing Weight 62.273, kg, Priority : STAT, Start date: 01/15/17 14:03:00 CDT, Stop date: 01/15/17 14:03:00 CDT Notes: (Same as: Krishna) MEDICATION WASTE Product Size: 4 mgProduct Wasted: ___ mg Start Date: 01/15/17 Stop Date: 01/15/17 Status: Completedondansetron 4 mg, 2 mL, Route: IVP, Drug form: INJ, Q6H, Dosing Weight 60, kg, PRN Nausea & amp; Vomiting, Start date: 01/15/17 17:23:00 CDT, Duration: 30 day, Stop date: 02/14/17 17:22:00 CDT Notes: (Same as: Krishna) MEDICATION WASTE Product Size: 4 mgProduct Wasted: ___ mg Start Date: 01/15/17 Stop Date: 01/18/17 Status: Discontinuedpotassium chloride 10 mEq, 100 mL, Route: IVPB, Drug form: INJ, Q1H, Start date: 01/16/17 15:00:00 CDT, Duration: 2 doses or times, Stop date: 01/16/17 16:00:00 CDT Notes: Infuse at a rate of 10 mEq/hr.(Same as: KCL) Start Date: 01/16/17 Stop Date: 01/16/17 Status: Completedpotassium chloride 20 mEq, Route: IVPB, ONCE, Dosing Weight 61.364, kg, Start date: 01/16/17 13:41: 00 CDT, Stop date: 01/16/17 13:41:00 CDT Start Date: 01/16/17 Stop Date: 01/16/17 Status: DeletedProtonix 40 mg, Route: IVP, Drug form: INJ, Daily, Dosing Weight 60, kg, Patient is NPO, Start date: 179:00:00 CDT, Duration: 30 day, Stop date: 02/14/17 9:00:00 CDT Notes: For IV push reconstitute with 10 ml 0.9% sodium chloride and push over 2 minutes. (Same as: Protonix) Start Date: 01/16/17 Stop Date: 01/18/17 Status: DiscontinuedRestoril 15 mg, 1 cap, Route: PO, Drug form: CAP, Bedtime, Dosing Weight 60, kg, PRN Sleep, Start date: 01/15/17 17:24:00 CDT, Duration: 30 day, Stop date: 02/14/17 17:23:00 CDT Notes: (Same As: Restoril) Start Date: 01/15/17 Stop Date: 01/18/17 Status: DiscontinuedSaline Flush 0.9% 10 mL, Route: IVP, Drug Form: INJ, Dosing Weight 62.273, kg, PRN, PRN Line Flush , Start date: 01/15/17 14:03:00 CDT, Duration: 30 day, Stop date: 02/14/17 14:02 :00 CDT Notes: (Same as: BD Posiflush) Start Date: 01/15/17 Stop Date: 01/18/17 Status: DiscontinuedSodium Chloride 0.9% (Bolus) IV 1,000 mL, 1000 ml/hr, Infuse Over: 1 hr, Route: IV, 1,000, Drug form: INJ, ONCE , Priority: STAT, Dosing Weight 62.273 kg, Start date: 01/15/17 14:03:00 CDT, Duration: 1 doses or times, Stop date: 01/15/17 14:03:00 CDT Start Date: 01/15/17 Stop Date: 01/15/17 Status: Completedsodium chloride 0.9% 1000 ml INJ 1,000 mL 1,000 mL, Rate: 100 ml/hr, Infuse over: 10 hr, Route: IV, Dosing Weight 60 kg, Total Volume: 1,000, Start date: 01/15/17 17:24:00 CDT, Duration: 30 day, Stop date: 02/14/17 17:23:00 CDT Start Date: 01/15/17 Stop Date: 01/16/17 Status: Discontinuedsodium chloride 0.9% 1000 ml INJ 984.8 mL + M.V.I.-12 10 mL Daily + folic acid IV 1 mg Daily + thia 984.8 mL, Rate: 100 ml/hr, Infuse over: 10 hr, Route: IV, Dosing Weight 61.364 kg, Total Volume: 1,000, Start date: 01/17/17 12:26:00 CDT, Duration: 1 doses or times, Stop date: 01/17/17 22:25:00 CDT Start Date: 01/17/17 Stop Date: 01/17/17 Status: Completedsodium chloride 0.9% 1000 ml INJ 984.8 mL + M.V.I.-12 10 mL Daily + folic acid IV 1 mg Daily + thia 984.8 mL, Rate: 100 ml/hr, Infuse over: 10 hr, Route: IV, Dosing Weight 61.364 kg, Total Volume: 1,000, Start date: 01/18/17 11:37:00 CDT, Duration: 1 doses or times, Stop date: 01/18/17 21:36:00 CDT Start Date: 01/18/17 Stop Date: 01/18/17 Status: Discontinuedsodium chloride 0.9% INJ 250 mL 250 mL, Rate: history instructor for use with blood product administration, Dosing Weight 61.364, kg, Route: IV, Total Volume: 250, Start Date: 01/17/17 12:20:00 CDT, Duration: 30 day, Stop date: 02/16/17 12:19:00 CDT, Replace Every: 24 hr Start Date: 01/17/17 Stop Date: 01/18/17 Status: DiscontinuedSodium Chloride 0.9% IV 1000 mL + M.V.I.-12 10 mL Daily + folic acid IV 1 mg Daily + thiamine IV 10 1,000 mL, Rate: 100 ml/hr, Infuse over: 10 hr, Route: IV, Dosing Weight 60 kg, Total Volume: 1,000, Start date: 01/15/17 14:50:00 CDT, Duration: 1 doses or times, Stop date: 01/16/17 0:49:00 CDT Start Date: 01/15/17 Stop Date: 01/15/17 Status: Deletedthiamine + sodium chloride 0.9% INJ 49 mL 100 mg, 1 mL, Route: IVPB, Drug form: INJ, Daily, Dosing Weight 61.364, kg, Priority: NOW, Start date: 01/16/17 9:33:00 CDT, Duration: 30 day, Stop date: 9:00:00 CDT Notes: (Same As: Vitamin B1) Start Date: 01/16/17 Stop Date: 01/18/17 Status: Discontinuedthiamine 100 mg oral tablet 100 mg=1 tab, PO, Daily, # 30 tab, 0 Refill(s), Pharmacy: [facility] [id number] Start Date: 01/18/17 Status: OrderedTylenol 650 mg, 20.3 mL, Route: PO, Drug form: LIQ, Q6H, Dosing Weight 60, kg, PRN Other -See Comment, Startdate: 01/15/17 17:24:00 CDT, Duration: 30 day, Stop date: 02/14/17 17:23:00 CDT, fever, pain, headache Notes: Max mdkbuyhqtobwu=8128dc/day (4 gm/day). (Same as: Tylenol) Start Date: 01/15/17 Stop Date: 01/18/17 Status: Discontinued Results BLOOD BANK RESULTS Most recent to oldest [Reference Range]: 1 2 3 ABO/Rh A POS *Unknown* (01/17/17 1:40 PM) Antibody Scrn Negative (01/17/17 1:40 PM) RBC product Product available 1 (01/17/17 12:20 PM) 1Result Comment: 01/17/2017 16:31 [id number] spoke to fabricio at 01/17/2017 16:31ELECTROLYTES Most recent to oldest 1 2 3 [Reference Range]: Sodium Lvl [135-145 mEq/L] 144 mEq/L 142 mEq/L 142 mEq/L (01/18/17 4:08 AM) (01/17/17 7:46 AM) (01/16/17 3:56 AM) Potassium Lvl [3.5-5.1 3.9 mEq/L 3.7 mEq/L 3.1 mEq/L mEq/L] (01/18/17 4:08 AM) (01/17/17 7:46 AM) *LOW* (01/16/17 3:56 AM) Chloride Lvl [95-109 mEq/L] 113 mEq/L 112 mEq/L 111 mEq/L *HI* *HI* *HI* (01/18/17 4:08 AM) (01/17/17 7:46 AM) (01/16/17 3:56 AM) CO2 [24-32 mEq/L] 22 mEq/L 22 mEq/L 25 mEq/L *LOW* *LOW* (01/16/17 3:56 AM) (01/18/17 4:08 AM) (01/17/17 7:46 AM) AGAP [10.0-20.0 mEq/L] 12.9 mEq/L 11.7 mEq/L 9.1 mEq/L (01/18/17 4:08 AM) (01/17/17 7:46 AM) *LOW* (01/16/17 3:56 AM) CHEM PANEL Most recent to oldest 1 2 3 [Reference Range]: Creatinine Lvl [0.50-1.40 0.38 mg/dL 0.39 mg/dL 0.41 mg/dL mg/dL] *LOW* *LOW* *LOW* (01/18/17 4:08 AM) (01/17/17 7:46 AM) (01/16/17 3:56 AM) eGFR 138 mL/min/1.73m2 1 137 mL/min/1.73m2 2 134 mL/min/1.73m2 3 *NA* *NA* *NA* (01/18/17 4:08 AM) (01/17/17 7:46 AM) (01/16/17 3:56 AM) BUN [7-22 mg/dL] 10 mg/dL 5 mg/dL 11 mg/dL (01/18/17 4:08 AM) *LOW* (01/16/17 3:56 AM) (01/17/17 7:46 AM) B/C Ratio [6-25] 25 (01/15/17 2:25 PM) Glucose Lvl [70-99 mg/dL] 74 mg/dL 76 mg/dL 78 mg/dL (01/18/17 4:08 AM) (01/17/17 7:46 AM) (01/16/17 3:56 AM) Total Protein [6.4-8.4 7.7 g/dL g/dL] (01/15/17 2:25 PM) Albumin Lvl [3.5-5.0 g/dL] 3.9 g/dL (01/15/17 2:25 PM) Globulin [2.7-4.2 g/dL] 3.8 g/dL (01/15/17 2:25 PM) A/G Ratio [0.7-1.6] 1.0 (01/15/17 2:25 PM) Calcium Lvl [8.5-10.5 7.8 mg/dL 7.6 mg/dL 7.6 mg/dL mg/dL] *LOW* *LOW* *LOW* (01/18/17 4:08 AM) (01/17/17 7:46 AM) (01/16/17 3:56 AM) Phosphorus [2.5-4.5 mg/dL] 3.0 mg/dL (01/17/17 7:46 AM) Magnesium Lvl [1.8-2.4 2.1 mg/dL mg/dL] (01/17/17 7:46 AM) ALT [0-65 unit/L] 29 unit/L (01/15/17 2:25 PM) AST [0-37 unit/L] 19 unit/L (01/15/17 2:25 PM) Alk Phos [39-136 unit/L] 85 unit/L (01/15/17 2:25 PM) Bili Total [0.2-1.3 mg/dL] 0.3 mg/dL (01/15/17 2:25 PM) Lipase Lvl [73-393 unit/L] 146 unit/L (01/15/17 2:25 PM) Vitamin B1 [66.5-200.0 114.9 nMol/L 4 nMol/L] *NA* (01/15/17 4:15 PM) 1Result Comment: The eGFR is calculated using [...] eGFR should be multiplied by the estimated BMI.4Result Comment: Performed At: [facility] [id number] Neeraj Menjivar MD Ph:[phone] STUDY Most recent to oldest [Reference Range]: 1 2 3 Iron [30-160 ug/dl] 11 ug/dl *LOW* (01/17/17 7:46 AM) Ferritin Lvl [5-204 ng/mL] 4 ng/mL *LOW* (01/17/17 7:46 AM) % Satur Fe [12-57 %] 3 % *LOW* (01/17/17 7:46 AM) UIBC [110-370 ug/dl] 328 ug/dl (01/17/17 7:46 AM) Vitamin B12 Lvl [254-1320 pg/mL] >2000 pg/mL *HI* (01/17/17 7:46 AM) Folate Lvl [>=3.0 ng/mL] 43.3 ng/mL (9/12/17 7:46 AM) TIBC [228-428 ug/dl] 339 ug/dl (01/17/17 7:46 AM) ENDOCRINOLOGY Most recent to oldest [Reference Range]: 1 2 3 S Preg [Negative] Negative *NA* (01/15/17 2:25 PM) URINE AND STOOL Most recent to oldest [Reference Range]: 1 2 3 UA Turbidity [Clear] Clear (01/15/17 2:25 PM) UA Color [Yellow] Yellow *NA* (01/15/17 2:25 PM) UA pH [5.0-8.0] 6.5 (01/15/17 2:25 PM) UA Spec Grav [<=1.030] 1.020 (01/15/17 2:25 PM) UA Glucose [Negative] Negative (01/15/17 2:25 PM) UA Blood [Negative] Negative (01/15/17 2:25 PM) UA Ketones [Negative] 15 *ABN* (01/15/17 2:25 PM) UA Protein [Negative] Trace *ABN* (01/15/17 2:25 PM) UA Urobilinogen [0.1-1.0 EU/dL] 0.2 EU/dL (01/15/17 2:25 PM) UA Bili [Negative] Small *ABN* (01/15/17 2:25 PM) UA Leuk Est [Negative] Negative (01/15/17 2:25 PM) UA Nitrite [Negative] Negative (01/15/17 2:25 PM) UA WBC [0-5 /HPF] <1 /HPF (01/15/17 2:25 PM) UA Bacteria [None Seen /HPF] Occasional /HPF *NA* (01/15/17 2:25 PM) UA Sq Epi [Few /LPF] Few /LPF *NA* (01/15/17 2:25 PM) UA Mucus [None Seen /LPF] Many /LPF *ABN* (01/15/17 2:25 PM) HEMATOLOGY Most recent to oldest 1 2 3 [Reference Range]: WBC [3.7-10.4 K/CMM] 5.9 K/CMM 4.8 K/CMM 6.2 K/CMM (01/18/17 4:08 AM) (01/17/17 7:46 AM) (01/16/17 3:56 AM) RBC [4.20-5.40 M/CMM] 4.34 M/CMM 3.78 M/CMM 4.00 M/CMM (01/18/17 4:08 AM) *LOW* *LOW* (01/17/17 7:46 AM) (01/16/17 3:56 AM) Hgb [12.0-16.0 g/dL] 9.6 g/dL 7.9 g/dL 8.4 g/dL *LOW* *LOW* *LOW* (01/18/17 4:08 AM) (01/17/17 7:46 AM) (01/16/17 3:56 AM) Hct [36.0-48.0 %] 31.0 % 25.8 % 27.3 % *LOW* *LOW* *LOW* (01/18/17 4:08 AM) (01/17/17 7:46 AM) (01/16/17 3:56 AM) MCV [80.0-98.0 fL] 71.4 fL 68.4 fL 68.3 fL *LOW* *LOW* *LOW* (01/18/17 4:08 AM) (01/17/17 7:46 AM) (01/16/17 3:56 AM) MCH [27.0-31.0 pg] 22.1 pg 20.9 pg 20.9 pg *LOW* *LOW* *LOW* (01/18/17 4:08 AM) (01/17/17 7:46 AM) (01/16/17 3:56 AM) MCHC [32.0-36.0 g/dL] 31.0 g/dL 30.6 g/dL 30.7 g/dL *LOW* *LOW* *LOW* (01/18/17 4:08 AM) (01/17/17 7:46 AM) (01/16/17 3:56 AM) RDW [11.5-14.5 %] 22.0 % 19.0 % 19.6 % *HI* *HI* *HI* (01/18/17 4:08 AM) (01/17/17 7:46 AM) (01/16/17 3:56 AM) Platelet [133-450 K/CMM] 243 K/CMM 240 K/CMM 266 K/CMM (01/18/17 4:08 AM) (01/17/17 7:46 AM) (01/16/17 3:56 AM) MPV [7.4-10.4 fL] 8.9 fL 9.1 fL 8.7 fL (01/18/17 4:08 AM) (01/17/17 7:46 AM) (01/16/17 3:56 AM) Segs [45.0-75.0 %] 48.3 % 46.8 % 47.1 % (01/18/17 4:08 AM) (01/17/17 7:46 AM) (01/16/17 3:56 AM) Lymphocytes [20.0-40.0 %] 43.5 % 44.7 % 44.8 % *HI* *HI* *HI* (01/18/17 4:08 AM) (01/17/17 7:46 AM) (01/16/17 3:56 AM) Monocytes [2.0-12.0 %] 6.4 % 6.9 % 6.8 % (01/18/17 4:08 AM) (01/17/17 7:46 AM) (01/16/17 3:56 AM) Eosinophils [0.0-4.0 %] 1.1 % 1.0 % 0.8 % (01/18/17 4:08 AM) (01/17/17 7:46 AM) (01/16/17 3:56 AM) Basophils [0.0-1.0 %] 0.7 % 0.6 % 0.5 % (01/18/17 4:08 AM) (01/17/17 7:46 AM) (01/16/17 3:56 AM) Segs-Bands # [1.5-8.1 K/CMM] 2.9 K/CMM 2.2 K/CMM 2.9 K/CMM (01/18/17 4:08 AM) (01/17/17 7:46 AM) (01/16/17 3:56 AM) Lymphocytes # [1.0-5.5 2.6 K/CMM 2.1 K/CMM 2.8 K/CMM K/CMM] (01/18/17 4:08 AM) (01/17/17 7:46 AM) (01/16/17 3:56 AM) Monocytes # [0.0-0.8 K/CMM] 0.4 K/CMM 0.3 K/CMM 0.4 K/CMM (01/18/17 4:08 AM) (01/17/17 7:46 AM) (01/16/17 3:56 AM) Eosinophils # [0.0-0.5 0.1 K/CMM 0.1 K/CMM K/CMM] (01/18/17 4:08 AM) (01/16/17 3:56 AM) Basophils # [0.0-0.2 K/CMM] 0.1 K/CMM (01/15/17 2:25 PM) Microcyte [None Seen] 1+ 3+ 3+ *ABN* *NA* *NA* (01/18/17 4:08 AM) (01/17/17 7:46 AM) (01/16/17 3:56 AM) Target Cell few *NA* (01/16/17 3:56 AM) Plt Morph Normal (01/16/17 3:56 AM) Retic Auto [0.5-1.5 %] 1.9 % *HI* (01/17/17 7:46 AM) PT [12.0-14.7 seconds] 15.2 seconds *HI* (01/16/17 3:56 AM) INR [0.85-1.17] 1.18 *HI* (01/16/17 3:56 AM) PTT [22.9-35.8 seconds] 37.4 seconds *HI* (01/16/17 3:56 AM) Immunizations Not Given Vaccine Date Status [...] Summary * Author: Mian Mccarthy DO Date: 01/18/17 Discharge Plan Discharge Summary Plan Discharge instructions given: to patient. Discharge disposition: discharge to home. Prescriptions: continue same medications. Diagnosis History of gastric bypass ([id number] Z98.890, Working, Medical). Abdominal pain in female ([id number] R10.9, Working, Medical). Education and Follow-up Counseled: patient. Extracted from: Title: Progress Note * Author: Mian Mccarthy DO Date: 01/18/17 Impression and Plan Small bowel intussusception Abdominal pain History of bariatric surgery Bulmaro-en-Y Dehydration Hypokalemia Iron deficiency anemia with symptoms Tolerating diet so far Bariatric multivitamin back and continue with daily thiamine Iron deficiency anemia, will consult hematology for iron infusions Patient responded well to transfusion Appreciate input from hematology, done transfusion and will follow as an outpatient Patient is a poor absorber of p.o. iron due to her bariatric surgery Continue with IV fluids and decrease rate Pain and antiemetic control Discussed with patient plan of care Nutrition seem patient Rx [place] for the patient for pain control Plan to discharge today
--- OUTSIDE RECORDS SUMMARY | 2018-02-25 14:38 | XMS REPORT ---
:1980 Author Organization [employer] Care Team Providers Name Role Phone Ryan Klein Provider Role Unavailable Allergies, Adverse Reactions, Alerts Substance Reaction Event Type Depo-Provera Info Not Available Drug Allergy Aspirin stomach upset Drug Allergy Fentanyl Info Not Available Non Drug Allergy penicillin Info Not Available Non Drug Allergy Problems Problem Type Condition Code Onset Dates Condition Status Assessment Generalized abdominal pain R10.84 Active Assessment Schizoaffective disorder, bipolar F25.0 Active type Assessment Primary insomnia F51.01 Active Problem Primary insomnia F51.01 Active Problem Coronary artery disease involving I25.10 Active [place] coronary artery of [place] heart without angina pectoris Problem Schizoaffective disorder, bipolar F25.0 Active type Assessment MRSA (methicillin resistant A49.02 Active Staphylococcus aureus) infection Assessment Coronary artery disease involving I25.10 Active [place] coronary artery of [place] heart without angina pectoris Problem MRSA (methicillin resistant A49.02 Active Staphylococcus aureus) infection Assessment Encounter to establish care Z76.89 Active Medications Medication Code Code Instructions Start End Status Dosage System Date Date Clonazepam [facility] 95108459648 1 MG Orally Active 1 tablet Twice a day Abilify [facility] 49343568208 5 MG Orally Active 1 tablet Once a day Ambien [facility] 41020870063 10 mg Orally Active 1 tablet Once a day at bedtime as needed Vancomycin NDC 0 Active not defined Aspirin Adult Low [facility] 90209537683 81 MG Orally Active 1 tablet Dose Once a day Plavix [facility] 23293510314 75 MG Orally Active 1 tablet Once a day Nitroglycerin [facility] 42092814281 0.4 MG Active 1 tablet Sublingual as needed (prn) Ranexa [facility] 96098452971 500 MG Orally Active 1 tablet Twice a day [place] [facility] 16369099871 10-325 MG Active 1 tablet Orally every 6 as needed hrs Vital Signs Date/Time: Feb 24, 2017 BMI 30.93 Index Weight 148 lbs Height 58 in Temperature 97.9 F Blood Pressure Diastolic 79 mm Hg Blood Pressure Systolic 118 mm Hg Results No Known Results Summary Purpose [employer] Submission
--- OUTSIDE RECORDS SUMMARY | 2018-02-25 14:38 | XMS REPORT ---
:1980 Author Organization [employer] Care Team Providers Name Role Phone Tyrel Reyes Provider Role Unavailable Allergies, Adverse Reactions, Alerts Substance Reaction Event Type penicillin Info Not Available Drug Allergy Fentanyl Info Not Available Drug Allergy Depo-Provera Info Not Available Drug Allergy Aspirin Info Not Available Drug Allergy NSAIDS Info Not Available Non Drug Allergy Problems Problem Type Condition Code Onset Dates Condition Status Assessment MRSA (methicillin resistant A49.02 Active Staphylococcus aureus) infection Problem Morbid obesity E66.01 Active Problem Anxiety F41.1 Active Assessment Leukocytosis D72.829 Active Assessment Cellulitis L03.90 Active Problem CAD (coronary artery disease) I25.10 Active Problem Murmur, cardiac R01.1 Active Problem HTN (hypertension) I10 Active Problem Cellulitis L03.90 Active Problem Leukocytosis D72.829 Active Problem 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 Problem MRSA (methicillin resistant A49.02 Active Staphylococcus aureus) infection Medications Medication Code Code Instructions Start End Status Dosage System Date Date Hydrocortisone [facility] 91951344447 10 MG Oral Active not defined Carafate [facility] 49578601749 1 GM/10ML Oral Active TK 10 ML PO FOUR TIMES A DAY FOR 6 WEEKS Ferrous Sulfate [facility] 71175407112 325 (65 Fe) MG Active TK 1 T PO Oral QD Aripiprazole [facility] 82734095954 5 MG Oral Active TK 1 T PO QD Vancomycin HCl in [facility] [address]-67 1.75-0.9 Active not NaCl GM/300ML defined Intravenous Nitroglycerin [facility] 03806455437 0.[address] 1 T Sublingual UNDER THE TONGUE Q 5 MINUTES PRN FOR CHEST PAIN. DO NOT EXCEED 3 DOSES IN 15 MINUTES. Oxycodone-Acetami [facility] 64570877210 10-325 MG Oral Active (Schedule nophen II Drug) TK 1 T PO Q 6 H PRN Nitrostat [facility] [place] [id number] 0[address] 1 T Sublingual UNDER THE TONGUE Q 5 MINUTES PRF CHEST PAIN. DO NOT EXCEED 3 DOSES IN 15 MINUTES. Clonazepam [facility] [place] [id number] 1 MG Oral Active (Schedule IV Drug) TK 1 T PO BID. Omeprazole [facility] [place] [id number] 20 MG Oral Active TK 1 C PO TWICE A DAY FOR 6 WEEKS Clopidogrel ND [id number] 75 MG Oral Active TK 1 T PO Bisulfate ONCE D. Zolpidem Tartrate [facility] [place] [id number] 10 MG Oral Active (Schedule IV Drug) TK 1 T PO HS PRN Furosemide [facility] [place] [id number] 20 MG Oral Active TK 1 T PO ONCE DAILY Pantoprazole [facility] [place] [id number] 20 MG Oral Active TK 2 TS Sodium PO D DOK [facility] [place] [id number] 100 MG Oral Active TK 1 C PO HS Hydrocodone-Aceta [facility] [place] [id number] 10-325 MG Oral Active (Schedule minophen II Drug) TK 1 T PO Q 6 H PRN. Ropinirole HCl [facility] [place] [id number] 1 MG Oral Active TK 1 T PO TID PRN Vital Signs Date/Time: Feb 27, 2017 BMI 29.67 Index Weight 142 lbs Height 58 in Temperature 98.6 F Cardiac Monitoring Heart Rate 82 /min Blood Pressure Diastolic 71 mm Hg Blood Pressure Systolic 110 mm Hg Results No Known Results Summary Purpose eClinicalWorks Submission
--- OUTSIDE RECORDS SUMMARY | 2018-02-25 14:38 | XMS REPORT ---
[...] Type Condition Code Onset Dates Condition Status Problem MRSA (methicillin resistant A49.02 Active Staphylococcus aureus) infection Problem Schizoaffective disorder, bipolar F25.0 Active type Problem Intractable migraine with aura with G43.111 Active status migrainosus Assessment Intractable migraine with aura with G43.111 Active status migrainosus Assessment Primary insomnia F51.01 Active Problem Primary insomnia F51.01 Active Problem Coronary artery disease involving I25.10 Active [place] coronary artery of [place] heart without angina pectoris Medications Medication Code Code Instructions Start End Status Dosage System Date Date Plavix [facility] 67566944145 75 MG Orally Active 1 tablet Once a day Aspirin Adult [facility] 57007883094 81 MG Orally Active 1 tablet Low Dose Once a day Ranexa [facility] 09169488931 500 MG Orally Active 1 tablet Twice a day Protonix [facility] 84071331145 20 MG Orally Active 2 tablets Once a day Nitroglycerin [facility] 66004867716 0.4 MG Active 1 tablet Sublingual as needed (prn) Abilify [facility] 09640166640 5 MG Orally Active 1 tablet Once a day Ambien [facility] 42408954479 10 mg Orally Active 1 tablet at Once a day bedtime as needed Maxalt-BUS [employer] [facility] 59106653702 10 MG Orally March Active 1 tablet on Once a day as 2017 the tongue needed and allow to dissolve as needed one time [place] [facility] 80191300464 10-325 MG Active 1 tablet as Orally every 6 needed hrs Clonazepam [facility] 60314136785 1 MG Orally Active 1 tablet Twice a day Vancomycin ND 0 Active not defined Vital Signs Date/Time: July 06, 2017 BMI 30.72 Index Weight 147 lbs Height 58 in Temperature 98.9 F Blood Pressure Diastolic 70 mm Hg Blood Pressure Systolic 106 mm Hg Results No Known Results Summary Purpose eClinicalWorks Submission
--- OUTSIDE RECORDS SUMMARY | 2018-02-25 14:38 | XMS REPORT | Summary of Care ---
:1980 Author Organization [facility] Address [address] [place], [place] [address]- Encounter HQ Jaime(FIN) [id number] Date(s): 09/05/17 - 09/05/17 [facility] [address] [place] [address]- [phone] Discharge Disposition: Home or Self Care Attending Physician: Sajan Durand MD Referring Physician: Sajan Durand MD Vital Signs Most recent to oldest [Reference 1 2 3 Range]: Height 147.32 cm (09/04/17 11:13 AM) Blood Pressure [90-140/60-90 102/59 mmHg 87/64 mmHg 68/49 mmHg mmHg] (09/05/17 9:45 AM) *LOW* *LOW* (09/05/17 9:30 AM) (09/05/17 9:15 AM) Respiratory Rate [14-20 BRMIN] 16 BRMIN 16 BRMIN 13 BRMIN (09/05/17 9:45 AM) (09/05/17 9:30 AM) *LOW* (09/05/17 9:15 AM) Peripheral Pulse Rate [60-100 65 bpm bpm] (09/05/17 8:00 AM) Weight 67.273 kg (09/04/17 11:13 AM) Body Mass Index 31 m2 (09/04/17 11:13 AM) Problem List Condition Effective Dates Status Health Status Informant Anxiety(Confirmed) Resolved Chest pain(Confirmed) Active CHF (congestive heart Resolved failure)(Confirmed) Fatty liver(Confirmed) Active Gastric bypass status for Resolved obesity(Confirmed) Anxiety and depression(Confirmed) Active MRSA(Confirmed)1, 2 02/12/17 Active [place] (myocardial Resolved infarction)(Confirmed) History of heart attack(Confirmed) Active Schizoaffective disorder(Confirmed) Resolved Schizoaffective disorder(Confirmed) Resolved Seizure(Confirmed) Resolved 1wound, 02/12/201791615Famwfhp added by Discern Expert. Allergies, Adverse Reactions, Alerts Substance Reaction Severity Status penicillins Active aspirin1 Active Depo-Provera Active NSAIDs Active fentaNYL Active 1causes upset stomach, pt takes Aspirin 81 mg po daily for 2 years now Medications Sodium Chloride 0.9% IV 1,000 mL 1,000 mL, Rate: 25 ml/hr, Infuse over: 40 hr, Route: IV, Dosing Weight 67.273 kg , Total Volume: 1,000, Start date: 09/05/17 7:56:00 CDT, Duration: 1 day, Stop date: 09/06/17 7:55:00 CDT, 1.69, m2 Start Date: 09/05/17 Stop Date: 09/06/17 Status: Completed Results URINE CHEM Most recent to oldest [Reference Range]: 1 U Preg [Negative] Negative (09/05/17 7:46 AM) Immunizations Given and Recorded Vaccine Date Status Refusal Reason influenza virus vaccine, inactivated 02/02/17 Given Not Given Vaccine Date Status Refusal Reason pneumococcal 23-valent vaccine 04/07/16 Not Given Patient Refuses Procedures Procedure Date Related Diagnosis Body Site Status Cardiac catheterization Completed Cholecystectomy Completed Gastric bypass operation Completed Social History Social History Type Response Substance Abuse Use: None. Alcohol Never, Previous treatment: None. Smoking Status Current every day smoker; Type: Cigarettes; Ready to change: No ; Lives with someone who smokes; Cigarette Smoking Last 365 Days Yes; Reg Smoking Cessation Counseling No; Number of years: 17; entered on: 09/05/17 Assessment and Plan No data available for this section
--- OUTSIDE RECORDS SUMMARY | 2018-02-25 14:38 | XMS REPORT | Summary of Care ---
:1980 Author Organization [facility] [place] Address [address] [place], [place] [address]- Encounter HQ Jaime(FIN) [id number] Date(s): 08/02/17 - 08/02/17 [facility] [place] [address] [place] [address]- [phone] Encounter Diagnosis Epigastric pain (Final) - 08/09/17 Right upper quadrant pain (Final) - Lower abdominal pain, unspecified (Final) - Heart failure, unspecified (Final) - Old myocardial infarction (Final) - Nicotine dependence, cigarettes, uncomplicated (Final) - skilled nursing (current) use of antithrombotics/antiplatelets (Final) - Discharge Disposition: Left Against Medical Advise Attending Physician: Sebastian Martinez MD Vital Signs Most recent to oldest [Reference Range]: 1 Height 152.4 cm (08/02/17 3:39 PM) Temperature Oral [96.4-99.1 DegF] 98.7 DegF (08/02/17 3:39 PM) Blood Pressure [90-140/60-90 mmHg] 108/72 mmHg (08/02/17 3:39 PM) Respiratory Rate [14-20 BRMIN] 18 BRMIN (08/02/17 3:39 PM) Peripheral Pulse Rate [60-100 bpm] 85 bpm (08/02/17 3:39 PM) Weight 65.455 kg (08/02/17 3:39 PM) Body Mass Index 28.18 m2 (08/02/17 3:39 PM) Problem List Condition Effective Dates Status Health Status Informant Anxiety(Confirmed) Resolved Chest pain(Confirmed) Active CHF (congestive heart Resolved failure)(Confirmed) Fatty liver(Confirmed) Active Gastric bypass status for Resolved obesity(Confirmed) Anxiety and depression(Confirmed) Active MRSA(Confirmed)1, 2 02/12/17 Active [place] (myocardial Resolved infarction)(Confirmed) History of heart attack(Confirmed) Active Schizoaffective disorder(Confirmed) Resolved Schizoaffective disorder(Confirmed) Resolved Seizure(Confirmed) Resolved 1wound, 02/12/201733150Aeijeas added by Discern Expert. Allergies, Adverse Reactions, Alerts Substance Reaction Severity Status penicillins Active aspirin1 Active Depo-Provera Active NSAIDs Active fentaNYL Active 1causes upset stomach, pt takes Aspirin 81 mg po daily for 2 years now Medications NS (Bolus) IV 1,000 mL, 1,000 ml/hr, Infuse Over: 1 hr, Route: IV, ONCE, Priority: STAT, Dosing Weight 65.455 kg, Start date: 08/02/17 17:44:00 CDT, Stop date: 08/02/17 17:44:00 CDT Start Date: 08/02/17 Stop Date: 08/02/17 Status: Completedondansetron 4 mg, 2 mL, Route: IVP, Drug form: INJ, ONCE, Dosing Weight 65.455, kg, Priority : STAT, Start date: 08/02/17 15:57:00 CDT, Stop date: 08/02/17 15:57:00 CDT Notes: (Same as: Zofran) MEDICATION WASTE Product Size: 4 mgProduct Wasted: ___ mg Start Date: 08/02/17 Stop Date: 08/02/17 Status: CompletedSaline Flush 0.9% 10 mL, Route: IVP, Drug Form: INJ, Dosing Weight 65.455, kg, PRN, PRN Line Flush , Start date: 08/02/17 15:57:00 CDT, Duration: 30 day, Stop date: 09/01/17 15:56 :00 CDT Notes: (Same as: BD Posiflush) Start Date: 08/02/17 Stop Date: 08/02/17 Status: Discontinued Results ELECTROLYTES Most recent to oldest [Reference Range]: 1 Sodium Lvl [135-145 mEq/L] 143 mEq/L (08/02/17 5:33 PM) Potassium Lvl [3.5-5.1 mEq/L] 4.1 mEq/L (08/02/17 5:33 PM) Chloride Lvl [95-109 mEq/L] 109 mEq/L (08/02/17 5:33 PM) CO2 [24-32 mEq/L] 25 mEq/L (08/02/17 5:33 PM) AGAP [10.0-20.0 mEq/L] 13.1 mEq/L (08/02/17 5:33 PM) CHEM PANEL Most recent to oldest [Reference Range]: 1 Creatinine Lvl [0.50-1.40 mg/dL] 0.53 mg/dL (08/02/17 5:33 PM) eGFR 123 mL/min/1.73m2 1 *NA* (08/02/17 5:33 PM) BUN [7-22 mg/dL] 16 mg/dL (08/02/17 5:33 PM) B/C Ratio [6-25] 30 *HI* (08/02/17 5:33 PM) Glucose Lvl [70-99 mg/dL] 68 mg/dL *LOW* (08/02/17 5:33 PM) Total Protein [6.4-8.4 g/dL] 7.5 g/dL (08/02/17 5:33 PM) Albumin Lvl [3.5-5.0 g/dL] 3.7 g/dL (08/02/17 5:33 PM) Globulin [2.7-4.2 g/dL] 3.8 g/dL (08/02/17 5:33 PM) A/G Ratio [0.7-1.6] 1.0 (08/02/17 5:33 PM) Calcium Lvl [8.5-10.5 mg/dL] 8.9 mg/dL (08/02/17 5:33 PM) ALT [0-65 unit/L] 25 unit/L (08/02/17 5:33 PM) AST [0-37 unit/L] 15 unit/L (08/02/17 5:33 PM) Alk Phos [39-136 unit/L] 65 unit/L (08/02/17 5:33 PM) Bili Total [0.2-1.3 mg/dL] 0.3 mg/dL (08/02/17 5:33 PM) Lipase Lvl [73-393 unit/L] 136 unit/L (08/02/17 5:33 PM) 1Result Comment: The eGFR is calculated using the CKD-EPI formula. In most young , healthy individualsthe eGFR will be >90 mL/min/1.73m2. The eGFR declines with age. An eGFR of 60-89 may be normal insome populations, particularly the elderly, for whom the [...] eGFR should be multiplied by the estimated BMI.URINE CHEM Most recent to oldest [Reference Range]: 1 U Preg [Negative] Negative (08/02/17 5:33 PM) URINE AND STOOL Most recent to oldest [Reference Range]: 1 UA Turbidity [Clear] Clear (08/02/17 5:33 PM) UA Color [Yellow] Yellow *NA* (08/02/17 5:33 PM) UA pH [5.0-8.0] 5.0 (08/02/17 5:33 PM) UA Spec Grav [<=1.030] 1.034 *HI* (08/02/17 5:33 PM) UA Glucose [Negative mg/dL] Negative mg/dL *NA* (08/02/17 5:33 PM) UA Blood [Negative] Small *ABN* (08/02/17 5:33 PM) UA Ketones [Negative mg/dL] Negative mg/dL *NA* (08/02/17 5:33 PM) UA Protein [Negative mg/dL] Negative mg/dL (08/02/17 5:33 PM) UA Urobilinogen [0.1-1.0 mg/dL] <=1.0 mg/dL *NA* (08/02/17 5:33 PM) UA Bili [Negative] Negative *NA* (08/02/17 5:33 PM) UA Leuk Est [Negative] Negative (08/02/17 5:33 PM) UA Nitrite [Negative] Negative (08/02/17 5:33 PM) UA WBC [0-5 /HPF] 2 /HPF (08/02/17 5:33 PM) UA RBC [0-2 /HPF] 51 /HPF *HI* (08/02/17 5:33 PM) UA Sq Epi [Few /LPF] Moderate /LPF *ABN* (08/02/17 5:33 PM) UA Mucus [None Seen /LPF] Few /LPF *NA* (08/02/17 5:33 PM) HEMATOLOGY Most recent to oldest [Reference Range]: 1 WBC [3.7-10.4 K/CMM] 8.8 K/CMM (08/02/17 5:33 PM) RBC [4.20-5.40 M/CMM] 5.12 M/CMM (08/02/17 5:33 PM) Hgb [12.0-16.0 g/dL] 13.5 g/dL (08/02/17 5:33 PM) Hct [36.0-48.0 %] 41.7 % (08/02/17 5:33 PM) MCV [80.0-98.0 fL] 81.4 fL (08/02/17 5:33 PM) MCH [27.0-31.0 pg] 26.4 pg *LOW* (08/02/17 5:33 PM) MCHC [32.0-36.0 g/dL] 32.5 g/dL (08/02/17 5:33 PM) RDW [11.5-14.5 %] 18.4 % *HI* (08/02/17 5:33 PM) MPV [7.4-10.4 fL] 9.0 fL (08/02/17 5:33 PM) Platelet [133-450 K/CMM] 302 K/CMM (08/02/17 5:33 PM) Segs [45.0-75.0 %] 62.7 % (08/02/17 5:33 PM) Lymphocytes [20.0-40.0 %] 29.9 % (08/02/17 5:33 PM) Monocytes [2.0-12.0 %] 6.2 % (08/02/17 5:33 PM) Eosinophils [0.0-4.0 %] 0.5 % (08/02/17 5:33 PM) Basophils [0.0-1.0 %] 0.7 % (08/02/17 5:33 PM) Segs-Bands # [1.5-8.1 K/CMM] 5.5 K/CMM (08/02/17 5:33 PM) Lymphocytes # [1.0-5.5 K/CMM] 2.6 K/CMM (08/02/17 5:33 PM) Monocytes # [0.0-0.8 K/CMM] 0.5 K/CMM (08/02/17 5:33 PM) Basophils # [0.0-0.2 K/CMM] 0.1 K/CMM (08/02/17 5:33 PM) Immunizations Given and Recorded Vaccine Date Status [...] No; Number of years: 17; entered on: 09/17/17 Assessment and Plan No data available for this section
--- OUTSIDE RECORDS SUMMARY | 2018-02-25 14:38 | XMS REPORT ---
:1980 Author Organization eClinicalWorks Care Team Providers Name Role Phone Ryan Klein Provider Role Unavailable Allergies No Known Allergies Problems Problem Type Condition Code Onset Dates Condition Status Problem Primary insomnia F51.01 Active Problem Coronary artery disease involving I25.10 Active [place] coronary artery of [place] heart without angina pectoris Problem Schizoaffective disorder, bipolar F25.0 Active type Problem MRSA (methicillin resistant A49.02 Active Staphylococcus aureus) infection Assessment Primary insomnia F51.01 Active Medications Medication Code System Code Instructions Start End Date Status Dosage Date Mina [facility] [id number] 10 mg Orally Active 1 tablet at Once a day bedtime as needed Results No Known Results Summary Purpose eClinicalWorks Submission
--- OUTSIDE RECORDS SUMMARY | 2018-02-25 14:38 | XMS REPORT | Summary of Care ---
:1980 Author Organization [facility] Address [address] [place], [place] [address]- Encounter HQ Jaime(FIN) [id number] Date(s): 09/05/17 - 09/05/17 [facility] [address] [place] [address]- [phone] Encounter Diagnosis Encounter for screening for malignant neoplasm of colon (Final) - Diaphragmatic hernia without obstruction or gangrene (Final) - Unspecified chronic gastritis without bleeding (Final) - Gastro-esophageal reflux disease without esophagitis (Final) - Old myocardial infarction (Final) - Heart failure, unspecified (Final) - Anxiety disorder, unspecified (Final) - Fatty (change of) liver, not elsewhere classified (Final) - Schizophrenia, unspecified (Final) - Unspecified convulsions (Final) - Unspecified osteoarthritis, unspecified site (Final) - Nonrheumatic mitral (valve) prolapse (Final) - Discharge Disposition: Home or Self Care Attending [...] and depression(Confirmed) Active MRSA(Confirmed)1, 2 02/12/17 Active [place] (myocardial Resolved infarction)(Confirmed) History of heart attack(Confirmed) Active Schizoaffective disorder(Confirmed) Resolved Schizoaffective disorder(Confirmed) Resolved Seizure(Confirmed) Resolved 1wound, 02/12/[id number] added by Discern Expert. Allergies, Adverse Reactions, [...]
--- OUTSIDE RECORDS SUMMARY | 2018-02-25 14:38 | XMS REPORT | Summary of Care ---
:1980 Author Organization [facility] Address [address] [place], [place] [address]- Encounter HQ Jaime(FIN) [id number] Date(s): 09/17/17 - 09/17/17 [facility] [address] [place] [address]- Encounter Diagnosis Nasal abscess (Discharge Diagnosis) - 09/17/17 Discharge Disposition: Home or Self Care Attending Physician: Rios Ivy MD Vital Signs Most recent to oldest [Reference Range]: 1 2 Height 152.4 cm (09/17/17 2:43 PM) Temperature Oral [96.4-99.1 DegF] 98.7 DegF 98.8 DegF (09/17/17 3:56 PM) (09/17/17 2:43 PM) Blood Pressure [90-140/60-90 mmHg] 110/70 mmHg 112/72 mmHg (09/17/17 3:56 PM) (09/17/17 2:43 PM) Respiratory Rate [14-20 BRMIN] 18 BRMIN 18 BRMIN (09/17/17 3:56 PM) (09/17/17 2:43 PM) Peripheral Pulse Rate [60-100 bpm] 80 bpm 85 bpm (09/17/17 3:56 PM) (09/17/17 2:43 PM) Weight 68.182 kg (09/17/17 2:43 PM) Body Mass Index 29.36 m2 (09/17/17 2:43 PM) Problem List Condition Effective Dates Status Health Status Informant Anxiety(Confirmed) Resolved Chest pain(Confirmed) Active CHF (congestive heart Resolved failure)(Confirmed) Fatty liver(Confirmed) Active Gastric bypass status for Resolved obesity(Confirmed) Anxiety and depression(Confirmed) Active MRSA(Confirmed)1, 2 02/12/17 Active [place] (myocardial Resolved infarction)(Confirmed) History of heart attack(Confirmed) Active Schizoaffective disorder(Confirmed) Resolved Schizoaffective disorder(Confirmed) Resolved Seizure(Confirmed) Resolved 1wound, 02/12/[id number] added by Discern Expert. Allergies, Adverse Reactions, Alerts Substance Reaction Severity Status penicillins Active aspirin1 Active Depo-Provera Active NSAIDs Active fentaNYL Active 1causes upset stomach, pt takes Aspirin 81 mg po daily for 2 years now Medications Bactroban 2% topical ointment 1 appl, TOP, BID, Apply to affected area(s), X 7 day, # 22 gm, 0 Refill(s) Start Date: 09/17/17 Stop Date: 09/24/17 Status: Orderedtramadol 50 mg oral tablet 50 mg=1 tab, PO, Q4H, # 5 tab, 0 Refill(s) Start Date: 09/17/17 Stop Date: 09/17/17 Status: DiscontinuedTylenol with Codeine #3 oral tablet 1 tab, PO, Q6H, # 6 tab, 0 Refill(s) Start Date: 09/17/17 Stop Date: 09/19/17 Status: Completed Results No data available for this section [...]
--- OUTSIDE RECORDS SUMMARY | 2018-02-25 14:38 | XMS REPORT ---
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 Problem MRSA (methicillin resistant A49.02 Active Staphylococcus aureus) infection Medications Medication Code Code Instructions Start End Status Dosage System Date Date Chlorhexidine [facility] 93457308349 2 % Externally Mar 09May 08, Active as Gluconate once a day 2016 2017 directed Bactroban Nasal ND 44209688869 2 % Nasally Mar 09May 08, Active as Twice a day 2016 2017 directed Hydrocortisone [facility] 77842848966 10 MG Oral Active not defined Carafate [facility] 04484930535 1 GM/10ML Oral Active TK 10 ML PO FOUR TIMES A DAY FOR 6 WEEKS Nitrostat ND 83486555747 0.[address] 1 T Sublingual UNDER THE TONGUE Q 5 MINUTES PRF CHEST PAIN. DO NOT EXCEED 3 DOSES IN 15 MINUTES. Ropinirole HCl [facility] 17800803697 1 MG Oral Active TK 1 T PO TID PRN Clopidogrel [facility] 33091454274 75 MG Oral Active TK 1 T PO Bisulfate ONCE D. Ferrous Sulfate [facility] 93469626793 325 (65 Fe) MG Active TK 1 T PO Oral QD Nitroglycerin [facility] 74295899704 0.[address] 1 T Sublingual UNDER THE TONGUE Q 5 MINUTES PRN FOR CHEST PAIN. DO NOT EXCEED 3 DOSES IN 15 MINUTES. Vancomycin HCl in [facility] 91608027320 1.75-0.9 Active not NaCl GM/300ML defined Intravenous Oxycodone-Acetami ND 46112274011 10-325 MG Oral Active (Schedule nophen II Drug) TK 1 T PO Q 6 H PRN Omeprazole ND 82953774709 20 MG Oral Active TK 1 C PO TWICE A DAY FOR 6 WEEKS Clonazepam ND 07858274668 1 MG Oral Active (Schedule IV Drug) TK 1 T PO BID. Hydrocodone-Aceta ND 24570174172 10-325 MG Oral Active (Schedule minophen II Drug) TK 1 T PO Q 6 H PRN. Zolpidem Tartrate [facility] 76686716932 10 MG Oral Active (Schedule IV Drug) TK 1 T PO HS PRN Furosemide ND 88332954419 20 MG Oral Active TK 1 T PO ONCE DAILY Pantoprazole ND 16682377534 20 MG Oral Active TK 2 TS PO Sodium D Doxycycline ND 30629883529 100 MG Orally Mar 09, Mar 19, Active 1 tablet Hyclate every 12 hrs 2016 2016 DOK [facility] 28831456105 100 MG Oral Active TK 1 C PO HS Aripiprazole ND 19207854180 5 MG Oral Active TK 1 T PO QD Vital Signs Date/Time: Mar 09, 2017 BMI 28.63 Index Weight 137 lbs Height 58 in Temperature 98.5 F Cardiac Monitoring Heart Rate 86 /min Blood Pressure Diastolic 61 mm Hg Blood Pressure Systolic 99 mm Hg Results No Known Results Summary Purpose eClinicalWorks Submission
--- OUTSIDE RECORDS SUMMARY | 2018-02-25 14:38 | XMS REPORT | Summary of Care ---
:1980 Author Organization [facility] Address [address] [place], [place] [address]- Encounter HQ Jaime(LUIS) [id number] Date(s): 03/10/17 - 03/11/17 [facility] [address] [place] [address]- [phone] Discharge Disposition: Home or Self Care Attending Physician: Nancy Roman MD Admitting Physician: Nancy Roman MD Vital Signs Most recent to oldest 1 2 3 [Reference Range]: Height 147.32 cm 147.32 cm (03/10/17 9:27 PM) (03/10/17 1:34 PM) Temperature Oral [96.4-99.1 98.5 DegF 97.9 DegF 97.9 DegF DegF] (03/11/17 11:19 AM) (03/11/17 7:52 AM) (03/11/17 4:03 AM) Blood Pressure [90-140/60-90 96/55 mmHg 95/57 mmHg 91/57 mmHg mmHg] (03/11/17 11:19 AM) (03/11/17 7:52 AM) (03/11/17 4:03 AM) Respiratory Rate [14-20 BRMIN] 17 BRMIN 17 BRMIN 18 BRMIN (03/11/17 11:19 AM) (03/11/17 7:52 AM) (03/11/17 4:03 AM) Peripheral Pulse Rate [60-100 68 bpm 70 bpm 60 bpm bpm] (03/11/17 11:19 AM) (03/11/17 7:52 AM) (03/11/17 4:03 AM) Weight 63.636 kg 63.636 kg (03/10/17 9:27 PM) (03/10/17 1:34 PM) Body Mass Index 29.32 m2 29.32 m2 (03/10/17 9:27 PM) (03/10/17 1:34 PM) Problem List Condition Effective Dates Status Health Status Informant Anxiety(Confirmed) Resolved Chest pain(Confirmed) Active CHF (congestive heart Resolved failure)(Confirmed) Fatty liver(Confirmed) Active Gastric bypass status for Resolved obesity(Confirmed) Anxiety and depression(Confirmed) Active MRSA(Confirmed)1, 2 02/12/17 Active KS (myocardial Resolved infarction)(Confirmed) History of heart attack(Confirmed) Active Schizoaffective disorder(Confirmed) Resolved Schizoaffective disorder(Confirmed) Resolved Seizure(Confirmed) Resolved 1wound, 02/12/[id number] added by Discern Expert. Allergies, Adverse Reactions, Alerts Substance Reaction Severity Status aspirin1 Active Depo-Provera Active fentaNYL Active NSAIDs Active penicillins Active 1causes upset stomach, pt takes Aspirin 81 mg po daily for 2 years now Medications acetaminophen-hydrocodone 325 mg-5 mg oral tablet 1 tab, Route: PO, Drug Form: TAB, Dosing Weight 63.636, kg, Q4H, PRN Pain Score 4-6, Start date: 03/10/17 22:28:00 CDT, Duration: 30 day, Stop date: 04/09/17 22 :27:00 PHONOGRAPH MECHANIC Notes: (Same as: [place] 325/5) Do not exceed 4gm/day of acetaminophen. Start Date: 03/10/17 Stop Date: 03/11/17 Status: Discontinuedaspirin 81 mg, PO, Daily, 0 Refill(s) Start Date: 03/10/17 Status: Orderedcalcium gluconate + sodium chloride 0.9% INJ 100 mL 2 gm, 20 mL, Route: IVPB, PRN, Dosing Weight 63.636, kg, PRN Abnormal Lab Result , For NON-ICU Patients Only., Start date: 03/11/17 6:46:00 CDT, Duration: 30 day , Stop date: 04/10/17 5:45:00 PHONOGRAPH MECHANIC Notes: WASTE: F/P - Sink; E - Municipal Trash Bin Start Date: 03/11/17 Stop Date: 03/11/17 Status: Discontinuedcalcium gluconate + sodium chloride 0.9% INJ 100 mL 3 gm, 30 mL, Route: IVPB, PRN, Dosing Weight 63.636, kg, PRN Abnormal Lab Result , For NON-ICU Patients Only., Start date: 03/11/17 6:46:00 CDT, Duration: 30 day , Stop date: 04/10/17 5:45:00 PHONOGRAPH MECHANIC Notes: WASTE: F/P - Sink; E - Municipal Trash Bin Start Date: 03/11/17 Stop Date: 03/11/17 Status: Discontinuedmagnesium oxide 800 mg, 2 tab, Route: PO, Drug form: TAB, PRN, Dosing Weight 63.636, kg, PRN Abnormal Lab Result, For NON-ICU Patients Only., Start date: 03/11/17 6:46:00 CDT, Duration: 30 day, Stop date: 04/10/17 5:45:00 PHONOGRAPH MECHANIC Notes: (Same as: Mag-Ox 400)Magnesium oxide [id number] elemental magnesiumDose= ____mg magnesium oxide (___mg elemental magnesium) Start Date: 03/11/17 Stop Date: 03/11/17 Status: Discontinuedmagnesium sulfate 2 gm, 50 mL, Route: IVPB, Drug form: INJ, PRN, Dosing Weight 63.636, kg, PRN Abnormal Lab Result, For NON-ICU Patients Only., Start date: 03/11/17 6:46:00 CDT, Duration: 30 day, Stop date: 04/10/17 5:45:00 PHONOGRAPH MECHANIC Notes: WASTE: F/P - Sink; E - Municipal Trash Bin Start Date: 03/11/17 Stop Date: 03/11/17 Status: Discontinuedmagnesium sulfate 1 gm, 100 mL, Route: IVPB, Drug form: INJ, PRN, Dosing Weight 63.636, kg, PRN Abnormal Lab Result, For NON-ICU Patients Only., Start date: 03/11/17 6:46:00 CDT, Duration: 30 day, Stop date: 04/10/17 5:45:00 PHONOGRAPH MECHANIC Notes: WASTE: F/P - Sink; E - Municipal Trash Bin Start Date: 03/11/17 Stop Date: 03/11/17 Status: Discontinuedmorphine Sulfate 4 mg, Route: IVP, ONCE, Dosing Weight 63.636, kg, Priority: STAT, Start date: 14:07:00 CDT,Stop date: 03/10/17 14:07:00 CDT Start Date: 03/10/17 Stop Date: 03/10/17 Status: Completedmorphine Sulfate 4 mg, 1 mL, Route: IVP, Drug form: SOLN, Q4H, Dosing Weight 63.636, kg, PRN Pain Score 7-10, Start date: 03/10/17 21:48:00 CDT, Duration: 30 day, Stop date : 04/09/17 21:47:00 PHONOGRAPH MECHANIC Notes: (Same as:MORPhine Sulfate) Start Date: 03/10/17 Stop Date: 03/11/17 Status: Discontinuedmorphine Sulfate 4 mg, Route: IVP, ONCE, Dosing Weight 63.636, kg, Priority: STAT, Start date: 19:07:00 CDT,Stop date: 03/10/17 19:07:00 CDT Start Date: 03/10/17 Stop Date: 03/10/17 Status: Completednitroglycerin 0.4 mg sublingual tablet 0.4 mg=1 tab, SL, Q5Min, PRN Chest Pain, Give up to 3 doses. Call 911 if pain persists., # 25 tab, 3Refill(s) Start Date: 03/10/17 Status: Orderedondansetron 4 mg, 2 mL, Route: IVP, Drug form: INJ, Q4H, Dosing Weight 63.636, kg, PRN Nausea, Start date: 03/10/17 21:50:00 CDT, Duration: 30 day, Stop date: 21:49:00 PHONOGRAPH MECHANIC Notes: (Same as: Krishna) MEDICATION WASTE Product Size: 4 mgProduct Wasted: ___ mg Start Date: 03/10/17 Stop Date: 03/11/17 Status: Discontinuedondansetron 4 mg, Route: IVP, Drug form: INJ, ONCE, Dosing Weight 63.636, kg, Priority: STAT , Start date: 03/10/17 14:07:00 CDT, Stop date: 03/10/17 14:07:00 CDT Start Date: 03/10/17 Stop Date: 03/10/17 Status: Completedpotassium chloride 20 mEq, 15 mL, Route: NJ, Drug form: LIQ, PRN, Dosing Weight 63.636, kg, PRN Abnormal Lab Result, For NON-ICU Patients Only, Start date: 03/11/17 6:46:00 CDT , Duration: 30 day, Stop date: 04/10/17 5:45:00 PHONOGRAPH MECHANIC Notes: (Same as: Potassium Chloride) Start Date: 03/11/17 Stop Date: 03/11/17 Status: Discontinuedpotassium chloride 10 mEq, 100 mL, Route: IVPB, Drug form: INJ, PRN, Dosing Weight 63.636, kg, PRN Abnormal Lab Result,For NON-ICU Patients Only, Start date: 03/11/17 6:46:00 CDT , Duration: 30 day, Stop date: 04/10/17 5:45:00 PHONOGRAPH MECHANIC Notes: Infuse at a rate of 10 mEq/hr.(Same as: KCL) Start Date: 03/11/17 Stop Date: 03/11/17 Status: Discontinuedpotassium chloride 20 mEq, 1 tab, Route: PO, Drug form: ERTAB, PRN, Dosing Weight 63.636, kg, PRN Abnormal Lab Result, For NON-ICU Patients Only, Start date: 03/11/17 6:46:00 CDT , Duration: 30 day, Stop date: 04/10/17 5:45:00 PHONOGRAPH MECHANIC Notes: (Same as: K-Dur 20)"Do Not Crush" With food and full glass of water Start Date: 03/11/17 Stop Date: 03/11/17 Status: Discontinuedpotassium chloride 10 mEq, 100 mL, Route: IVPB, Drug form: INJ, Q1H, Dosing Weight 63.636, kg, Total Dose=20 meq, Startdate: 03/11/17 9:00:00 CDT, Duration: 2 doses or times, Stop date: 03/11/17 10:00:00 CDT, Peripheral Line Notes: Infuse at a rate of 10 mEq/hr.(Same as: KCL) Start Date: 03/11/17 Stop Date: 03/11/17 Status: Completedpotassium chloride 20 mEq, 1 tab, Route: PO, Drug form: ERTAB, ONCE, Dosing Weight 63.636, kg, Start date: 03/11/17 14:43:00 CDT, Stop date: 03/11/17 14:43:00 CDT Notes: (Same as: K-Dur 20)"Do Not Crush" With food and full glass of water Start Date: 03/11/17 Stop Date: 03/11/17 Status: Completedpotassium phosphate + sodium chloride 0.9% INJ 250 mL 15 mmol, 5 mL, Route: IVPB, PRN, Dosing Weight 63.636, kg, PRN Abnormal Lab Result, For NON-ICU Patients Only., Start date: 03/11/17 6:46:00 CDT, Duration: 30 day, Stop date: 04/10/17 5:45:00 PHONOGRAPH MECHANIC Notes: (Same as: K Phosphate.) 1 mMol phoshate has 1.47 mEq potassium Infuse over 4 hours Start Date: 03/11/17 Stop Date: 03/11/17 Status: Discontinuedpotassium phosphate + sodium chloride 0.9% INJ 250 mL 30 mmol, 10 mL, Route: IVPB, PRN, Dosing Weight 63.636, kg, PRN Abnormal Lab Result, For NON-ICU Patients Only., Start date: 03/11/17 6:46:00 CDT, Duration: 30 day, Stop date: 04/10/17 5:45:00 PHONOGRAPH MECHANIC Notes: (Same as: K Phosphate.) 1 mMol phoshate has 1.47 mEq potassium Infuse over 4 hours Start Date: 03/11/17 Stop Date: 03/11/17 Status: Discontinuedpotassium phosphate-sodium phosphate 250 mg-280 mg-160 mg oral powder for reconstitution 2 pkt, Route: PO, Drug Form: PDR/REC, Dosing Weight 63.636, kg, PRN, PRN Abnormal Lab Result, For NON-ICU Patients Only, Start date: 03/11/17 6:46:00 CDT , Duration: 30 day, Stop date: 04/10/17 5:45:00 PHONOGRAPH MECHANIC Notes: (Same as: Phos-NaK) Each 1.5 gm pkt has 250mg phosphorous. Mix w/2.5oz water and stir. Start Date: 03/11/17 Stop Date: 03/11/17 Status: DiscontinuedRanexa 500 mg oral tablet, extended release 500 mg=1 tab, PO, BID, # 60 tab, 0 Refill(s) Start Date: 03/10/17 Status: OrderedSaline Flush 0.9% 10 mL, Route: IVP, Drug Form: INJ, Dosing Weight 60, kg, PRN, PRN Line Flush, Start date: 03/10/17 13:37:00 CDT, Duration: 30 day, Stop date: 04/09/17 12:36: 00 PHONOGRAPH MECHANIC Notes: (Same as: BD Posiflush) Start Date: 03/10/17 Stop Date: 03/11/17 Status: DiscontinuedSodium Chloride 0.9% (Bolus) IV 1,000 mL, Infuse Over: 1 hr, Route: IV, ONCE, Priority: STAT, Dosing Weight 63.636 kg, Start date: 03/10/17 14:06:00 CDT, Duration: 1 doses or times, Stop date: 03/10/17 14:06:00 CDT Start Date: 03/10/17 Stop Date: 03/10/17 Status: Completedsodium chloride 0.9% 1000 ml INJ 1,000 mL 1,000 mL, Rate: 75 ml/hr, Infuse over: 13.3 hr, Route: IV, Dosing Weight 63.636 kg, Total Volume: 1,000, Start date: 03/11/17 6:47:00 CDT, Duration: 30 day, Stop date: 04/10/17 6:46:00 PHONOGRAPH MECHANIC Start Date: 03/11/17 Stop Date: 03/11/17 Status: Discontinuedsodium phosphate + D5W 250 mL 15 mmol, 5 mL, Route: IVPB, PRN, Dosing Weight 63.636, kg, PRN Abnormal Lab Result, For NON-ICU Patients Only., Start date: 03/11/17 6:46:00 CDT, Duration: 30 day, Stop date: 04/10/17 5:45:00 PHONOGRAPH MECHANIC Start Date: 03/11/17 Stop Date: 03/11/17 Status: Discontinuedsodium phosphate + D5W 250 mL 30 mmol, 10 mL, Route: IVPB, PRN, Dosing Weight 63.636, kg, PRN Abnormal Lab Result, For NON-ICU Patients Only., Start date: 03/11/17 6:46:00 CDT, Duration: 30 day, Stop date: 04/10/17 5:45:00 PHONOGRAPH MECHANIC Start Date: 03/11/17 Stop Date: 03/11/17 Status: Discontinued Results ELECTROLYTES Most recent to oldest [Reference Range]: 1 2 Sodium Lvl [135-145 mEq/L] 143 mEq/L 141 mEq/L (03/11/17 4:24 AM) (03/10/17: PM) Potassium Lvl [3.5-5.1 mEq/L] 3.1 mEq/L 3.5 mEq/L *LOW* (03/10/17:17 PM) (03/11/17 4:24 AM) Chloride Lvl [95-109 mEq/L] 110 mEq/L 108 mEq/L *HI* (03/10/17: PM) (03/11/17 4:24 AM) CO2 [24-32 mEq/L] 24 mEq/L 26 mEq/L (03/11/17 4:24 AM) (03/10/17: PM) AGAP [10.0-20.0 mEq/L] 12.1 mEq/L 10.5 mEq/L (03/11/17 4:24 AM) (03/10/17: PM) CHEM PANEL Most recent to oldest [Reference Range]: 1 2 Creatinine Lvl [0.50-1.40 mg/dL] 0.38 mg/dL 0.51 mg/dL *LOW* (03/10/17 2:17 PM) (03/11/17 4:24 AM) eGFR 137 mL/min/1.73m2 1 125 mL/min/1.73m2 2 *NA* *NA* (03/11/17 4:24 AM) (03/10/17: PM) BUN [7-22 mg/dL] 11 mg/dL 12 mg/dL (03/11/17 4:24 AM) (03/10/17: PM) B/C Ratio [6-25] 24 (03/10/17: PM) Glucose Lvl [70-99 mg/dL] 95 mg/dL 92 mg/dL (03/11/17 4:24 AM) (03/10/17: PM) Total Protein [6.4-8.4 g/dL] 7.8 g/dL (03/10/17: PM) Albumin Lvl [3.5-5.0 g/dL] 3.9 g/dL (03/10/17 2:17 PM) Globulin [2.7-4.2 g/dL] 3.9 g/dL (03/10/17: PM) A/G Ratio [0.7-1.6] 1.0 (03/10/17: PM) Calcium Lvl [8.5-10.5 mg/dL] 7.7 mg/dL 9.1 mg/dL *LOW* (03/10/17: PM) (03/11/17 4:24 AM) ALT [0-65 unit/L] 24 unit/L (03/10/17: PM) AST [0-37 unit/L] 16 unit/L (03/10/17: PM) Alk Phos [39-136 unit/L] 86 unit/L (03/10/17: PM) Bili Total [0.2-1.3 mg/dL] 0.2 mg/dL (03/10/17: PM) Lipase Lvl [73-393 unit/L] 175 unit/L (03/10/17: PM) Lactic Acid Lvl [0.5-2.2 mMol/L] 1.3 mMol/L (03/10/17 2:12 PM) 1Result Comment: The eGFR is calculated [...] eGFR should be multiplied by the estimated BMI.CARDIAC ENZYMES Most recent to oldest [Reference Range]: 1 2 BNP [<=100 pg/mL] 62 pg/mL (03/11/17 4:24 AM) URINE CHEM Most recent to oldest [Reference Range]: 1 2 U Preg [Negative] Negative (03/10/17 2:17 PM) URINE AND STOOL Most recent to oldest [Reference Range]: 1 2 UA Turbidity [Clear] Clear (03/10/17 2:17 PM) UA Color Ltyellow *NA* (03/10/17 2:17 PM) UA pH [5.0-8.0] 8.0 (03/10/17 2:17 PM) UA Spec Grav [<=1.030] 1.013 (03/10/17 2:17 PM) UA Glucose [Negative mg/dL] Negative mg/dL *NA* (03/10/17 2:17 PM) UA Blood [Negative] Negative (03/10/17 2:17 PM) UA Ketones [Negative mg/dL] Negative mg/dL *NA* (03/10/17 2:17 PM) UA Protein [Negative mg/dL] Negative mg/dL (03/10/17 2:17 PM) UA Urobilinogen [0.1-1.0 mg/dL] <=1.0 mg/dL *NA* (03/10/17 2:17 PM) UA Bili [Negative] Negative *NA* (03/10/17 2:17 PM) UA Leuk Est [Negative] Negative (03/10/17 2:17 PM) UA Nitrite [Negative] Negative (03/10/17 2:17 PM) UA WBC [0-5 /HPF] 1 /HPF (03/10/17 2: PM) UA RBC [0-2 /HPF] 2 /HPF (03/10/17 2: PM) UA Sq Epi [Few /LPF] Occasional /LPF *NA* (03/10/17: PM) HEMATOLOGY Most recent to oldest [Reference Range]: 1 2 WBC [3.7-10.4 K/CMM] 5.2 K/CMM 7.5 K/CMM (03/11/17 4:24 AM) (03/10/17: PM) RBC [4.20-5.40 M/CMM] 3.78 M/CMM 4.74 M/CMM *LOW* (03/10/17: PM) (03/11/17 4:24 AM) Hgb [12.0-16.0 g/dL] 9.4 g/dL 11.9 g/dL *LOW* *LOW* (03/11/17 4:24 AM) (03/10/17: PM) Hct [36.0-48.0 %] 29.6 % 37.2 % *LOW* (03/10/17 2:17 PM) (03/11/17 4:24 AM) MCV [80.0-98.0 fL] 78.2 fL 78.3 fL *LOW* *LOW* (03/11/17 4:24 AM) (03/10/17: PM) MCH [27.0-31.0 pg] 24.9 pg 25.0 pg *LOW* *LOW* (03/11/17 4:24 AM) (03/10/17: PM) MCHC [32.0-36.0 g/dL] 31.8 g/dL 31.9 g/dL *LOW* *LOW* (03/11/17 4:24 AM) (03/10/17: PM) RDW [11.5-14.5 %] 24.3 % 25.1 % *HI* *HI* (03/11/17 4:24 AM) (03/10/17 2: PM) Platelet [133-450 K/CMM] 214 K/CMM 296 K/CMM (03/11/17 4:24 AM) (11/3/17 2:17 PM) MPV [7.4-10.4 fL] 8.5 fL 8.2 fL (03/11/17 4:24 AM) (03/10/17 2:17 PM) Segs [45.0-75.0 %] 40.2 % 77.0 % *LOW* *HI* (03/11/17 4:24 AM) (03/10/17 2:17 PM) Lymphocytes [20.0-40.0 %] 45.6 % 16.1 % *HI* *LOW* (03/11/17 4:24 AM) (03/10/17 2:17 PM) Monocytes [2.0-12.0 %] 8.3 % 5.2 % (03/11/17 4:24 AM) (03/10/17 2:17 PM) Eosinophils [0.0-4.0 %] 5.0 % 1.1 % *HI* (03/10/17:17 PM) (03/11/17 4:24 AM) Basophils [0.0-1.0 %] 0.9 % 0.6 % (03/11/17 4:24 AM) (03/10/17 2:17 PM) Segs-Bands # [1.5-8.1 K/CMM] 2.1 K/CMM 5.8 K/CMM (03/11/17 4:24 AM) (03/10/17 2:17 PM) Lymphocytes # [1.0-5.5 K/CMM] 2.4 K/CMM 1.2 K/CMM (03/11/17 4:24 AM) (03/10/17 2:17 PM) Monocytes # [0.0-0.8 K/CMM] 0.4 K/CMM 0.4 K/CMM (03/11/17 4:24 AM) (03/10/17 2:17 PM) Eosinophils # [0.0-0.5 K/CMM] 0.3 K/CMM 0.1 K/CMM (03/11/17 4:24 AM) (03/10/17 2:17 PM) Anisocyte [None Seen] 2+ *ABN* (03/10/17 2:17 PM) Polychrom Slight *NA* (03/10/17 2:17 PM) Hypochrom [None Seen] 1+ (03/10/17 2:17 PM) Microcyte [None Seen] 1+ 1+ *ABN* *ABN* (03/11/17 4:24 AM) (03/10/17 2:17 PM) Plt Morph Normal (03/11/17 4:24 AM) Large Plt [None Seen] Moderate *ABN* (03/10/17 2:17 PM) Immunizations Given and Recorded Vaccine Date Status Refusal Reason influenza virus vaccine, inactivated 02/02/17 Given Not Given Vaccine Date Status Refusal Reason pneumococcal 23-valent vaccine 04/07/16 Not Given Patient Refuses Procedures Procedure Date Related Diagnosis Body Site Cardiac catheterization Cholecystectomy Gastric bypass operation Social History Social History Type Response Substance Abuse Use: None. Alcohol Never, Previous treatment: None. Smoking Status Current every day smoker; Type: Cigarettes; Number of years: 17 ; Ready to change: No; Lives with someone who smokes; Cigarette Smoking Last 365 Days Yes; Reg Smoking Cessation Counseling No Assessment and Plan Extracted from: Title: GI Consult Note Author: Guider, Frida Pope MD Date: 03/11/17 Assessment/Plan Ms. 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 Her vitals and labs are unremarkable except for mild hypokalemia and anemia ( known iron deficiency anemia). CT is not concerning for any post surgical complications. Differential includes infectious/vi ral gastroenteritis (as she had several sick contacts), C. diff infection related to recent hospitalizations/antibiotic usage, or dysbiosis related to recent GI surgeries. - recommend anti-emetics as needed - patient control her primary team (counseled patient that narcotics can slow gut motility and may actually make symptoms worse) - follow up results of C. diff and stool culture and treat if positive ( patient reports she has a stool collection kit at home that was provided by Dr. Taylor, so if she is discharged prior to providing stool sample, she could collect this at home and bring to lab on Monday) - okay to start patient on liquid diet as tolerated - recommended a bland diet until she is feeling better - when discharged, I recommended that she take probiotics - she likes eating Activia yogurt so she will plan to eat 1 a day - no alarm symptoms to warrant endoscopic evaluation at this point Frida Nieto MD Department of Gastroenterology, Hepatology and Nutrition [facility] [id number] Addendum by Frida Nieto MD on 03/11/2017 12:32 CDT Can also try dicyclomine 20 mg QID PRN or levsin 0.125 mg SL QID PRN for abdominal pain/cramping/spasms to help minimize narcotic use Extracted from: Title: Clinical Document Author: Carlos Burris MD Date: 03/11/17 full H&P dictated, #[id number] date/time: 03/10/2017 20:20
--- OUTSIDE RECORDS SUMMARY | 2018-02-25 14:39 | XMS REPORT ---
[...] Condition Code Onset Dates Condition Status Assessment Coronary artery disease involving I25.10 Active [place] coronary artery of [place] heart without angina pectoris Assessment Schizoaffective disorder, bipolar F25.0 Active type Problem MRSA (methicillin resistant A49.02 Active Staphylococcus aureus) infection Problem Schizoaffective disorder, bipolar F25.0 Active type Problem Intractable migraine with aura with G43.111 Active status migrainosus Assessment Lower abdominal pain R10.30 Active Assessment Primary insomnia F51.01 Active Problem Primary insomnia F51.01 Active Problem Coronary artery disease involving I25.10 Active [place] coronary artery of [place] heart without angina pectoris Medications Medication Code Code Instructions Start End Status Dosage System Date Date Clonazepam [facility] 55497089799 1 MG Orally Active 1 tablet Twice a day Nitroglycerin [facility] 13329270809 0.4 MG Active 1 tablet Sublingual as needed (prn) Ambien [facility] 75017785798 10 mg Orally Active 1 tablet at Once a day bedtime as needed Abilify [facility] 71980366456 5 MG Orally Active 1 tablet Once a day Protonix [facility] 48368425020 40 MG Orally Active 1 packet Once a day Granby [facility] 62481534585 10-325 MG Active 1 tablet as Orally every 6 needed hrs Plavix [facility] 54732829503 75 MG Orally Active 1 tablet Once a day Ranexa [facility] 72142857614 500 MG Orally Active 1 tablet Twice a day Vancomycin ND 0 Active not defined Aspirin Adult [facility] 98922736008 81 MG Orally Active 1 tablet Low Dose Once a day Maxalt-WHOLESALE ACCOUNT EXECUTIVE [facility] 03128495626 10 MG Orally March Active 1 tablet on Once a day as 2017 the tongue needed and allow to dissolve as needed one time Vital Signs Date/Time: August 03, 2017 BMI 31.14 Index Weight 149 lbs Height 58 in Temperature 98.8 F Blood Pressure Diastolic 72 mm Hg Blood Pressure Systolic 100 mm Hg Results No Known Results Summary Purpose eClinicalWorks Submission
--- OUTSIDE RECORDS SUMMARY | 2018-02-25 14:39 | XMS REPORT | Summary of Care ---
:1980 Author Name Ramila Ballard R.N. Address Unavailable Unavailable , Care Team Providers Name Role Phone ANNITA Pires, LILIBETH Unavailable Unavailable FRANCIE Pires, FRANCESCA Unavailable Unavailable MEÑO Pires, SWAPNA Unavailable Unavailable DAE GUNDERSON, NIRAJ Unavailable Unavailable Francesca Marmolejo MD Unavailable Unavailable Unavailable Unavailable Unavailable Functional Status Name Dates Details Functional status health issues are not documented Status: Name Dates Details Cognitive status health issues are not documented Status: Problems Name Dates Details Insomnia (780.52, G47.00) Status: Active Urinary symptom or sign (788.99, R39.9) Status: Active Polycystic ovarian syndrome (256.4, E28.2) Status: Active Schizophrenia (295.90, F20.9) Status: Active Bipolar disorder (296.80, F31.9) Status: Active Personality disorder (301.9, F60.9) Status: Active Colon cancer screening (V76.51, Z12.11) Status: Active Constipation (564.00, K59.00) Status: Active Abnormal CT scan (793.99, R93.8) Status: Active Nasal vestibulitis (478.19, J34.89) Status: Active 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, 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 Other protein-calorie malnutrition (263.8, E46) Status: Active S/P bariatric surgery (V45.86, Z98.84) Status: Active Nausea and/or vomiting (787.01, R11.2) Status: Active History of morbid obesity (V13.89, Z87.898) Status: Active Overweight (BMI 25.0-29.9) (278.02, E66.3) Status: Active Arthritis (716.90, M19.90) Status: Active Carpal tunnel syndrome (354.0, G56.00) Status: Active Iereqqj-Kaqcn-Koacr disease (356.1, G60.0) Status: Active Anemia (285.9, D64.9) Status: Active Acid reflux (530.81, K21.9) Status: Active Abdominal pain (789.00, R10.9) Status: Active Cardiomyopathy (425.4, I42.9) Status: Active Postsurgical dumping syndrome (564.2, K91.1) Status: Active Migraine (346.90, G43.909) Status: Active H/O gastric bypass (V45.86, Z98.84) Status: Active H/O exploratory laparotomy (V45.89, Z98.890) Status: Active Schizoaffective disorder (295.70, F25.9) Status: Active Tobacco use (305.1, Z72.0) Status: Active Alcohol use (V49.89, Z78.9) Status: Active GERD (gastroesophageal reflux disease) (530.81, K21.9) Status: Active Seasonal allergies (477.9, J30.2) Status: Active Anxiety and depression (300.00, F41.9) Status: Active History of laparoscopic cholecystectomy (V45.89, Z90.49) Status: Active Borderline personality disorder (301.83, F60.3) Status: Active H/O suicide attempt (V11.8, Z91.5) Status: Active Medications Name Dates Details Zolpidem Tartrate 10 MG Oral Tablet TAKE 1 TABLET DAILY AT BEDTIME. Refills: 0 Start : 09-Sep-2011 Active Hydrocodone-Acetaminophen 10-325 MG Oral Tablet TAKE 1 TABLET EVERY 6 HOURS NEEDED. Quantity: 30 Refills: 0 Start : 09-Sep-2011 Active Multivitamins TABS TAKE 1 TABLET DAILY. Refills: 0 Start : 09-Sep-2011 Active Nitroglycerin 0.4 MG Sublingual Tablet Sublingual DISSOLVE 1 TABLET UNDER THE TONGUE NEEDED FOR CHEST PAIN. Refills: 0 Active Furosemide 20 MG Oral Tablet TAKE 1 TABLET DAILY. Quantity: 4 Refills: 0 Active Plavix 75 MG Oral Tablet TAKE 1 TABLET DAILY. Refills: 0 Active Aspirin 81 MG Oral Tablet Delayed Release TAKE 1 TABLET DAILY. Refills: 1 Active ClonazePAM 0.5 MG Oral Tablet TAKE 1 TABLET TWICE DAILY. Quantity: 60 Refills: 1 Active Iron TABS TAKE 1 TABLET DAILY DIRECTED. Refills: 0 Active Vitamin D CAPS 5000 mg daily Refills: 0 Active Lex-Citrate CAPS TAKE 1 CAPSULE TWICE DAILY Refills: 0 Active DOK Plus CAPS TAKE 1 CAPSULE DAILY Refills: 0 Active Vitamin B Complex CAPS TAKE 1 CAPSULE DAILY Refills: 0 Active Omeprazole 40 MG Oral Capsule Delayed Release TAKE 1 CAPSULE Twice daily Take 30 min to 1hr prior to breakfast and dinner Quantity: 60 Refills: 6 FRANCESCA MARMOLEJO M.D. Start : 27-Mar-2017 Active Suprep Bowel Prep Kit 17.5-3.13-1.6 GM/177ML Oral Solution DILUTE CONTENTS AND USE DIRECTED FOR BOWEL PREP Quantity: 1 Refills: 0 FRANCESCA MARMOLEJO M.D. Start : 15-Aug-2017 Active 2 x 177 ML Bottle Suprep Bowel Prep Kit 17.5-3.13-1.6 GM/177ML Oral Solution DILUTE CONTENTS AND USE DIRECTED FOR BOWEL PREP Quantity: 1 Refills: 0 FRANCESCA MARMOLEJO M.D. Start : 15-Aug-2017 Active 2 x 177 ML Bottle Pantoprazole Sodium 40 MG Oral Tablet Delayed Release TAKE 1 TABLET TWICE DAILY 30 MINUTES BEFORE BREAKFAST AND DINNER. Quantity: 60 Refills: 11 FRANCESCA MARMOLEJO M.D. Start : 15-Aug-2017 Active Mupirocin 2 % External Ointment apply to affected area in the nose BID Quantity: 1 Refills: 1 LILIBETH ARIZA M.D. Start : 19-Sep-2017 Active 22 GM Tube Protonix 40 MG Oral Tablet Delayed Release TAKE 1 TABLET TWICE DAILY 30 MINUTES BEFORE BREAKFAST AND DINNER. Refills: 0 Active Allergies and Adverse Reactions Name Dates Details Aspirin TABS (Allergy) Status: Active Depo-Provera (Allergy) Reaction: Itching Status: Active fentanyl (Allergy) Status: Active NSAIDs (Allergy) Status: Active Penicillins (Allergy) Status: Active Past Medical History Name Dates Details History of arthritis (V13.4, Z87.39) Status: Resolved History of cardiac arrhythmia (V12.59, Z86.79) Status: Resolved History of congestive heart failure (V12.59, Z86.79) Status: Resolved History of myocardial infarction (412, I25.2) Status: Resolved History of seizure (V12.49, Z87.898) Status: Resolved Procedures Procedure Dates Details History of Colon surgery Completed History of Cholecystectomy Completed History of Stomach surgery Completed History of Esophagogastroduodenoscopy Completed History of Colonoscopy Completed History of Bulmaro-en-Y gastric bypass Completed Immunization Name Dates Details Immunizations not documented Family History Name Dates Details Family history of hypertension (V17.49, Z82.49) Status: Active Family history of cardiac disorder (V17.49, Z82.49) Status: Active Name Dates Details Family history of hypertension (V17.49, Z82.49) Status: Active Family history of cardiac disorder (V17.49, Z82.49) Status: Active Name Dates Details Family history of hypertension (V17.49, Z82.49) Status: Active Family history of malignant neoplasm of breast (V16.3, Z80.3) Status: Active Family history of malignant neoplasm of colon (V16.0, Z80.0) Status: Active Family history of cardiac disorder (V17.49, Z82.49) Status: Active Name Dates Details Family history of depression (V17.0, Z81.8) Status: Active Family history of anxiety disorder (V17.0, Z81.8) Status: Active Name Dates Details Family history of hypertension (V17.49, Z82.49) Status: Active Family history of cardiac disorder (V17.49, Z82.49) Status: Active Social History Name Dates Details - Status: Name Dates Details Current every day smoker Vital Signs Date Test Result Details [id number] BP Systolic 126 mm[Hg] Status: Comments: Location: LUE; Position: Sitting BP Diastolic 85 mm[Hg] Status: Comments: Location: LUE; Position: Sitting Heart Rate 82 /min Status: Height 60.5 in Status: Weight 165.1875 lb Status: Body Mass Index Calculated 31.73 kg/m2 Status: Body Surface Area Calculated 1.73 m2 Status: Temperature 98 f Status: Comments: Method: Oral Results Date Description Value Details Results not documented Plan of Care Name Dates Details Planned Observations Planned Goals not documented Instructions Name Dates Details Instructions not documented Encounters Appointment; FRANCESCA MARMOLEJO M.D. On: 27-Mar-2017 10:30 Encounter Diagnosis: Problem not documented Appointment; FRANCESCA MARMOLEJO M.D. On: 11-Aug-2017 14:30 Encounter Diagnosis: Problem not documented Appointment; FRANCESCA MARMOLEJO M.D. On: 15-Aug-2017 13:45 Encounter Diagnosis: Problem not documented Appointment; LILIBETH ARIZA M.D. On: 19-Sep-2017 15:00 Encounter Diagnosis: Problem not documented Appointment; LILIBETH ARIZA M.D. On: 09-Oct-2017 15:15 Encounter Diagnosis: Problem not documented Appointment; SWAPNA WILDER M.D. On: 26-Oct-2017 14:00 Encounter Diagnosis: Problem not documented Appointment; SWAPNA IWLDER M.D. On: 19-Feb-2018 14:45 Encounter Diagnosis: Problem not documented
--- OUTSIDE RECORDS SUMMARY | 2018-02-25 14:39 | XMS REPORT ---
[...] Condition Code Onset Dates Condition Status Assessment History of gastric bypass Z98.84 Active Problem Intractable migraine with aura with G43.111 Active status migrainosus Problem MRSA (methicillin resistant A49.02 Active Staphylococcus aureus) infection Problem Hx MRSA infection Z86.14 Active Problem Coronary artery disease involving I25.10 Active [place] coronary artery of [place] heart without angina pectoris Assessment Generalized abdominal pain R10.84 Active Problem Schizoaffective disorder, bipolar F25.0 Active type Problem Primary insomnia F51.01 Active Medications Medication Code Code Instructions Start End Status Dosage System Date Date Nitroglycerin [facility] 46328083940 0.4 MG Active 1 tablet Sublingual as needed (prn) Clonazepam [facility] 57779268727 1 MG Orally Active 1 tablet Twice a day Plavix [facility] 81463177165 75 MG Orally Active 1 tablet Once a day Ambien [facility] 30139806872 10 mg Orally Active 1 tablet at Once a day bedtime as needed Protonix [facility] 71958729606 40 MG Orally Active 1 packet BID [place] [facility] 63338155620 10-325 MG Active 1 tablet as Orally every 6 needed hrs Aspirin Adult [facility] 58692598750 81 MG Orally Active 1 tablet Low Dose Once a day Maxalt-LINOLEUM LAYER [facility] 07115231094 10 MG Orally March Active 1 tablet on Once a day as 2017 the tongue needed and allow to dissolve as needed one time Vital Signs Date/Time: September 12, 2017 BMI 31.76 Index Weight 152 lbs Height 58 in Temperature 98.0 F Blood Pressure Diastolic 77 mm Hg Blood Pressure Systolic 113 mm Hg Results No Known Results Summary Purpose eClinicalWorks Submission
--- OUTSIDE RECORDS SUMMARY | 2018-02-25 14:39 | XMS REPORT ---
[...] Condition Code Onset Dates Condition Status Assessment Hx MRSA infection Z86.14 Active Problem Intractable migraine with aura with G43.111 Active status migrainosus Problem MRSA (methicillin resistant A49.02 Active Staphylococcus aureus) infection Problem Hx MRSA infection Z86.14 Active Problem Coronary artery disease involving I25.10 Active [place] coronary artery of [place] heart without angina pectoris Assessment Cellulitis of nose J34.0 Active Problem Schizoaffective disorder, bipolar F25.0 Active type Problem Primary insomnia F51.01 Active Medications Medication Code Code Instructions Start End Status Dosage System Date Date Plavix [facility] 19500310637 75 MG Orally Active 1 tablet Once a day Protonix [facility] 01367735167 40 MG Orally Active 1 packet BID Nitroglycerin [facility] 38574685915 0.4 MG Active 1 tablet Sublingual as needed (prn) Maxalt[facility] 89244575142 10 MG Orally March Active 1 tablet on Once a day as 2017 the tongue needed and allow to dissolve as needed one time Ambien [facility] 09217607807 10 mg Orally Active 1 tablet at Once a day bedtime as needed Raphine [facility] 54115266091 10-325 MG Active 1 tablet as Orally every 6 needed hrs Aspirin Adult [facility] 93178607013 81 MG Orally Active 1 tablet Low Dose Once a day Clonazepam [facility] 46523066899 1 MG Orally Active 1 tablet Twice a day Bactrim DS [facility] 54110300341 800-160 MG September 15September 25, Active 1 tablet Orally Twice a 20172017 Vital Signs Date/Time: September 15, 2017 BMI 31.76 Index Weight 152 lbs Height 58 in Temperature 98.6 F Blood Pressure Diastolic 83 mm Hg Blood Pressure Systolic 126 mm Hg Results No Known Results Summary Purpose eClinicalWorks Submission
[2018-02-25] MEDS ORDERED: ONDANSETRON 4 MG/2 ML VIAL ONE (15:30)
[2018-02-25] MEDS ORDERED: MORPHINE 4 MG/ML SYR ONE ×2 (15:30→19:08)
[2018-02-25] MEDS ORDERED: NA CHLORIDE 0.9% 1,000 ML ONE (15:31)
[2018-02-25 15:36] LABS: Absolute Lymphocytes (CBC) 1.2 K/uL (0.7-4.9); Absolute Neutrophil 9.4 K/uL (1.8-8.0); Basophils % 0.3 % (0-1.3); Eosinophils % 0.5 % (0-4.4); Hematocrit 39.8 % (36.0-45.0); Lymphocytes % 10.6 % (15.3-44.8); MCV 91.1 fL (80-100); MPV 9.3 fL (7.6-11.3); Monocytes % 8.5 % (3.3-12.3); RBC Red Blood Cell Count 4.37 M/uL (3.86-4.86)
[2018-02-25 15:48] LABS: ALT/SGPT 21 U/L (12-78); AST/SGOT 19 U/L (15-37); Albumin 3.5 g/dL (3.4-5.0); Alkaline Phosphatase 63 U/L (45-117); BUN Blood Urea Nitrogen 13 mg/dL (7-18); Bicarbonate 25 mmol/L (21-32); Bilirubin Direct < 0.1 mg/dL (0-0.2); Bilirubin Total 0.1 mg/dL (0.2-1.0); Glucose Level 100 mg/dL (74-106); Lipase 88 U/L (73-393); Potassium 3.9 mmol/L (3.5-5.1); Protein, Total 6.5 g/dL (6.4-8.2); Sodium Level 141 mmol/L (136-145)
--- NOTE | 2018-02-25 18:32 | RAD REPORT ---
EXAM DESCRIPTION: CT - Abdomen Pelvis W Contrast - 02/25/2018 6:00 pm CLINICAL HISTORY: Abdominal pain radiating into the lower back and lower abdomen, history of gastric bypass, history of cholecystectomy COMPARISON: None. TECHNIQUE: Biphasic, helical CT imaging of the abdomen and pelvis was performed following 100 ml non -ionic IV contrast. Oral contrast was given. All CT scans are performed using dose optimization technique as appropriate and may include automated exposure control or mA/KV adjustment according to patient size. FINDINGS: No suspicious findings in the lung bases. The liver, spleen, and pancreas show no suspicious findings. Cholecystectomy clips are present. Bilia ry tree within normal limits for post cholecystectomy patient. Normal right renal function with no right-sided hydronephrosis. Mild to moderate dilatation of the le ft renal collecting system present to the mid ureter level. There is a 5 millimeter obstructing calcu stewart in the mid ureter. On a KUB projection the stone localizes between the transverse process of L3 a nd L4. There is an additional nonobstructing 5 mm calcification just proximal. This is superimposed o n the L3 transverse process. More distally ureter is decompressed. No stone within the contracted urinary bladder. Uterus and ovar ies show no suspicious findings. There is a benign-appearing 18 millimeter right ovarian cyst present . No dilated bowel loops or bowel wall thickening. No appendicitis findings. Circumferential wall thick ening is seen at the antrum and pylorus region probably a peristalsis artifact. No gastric outlet obs truction. Oral CT contrast has reached the distal small bowel. No free air, free fluid or inflammator y stranding. No hernia, mass or bulky lymphadenopathy. The urinary bladder is without significant fi nding. No adrenal abnormality. No suspicious bony findings. IMPRESSION: Mcpk-ny-ojiyisms left-sided hydronephrosis to the mid ureter level. There is a 5 millimeter obstructing calculus present with an additional 5 mm calcification 1 cent[address] er more proximal. On a KUB projection the obstructing stone is positioned between the L3 and L4 transverse process. The more proximal stone is superimposed on the L3 transverse process. No appendicitis or acute GI process.
[2018-02-25 18:43] LABS: Urine Blood 2+ (NEG); Urine Glucose NEGATIVE (NEG); Urine Protein NEGATIVE (NEG); Urine Specific Gravity 1.015 (1.005-1.030)
--- NOTE | 2018-02-25 19:02 | ER ---
Nurse's Notes [facility] Name: Nell Shirley Age: 37 yrs Sex: Female : 1980 Arrival Date: 02/25/2018 Time: 14:23 Bed 28 Private MD: Diagnosis: Hydronephrosis with renal and ureteral calculous obstruction;Intractable abdominal pain Presentation: 02/25 14:58 Presenting complaint: Patient states: "THE PAIN IS STARTING ON MY BACK GOING TO MY rv ABDOMEN (LEFT SIDE). I VOMIT YESTERDAY. I ALSO VOMIT TWICE THIS MORNING AND ONCE WHILE IN THE LOBBY.". Transition of care: patient was not received from another setting of care. Onset of symptoms was February 24, 2018 at 08:00. Risk Assessment: Do you want to hurt yourself or someone else? Patient reports no desire to harm self or others. Initial Sepsis Screen: Does the patient meet any 2 criteria? No. Patient's initial sepsis screen is negative. Does the patient have a suspected source of infection? No. Patient's initial sepsis screen is negative. Care prior to arrival: None. 14:58 Method Of Arrival: Ambulatory rv 14:58 Acuity: HERMAN 3 rv Historical: - Allergies: 15:07 Aspirin; rv 15:07 Depo-Provera; rv 15:07 GABAPENTIN; rv 15:07 Lyrica; rv 15:07 Neurontin; rv 15:07 NSAIDS; rv 15:07 PENICILLINS; rv - Home Meds: 15:07 Abilify 5 mg Oral tab 1 tab once daily [Active]; Ambien 10 mg Oral tab 1 tab once daily rv [Active]; clonazepam 1 mg Oral tab 1 tab 3 times per day [Active]; furosemide 20 mg Oral tab 1 tab 2 times per day [Active]; hydrocodone-acetaminophen 10-325 mg Oral tab 1 tab every 4 hours [Active]; nitroglycerin 0.4 mg SL subl [Active]; Plavix 75 mg Oral tab 1 tab once daily [Active]; - PMHx: 15:07 Anxiety; CMT; heart murmer; Schizophrenia; rv - PSHx: 15:08 Gastric Bypass; open abdominal surgery; gall bladder; rv - Immunization history:: Adult Immunizations up to date. - Social history:: Smoking status: Patient uses tobacco products, smokes one pack cigarettes per day. - Ebola Screening: : Patient negative for fever greater than or equal to 101.5 degrees Fahrenheit, and additional compatible Ebola Virus Disease symptoms Patient denies exposure to infectious person Patient denies travel to an Ebola-affected area in the 21 days before illness onset. Screenin:30 Abuse screen: Denies threats or abuse. Denies injuries from another. Nutritional rv screening: No deficits noted. Tuberculosis screening: No symptoms or risk factors identified. Fall Risk None identified. Assessment: 15:30 General: Appears in no apparent distress. uncomfortable, Behavior is calm, cooperative. rv Pain: Complains of pain in abdomen. Neuro: Level of Consciousness is awake, alert, obeys commands, Oriented to person, place, time, situation. Cardiovascular: Capillary refill < 3 seconds. Respiratory: Airway is patent. GI: Bowel sounds present X 4 quads. Abdomen is tender to palpation X 4 quads. : No signs and/or symptoms were reported regarding the genitourinary system. EENT: No signs and/or symptoms were reported regarding the EENT system. Derm: Skin is intact. 15:34 Reassessment: patient finished contrast at 1530. CT scan informed. rv 16:23 Reassessment: Patient appears in no apparent distress at this time. Patient and/or rv family updated on plan of care and expected duration. Pain level reassessed. Patient is alert, oriented x 3, equal unlabored respirations, skin warm/dry/pink. 17:25 Reassessment: Patient appears in no apparent distress at this time. Patient and/or rv family updated on plan of care and expected duration. Pain level reassessed. Patient is alert, oriented x 3, equal unlabored respirations, skin warm/dry/pink. PATIENT TAKEN TO CT SCAN. 18:05 Reassessment: Pt back from CT at this time. Awaiting results, family member remains at ss bedside. Vital Signs: 15:31 BP 113 / 84; Pulse 70; Temp 98.5; Pulse Ox 97% on R/A; Weight 74.84 kg (R); rv 16:23 Pulse 65; Pulse Ox 97% on R/A; rv 16:36 BP 105 / 67; rv 20:36 BP 109 / 74; Pulse 91; Pulse Ox 98% on R/A; rv ED Course: 14:23 Patient arrived in ED. mr 14:48 [facility] Marshall [facility] jr8 14:48 Rah Vincent MD is Attending Physician. jr8 15:00 Triage completed. rv 15:15 Inserted saline lock: 22 gauge in right forearm, using aseptic technique. Blood rv collected. 15:15 Initial lab(s) drawn, by me, sent to lab. rv 15:31 Arm band placed on right wrist. rv 15:31 Patient has correct armband on for positive identification. Placed in gown. Bed in low rv position. Call light in reach. Side rails up X 1. Adult w/ patient. Pulse ox on. NIBP on. 15:[address] Scan. rv 17:01 Radiology exam delayed due to test not completed at this time. kw1 17:06 Hepatic Function Sent. jp3 17:06 Creatinine for Radiology Sent. jp3 17:06 CBC with Diff Sent. jp3 17:06 Basic Metabolic Panel Sent. jp3 17:16 Radiology exam delayed due to IV insertion attempt and/or patient not having cw1 appropriate IV at this time. 17:[address] via stretcher. nj 18:00 CT completed. Patient tolerated procedure well. Patient moved back from CT. nj 18:00 CT Abd/Pelvis - W/Contrast In Process Unspecified. EDMS 19:01 Sreekanth Espinoza MD is Hospitalizing Provider. jr8 19:55 Inserted saline lock: 22 gauge in left forearm, using aseptic technique. rv 19:55 IV discontinued, intact, bleeding controlled, No redness/swelling at site. Pressure jp3 dressing applied, 22-gauge in RFA. 20:36 No provider procedures requiring assistance completed. Patient admitted, IV remains in rv place. intact. Administered Medications: 15:15 Drug: morphine 4 mg Route: IVP; Site: right forearm; rv 16:24 Follow up: Response: Pain is decreased rv 15:15 Drug: Zofran 4 mg Route: IVP; Site: right forearm; rv 16:24 Follow up: Response: No adverse reaction rv 15:15 Drug: NS 0.9% 1000 ml Route: IV; Rate: 1000 ml; Site: right forearm; rv 18:59 Follow up: IV Status: Completed infusion rv 19:09 Drug: morphine 4 mg Route: IVP; Site: right forearm; rv 20:42 Follow up: Response: No adverse reaction rv 19:09 Drug: Flomax 0.4 mg Route: PO; rv 20:42 Follow up: Response: No adverse reaction rv 19:56 Drug: Demerol 25 mg Route: IVP; Site: left forearm; rv 20:42 Follow up: Response: No adverse reaction rv Outcome: 19:01 Decision to Hospitalize by Provider. carlie 20:37 Admitted to Tele accompanied by tech, via wheelchair, room 425, with chart, Report rv called to PADMINI CHRISTOPHER 20:37 Condition: good 20:37 Instructed on the need for admit. 20:40 Patient left the ED. rv Signatures: Dispatcher [employer] EDMS Kristel Howard Shelby, RN RN Cristina Eden1 Mukesh Marshall PA PA jr8 Edgardo Torres Kimberly kw1 Flash Miller RN RN rv Jonathan Wright jp3
--- NOTE | 2018-02-25 19:02 | EDPHYS ---
Physician Documentation [facility] Name: Nell Shirley Age: 37 yrs Sex: Female : 1980 Arrival Date: 02/25/2018 Time: 14:23 Bed 28 Private MD: ED Physician Rah Vincent HPI: 02/25 17:06 This 37 yrs old Female presents to ER via Ambulatory with complaints of jr8 Abdominal Pain. 17:06 The patient presents with abdominal pain in the left lower quadrant. Onset: The jr8 symptoms/episode began/occurred acutely, today. The symptoms radiate to left back, the left flank. Associated signs and symptoms: Pertinent positives: nausea and vomiting. The symptoms are described as stabbing. Modifying factors: The symptoms are alleviated by nothing, the symptoms are aggravated by nothing. Severity of pain: At its worst the pain was moderate in the emergency department the pain is unchanged. The patient has experienced a previous episode. The patient has not recently seen a physician. Stated that last time she had this pain she ended up having to have bowel surgery for intussusception . Historical: - Allergies: 15:07 Aspirin; rv 15:07 Depo-Provera; rv 15:07 GABAPENTIN; rv 15:07 Lyrica; rv 15:07 Neurontin; rv 15:07 NSAIDS; rv 15:07 PENICILLINS; rv - Home Meds: 15:07 Abilify 5 mg Oral tab 1 tab once daily [Active]; Ambien 10 mg Oral tab 1 tab once daily rv [Active]; clonazepam 1 mg Oral tab 1 tab 3 times per day [Active]; furosemide 20 mg Oral tab 1 tab 2 times per day [Active]; hydrocodone-acetaminophen 10-325 mg Oral tab 1 tab every 4 hours [Active]; nitroglycerin 0.4 mg SL subl [Active]; Plavix 75 mg Oral tab 1 tab once daily [Active]; - PMHx: 15:07 Anxiety; CMT; heart murmer; Schizophrenia; rv - PSHx: 15:08 Gastric Bypass; open abdominal surgery; gall bladder; rv - Immunization history:: Adult Immunizations up to date. - Social history:: Smoking status: Patient uses tobacco products, smokes one pack cigarettes per day. - Ebola Screening: : Patient negative for fever greater than or equal to 101.5 degrees Fahrenheit, and additional compatible Ebola Virus Disease symptoms Patient denies exposure to infectious person Patient denies travel to an Ebola-affected area in the 21 days before illness onset. ROS: 17:06 Eyes: Negative for injury, pain, redness, and discharge, ENT: Negative for injury, jr8 pain, and discharge, Neck: Negative for injury, pain, and swelling, Cardiovascular: Negative for chest pain, palpitations, and edema, Respiratory: Negative for shortness of breath, cough, wheezing, and pleuritic chest pain, Back: Negative for injury and pain, MS/Extremity: Negative for injury and deformity, Skin: Negative for injury, rash, and discoloration, Neuro: Negative for headache, weakness, numbness, tingling, and seizure. 17:06 Abdomen/GI: Positive for abdominal pain, nausea and vomiting, Negative for diarrhea, constipation, abdominal cramps, abdominal distension, anorexia, dysphagia, hematemesis, black/tarry stool, rectal pain, rectal bleeding, bowel incontinence, flatulence. Exam: 17:06 Eyes: Pupils equal round and reactive to light, extra-ocular motions intact. Lids and jr8 lashes normal. Conjunctiva and sclera are non-icteric and not injected. Cornea within normal limits. Periorbital areas with no swelling, redness, or edema. ENT: Nares patent. No nasal discharge, no septal abnormalities noted. Tympanic membranes are normal and external auditory canals are clear. Oropharynx with no redness, swelling, or masses, exudates, or evidence of obstruction, uvula midline. Mucous membranes moist. Neck: Trachea midline, no thyromegaly or masses palpated, and no cervical lymphadenopathy. Supple, full range of motion without nuchal rigidity, or vertebral point tenderness. No Meningismus. Cardiovascular: Regular rate and rhythm with a normal S1 and S2. No gallops, murmurs, or rubs. Normal PMI, no JVD. No pulse deficits. Respiratory: Lungs have equal breath sounds bilaterally, clear to auscultation and percussion. No rales, rhonchi or wheezes noted. No increased work of breathing, no retractions or nasal flaring. Back: No spinal tenderness. No costovertebral tenderness. Full range of motion. Skin: Warm, dry with normal turgor. Normal color with no rashes, no lesions, and no evidence of cellulitis. MS/ Extremity: Pulses equal, no cyanosis. Neurovascular intact. Full, normal range of motion. Neuro: Awake and alert, GCS 15, oriented to person, place, time, and situation. Cranial nerves II-XII grossly intact. Motor strength 5/5 in all extremities. Sensory grossly intact. Cerebellar exam normal. Normal gait. 17:06 Abdomen/GI: Inspection: scar(s), are noted in the , Bowel sounds: active, all quadrants, Palpation: soft, in all quadrants, moderate abdominal tenderness, in the anterior aspect of left lateral abdomen and left lower quadrant, mass, is not appreciated, rebound tenderness, is not appreciated, voluntary guarding, is not appreciated, involuntary guarding, is not appreciated, no appreciated organomegaly, Indicators: McBurney's point is not tender, Ponce's sign is negative, Rovsing's sign is negative, Liver: tenderness, is not appreciated. Vital Signs: 15:31 BP 113 / 84; Pulse 70; Temp 98.5; Pulse Ox 97% on R/A; Weight 74.84 kg (R); rv 16:23 Pulse 65; Pulse Ox 97% on R/A; rv 16:36 BP 105 / 67; rv 20:36 BP 109 / 74; Pulse 91; Pulse Ox 98% on R/A; rv MDM: 14:48 Patient medically screened. jr8 19:00 Data reviewed: vital signs, nurses notes, lab test result(s), radiologic studies, CT jr8 scan. Data interpreted: Pulse oximetry: on room air is 97 %. Interpretation: normal. Counseling: I had a detailed discussion with the patient and/or guardian regarding: the historical points, exam findings, and any diagnostic results supporting the discharge/admit diagnosis, lab results, radiology results, the need for further work-up and treatment in the hospital. ED course: Dr. Salcido Consulted and will see patient. NPO midnight and will stent in the AM . 02/25 15:04 Order name: Basic Metabolic Panel jr8 02/25 15:04 Order name: CBC with Diff jr8 02/25 15:04 Order name: Creatinine for Radiology jr8 02/25 15:04 Order name: Hepatic Function jr8 02/25 15: Order name: Lipase; Complete Time: 16:10 jr8 02/25 15:04 Order name: Basic Metabolic Panel; Complete Time: 16:10 EDMS 02/25 15:04 Order name: CBC with Automated Diff; Complete Time: 15:47 EDMS 02/25 15:04 Order name: Creatinine (Radiology Only); Complete Time: 16:10 EDMS 02/25 15:04 Order name: Liver (Hepatic) Function; Complete Time: 16:10 EDMS 02/25 15:15 Order name: CT Abd/Pelvis - W/Contrast; Complete Time: 18:38 jr8 02/25 17:55 Order name: Urine Dipstick--Ancillary (enter results); Complete Time: 18:48 bd 02/25 17:55 Order name: Urine --Ancillary (enter results); Complete Time: 18:48 bd 02/25 20:38 Order name: RAD EDDE 02/25 15:04 Order name: IV Saline Lock; Complete Time: 15:29 jr8 02/25 15:04 Order name: Labs collected and sent; Complete Time: 15:30 jr8 Administered Medications: 15:15 Drug: morphine 4 mg Route: IVP; Site: right forearm; rv 16:24 Follow up: Response: Pain is decreased rv 15:15 Drug: Zofran 4 mg Route: IVP; Site: right forearm; rv 16:24 Follow up: Response: No adverse reaction rv 15:15 Drug: NS 0.9% 1000 ml Route: IV; Rate: 1000 ml; Site: right forearm; rv 18:59 Follow up: IV Status: Completed infusion rv 19:09 Drug: morphine 4 mg Route: IVP; Site: right forearm; rv 20:42 Follow up: Response: No adverse reaction rv 19:09 Drug: Flomax 0.4 mg Route: PO; rv 20:42 Follow up: Response: No adverse reaction rv 19:56 Drug: Demerol 25 mg Route: IVP; Site: left forearm; rv 20:42 Follow up: Response: No adverse reaction rv Disposition: 02/25/18 19:01 Hospitalization ordered by Sreekanth Espinoza for Observation. Preliminary diagnosis are Hydronephrosis with renal and ureteral calculous obstruction, Intractable abdominal pain. - Bed requested for Telemetry/MedSurg (observation). - Status is Observation. rv - Condition is Stable. - Problem is new. - Symptoms have improved. UTI on Admission? No Addendum: 02/28/2018 07:55 Co-signature as Attending Physician, Rah Vincent MD I agree with the assessment and k dr plan of care. Signatures: Dispatcher [employer] EDLavonne Hook, RN RN Rah Lopez MD MD [facility] Mukesh Marshall PA PA jr8 Flash Miller, CANDI RN rv Corrections: (The following items were deleted from the chart) 02/25 19:02 19:01 Hospitalization Ordered by Sreekanth Espinoza MD for Observation. Preliminary jr8 diagnosis is Hydronephrosis with renal and ureteral calculous obstruction. Bed requested for Telemetry/MedSurg (observation). Status is Observation. Condition is Stable. Problem is new. Symptoms have improved. UTI on Admission? No. jr8 20:22 19:02 02/25/2018 19:01 Hospitalization Ordered by Sreekanth Espinoza MD for Observation. kl Preliminary diagnosis is Hydronephrosis with renal and ureteral calculous obstruction; Intractable abdominal pain. Bed requested for Telemetry/MedSurg (observation). Status is Observation. Condition is Stable. Problem is new. Symptoms have improved. UTI on Admission? No. jr8 20:40 20:22 02/25/2018 19:01 Hospitalization Ordered by Sreekanth Espinoza MD for Observation. rv Preliminary diagnosis is Hydronephrosis with renal and ureteral calculous obstruction; Intractable abdominal pain. Bed requested for Telemetry/MedSurg (observation). Status is Observation. Condition is Stable. Problem is new. Symptoms have improved. UTI on Admission? No. kl
[2018-02-25] MEDS ORDERED: TAMSULOSIN 0.4 MG SR CAP ONE (19:09)
[2018-02-25] MEDS ORDERED: MEPERIDINE HCL 25 MG/0.5 ML ONE (19:47)
--- NOTE | 2018-02-25 20:21 | P.HP ---
Certification for Inpatient Patient admitted to: Observation With expected LOS: <2 Midnights Practitioner: I am a practitioner with admitting privileges, knowledge of patient current condition, hospital course, and medical plan of care. Services: Services provided to patient in accordance with Admission requirements found in Title 42 Section 412.3 of the Code of Federal Regulations Patient History Date of Service: 02/25/18 Reason for admission: Ureterolithiasis, hydronephrosis History of Present Illness: Ms Shirley is a 37-year-old woman with history of anxiety disorder, schizophrenia , who start about 2 days ago with left flank pain radiated to left lower quadrant. The pain is colicky like, 10/10 of intensity, she had similar episode but not as bad as this one. She denied fever or chills, no diarrhea. Lab work remarkable for leukocytosis 11.8 K, renal function is normal, UA shows 2+ blood, otherwise unremarkable. CT abdomen and pelvis shows [id number] left-sided hydronephrosis to the mid ureter level. There is a 5 millimeter obstructing calculus present with an additional 5 mm calcification 1 centimeter more proximal. Allergies aspirin Allergy (Unverified 11/09/16 20:17) Hives gabapentin Allergy (Unverified 11/09/16 20:17) Hives medroxyprogesterone [From Depo-Provera] Allergy (Unverified 11/09/16 20:17) Hives NSAIDS (Non-Steroidal Anti-Inflamma Allergy (Unverified 11/09/16 20:17) Hives Penicillins Allergy (Unverified 11/09/16 20:17) Hives pregabalin [From Lyrica] Allergy (Unverified 11/09/16 20:17) Hives Home medications list reviewed: Yes - Past Medical/Surgical History -: Anxiety disorder -: Schizophrenia -: Gastric bypass -: Cholecystectomy - Family History Family History: Reviewed- Non-Contributory - Social History Smoking Status: Current every day smoker Counseled patient to stop smoking for: less than 10 minutes Smoking therapy provided: Yes Patient receptive to therapy: No Alcohol use: Yes CD- Drugs: No Place of Residence: Home Review of Systems 10-point ROS is otherwise unremarkable Physical Examination - Physical Exam General: Alert, In no apparent distress HEENT: Atraumatic, PERRLA, Mucous membr. moist/pink, EOMI, Sclerae nonicteric Neck: Supple, 2+ carotid pulse no bruit, No LAD, Without JVD or thyroid abnormality Respiratory: Clear to auscultation bilaterally, Normal air movement Cardiovascular: Regular rate/rhythm, Normal S1 S2 Gastrointestinal: Normal bowel sounds, Tenderness (Left lower quadrant, left flank) Musculoskeletal: No tenderness Integumentary: No rashes Neurological: Normal speech, Normal strength at 5/5 x4 extr, Normal tone, Normal affect Lymphatics: No axilla or inguinal lymphadenopathy - Studies Laboratory Data (last 24 hrs) 02/25/18 15:15: Creatinine 0.90 02/25/18 15:15: WBC 11.8 H, Hgb 13.1, Hct 39.8, Plt Count 235 02/25/18 15:15: Sodium 141, Potassium 3.9, BUN 13, Creatinine 0.80, Glucose 100 , Total Bilirubin 0.1 L, AST 19, ALT 21, Alkaline Phosphatase 63, Lipase 88 Assessment and Plan - Problems (Diagnosis) (1) Hydronephrosis concurrent with and due to calculi of kidney and ureter Current Visit: Yes Status: Acute (2) Ureteral calculus Current Visit: Yes Status: Acute - Plan The patient will be admitted to the hospital due to obstructive ureteral stone leading with mild to moderate left hydronephrosis. Dr. Salcido has been contacted , and he plans to do a cystoscopy in a.m. Will keep the patient NPO after midnight, will order symptomatic medication for pain and nausea. - Advance Directives Does patient have a Living Will: No Does patient have a Durable POA for Healthcare: No - Code Status/Comfort Care Code Status Assessed: Yes Code Status: Full Code
--- NOTE | 2018-02-25 20:37 | RAD REPORT ---
EXAM DESCRIPTION: RAD - Abdomen 1 View (KUB) - 02/25/2018 8:29 pm CLINICAL HISTORY: Hydronephrosis, obstructing calculus COMPARISON: CT study same date FINDINGS: Moderate stool volume of oral CT contrast are present increasing overall density of the jakob wel. Contrast is present in the urinary bladder from the CT study. Left-sided hydronephrosis is present opacified by contrast. Patient has known obstructing 5 mm calcul us in the left mid ureter. Based on the CT study, the obstructing calculus should be positioned betwe en the left transverse process of L3 and L4. That stone is not radiographically evident. Additionally , the more proximal nonobstructing stone is also not visualized. No significant bony findings IMPRESSION: The known obstructing calculus an adjacent calculus left mid ureter not evident radiogra phically.
[2018-02-25] MEDS ORDERED: ONDANSETRON 4 MG/2 ML VIAL IV PRN (20:54)
[2018-02-25] MEDS ORDERED: ACETAMINOPHEN 500 MG TAB PO PRN (20:54)
[2018-02-25] MEDS: MORPHINE 2 MG/ML SYR IV PRN (23:38)
[2018-02-25] MEDS: NA CHLORIDE 0.9% 1,000 ML IV SCH (23:38)
[2018-02-26] MEDS: MORPHINE 2 MG/ML SYR IV PRN ×5 (03:25→20:58)
[2018-02-26 04:41] LABS: Absolute Lymphocytes (CBC) 1.3 K/uL (0.7-4.9); Absolute Monocytes 0.8 K/uL (0.1-1.3); Absolute Neutrophil 7.9 K/uL (1.8-8.0); Basophils % 0.2 % (0-1.3); Eosinophils % 0.6 % (0-4.4); Hematocrit 35.9 % (36.0-45.0); Lymphocytes % 12.9 % (15.3-44.8); MCH 30.5 pg (27.0-35.0); MCV 89.2 fL (80-100); MPV 10.3 fL (7.6-11.3); Monocytes % 7.8 % (3.3-12.3); RBC Red Blood Cell Count 4.03 M/uL (3.86-4.86)
[2018-02-26 04:45] LABS: BUN Blood Urea Nitrogen 7 mg/dL (7-18); Bicarbonate 19 mmol/L (21-32); Glucose Level 83 mg/dL (74-106); Potassium 3.7 mmol/L (3.5-5.1); Sodium Level 141 mmol/L (136-145)
[2018-02-26 04:50] LABS: Urine Appearance CLEAR; Urine Bilirubin NEGATIVE (NEG); Urine Blood NEGATIVE (NEG); Urine Color YELLOW; Urine Glucose NEGATIVE (NEG); Urine Protein NEGATIVE (NEG); Urine Specific Gravity 1.025 (1.005-1.030); Urine Urobilinogen 0.2 mg/dL (0.2-1.0)
[2018-02-26 05:06] LABS: Urine Microscopic Reflex NO UMIC
[2018-02-26] MEDS ORDERED: SUVOREXANT 20 MG PO PRN (06:26)
[2018-02-26] MEDS ORDERED: LORazepam 2 MG/ML VIAL IV PRN (06:27)
[2018-02-26] MEDS ORDERED: INFLUENZA VACCINE (for 3y+) 0.5 ML DOSE IMVAC ONE (08:00)
[2018-02-26] MEDS ORDERED: KCL 20 MEQ/100 mL IVPB 20 MEQ/100 ML BAG IV SCH (09:00)
[2018-02-26] MEDS ORDERED: POTASSIUM CL SA 10 MEQ TAB PO ONE (09:00)
[2018-02-26] MEDS: NA CHLORIDE 0.9% 1,000 ML IV SCH ×3 (09:29→20:55)
--- NOTE | 2018-02-26 14:27 | P.PN ---
Subjective Date of Service: 02/26/18 Primary Care Provider: Dr. Hernandez([place], [place]) Chief Complaint: Ureterolithiasis, hydronephrosis Subjective: Other (Patient stable this time. Pain under control with medication.) Physical Examination - Vital Signs Temperature: 99 F Blood Pressure: 107/71 Pulse: 68 Respirations: 18 Pulse Ox (%): 98 - Physical Exam General: Alert, In no apparent distress, Oriented x3, Cooperative HEENT: Atraumatic Neck: Supple Respiratory: Clear to auscultation bilaterally, Normal air movement Cardiovascular: Normal pulses, Regular rate/rhythm Gastrointestinal: Normal bowel sounds, Soft and benign, Non-distended, No tenderness, No masses, No rebound, No guarding, Tenderness (Left flank pain noted) Musculoskeletal: No erythema, No tenderness, No warmth Integumentary: No tenderness/swelling, No erythema, No warmth, No cyanosis Neurological: Normal speech, Normal strength at 5/5 x4 extr, Normal tone, Normal affect - Studies Laboratory Data (last 24 hrs) 02/25/18 15:15: Creatinine 0.90 02/25/18 15:15: WBC 11.8 H, Hgb 13.1, Hct 39.8, Plt Count 235 02/25/18 15:15: Sodium 141, Potassium 3.9, BUN 13, Creatinine 0.80, Glucose 100 , Total Bilirubin 0.1 L, AST 19, ALT 21, Alkaline Phosphatase 63, Lipase 88 Medications List Reviewed: Yes Assessment & Plan Discharge Plan: Home Plan to discharge in: 24 Hours Physician Review Additional Text: Impression: Left flank pain secondary to mild to moderate left-sided hydronephrosis to the mid ureter level with noted 5 mm obstructing calculus with additional 5 mm calcification 1 cm more proximal, history of nephrolithiasis Anxiety disorder Plan: Left flank pain secondary to mild to moderate left-sided hydronephrosis to the mid ureter level with noted 5 mm obstructing calculus with additional 5 mm calcification 1 cm more proximal, history of nephrolithiasis: Will continue with IV fluids and pain control medication. Patient currently NPO. Urology consulted. Anticipate cytoscopy with possible removal of stone and stent placement. Await recommendations from Urology. Will monitor closely. Anticipate discharge in the next 24-48 hr. Anxiety disorder: Will provide medication as needed. I will turn the service over to Dr. Abdalla tomorrow. I will go over the plan of care with her. Time Spent Managing Pts Care (In Minutes): 55
[2018-02-26] MEDS: KETOROLAC 30 MG/ML INJ IV PRN (14:50)
[2018-02-27] MEDS: MORPHINE 2 MG/ML SYR IV PRN ×3 (00:24→14:54)
[2018-02-27] MEDS: NA CHLORIDE 0.9% 1,000 ML IV SCH ×3 (04:00→13:00)
[2018-02-27 04:33] LABS: Potassium 4.3 mmol/L (3.5-5.1)
[2018-02-27] MEDS: KETOROLAC 30 MG/ML INJ IV PRN (06:30)
--- NOTE | 2018-02-27 08:31 | CON ---
History Of Present Illness: A 37-year-old female, history of , who started about 2 days ag o having left flank pain, radiating to the left lower quadrant. She came in last night, had a CT sca n showing 2 stones in the left mid ureter, 5-mm calculus at about L3-L4, proximal to that at L3. She had a KUB that did not show the stones. It could be uric acid stones. We are checking a uric acid level currently. Recently, she had 1 episode of stones about in August 2017, possible pass ed it. She does not drink enough water, use less meat, more fruits and . Allergies: THE PATIENT HAS ALLERGIES TO ASPIRIN, CAUSED HIVES; GABAPENTIN CAUSING HIVES; MEDROXYPROG ESTERONE, CAUSING HIVES; . Medications: Home medication list included suvorexant, hydrocodone with Tylenol, Lasix, clonazepam. Past Medical History: , schizophrenia, gastric bypass, cholecystectomy, smoking use. Social History: Current everyday smoker, which was counseled to stop. Alcohol use, yes. Drug use, none. Resides at her home. Her fiancee was present in the room. Review of Systems: A 10-point review of systems is normal. Physical Examination: Vital Signs: 98.5, pulse rate 88, respirations 18, BP 93/62, sats 96%. HEENT: Atraumatic, normocephalic. She appears to be in pain, thefore pain started checked 3 hours a go. Can be started on Toradol around the clock. Neck: Supple. Respiratory: Clear. Cardiovascular: S1, S2. Gastrointestinal: Normal bowel sounds. Skin: No rashes. Neurologic: Alert, orient times x3. Lymphatics: None. Laboratory Data: Sodium 141, potassium 3.7, chloride 112, carbon dioxide 19, BUN 7, creatinine 0.7, GFR greater that 92, glucose 83, calcium 7.8. Hematology: White count 10.1, H and H 12 and 36, plat elets 203. Urine shows pH 7.0, specific gravity 1.015, blood 2+, nitrite negative, esterase negative . negative. Assessment: A lady with two 5 mm stone, left ureter, not seen on the KUB, did see on the CT scan. W e will check her uric acid levels and a cystoscopy, retrograde pyelogram tomorrow, possible _ information were reviewed with her risks and benefits. She wishes to proceed. We will feed her to day, make her n.p.o. after midnight. DUSTY/KENNY Voice ID: [id number] Report ID: [id number]
--- NOTE | 2018-02-27 08:52 | RAD REPORT ---
EXAM DESCRIPTION: RAD - Abdomen 1 View (KUB) - 02/27/2018 7:57 am CLINICAL HISTORY: check stones again Pain COMPARISON: Abdomen 1 View (KUB) dated 02/25/2018; Abdomen Pelvis W Contrast dated 02/25/2018 FINDINGS: Contrast is present in the colon, obscuring the upper abdomen. Contrast is seen within the left collecting system of the left kidney with mild left hydronephrosis present. The left ureter ayala s not appear dilated. The patient's known left mid ureter calculi are not well seen, however likely s till present.
[2018-02-27] MEDS ORDERED: FENTANYL CITR 100 MCG/2 ML ONE ×3 (10:11→12:24)
[2018-02-27] MEDS ORDERED: GENTAMICIN 100 MG/100 ML BAG 100 MG/100 ML BAG IV ONE (10:11)
[2018-02-27] MEDS ORDERED: PROPOFOL 200 MG/20 ML VIAL IV ONE ×2 (10:11→11:31)
[2018-02-27] MEDS ORDERED: MIDAZOLAM HCL 2 MG/2 ML INJ ONE ×2 (10:11→11:31)
[2018-02-27] MEDS ORDERED: LIDOCAINE 2% MPF 5 ML VIAL ONE (10:12)
[2018-02-27] MEDS ORDERED: ONDANSETRON 4 MG/2 ML VIAL ONE ×2 (10:26→12:24)
[2018-02-27] MEDS ORDERED: LIDOCAINE 1% MPF 5 ML VIAL ONE (11:31)
[2018-02-27] MEDS ORDERED: Mastisol Adhesive Liq ONE (11:51)
--- NOTE | 2018-02-27 15:21 | P.SSS ---
Patient History Date of Service: 02/27/18 Primary Care Provider: Dr. Hernandez([place], [place]) Reason for admission: Ureterolithiasis, hydronephrosis History of Present Illness: Ms Shirley is a 37-year-old woman with history of anxiety disorder, schizophrenia , who start about 2 days ago with left flank pain radiated to left lower quadrant. The pain is colicky like, 10/10 of intensity, she had similar episode but not as bad as this one. She denied fever or chills, no diarrhea. Lab work remarkable for leukocytosis 11.8 K, renal function is normal, UA shows 2+ blood, otherwise unremarkable. CT abdomen and pelvis shows [id number] left-sided hydronephrosis to the mid ureter level. There is a 5 millimeter obstructing calculus present with an additional 5 mm calcification 1 centimeter more proximal. Allergies medroxyprogesterone [From Depo-Provera] Allergy (Verified 02/25/18 21:05) Itching/Hives/Rash aspirin Adverse Reaction (Verified 02/25/18 21:05) Nausea/Vomiting gabapentin Adverse Reaction (Verified 02/25/18 21:05) suidcidal ideations NSAIDS (Non-Steroidal Anti-Inflamma Adverse Reaction (Verified 02/25/18 21:05) Nausea/Vomiting Penicillins Adverse Reaction (Verified 02/25/18 21:05) severe flu like symptoms pregabalin [From Lyrica] Adverse Reaction (Verified 02/25/18 21:05) suicidal ideations Home Medications: Furosemide 20 mg PO DAILY 02/25/18 Hydrocodone Bit/Acetaminophen [Hydrocodon-Acetaminophn 10-325] 1 each PO Q6H PRN 02/25/18 Suvorexant [Belsomra] 20 mg PO BEDTIME PRN 02/25/18 clonazePAM [Clonazepam] 1 mg PO BID 02/25/18 - Past Medical/Surgical History Has patient received pneumonia vaccine in the past: No Diabetic: No -: Anxiety disorder -: Schizo affective disorder -: heart murmur -: Gastric bypass -: Cholecystectomy -: necrotic intestines removed - Family History Family History: Reviewed- Non-Contributory - Social History Smoking Status: Current every day smoker Alcohol use: No CD- Drugs: No Caffeine use: Yes Place of Residence: Home Review of Systems 10-point ROS is otherwise unremarkable Physical Examination - Vital Signs Temperature: 98.6 F Blood Pressure: 109/67 Pulse: 64 Respirations: 18 Pulse Ox (%): 96 - Physical Exam General: Alert, In no apparent distress HEENT: Atraumatic, PERRLA, Mucous membr. moist/pink, EOMI, Sclerae nonicteric Neck: Supple, 2+ carotid pulse no bruit, No LAD, Without JVD or thyroid abnormality Respiratory: Clear to auscultation bilaterally, Normal air movement Cardiovascular: Regular rate/rhythm, Normal S1 S2 Gastrointestinal: Normal bowel sounds, No tenderness Musculoskeletal: No tenderness Integumentary: No rashes Neurological: Normal gait, Normal speech, Normal strength at 5/5 x4 extr, Normal tone, Normal affect Lymphatics: No axilla or inguinal lymphadenopathy - Diagnosis (Problem(s)) (1) Hydronephrosis concurrent with and due to calculi of kidney and ureter Onset Date: 02/27/18 Current Visit: Yes Status: Acute (2) Ureteral calculus Onset Date: 02/27/18 Current Visit: Yes Status: Acute Treatment Summary: Overall during the hospital stay patient remained stable Was initially admitted to the hospital for hydronephrosis secondary to renal stones. Urology was consulted. Patient had a cystoscopy along with lithotripsy and stent placement. Patient did markedly well and thus was discharged home under stable condition. Patient was given prescription from urology for pain and antibiotics. Patient was asked to follow up with urology in about 1-2 weeks post discharge. Patient demonstrated understanding and thus was discharged home under stable condition - Disposition Disposition: ROUTINE DISCHARGE Condition: GOOD Diet: Regular Activity: Ad dane
== END 2018-02-27 17:06 | disposition home or self-care (01) ==
LOC: ER 14:19 → ERHOLD 19:01 → 4TH 20:34
PROVIDERS: ADMIT Physician Assistant; ATTEND Internal Medicine
PROC: 0T9780Z Drainage of Left Ureter with Drainage Device, Via Natural or Artificial Opening Endoscopic (ICD-10-PCS; 2018-02-27)
PROC: 0TF7XZZ Fragmentation in Left Ureter, External Approach (ICD-10-PCS; principal; 2018-02-27 14:30)
DX: N13.2 Hydronephrosis with renal and ureteral calculous obstruction (principal); F41.9 Anxiety disorder, unspecified; F20.9 Schizophrenia, unspecified; Z98.84 Bariatric surgery status; Z88.0 Allergy status to penicillin; Z88.6 Allergy status to analgesic agent; Z23 Encounter for immunization
CPT/HCPCS: 36415 ×2; 50590; 52332; 74018 ×2; 74177; 80048 ×3; 80076; 81003 ×2; 81025; 83690; 84550; 85025 ×2; 87086; 87088; 96361; 96374; 96375; 99285; G0008; G0378 ×2; J1580; J2175; J2250; J2270 ×9; J2405 ×3; J3010 ×2; J7030 ×5; Q2035; Q9967 ×2

== ENCOUNTER 2018-05-03 07:49 | Emergency (ER) | payer OTHER ==
--- OUTSIDE RECORDS SUMMARY | 2018-05-03 08:05 | XMS REPORT | Continuity of Care Document ---
[...] Problem 11/08/2017 Problem 2</sup> 17 added by [facility] Discern Expert. CELLULITIS, Active 02/12/20 POST-OPERATIVE 17 [place] COMPLICATION, OTHER Active 02/12/20 17 [place] HISTORY OF GASTRIC Active 01/16/20 BYPASS, ABDOMINAL 17 [place] JOSE ABD PAIN Active 01/16/20 17 [place] K81.1 Active 01/14/20 17 [place] INTUSSUSCEPTION Active 12/16/19 [facility] [place] CHEST PAIN Active 04/06/20 [place] [id number] Adi Discharge 03/26/20 03/29/2014 [facility] Diagnosis: Benign 14 [facility] paroxysmal vertigo Center DIZZINESS Active 03/22/[address] [facility] SEIZURES Active 02/23/[address] [facility] OVERDOSE Active 12/09/[address] Anxiety Resolved Problem 11/08/2017 [place],[facility] [place] [place] Chest pain Active Problem 11/08/2017 [facility] Fatty liver Active Problem 11/08/2017 [facility] Gastric bypass Resolved Problem 11/08/2017 status for obesity [place] Anxiety and Active Problem 11/08/2017 depression [facility] History of heart Active Problem 11/08/2017 attack [place] Schizoaffective Resolved Problem 11/08/2017 disorder [place],M [facility] [place] Seizure Resolved Problem 11/08/2017 MH [place],[facility] [place] [place] Final: 12/19/2016 Intussusception [facility] Final: Chronic 02/06/2017 cholecystitis [place] CHF (<span Resolved Problem 11/08/2017 MH ID="[id number]"> [facility] Confirmed</span>) CT (<span Resolved Problem 11/08/2017 MH ID="[id number]"> [place] Confirmed</span>) Encounter for 09/14/2017 screening for [place] malignant neoplasm of colon Diaphragmatic 09/14/2017 MH hernia without [place] obstruction or gangrene Unspecified 09/14/2017 chronic gastritis [place] without bleeding Gastro-esophageal 09/14/2017 MH reflux disease [place] without esophagitis Old myocardial 11/08/2017 infarction [place] Heart failure, 11/08/2017 MH unspecified [place] Anxiety disorder, 09/14/2017 MH unspecified [place] Fatty liver, not 09/14/2017 MH elsewhere [place] classified Schizophrenia, 09/14/2017 MH unspecified [place] Unspecified 09/14/2017 convulsions [place] Unspecified 09/14/2017 osteoarthritis, [place] unspecified site Nonrheumatic 09/14/2017 mitral prolapse [place] Right upper 11/08/2017 MH quadrant pain [place] Lower abdominal 11/08/2017 pain, unspecified [place] Nicotine 11/08/2017 MH dependence, [place] cigarettes, uncomplicated 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 [id number] Encounter to Active Diagnosis 03/01/2017 Enayet establish care Rahim Morbid obesity Active Problem 03/28/2017 2.16.840.1. [id number] 1. Anxiety Active Problem 03/28/2017 2.16.840.1. [id number] 1 Leukocytosis Active Diagnosis 03/28/2017 2.16.840.1. [id number] 1. Cellulitis Active Problem 03/28/2017 2.16.840.1. [id number] 1. CAD Active Problem 03/28/2017 2.16.840.1. [id number] 1. Murmur, cardiac Active Problem 03/28/2017 2.16.840.1. [id number] 1. HTN Active Problem 03/28/2017 2.16.840.1. 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 1 History of gastric Active Diagnosis 09/20/2017 [place] bypass Rahim Intractable Active Problem 09/26/2017 [place] migraine with aura Rahim with status migrainosus Hx MRSA infection Active Diagnosis 09/26/2017 Enayet Rahim Cellulitis of nose Active Diagnosis 09/26/2017 Enayet Rahim Lower abdominal Active Diagnosis 08/11/2017 [place] pain Rahim [id number] Active [facility] NEC/NOS [facility] FEBRILE Active [facility] CONVULSIONS [facility] Medical [place] OTHER SPECIFIED Active POSTPROCEDURAL [facility] UNSPECIFIED Active ABDOMINAL PAIN [place] CHRONIC Active CHOLECYSTITIS [place] INTUSSUSCEPTION Active MH [facility] CELLULITIS, Active MH UNSPECIFIED [facility] UNSPECIFIED Active COMPLICATION OF [facility] PROCEDURE, I SINGLE LIVEBORN Active MH INFANT, DELIVERED [place] VAGINA Medications Medication Details Route Status Patient Ordering Order Source Instructions Provider Date Acetaminophen 1 tab, PO, No Longer 09/17/ 300 MG / Q6H, # 6 tab, Active 2018 Codeine 0 Refill(s) Phosphate 30 MG Oral Tablet [Tylenol with Codeine #3] tramadol 50 mg=1 tab, Inactive 09/17/ hydrochloride PO, Q4H, # 5 2018 [facility] 50 MG Oral tab, 0 Tablet Refill(s) Mupirocin 0.02 1 appl, TOP, Active 09/17/ MG/MG Topical BID, Apply to 2017 [facility] Ointment affected [Bactroban] area(s), X 7 day, # 22 gm, 0 Refill(s) Bactrim DS 1 tablet Orally Active 800-160 MG Latoya 09/15/ Enayet Orally Twice 2018 Rahim a day Sodium Chloride 1,000 mL, No Longer 0.9% IV 1,000 Rate: 25 Active 2017 [facility] mL ml/hr, Infuse over: 40 hr, Route: IV, Dosing Weight 67.273 kg, Total Volume: 1,000, Start date: 09/05/17 7:56:00 CDT, Duration: 1 day, Stop date: 09/06/17 7:55:00 CDT, 1.69, m2 NS (Bolus) IV 1,000 mL, Inactive 1,000 ml/hr, 2017 [facility] Infuse Over: 1 hr, Route: IV, ONCE, Priority: STAT, Dosing Weight 65.455 kg, Start date: 08/02/17 17:44:00 CDT, Stop date: 08/02/17 17:44:00 CDT Ondansetron 4 mg, 2 mL, Inactive Route: IVP, 2017 [facility] Drug form: INJ, ONCE, Dosing Weight 65.455, kg, Priority: STAT, Start date: 08/02/17 15:57:00 CDT, Stop date: 08/02/17 15:57:00 CDTNotes: (Same as: Zofran) MEDICATION WASTE Product Size: 4 mg Product Wasted: ___ mg Saline Flush 10 mL, Route: Inactive 0.9% IVP, Drug 2017 [facility] Form: INJ, Dosing Weight 65.455, kg, PRN, PRN Line Flush, Start date: 08/02/17 15:57:00 CDT, Duration: 30 day, Stop date: 09/01/17 15:56:00 CDTNotes: (Same as: BD Posiflush) Maxalt-[employer] 1 tablet on Orally Active 10 MG Orally Latoya 07/06/ Enayet the tongue Once a day as 2017 Rahim and allow to needed dissolve as needed one time potassium 20 mEq, 1 Inactive chloride tab, Route: 2016 [facility] PO, Drug form: ERTAB, ONCE, Dosing Weight 63.636, kg, Start date: 03/11/17 14:43:00 CDT, Stop date: 03/11/17 14:43:00 CDTNotes: (Same as: K-Dur 20) "Do Not Crush" With food and full glass of water potassium 10 mEq, 100 Inactive 03/11/ MH chloride mL, Route: 2016 [facility] IVPB, Drug form: INJ, Q1H, Dosing Weight 63.636, kg, Total Dose=20 meq, Start date: 03/11/17 9:00:00 CDT, Duration: 2 doses or times, Stop date: 03/11/17 10:00:00 CDT, Peripheral LineNotes: Infuse at a rate of 10 mEq/hr. (Same as: KCL) sodium chloride 1,000 mL, Inactive 03/11/ MH 0.9% 1000 ml Rate: 75 2016 [facility] INJ 1,000 mL ml/hr, Infuse over: 13.3 hr, Route: IV, Dosing Weight 63.636 kg, Total Volume: 1,000, Start date: 03/11/17 6:47:00 CDT, Duration: 30 day, Stop date: 04/10/17 6:46:00 PRIZER HAND sodium 15 mmol, 5 Inactive phosphate + D5W mL, Route: 2016 [facility] 250 mL IVPB, PRN, Dosing Weight 63.636, kg, PRN Abnormal Lab Result, For NON-ICU Patients Only., Start date: 03/11/17 6:46:00 CDT, Duration: 30 day, Stop date: 04/10/17 5:45:00 PRIZER HAND potassium 15 mmol, 5 Inactive 03/11/ phosphate + mL, Route: 2016 [facility] sodium chloride IVPB, PRN, 0.9% INJ 250 mL Dosing Weight 63.636, kg, PRN Abnormal Lab Result, For NON-ICU Patients Only., Start date: 03/11/17 6:46:00 CDT, Duration: 30 day, Stop date: 04/10/17 5:45:00 CSTNotes: (Same as: K Phosphate.) 1 mMol phoshate has 1.47 mEq potassium Infuse over 4 hours potassium 2 pkt, Route: Inactive phosphate-sodiu PO, Drug 2016 [facility] m phosphate 250 Form: mg-280 mg-160 PDR/REC, mg oral powder Dosing Weight for 63.636, kg, reconstitution PRN, PRN Abnormal Lab Result, For NON-ICU Patients Only, Start date: 03/11/17 6:46:00 CDT, Duration: 30 day, Stop date: 04/10/17 5:45:00 CSTNotes: (Same as: Phos-NaK) Each 1.5 gm pkt has 250mg phosphorous. Mix w/2.5oz water and stir. potassium 20 mEq, 15 Inactive chloride mL, Route: 2016 [facility], Drug form: LIQ, PRN, Dosing Weight 63.636, kg, PRN Abnormal Lab Result, For NON-ICU Patients Only, Start date: 03/11/17 6:46:00 CDT, Duration: 30 day, Stop date: 04/10/17 5:45:00 CSTNotes: (Same as: Potassium Chloride) calcium 2 gm, 20 mL, Inactive gluconate + Route: IV2016 [facility] sodium chloride PRN, Dosing 0.9% INJ 100 mL Weight 63.636, kg, PRN Abnormal Lab Result, For NON-ICU Patients Only., Start date: 03/11/17 6:46:00 CDT, Duration: 30 day, Stop date: 04/10/17 5:45:00 CSTNotes: WASTE: F/P - Sink; E - Municipal Trash Bin magnesium 2 gm, 50 mL, Inactive sulfate Route: 2016 [facility] Drug form: INJ, PRN, Dosing Weight 63.636, kg, PRN Abnormal Lab Result, For NON-ICU Patients Only., Start date: 03/11/17 6:46:00 CDT, Duration: 30 day, Stop date: 04/10/17 5:45:00 CSTNotes: WASTE: F/P - Sink; E - Municipal Trash Bin magnesium oxide 800 mg, 2 Inactive tab, Route: 2016 [facility] PO, Drug form: TAB, PRN, Dosing Weight 63.636, kg, PRN Abnormal Lab Result, For NON-ICU Patients Only., Start date: 03/11/17 6:46:00 CDT, Duration: 30 day, Stop date: 04/10/17 5:45:00 CSTNotes: (Same as: Mag-Ox 400) Magnesium oxide [id number] elemental magnesium Dose=____mg magnesium oxide (___mg elemental magnesium) acetaminophen-h 1 tab, Route: No Longer ydrocodone 325 PO, Drug Active 2016 [facility] mg-5 mg oral Form: TAB, tablet Dosing Weight 63.636, kg, Q4H, PRN Pain Score 4-6, Start date: 03/10/17 22:28:00 CDT, Duration: 30 day, Stop date: 04/09/17 22:27:00 CSTNotes: (Same as: [place] 325/5) Do not exceed 4gm/day of acetaminophen . ondansetron 4 mg, 2 mL, No Longer Route: IVP, Active 2016 [facility] Drug form: INJ, Q4H, Dosing Weight 63.636, kg, PRN Nausea, Start date: 03/10/17 21:50:00 CDT, Duration: 30 day, Stop date: 04/09/17 21:49:00 CSTNotes: (Same as: Esthelafran) MEDICATION WASTE Product Size: 4 mg Product Wasted: ___ mg morphine 4 mg, 1 mL, No Longer Sulfate Route: IVP, Active 2016 [facility] Drug form: SOLN, Q4H, Dosing Weight 63.636, kg, PRN Pain Score 7-10, Start date: 03/10/17 21:48:00 CDT, Duration: 30 day, Stop date: 04/09/17 21:47:00 CSTNotes: (Same as:MORPhine Sulfate) aspirin 81 mg, PO, Active Daily, 0 2016 [facility] Refill(s) nitroglycerin 0.4 mg=1 tab, Active 0.4 mg SL, Q5Min, 2016 sublingual PRN Chest tablet Pain, Give up to 3 doses. Call 911 if pain persists., # 25 tab, 3 Refill(s) Ranexa 500 mg 500 mg=1 tab, Active oral tablet, PO, BID, # 60 2016 [facility] extended tab, 0 release Refill(s) morphine 4 mg, Route: Inactive Sulfate IVP, ONCE, 2016 [facility] Dosing Weight 63.636, kg, Priority: STAT, Start date: 03/10/17 19:07:00 CDT, Stop date: 03/10/17 19:07:00 CDT ondansetron 4 mg, Route: Inactive IVP, Drug 2016 [facility] form: INJ, ONCE, Dosing Weight 63.636, kg, Priority: STAT, Start date: 03/10/17 14:07:00 CDT, Stop date: 03/10/17 14:07:00 CDT morphine 4 mg, Route: Inactive Sulfate IVP, ONCE, 2016 [facility] Dosing Weight 63.636, kg, Priority: STAT, Start date: 03/10/17 14:07:00 CDT, Stop date: 03/10/17 14:07:00 CDT Sodium Chloride 1,000 mL, Inactive 0.9% (Bolus) IV Infuse Over: 2016 [facility] 1 hr, Route: IV, ONCE, Priority: STAT, Dosing Weight 63.636 kg, Start date: 03/10/17 14:06:00 CDT, Duration: 1 doses or times, Stop date: 03/10/17 14:06:00 CDT Saline Flush 10 mL, Route: No Longer 0.9% IVP, Drug Active 2016 [facility] Form: INJ, Dosing Weight 60, kg, PRN, PRN Line Flush, Start date: 03/10/17 13:37:00 CDT, Duration: 30 day, Stop date: 04/09/17 12:36:00 CSTNotes: (Same as: BD Posiflush) Chlorhexidine as directed Externally Active 2 % Reyes 06.23.840.1 Gluconate Externally 2016 .446616.4. once a day 68 Bactroban Nasal as directed Nasally Active 2 % Nasally Reyes 06.23.840.1 Twice a day 2016 .960021.4. 68 Doxycycline 1 tablet Orally Active 100 MG Orally Reyes 06.23.840.1 Hyclate every 12 hrs 2016 .531916.4. 68 Acetaminophen 1-2 tab, PO, Active 10/13/ MH 325 MG / Q6H, PRN 2016 Hydrocodone Pain, X 5 Bitartrate 7.5 day, # 30 MG Oral Tablet tab, 0 [[place] 7.5/325] Refill(s), given to patient hydrocortisone See Active 10 mg oral Instructions, 2016 tablet 2 tab PO in the morning, 1 tab in the afternoon, # 90 tab, 0 Refill(s), Pharmacy: [facility] Hydrocortisone 20 mg, 2 tab, No Longer Route: PO, Active 2016 Drug form: TAB, BID, Dosing Weight 60, kg, Start date: 02/16/17 17:00:00 CDT, Duration: 30 day, Stop date: 03/18/17 9:00:00 CSTNotes: (Same as: Cortef) Take with food. MiraLax 17 gm, 1 pkt, No Longer Route: PO, Active 2016 [facility] Drug form: PWDR, Daily, Start date: 02/16/17 14:05:00 CDT, Duration: 30 day, Stop date: 03/18/17 9:00:00 CSTNotes: Dissolve in 8 oz of water or juice. (Same as: Miralax) Levaquin 500 mg, 100 Inactive mL, Route: 2016 PO, Drug form: SOLN, [id number], Dosing Weight 60, kg, Start date: 02/16/17 [...] Inactive give vanc dose give vanc 2016 [facility] til trough dose til drawn 02/15 @ trough drawn 194 02/15 @ 1945, attn, Drug form: MISC, Route: MISC, ONCE, 02/15/17 19:15:00 CDT, Stop date: 02/15/17 19:15:00 CDT Hydrocortisone 50 mg, 1 mL, No Longer Route: IV, Active 2016 [facility] Drug form: PDR/INJ, BID, Dosing Weight 60, kg, Start date: 02/15/17 17:00:00 CDT, Duration: 30 day, Stop date: 03/17/17 9:00:00 CSTNotes: (Same as: Solu-CORTEF) TPN, adult 1,850 mL, No Longer solution 1,850 Rate: 75 2016 [facility] mL ml/hr, Infuse over: 24.7 hr, Route: IV, Dosing Weight 60 kg, Total Volume: 1,850, Start date: 02/14/17 22:00:00 CDT, Duration: 24 hr, Stop date: 02/15/17 21:59:00 CDT Vancomycin 1,000 mg, No Longer Route: IVPB, Active 2016 [facility] [id number], Dosing Weight 60, kg, Start date: 02/14/17 20:00:00 CDT, Duration: 14 day, Stop date: 02/28/17 12:00:00 CDT, ABX Indication: Skin/Soft Tissue InfectionNote s: TIME CRITICAL MEDICATION (Same As: Vancocin) Infusion rate 2001 mg: infuse over 2.5 hours MEDICATION WASTE Product Size: 1000 mg Product Wasted: __0_ mg Hydrocortisone 50 mg, 1 mL, No Longer Route: IV, Active 2016 [facility] Drug form: PDR/INJ, Q8H, Dosing Weight 60, kg, Start date: 02/14/17 16:00:00 CDT, Duration: 30 day, Stop date: 03/16/17 8:00:00 CSTNotes: (Same as: Solu-CORTEF) Milk of 30 ml, Route: Inactive Magnesia PO, Drug 2016 [facility] Form: SUSP, Dosing Weight 60, kg, ONCE, Start date: 02/14/17 13:39:00 CDT, Stop date: 02/14/17 13:39:00 CDTNotes: (Same as: Milk of Magnesia, MOM) Cosyntropin 250 Inactive microgram, 2016 [facility] Route: IVP, Drug form: PDR/INJ, ONCE, Dosing Weight 60, kg, Priority: STAT, Start date: 02/14/17 11:29:00 CDT, Stop date: 02/14/17 11:29:00 CDTNotes: (Same As: Norberto) RN-do not RN-do not Inactive give vanc dose give vanc 2016 [facility] til trough dose til drawn 02/14 @ trough drawn 1030 02/14 @ 1030, attn, Drug form: MISC, Route: MISC, ONCE, 02/14/17 10:00:00 CDT, Stop date: 02/14/17 10:00:00 CDT potassium 20 mEq, 1 Inactive chloride 20 mEq tab, Route: 2016 [facility] oral tablet, PO, Drug extended form: ERTAB, release ONCE, Dosing Weight 60, kg, Start date: 02/14/17 6:43:00 CDT, Stop date: 02/14/17 6:43:00 CDTNotes: (Same as: K-Dur 20) "Do Not Crush" With food and full glass of water Magnesium 1 gm, 100 mL, Inactive Sulfate Route: IVPB, 2016 [facility] Drug form: INJ, ONCE, Dosing Weight 60, kg, Start date: 02/14/17 6:41:00 CDT, Stop date: 02/14/17 6:41:00 CDTNotes: WASTE: F/P - Sink; E - Municipal Trash Bin TPN, adult 1,850 mL, No Longer solution 1,850 Rate: 75 Active 2016 [facility] mL ml/hr, Infuse over: 24.7 hr, Route: IV, Dosing Weight 60 kg, Total Volume: 1,850, Start date: 02/13/17 22:00:00 CDT, Duration: 1 day, Stop date: 02/14/17 21:59:00 CDT fat emulsion, IV, 31.25 Inactive intravenous 250 ml/hr, Start 2016 [facility] mL date: 02/13/17 22:00:00 CDT, Duration: 1, 250 ml, 60Notes: (Same as: Intralipid, Liposyn) Infuse through a 1.2 micron filter Furosemide 20 20 mg, 1 tab, No Longer MG Oral Tablet Route: PO, [facility] 2016 [facility] Drug form: TAB, Daily, Dosing Weight 60, kg, Start date: 02/13/17 9:00:00 CDT, Duration: 30 day, Stop date: 03/14/17 9:00:00 CSTNotes: (Same as: Lasix) May cause GI upset. Give with food or milk. Abilify 5 mg, 1 tab, No Longer Route: PO, 2016 [facility] Drug form: TAB, Daily, Dosing Weight 60, kg, Start date: 02/13/17 9:00:00 CDT, Stop date: 03/14/17 9:00:00 CSTNotes: Non-Formulary Drug. (Same as: Abilify) Levaquin 500 mg, 100 No Longer mL, Route: 2016 [facility] IVPB, Drug form: SOLN, [id number], Dosing Weight 60, kg, Start date: 02/13/17 4:00:00 CDT, Duration: 7 day, Stop date: 02/19/17 4:00:00 CDT, ABX Indication: Skin/Soft Tissue InfectionNote s: (Same as:Levaquin) NS (Bolus) IV 250 mL, 250 Inactive ml/hr, Infuse 2016 [facility] Over: 1 hr, Route: IV, 250, Drug form: INJ, ONCE, Priority: STAT, Dosing Weight 60 kg, Start date: 02/12/17 22:40:00 CDT, Duration: 1 doses or times, Stop date: 02/12/17 22:40:00 CDT Ambien 5 mg, 1 tab, No Longer Route: PO, 2016 [facility] Drug form: TAB, Bedtime, Dosing Weight 60, [...] tab, No Longer Route: PO, Active 2016 [facility] Drug form: TAB, BID, Dosing Weight 60, kg, Start date: 02/12/17 21:00:00 CDT, Duration: 30 day, Stop date: 03/14/17 9:00:00 CSTNotes: (Same As: KlonoPIN) Enoxaparin 30 mg, 0.3 No Longer mL, Route: Active 2016 [facility] SUB-Q, Drug form: INJ, [id number], Dosing Weight 60, kg, Start date: 02/12/17 [...] tab, No Longer Route: PO, Active 2016 [facility] Drug form: ECTAB, Before Dinner, Dosing Weight 60, kg, Start date: 02/12/17 16:30:00 CDT, Duration: 30 day, Stop date: 03/13/17 16:30:00 CSTNotes: Tablet should not be chewed or crushed. (Same as: Protonix) NURSE please NURSE No Longer bring home med please bring Active 2016 [facility] ABILIFY to home med Pharmacy for ABILIFY to label Pharmacy for label, 1, Drug form: MISC, Route: MISC, TID, 02/12/17 15:00:00 CDT, Duration: 30 day, Stop date: 03/14/17 9:00:00 PRIZER HAND Vancomycin 1,000 mg, No Longer Route: IVPB, Active 2016 [facility] [id number], Dosing Weight 60, kg, Start date: 02/12/17 11:00:00 CDT, Duration: 7 day, Stop date: 02/18/17 23:00:00 CDT, ABX Indication: Skin/Soft Tissue InfectionNote s: TIME CRITICAL MEDICATION (Same As: Vancocin) Infusion rate 2001 mg: infuse over 2.5 hours MEDICATION WASTE Product Size: 1000 mg Product Wasted: ___ mg Vancomycin 1 ea, Route: Inactive NELI MOLINA, 2016 [facility] Dosing Weight 60, kg, Start date: 02/12/17 10:00:00 CDT, day, Stop date: 02/12/17 10:00:00 CDT, Pharmacy to dose, ABX Indication: Skin/Soft Tissue Infection Tylenol 650 mg, 2 No Longer tab, Route: Active 2016 [facility] PO, Drug form: TAB, Q6H, Dosing Weight 60, kg, PRN Pain 1-3/Temp > 100.4 F, Start date: 02/12/17 9:44:00 CDT, Duration: 30 day, Stop date: 03/14/17 9:43:00 CSTNotes: Do not exceed 4 gm/day. (Same as: Tylenol) Acetaminophen 1 tab, Route: No Longer 325 MG / PO, Drug Active 2016 [facility] Hydrocodone Form: TAB, Bitartrate 10 Dosing Weight MG Oral Tablet 60, kg, Q4H, [[place] 10/325] PRN Pain Score 6-10, Start date: 02/12/17 9:43:00 CDT, Duration: 30 day, Stop date: 03/14/17 9:42:00 CSTNotes: Do not exceed 4gm/day of acetaminophen . (Same as: [place] 325/10) Acetaminophen 1 tab, Route: No Longer 325 MG / PO, Drug Active 2016 [facility] Hydrocodone Form: TAB, Bitartrate 5 MG Dosing Weight Oral Tablet 60, kg, Q4H, [[place] 5/325] PRN Pain Score 4-6, Start date: 02/12/17 9:43:00 CDT, Duration: 30 day, Stop date: 03/14/17 9:42:00 CSTNotes: (Same as: [place] 325/5) Do not exceed 4gm/day of acetaminophen . Morphine 4 mg, 1 mL, No Longer Route: IVP, Active 2016 [facility] Drug form: SOLN, Q4H, Dosing Weight 60, kg, PRN Pain Score 6-10, Start date: 02/12/17 9:43:00 CDT, Duration: 30 day, Stop date: 03/14/17 9:42:00 CSTNotes: (Same as:MORPhine Sulfate) Saline Flush 10 ml, Route: No Longer 0.9% IVP, Drug [facility] 2016 [facility] Form: INJ, Dosing Weight 60, kg, PRN, PRN Line Flush, Start date: 02/12/17 9:40:00 CDT, Duration: 30 day, Stop date: 03/14/17 8:39:00 CSTNotes: (Same as: BD Posiflush) D5W 1/2NS + KCL 1,000 mL, No Longer 20mEq/L 1000ml Rate: 75 [facility] 2016 [facility] ([facility]) 1,000 ml/hr, Infuse mL over: 13.3 hr, Route: IV, Dosing Weight 60 kg, Total Volume: 1,000, Start date: 02/12/17 9:40:00 CDT, Duration: 30 day, Stop date: 03/14/17 9:39:00 CSTNotes: PREMIX IV - Do Not Alter WASTE: F/P - Sink; E - Municipal Trash Bin Ondansetron 4 mg, 2 mL, No Longer Route: IVP, [facility] 2016 [facility] Drug form: INJ, Q6H, Dosing Weight 60, kg, PRN Nausea & Vomiting, Start date: 02/12/17 9:40:00 CDT, Duration: 30 day, Stop date: 03/14/17 9:39:00 CSTNotes: (Same as: Zofran) MEDICATION WASTE Product Size: 4 mg Product Wasted: ___ mg Levaquin 750 mg, 150 Inactive mL, Route: 2016 [facility] IVPB, Drug form: SOLN, [id number], Dosing Weight 60, kg, Start date: 02/12/17 8:00:00 CDT, Duration: 1 doses or times, Stop date: 02/12/17 8:00:00 CDT, ABX Indication: ED - Suspected SepsisNotes: (Same as:Levaquin) sodium chloride 984.8 mL, Inactive 0.9% 1000 ml Rate: 100 2016 [facility] INJ 984.8 mL + ml/hr, Infuse M.V.I.-12 10 mL over: 10 hr, Daily + folic Route: IV, acid IV 1 mg Dosing Weight Daily + thia 60 kg, Total Volume: 1,000, Start date: 02/12/17 7:52:00 CDT, Duration: 10 hr, Stop date: 02/12/17 17:51:00 CDT Zofran 4 mg, Route: Inactive IVP, Drug 2016 [facility] form: INJ, ONCE, Dosing Weight 60, kg, Priority: STAT, Start date: 02/12/17 5:30:00 CDT, Stop date: 02/12/17 5:30:00 CDT Morphine 2 mg, Route: Inactive IVP, ONCE, 2016 [facility] Dosing Weight 60, kg, Priority: STAT, Start date: 02/12/17 5:29:00 CDT, Stop date: 02/12/17 5:29:00 CDT Sodium Chloride 1,000 mL, Inactive 0.9% IV 1000 mL Rate: 75 2016 [facility] ml/hr, Infuse over: 13.3 hr, Route: IV, Dosing Weight 60 kg, Total Volume: 1,000, Priority: STAT, Start date: 02/12/17 5:29:00 CDT, Duration: 1 doses or times, Stop date: 02/12/17 18:46:00 CDT sodium chloride 984.8 mL, Inactive 0.9% 1000 ml Rate: 100 2016 [facility] INJ 984.8 mL + ml/hr, Infuse M.V.I.-12 10 mL over: 10 hr, Daily + folic Route: IV, acid IV 1 mg Dosing Weight Daily + thia 60 kg, Total Volume: 1,000, Start date: 02/12/17 1:58:00 CDT, Duration: 1 doses or times, Stop date: 02/12/17 11:57:00 CDT Flagyl 500 mg, 100 Inactive mL, Route: 2016 [facility] IVPB, Drug form: INJ, ONCE, Dosing Weight 60, kg, Priority: STAT, Start date: 02/12/17 1:58:00 CDT, Duration: 1 doses or times, Stop date: 02/12/17 1:58:00 CDT, ABX Indication: Intra-abdomin al InfectionNote s: (Same as: Flagyl) Avoid alcohol. Levofloxacin 500 mg, 100 Inactive mL, Route: 2016 [facility] IVPB, Drug form: SOLN, ONCE, Dosing Weight 60, kg, Start date: 02/12/17 1:57:00 CDT, Duration: 1 doses or times, Stop date: 02/12/17 1:57:00 CDT, ABX Indication: Intra-abdomin al InfectionNote s: (Same as:Levaquin) Zofran 4 mg, 2 mL, Inactive Route: IVP2016 [facility] Drug form: INJ, ONCE, Dosing Weight 60, kg, Priority: STAT, Start date: 02/12/17 1:55:00 CDT, Stop date: 02/12/17 1:55:00 CDTNotes: (Same as: Zofran) MEDICATION WASTE Product Size: 4 mg Product Wasted: ___ mg Morphine 4 mg, 1 mL, Inactive Route: IVP, 2016 [facility] Drug form: SOLN, ONCE, Dosing Weight 60, kg, Priority: STAT, Start date: 02/12/17 1:54:00 CDT, Stop date: 02/12/17 1:54:00 CDTNotes: (Same as:MORPhine Sulfate) Sodium Chloride 1,000 mL, Inactive 0.9% (Bolus) IV 1,000 ml/hr, 2016 [facility] Infuse Over: 1 hr, Route: IV, 1,000, Drug form: INJ, ONCE, Priority: STAT, Dosing Weight 60 kg, Start date: 02/12/17 1:53:00 CDT, Duration: 1 doses or times, Stop date: 02/12/17 1:53:00 CDT Tylenol with 15 ml, Route: Inactive Codeine 120 PO, Drug 2016 [facility] mg-12 mg/5 mL Form: LIQ, oral liquid Dosing Weight 62.33, kg, Q4H, PRN Pain Score 1-3, Start date: 02/03/17 7:36:00 CDT, Duration: 30 day, Stop date: 03/05/17 7:35:00 CDTNotes: (acetaminophe n-codeine 120-12 mg/5 ml oral liq) Do not exceed 4gm/day of acetaminophen . (Same as: Tylenol w/Codeine) Omnipaque 300 50 ml, Route: Inactive PO, Drug 2016 [facility] Form: SOLN, Dosing Weight 62.33, kg, ONCE, Start date: 02/02/17 14:28:00 CDT, Stop date: 02/02/17 14:28:00 CDTNotes: (Same as:Omnipaque 300). WASTE: F/P - Black; E - Municipal Trash Bin influenza virus 0.5 mL, Inactive vaccine, Route: IM, 2016 [facility] inactivated Drug Form: SUSP, Daily, Start date: 02/02/17 12:00:00 CDT, Stop date: 02/02/17 23:00:00 CDTNotes: (Same as: Fluzone Quadrivalent, Fluarix Quadrivalent) For 3 years of age and older (0.5 mL IM) Shake well before use Lovenox 30 mg, 0.3 No Longer mL, Route: Active 2016 [facility] SUB-Q, Drug form: INJ, [id number], Dosing Weight 62.33, kg, Start date: 02/01/17 16:00:00 CDT, Duration: 30 day, Stop date: 03/02/17 22:00:00 CDTNotes: (Same as: Lovenox) Hydromorphone 15 mg, 30 mL, No Longer Route: IV, Active 2016 [facility] Initial Loading Dose: 0.4mg, [employer] Dose: 0.2 mg, [employer] Lockout: 10 minutes, Continuous Basal Rate: 0 mg, 4 Hour Limit (In MG): 6, Drug Form: INJ, Continuous, Start date: 02/01/17 10:00:00 CDT, Duration: 30 day, Stop date: 03/03/17...No sydnee: (Same as: Dilaudid) conc=0.5 mg/ml Hydromorphone [employer] Dose: ;Delay: ;Basal: Naloxone 0.04 mg, 0.1 No Longer mL, Route: Active 2016 [facility] IVP, Drug form: INJ, Q2MIN, Dosing Weight 62.33, kg, PRN Narcotic Reversal, Start date: 02/01/17 9:41:00 CDT, Duration: 30 day, Stop date: 03/03/17 9:40:00 CDTNotes: Same as Narcan influenza virus 0.5 mL, No Longer vaccine, Route: IM, Active 2016 [facility] inactivated Drug Form: SUSP, Daily, Start date: 02/01/17 9:00:00 CDT, Duration: 1 doses or times, Stop date: 02/01/17 9:00:00 CDTNotes: (Same as: Fluzone Quadrivalent, Fluarix Quadrivalent) For 3 years of age and older (0.5 mL IM) Shake well before use Metoclopramide 10 mg, 2 mL, No Longer Route: IVP, Active 2016 [facility] Drug form: INJ, Q8H, Dosing Weight 61.364, kg, Start date: 02/01/17 0:00:00 CDT, Duration: 30 day, Stop date: 03/02/17 16:00:00 CDTNotes: (Same as: Reglan) Famotidine 20 mg, 2 mL, No Longer Route: IVP, Active 2016 [facility] Drug form: INJ, Q12H, Dosing Weight 62.33, kg, Start date: 01/31/17 21:00:00 CDT, Duration: 30 day, Stop date: 03/02/17 9:00:00 CDTNotes: (Same as: Pepcid) Can be dilute in 5-10cc NS IVP: Slow IV push over at least 2 minutes. Ondansetron 4 mg, 2 mL, No Longer Route: IVP, Active 2016 [facility] Drug form: INJ, Q4H, Dosing Weight 61.364, kg, Start date: 01/31/17 20:00:00 CDT, Duration: 30 day, Stop date: 03/02/17 16:00:00 CDTNotes: (Same as: Zofran) MEDICATION WASTE Product Size: 4 mg Product Wasted: ___ mg Sucralfate 100 1 gm, 1 tab, No Longer MG/ML Oral Route: PO, Active 2016 [facility] Suspension Drug form: [Carafate] TAB, QID, Dosing [...] Dilaudid 0.5 mg, Inactive Route: IVP, 2016 [facility] ONCE, Dosing Weight 62.33, kg, Start date: 01/31/17 16:31:00 CDT, Stop date: 01/31/17 16:31:00 CDT Insulin Lispro 3 unit, 0.03 No Longer mL, Route: Active 2016 [facility] SUB-Q, Drug form: SOLN, Bedtime, Dosing Weight [...] 1,000 mL, Inactive Ringers Rate: 125 2016 [facility] Injection IV ml/hr, Infuse 1000 mL over: 8 hr, Route: IV, Dosing Weight 62.33 kg, Total Volume: 1,000, Start date: 01/31/17 16:25:00 CDT, Duration: 30 day, Stop date: 03/02/17 16:24:00 CDT Hydromorphone 0.5 mg, 0.5 No Longer mL, Route: Active 2016 [facility] IV, Drug form: INJ, Q3H, Dosing Weight 61.364, kg, PRN Pain Score 6-10, Start date: 01/31/17 16:25:00 CDT, Duration: 30 day, Stop date: 03/02/17 16:24:00 CDT Promethazine 25 mg, 1 No Longer supp, Route: Active 2016 [facility] NE, Drug form: SUPP, Q4H, Dosing Weight 61.364, kg, PRN Nausea & Vomiting, Start date: 01/31/17 16:25:00 CDT, Duration: 30 day, Stop date: 03/02/17 16:24:00 CDTNotes: (Same as: Phenergan) Acetaminophen 15 mL, Route: No Longer 21.7 MG/ML / PO, Drug Active 2016 [facility] Hydrocodone Form: SOLN, Bitartrate 0.5 Dosing Weight MG/ML Oral 62.33, kg, Solution Q4H, PRN Pain Score 4-6, Start date: 01/31/17 16:25:00 CDT, Duration: 30 day, Stop date: 03/02/17 16:24:00 CDTNotes: Do not exceed 4gm/day of acetaminophen . (Same as: [place] 325/7.5) Metoprolol 2.5 mg, 2.5 No Longer mL, Route: Active 2016 [facility] IVP, Drug form: INJ, Q6H, Dosing Weight 62.33, kg, PRN Elevated BP, Systolic BP >180 or Diastolic BP >100, Start date: 01/31/17 16:25:00 CDT, Duration: 30 day, Stop date: 03/02/17 16:24:00 CDTNotes: (Same as: Lopressor) Push over 2 minutes Calcium 1,000 mL, No Longer Chloride 0.0014 Rate: 125 Active 2016 [facility] MEQ/ML / ml/hr, Infuse Potassium over: 8 hr, Chloride 0.004 Route: IV, MEQ/ML / Sodium Dosing Weight Chloride 0.103 62.33 kg, MEQ/ML / Sodium Total Volume: Lactate 0.028 1,000, Start MEQ/ML date: Injectable 01/31/17 Solution 16:25:00 CDT, Duration: 30 day, Stop date: 03/02/17 16:24:00 CDT Dilaudid 0.5 mg, Inactive Route: IVP, 2016 [facility] ONCE, Dosing Weight 62.33, kg, Start date: 01/31/17 16:07:00 CDT, Stop date: 01/31/17 16:07:00 CDT Dilaudid 0.5 mg, Inactive Route: IVP, 2016 [facility] ONCE, Dosing Weight 62.33, kg, Start date: 01/31/17 15:55:00 CDT, Stop date: 01/31/17 15:55:00 CDT hydromorphone Route: IV, Inactive (ANES) Drug form: 2016 [facility] INJ, ONCE, Stop date: 01/31/17 15:47:00 CDT Dilaudid 0.5 mg, Inactive Route: IVP, 2016 [facility] ONCE, Dosing Weight 62.33, kg, Start date: 01/31/17 15:47:00 CDT, Stop date: 01/31/17 15:47:00 CDT rocuronium Route: IV, Inactive (ANES) Drug form: 2016 [facility] INJ, ONCE, Stop date: 01/31/17 14:08:00 CDT lidocaine Route: IV, Inactive (ANES) Drug form: 2016 [facility] INJ, ONCE, Stop date: 01/31/17 14:08:00 CDT fentaNYL (ANES) Route: IV, Inactive Drug form: 2016 [facility] INJ, ONCE, Stop date: 01/31/17 13:38:00 CDT propofol (ANES) Route: IV, Inactive Drug form: 2016 [facility] INJ, ONCE, Stop date: 01/31/17 13:38:00 CDT acetaminophen Route: IV, Inactive (ANES) Drug form: 2016 [facility] INJ, ONCE, Stop date: 01/31/17 13:33:00 CDT midazolam Route: IV, Inactive (ANES) Drug form: 2016 [facility] SOLN, ONCE, Stop date: 01/31/17 13:23:00 CDT ondansetron Route: IV, Inactive (ANES) Drug form: 2016 [facility] INJ, ONCE, Stop date: 01/31/17 13:23:00 CDT levofloxacin Route: IV, Inactive (ANES) Drug form: 2016 [facility] INJ, ONCE, Stop date: 01/31/17 13:18:00 CDT sodium chloride Route: IV, Inactive 0.9% 1000 ml Total Volume: 2016 [facility] INJ (ANES) 1,000, Start date: 01/31/17 12:40:00 CDT, Stop date: 01/31/17 13:40:00 CDT LR 1000 mL INJ Route: IV, Inactive (ANES) Total Volume: 2016 [facility] 1,000, Start date: 01/31/17 12:34:00 CDT, Stop date: 01/31/17 13:34:00 CDT Acetaminophen 1 tab, PO, Active 325 MG / Q6H, 0 2016 [facility] Hydrocodone Refill(s) Bitartrate 5 MG Oral Tablet [[place] 5/325] heparin 5,000 unit, Inactive Route: SUB-Q, 2016 [facility] ONCE, Dosing Weight 62.33, kg, Start date: 01/31/17 11:21:00 CDT, Stop date: 01/31/17 11:21:00 CDT sodium chloride 984.8 mL, Inactive 0.9% 1000 ml Rate: 100 2016 [facility] INJ 984.8 mL + ml/hr, Infuse M.V.I.-12 10 mL over: 10 hr, Daily + folic Route: IV, acid IV 1 mg Dosing Weight Daily + thia 62.33 kg, Total Volume: 1,000, Start date: 01/31/17 11:21:00 CDT, Duration: 1 doses or times, Stop date: 01/31/17 21:20:00 CDT Levofloxacin 500 mg, Inactive Route: IVPB, 2017 [facility], Dosing Weight 62.33, kg, Start date: 01/31/17 11:00:00 CDT, Duration: 1 doses or times, ABX Indication: Surgical Prophylaxis Emend 40 mg, Route: Inactive PO, Drug 2016 [facility] form: CAP, PRE OP, Dosing Weight 61.364, kg, Start date: 01/31/17 11:00:00 CDT, Duration: 1 doses or times Sodium Chloride 984.8 mL, Inactive 0.9% IV 984.8 Rate: 125 2016 [facility] mL + M.V.I.-12 ml/hr, Infuse 10 mL + folic over: 7.9 hr, acid IV 1 mg + Route: IV, thiamine IV 500 Dosing Weight mg 62.33 kg, Total Volume: 984.8, Start date: 01/31/17 10:13:00 CDT, Duration: 1 doses or times, Stop date: 01/31/17 18:06:00 CDT 72 HR 1 patch, Inactive Scopolamine Route: TOP, 2016 [facility] 0.0139 MG/HR Drug Form: Transdermal ERFILM, Patch Dosing Weight 61.364, kg, ONCE, Start date: 01/31/17 10:13:00 CDT, Stop date: 01/31/17 10:13:00 CDT Lactated 1,000 mL, Inactive Ringers Rate: 125 2016 [facility] Injection IV ml/hr, Infuse 1000 mL over: 8 hr, Route: IV, Dosing Weight 62.33 kg, Total Volume: 1,000, Start date: 01/31/17 10:13:00 CDT, Duration: 11 day, Stop date: 02/11/17 10:12:00 CDT thiamine 100 mg 100 mg=1 tab, Active oral tablet PO, Daily, # 2017 [facility] 30 tab, 0 Refill(s), Pharmacy: [facility] [id number] sodium chloride 984.8 mL, Inactive 0.9% 1000 ml Rate: 100 2016 [facility] INJ 984.8 mL + ml/hr, Infuse M.V.I.-12 10 mL over: 10 hr, Daily + folic Route: IV, acid IV 1 mg Dosing Weight Daily + thia 61.364 kg, Total Volume: 1,000, Start date: 01/18/17 11:37:00 CDT, Duration: 1 doses or times, Stop date: 01/18/17 21:36:00 CDT ferric oxide, 300 mg, 15 Inactive saccharated mL, Route: 2016 [facility] IVPB, Drug form: INJ, ONCE, Dosing Weight 61.364, kg, Start date: 01/18/17 7:57:00 CDT, Duration: 1 doses or times, Stop date: 01/18/17 7:57:00 CDTNotes: Each 5ml contains 100mg elemental iron. Mix with NS Non-Formulary (Same as:Venofer) Administer IV only. MEDICATION WASTE Product Size: 100 mg Product Wasted: ___ mg Ferrlecit 100 mg, 8 mL, No Longer Route: IVPB, Active 2016 [facility] Drug form: INJ, ONCE, Dosing Weight 61.364, kg, Start date: 01/17/17 23:28:00 CDT, Stop date: 01/17/17 23:28:00 CDTNotes: (sodium ferric gluconate complex (elemental iron) 62.5 mg/5 ml INJ) "Limited stability. 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 (Same as: KCL) Potassium 20 mEq, Inactive Chloride Route: IVPB, 2016 [facility] ONCE, Dosing Weight 61.364, kg, Start date: 01/16/17 13:41:00 CDT, Stop date: 01/16/17 13:41:00 CDT D5W 1/2NS + KCL 1,000 mL, No Longer 20mEq/L 1000ml Rate: 60 Active 2016 [facility] (Premix) 1,000 ml/hr, Infuse mL over: 16.7 hr, Route: IV, Dosing Weight 61.364 kg, Total Volume: 1,000, Start date: 01/16/17 13:40:00 CDT, Stop date: 02/15/17 13:39:00 CDTNotes: PREMIX IV - Do Not Alter WASTE: F/P - Sink; E - Municipal Trash Bin Clonazepam 1 mg, 1 tab, No Longer Route: PO, Active 2016 [facility] Drug form: TAB, BID, Dosing Weight 61.364, kg, Start date: 01/16/17 12:00:00 CDT, Duration: 30 day, Stop date: 02/15/17 9:00:00 CDTNotes: (Same As: KlonoPIN) Thiamine 100 mg, 1 mL, No Longer Route: IVPB, Active 2016 [facility] Drug form: INJ, Daily, Dosing Weight 61.364, kg, Priority: NOW, Start date: 01/16/17 9:33:00 CDT, Duration: 30 day, Stop date: 02/15/17 9:00:00 CDTNotes: (Same As: Vitamin B1) Protonix 40 mg, Route: No Longer IVP, Drug Active 2016 [facility] form: INJ, Daily, Dosing Weight 60, kg, Patient is NPO, Start date: 01/16/17 9:00:00 CDT, Duration: 30 day, Stop date: 02/14/17 9:00:00 CDTNotes: For IV push reconstitute with 10 ml 0.9% sodium chloride and push over 2 minutes. (Same as: Protonix) Clonazepam 1 mg, PO, Active BID, 0 2016 Refill(s) Morphine 4 mg, 1 mL, No Longer Route: IV, Active 2016 [facility] Drug form: SOLN, Q4H, Dosing Weight 60, kg, PRN Pain Score 6-10, Start date: 01/15/17 17:25:00 CDT, Duration: 30 day, Stop date: 02/14/17 17:24:00 CDTNotes: (Same as:MORPhine Sulfate) Clonidine 0.1 mg, 1 No Longer Hydrochloride tab, Route: 2016 [facility] 0.1 MG Oral PO, Drug Tablet form: TAB, Q6H, Dosing Weight 60, kg, PRN Elevated BP, Start date: 01/15/17 17:24:00 CDT, Duration: 30 day, Stop date: 02/14/17 17:23:00 CDT, SBP > 165Notes: (Same As: Catapres) Restoril 15 mg, 1 cap, No Longer Route: PO, 2016 [facility] Drug form: CAP, Bedtime, Dosing Weight 60, kg, PRN Sleep, Start date: 01/15/17 17:24:00 CDT, Duration: 30 day, Stop date: 02/14/17 17:23:00 CDTNotes: (Same As: Restoril) Tylenol 650 mg, 20.3 No Longer mL, Route: Active 2016 [facility] PO, Drug form: LIQ, Q6H, Dosing Weight 60, kg, PRN Other -See Comment, Start date: 01/15/17 17:24:00 CDT, Duration: 30 day, Stop date: 02/14/17 17:23:00 CDT, fever, pain, headacheNotes : Max acetaminophen =4000mg/day (4 gm/day). (Same as: Tylenol) sodium chloride 1,000 mL, No Longer 0.9% 1000 ml Rate: 100 Active 2016 [facility] INJ 1,000 mL ml/hr, Infuse over: 10 hr, Route: IV, Dosing Weight 60 kg, Total Volume: 1,000, Start date: 01/15/17 17:24:00 CDT, Duration: 30 day, Stop date: 02/14/17 17:23:00 CDT Ondansetron 4 mg, 2 mL, No Longer Route: IVP, Active 2016 [facility] Drug form: INJ, Q6H, Dosing Weight 60, kg, PRN Nausea & Vomiting, Start date: 01/15/17 17:23:00 CDT, Duration: 30 day, Stop date: 02/14/17 17:22:00 CDTNotes: (Same as: Zofran) MEDICATION WASTE Product Size: 4 mg Product Wasted: ___ mg Sodium Chloride 1,000 mL, Inactive 0.9% IV 1000 mL Rate: 100 2016 [facility] + M.V.I.-12 10 ml/hr, Infuse mL Daily + over: 10 hr, folic acid IV 1 Route: IV, mg Daily + Dosing Weight thiamine IV 10 60 kg, Total Volume: 1,000, Start date: 01/15/17 14:50:00 CDT, Duration: 1 doses or times, Stop date: 01/16/17 0:49:00 CDT Morphine 4 mg, 1 mL, Inactive Route: IV2016 [facility] Drug form: SOLN, ONCE, Dosing Weight 62.273, kg, Priority: STAT, Start date: 01/15/17 14:03:00 CDT, Stop date: 01/15/17 14:03:00 CDTNotes: (Same as:MORPhine Sulfate) Ondansetron 4 mg, 2 mL, Inactive Route: IVP2016 [facility] Drug form: INJ, ONCE, Dosing Weight 62.273, kg, Priority: STAT, Start date: 01/15/17 14:03:00 CDT, Stop date: 01/15/17 14:03:00 CDTNotes: (Same as: Zofran) MEDICATION WASTE Product Size: 4 mg Product Wasted: ___ mg Sodium Chloride 1,000 mL, Inactive 0.9% (Bolus) IV 1000 ml/hr, 2016 Infuse Over: 1 hr, Route: IV, 1,000, Drug form: INJ, ONCE, Priority: STAT, Dosing Weight 62.273 kg, Start date: 01/15/17 14:03:00 CDT, Duration: 1 doses or times, Stop date: 01/15/17 14:03:00 CDT Saline Flush 10 mL, Route: No Longer 0.9% IVP, Drug Active 2016 Form: INJ, Dosing Weight 62.273, kg, PRN, PRN Line Flush, Start date: 01/15/17 14:03:00 CDT, Duration: 30 day, Stop date: 02/14/17 14:02:00 CDTNotes: (Same as: BD Posiflush) ferrous sulfate 325 mg, 1 No Longer tab, Route: Active 2016 PO, Drug form: ECTAB, Daily, Dosing Weight [...] 1 Inactive 100 MG Oral cap, Route: 2016 [facility] Capsule PO, Drug [Colace] form: CAP, Bedtime, Dosing Weight 62.273, kg, Start date: 12/16/16 21:00:00 CDT, Duration: 30 day, Stop date: 01/14/17 21:00:00 CDTNotes: (Same as: Colace) (Do Not Crush) ferrous sulfate 325 mg, PO, Active 325 mg oral Daily, # 30 2017 [facility] enteric coated tab, 0 tablet Refill(s), Pharmacy: [facility] [id number] Docusate Sodium 100 mg=1 cap, Active 100 MG Oral PO, Bedtime, 2017 [facility] Capsule # 30 cap, 0 [Colace] Refill(s), Pharmacy: [facility] [id number] pantoprazole 20 40 mg=2 tab, Active MG Enteric PO, Daily, # 2017 [facility] Coated Tablet 60 tab, 0 [Protonix] Refill(s), Pharmacy: [facility] [id number] Pepcid 20 mg, 2 mL, No Longer Route: IVP, Active 2016 [facility] Drug form: INJ, Q12H, Dosing Weight 62.273, kg, Start date: 12/15/16 21:00:00 CDT, Duration: 30 day, Stop date: 01/14/17 9:00:00 CDTNotes: (Same as: Pepcid) Can be dilute in 5-10cc NS IVP: Slow IV push over at least 2 minutes. Ambien 10 mg, 1 tab, No Longer Route: PO, Active 2016 [facility] Drug form: TAB, Bedtime, Dosing Weight 62.273, kg, Start date: 12/15/16 21:00:00 CDT, Duration: 30 day, Stop date: 01/13/17 21:00:00 CDTNotes: (Same As: Ambien) Insulin, 4 unit, 0.04 No Longer Aspart, Human mL, Route: Active 2016 [facility] SUB-Q, Drug form: SOLN, TID-Before Meals, Dosing [...] Route: No Longer IM, Drug Active 2016 [facility] form: PDR/INJ, PRN, Dosing Weight 62.273, kg, PRN Blood Glucose Results, Start date: 12/15/16 20:56:00 CDT, Duration: 30 day, Stop date: 01/14/17 20:55:00 CDT Dextrose 50% 25 gm, 50 mL, No Longer Syringe Route: IVP, Active 2016 [facility] Drug Form: INJ, Dosing Weight 62.273, kg, PRN, PRN Blood Glucose Results, Start date: 12/15/16 20:56:00 CDT, Duration: 30 day, Stop date: 01/14/17 20:55:00 CDT sodium chloride 1,000 mL, Inactive 0.9% 1000 ml Rate: 100 2016 [facility] INJ 1,000 mL + ml/hr, Infuse M.V.I.-12 10 mL over: 10.2 Daily + folic hr, Route: acid IV 1 mg IV, Dosing Daily + thia Weight 62.273 kg, Total Volume: 1,015.2, Start date: 12/15/16 15:54:00 CDT, Duration: 1 doses or times, Stop date: 12/16/16 2:05:00 CDT D5W 1/2NS + KCL 1,000 mL, No Longer 20mEq/L 1000ml Rate: 125 Active 2016 [facility] ([facility]) 1,000 ml/hr, Infuse mL over: 8 hr, Route: IV, Dosing Weight 62.273 kg, Total Volume: 1,000, Start date: 12/15/16 12:18:00 CDT, Duration: 30 day, Stop date: 01/14/17 12:17:00 CDTNotes: PREMIX IV - Do Not Alter WASTE: F/P - Sink; E - Municipal Trash Bin Omnipaque 300 100 ml, Inactive Route: IV, 2016 [facility] Drug Form: SOLN, Dosing Weight 62.273, kg, ONCE, Start date: 12/15/16 11:58:00 CDT, Stop date: 12/15/16 11:58:00 CDTNotes: (Same as:Omnipaque 300). WASTE: F/P - Black; E - Municipal Trash Bin Omnipaque 300 25 ml, Route: Inactive PO, Drug 2016 [facility] Form: SOLN, Dosing Weight 62.273, kg, ONCE, [...] No Longer Dinitrate Route: PO, Active 2016 [facility] Drug form: TAB, BID, Dosing Weight 62.273, kg, Start date: 12/15/16 9:00:00 CDT, Duration: 30 day, Stop date: 01/13/17 17:00:00 CDTNotes: (Same as:Isordil) Take on empty stomach/ full glass of water Abilify 5 mg, 1 tab, No Longer Route: PO, Active 2016 [facility] Drug form: TAB, Daily, Dosing Weight 62.273, kg, Start date: 12/15/16 9:00:00 CDT, Duration: 30 day, Stop date: 01/13/17 9:00:00 CDTNotes: Non-Formulary Drug. (Same as: Abilify) Protonix 40 mg, 1 tab, No Longer Route: PO, Active 2016 [facility] Drug form: ECTAB, Before Breakfast, Dosing Weight 62.273, kg, Start date: 12/15/16 7:30:00 CDT, Duration: 30 day, Stop date: 01/13/17 7:30:00 CDTNotes: Tablet should not be chewed or crushed. (Same as: Protonix) Emend 40 mg, 1 cap, Inactive Route: PO, 2016 [facility] Drug form: CAP, ONCE, Dosing Weight 62.273, kg, Start date: 12/15/16 6:00:00 CDT, Stop date: 12/15/16 6:00:00 CDTNotes: Same as: Emend restricted to the Hematology/On cology service for high and moderate emetogenic regimen according to ASCO Guidelines Passthrough Only for Chemotherapy- Induced nausea & vomiting sodium chloride 984.8 mL, Inactive 0.9% 1000 ml Rate: 100 2016 [facility] INJ 984.8 mL + ml/hr, Infuse M.V.I.-12 10 mL over: 10 hr, Daily + folic Route: IV, acid IV 1 mg Dosing Weight Daily + thia 62.273 kg, Total Volume: 1,000, Start date: 12/15/16 5:53:00 CDT, Duration: 3 day, Stop date: 12/18/16 5:52:00 CDT Acetaminophen 1 tab, Route: No Longer 325 MG / PO, Drug Active 2016 [facility] Hydrocodone Form: TAB, Bitartrate 10 Dosing Weight MG Oral Tablet 62.273, kg, [[place] 10/325] Q4H, PRN Pain Score 4-6, Start date: 12/15/16 3:13:00 CDT, Duration: 30 day, Stop date: 01/14/17 3:12:00 CDTNotes: Do not exceed 4gm/day of acetaminophen . (Same as: [place] 325/10) sodium chloride 1,000 mL, Inactive 0.9% 1000 ml Rate: 75 2016 [facility] INJ 1,000 mL ml/hr, Infuse over: 13.3 hr, Route: IV, Dosing Weight 62.273 kg, Total Volume: 1,000, Start date: 12/15/16 3:13:00 CDT, Duration: 30 day, Stop date: 01/14/17 3:12:00 CDT Ondansetron 4 mg, 2 mL, No Longer Route: IVP, Active 2016 [facility] Drug form: INJ, Q6H, Dosing Weight 62.273, kg, PRN Nausea & Vomiting, Start date: 12/15/16 3:11:00 CDT, Duration: 30 day, Stop date: 01/14/17 3:10:00 CDTNotes: (Same as: Zofran) MEDICATION WASTE Product Size: 4 mg Product Wasted: ___ mg Morphine 2 mg, 1 mL, No Longer Route: IVP, Active 2016 [facility] Drug form: INJ, Q4H, Dosing Weight 62.273, kg, PRN Pain Score 7-10, Start date: 12/15/16 3:11:00 CDT, Duration: 30 day, Stop date: 01/14/17 3:10:00 CDTNotes: (Same as:MORPhine Sulfate) Acetaminophen 650 mg, 2 No Longer tab, Route: Active 2016 [facility] PO, Drug form: TAB, Q4H, Dosing Weight 62.273, kg, PRN Pain 1-3/Temp > 100.4 F, Start date: 12/15/16 3:11:00 CDT, Duration: 30 day, Stop date: 01/14/17 3:10:00 CDTNotes: Do not exceed 4 gm/day. (Same as: Tylenol) Cardizem 0 Refill(s) Active 2016 [facility] 12 HR 500 mg=1 tab, Active ranolazine 500 PO, BID, # 60 2016 [facility] Extended tab, 0 Release Tablet Refill(s) [Ranexa] aripiprazole 5 5 mg=1 tab, Active MG Oral Tablet PO, Daily, # 2017 [Abilify] 30 tab, 0 Refill(s) pantoprazole 20 40 mg=2 tab, No Longer MG Enteric PO, Daily, # Active 2016 [facility] Coated Tablet 60 tab, 0 [Protonix] Refill(s) Acetaminophen 2 tab, PO, Active 325 MG / Q6H, PRN for 2017 Oxycodone pain, 0 Hydrochloride Refill(s) 10 MG Oral Tablet Furosemide 20 20 mg=1 tab, Active MG Oral Tablet PO, Daily, # 2017 30 tab, 0 Refill(s) clopidogrel 75 75 mg=1 tab, Active MG Oral Tablet PO, Daily, # 2017 [Plavix] 30 tab, 0 Refill(s) isosorbide 10 mg=1 tab, Active dinitrate 10 mg PO, BID, # 60 2015 [place] oral tablet tab, 0 Refill(s) Aspirin 325 MG 325 mg, No Longer Oral Tablet Route: PO, Active 2015 [place] Drug form: TAB, Daily, Dosing Weight 65.028, kg, Start date: 04/08/16 9:00:00 PR[employer]ER HAND, Duration: 30 day, Stop date: 05/07/16 9:00:00 [employer] Plavix 75 mg, 1 tab, Inactive Route: PO, 2015 [place] Drug form: TAB, Daily, Dosing Weight 65.028, kg, Start date: 04/08/16 9:00:00 PRIZER HAND, Duration: 30 day, Stop date: 05/07/16 9:00:00 CSTNotes: (Same As: Plavix) Verapamil 40 mg, 1 tab, Inactive Route: PO, 2015 [place] Drug form: TAB, Daily, Dosing Weight 65.028, kg, Start date: 04/08/16 9:00:00 PRIZER HAND, Duration: 30 day, Stop date: 05/07/16 9:00:00 CSTNotes: (Same As: Luke Zhang) "Avoid grapefruit and grapefruit juice" Clonazepam 1 mg, 1 tab, No Longer Route: PO, Active 2015 [place] Drug form: TAB, BID, Dosing Weight 65.028, kg, Start date: 04/07/16 17:00:00 PRIZER HAND, Duration: 30 day, Stop date: 05/07/16 9:00:00 CSTNotes: (Same As: KlonoPIN) Isordil 10 mg, 1 tab, No Longer Titradose Route: PO, Active 2015 [place] Drug form: TAB, BID, Dosing Weight 65.028, kg, Start date: 04/07/16 17:00:00 PRIZER HAND, Duration: 30 day, Stop date: 05/07/16 9:00:00 CSTNotes: (Same as:Isordil) Take on empty stomach/ full glass of water Protonix 40 mg, 1 tab, No Longer Route: PO, Active 2015 [place] Drug form: ECTAB, Before Dinner, Dosing Weight 65.028, kg, Start date: 04/07/16 16:30:00 PRIZER HAND, Duration: 30 day, Stop date: 05/06/16 16:30:00 CSTNotes: Tablet should not be chewed or crushed. (Same as: Protonix) Morphine 1 mg, 0.5 mL, No Longer Route: IVP, Active 2015 [place] Drug form: INJ, Q4H, Dosing Weight 65.028, kg, PRN Pain Score 7-10, Start date: 04/07/16 14:20:00 PRIZER HAND, Duration: 30 day, Stop date: 05/07/16 14:19:00 CSTNotes: (Same as:MORPhine Sulfate) Abilify 5 mg, 1 tab, No Longer Route: PO, Active 2015 [place] Drug form: TAB, Daily, Dosing Weight 65.028, kg, Priority: STAT, Start date: 04/07/16 14:09:00 PRIZER HAND, Duration: 30 day, Stop date: 05/07/16 9:00:00 CSTNotes: Non-Formulary Drug. (Same as: Abilify) Ambien 5 mg, Route: Inactive PO, Bedtime, 2015 [place] Dosing Weight 65.028, kg, PRN as needed for sleep, Start date: 04/07/16 14:06:00 PRIZER HAND, Duration: 30 day, Stop date: 05/07/16 14:05:00 PRIZER HAND Saline Flush 10 ml, Route: No Longer 0.9% IVP, Drug Active 2015 [place] Form: INJ, Dosing Weight 61.818, kg, Q12H, Start date: 04/07/16 9:00:00 PRIZER HAND, Duration: 30 day, Stop date: 05/06/16 21:00:00 CSTNotes: (Same as: BD Posiflush) aspirin 81 mg 81 mg, 1 tab, No Longer tablet, enteric Route: PO, Active 2015 [place] coated Drug form: ECTAB, Daily, Dosing Weight 61.818, kg, Start date: 04/07/16 9:00:00 PRIZER HAND, Duration: 30 day, Stop date: 05/06/16 9:00:00 CSTNotes: Do not crush or chew. (Same As: Ecotrin) pneumococcal 0.5 mL, Inactive capsular Route: IM, 2015 [place] polysaccharide Drug Form: type 1 vaccine INJ, Daily, / pneumococcal Start date: capsular 04/07/16 polysaccharide 9:00:00 PRIZER HAND, type 10A Duration: 1 vaccine / doses or pneumococcal times, Stop capsular date: polysaccharide 04/07/16 type 11A 9:00:00 vaccine / CSTNotes: pneumococcal (Same as: capsular Pneumovax 23) polysaccharide Refrigerate type 12F vaccine / pneumococcal capsular polysacchar Ambien 5 mg, 1 tab, No Longer Route: PO, Active 2015 [place] Drug form: TAB, Bedtime, PRN Sleep, Start date: 04/07/16 2:32:00 PRIZER HAND, Duration: 30 day, Stop date: 05/07/16 2:31:00 CSTNotes: (Same As: Ambien) Saline Flush 10 ml, Route: No Longer 0.9% IVP, Drug Active 2015 [place] Form: INJ, Dosing Weight 61.818, kg, PRN, PRN Line Flush, Start date: 04/07/16 1:32:00 PRIZER HAND, Duration: 30 day, Stop date: 05/07/16 1:31:00 CSTNotes: (Same as: BD Posiflush) Ondansetron 4 mg, 1 tab, No Longer Route: PO, Active 2015 [place] Drug form: TAB, Q8H, Dosing Weight 61.818, kg, PRN Nausea & Vomiting, Start date: 04/07/16 1:32:00 PRIZER HAND, Duration: 30 day, Stop date: 05/07/16 1:31:00 CSTNotes: (Same as: Zofran) Nitroglycerin 0.4 mg, 1 No Longer tab, Route: Active 2015 [place], Drug form: TAB, Q5Min, Dosing Weight 61.818, kg, PRN Chest Pain, Start date: 04/07/16 1:32:00 PRIZER HAND, Duration: 3 doses or times, Stop date: Limited # of timesNotes: (Same as:Nitroquick , Nitrostat) "Do Not Crush" Sublingual tablet Acetaminophen 1 tab, Route: No Longer 325 MG / PO, Drug Active 2015 [place] Hydrocodone Form: TAB, Bitartrate 10 Dosing Weight MG Oral Tablet 61.818, kg, [[place] 10/325] Q4H, PRN Pain Score 1-3, Start date: 04/07/16 1:28:00 PRIZER HAND, Duration: 30 day, Stop date: 05/07/16 1:27:00 CSTNotes: Do not exceed 4gm/day of acetaminophen . (Same as: [place] 325/10) Ambien 10 mg, Route: Inactive PO, Bedtime, 2015 [place] Dosing Weight 61.818, kg, PRN Insomnia, Start date: 04/07/16 1:28:00 PRIZER HAND, Duration: 30 day, Stop date: 05/07/16 1:27:00 PRIZER HAND meclizine 25 mg 25 mg=1 tab, Active [place] oral tablet PO, BID, as 2014 Medical needed for Center dizziness, # 60 tab, 0 Refill(s) Sodium Chloride 1,000 mL, Inactive [place] 0.154 [...] Refill(s) release Tylenol 650 mg, 2 Inactive [place] tab, Route: 2013 Medical PO, Drug Center form: TAB, Q6H, Dosing Weight 90.909, kg, PRN Pain Score 1-3, Priority: NOW, Start date: 02/24/14 10:14:00, Stop date: 03/26/14 11:10:00Notes : Do not exceed 4 gm/day. (Same as: Tylenol) Tylenol 650 mg, Inactive [place] Route: PO, 2013 Medical Drug form: Center TAB, Q6H, Dosing Weight 90.909, kg, PRN Pain Score 1-3, Priority: NOW, Start date: 02/24/14 10:11:00, Duration: 30 day, Stop date: 03/26/14 10:10:00 Fluoxetine 80 mg, 4 cap, Inactive [facility] Route: PO, 2013 Medical Drug form: Center CAP, Daily, Dosing Weight 90.909, kg, Start date: 02/24/14 9:00:00, Duration: 30 day, Stop date: 03/25/14 9:00:00Notes: (Same as: Prozac, Sarafem) Ambien 5 mg, 1 tab, Inactive [facility] Route: PO, 2013 Medical Drug form: Center TAB, Bedtime, Dosing Weight 90.909, kg, Start date: 02/24/14 0:45:00, Duration: 30 day, Stop date: 03/25/14 21:00:00Notes : (Same As: Ambien) Ambien 20 mg, PO, Active [facility] Bedtime, 0 2013 Medical Refill(s) Center Lamictal 400 mg, Inactive [facility] Route: PO, 2013 Medical Bedtime, Center Dosing Weight 90.909, kg, Start date: 02/23/14 21:00:00, Duration: 30 day, Stop date: 03/24/14 21:00:00 Lamictal 400 mg, 2 No Longer [facility] tab, Route: Active 2013 Medical PO, [...] Active [place] MG Oral Tablet PO, Bedtime, 2014 Medical # 180 tab, 0 Center Refill(s) OXcarbazepine 900 mg=3 tab, Active [place] 300 mg oral PO, BID 2013 Medical tablet Center rizatriptan 10 10 mg=1 tab, Active [place] mg oral tablet, PO, Daily, 2013 Medical disintegrating for migraine Center headache terbinafine 250 250 mg=1 tab, Active [place] mg oral tablet PO, Daily, 0 2013 Medical Refill(s) Center Dilantin 100 mg, 1 No Longer [place] cap, Route: Active 2013 Medical PO, Drug [...] Lorazepam 1 mg, 0.5 mL, No Longer [place] Route: IVP, Active 2013 Medical Drug form: [...] date: 02/23/14 1:08:00, Stop date: 02/23/14 1:08:00 Clonazepam 1 tablet Orally Active 1 MG [...] Nitroglycerin 1 tablet Sublingual Active 0.4 MG Laotya Enayet Sublingual as Rahim needed (prn) Ranexa 1 tablet Orally Active 500 MG Orally Latoya Enayet Twice a day Rahim [place] 1 tablet as Orally Active 10-325 MG Latoya Enayet needed Orally every Rahim 6 hrs Hydrocortisone not defined Oral Active 10 MG Oral Reyes 2.16.840.1 .281847.4. 68 Carafate TK 10 ML PO Oral Active 1 GM/10ML Reyes 2.16.840.1 FOUR TIMES A Oral .353747.4. DAY FOR 6 .11.225 WEEKS 68 Ferrous Sulfate TK 1 T PO QD Oral Active 325 (65 Fe) Reyes 2.16.840.1 MG Oral .083901.4. 391 68 Aripiprazole TK 1 T PO QD Oral Active 5 MG Oral Reyes 2.16.840.1 .724055.4. 68 Vancomycin HCl not defined Intravenou Active 1.75-0.9 Reyes 2.16.840.1 in NaCl s GM/300ML .032930.4. Intravenous [address] 1 T Sublingual Active 0.4 MG Reyes 2.16.840.1 UNDER THE Sublingual .224997.4. TONGUE Q 5 391.11.225 MINUTES PRN 68 FOR CHEST PAIN. DO NOT EXCEED 3 DOSES IN 15 MINUTES. Oxycodone-Aceta (Schedule II Oral Active 10-325 MG Reyes 2.16.840.1 minophen Drug) TK 1 T Oral .380338.4. PO Q 6 H PRN 391.11.[address] 1 T Sublingual Active 0.4 MG Reyes 2.16.840.1 UNDER THE Sublingual .897430.4. TONGUE Q 5 391.11.225 MINUTES PRF 68 CHEST PAIN. DO NOT EXCEED 3 DOSES IN 15 MINUTES. Clonazepam (Schedule IV Oral Active 1 MG Oral Reyes 2.16.840.1 Drug) TK 1 T .824838.4. PO BID. 391.11.225 68 Omeprazole TK 1 C PO Oral Active 20 MG Oral Reyes 2.16.840.1 TWICE A DAY .794918.4. FOR 6 WEEKS 391.11.225 68 Clopidogrel TK 1 T PO Oral Active 75 MG Oral Reyes 2.16.840.1 Bisulfate ONCE D. .393413.4. 391.11.225 68 Zolpidem (Schedule IV Oral Active 10 MG Oral Reyes 2.16.840.1 Tartrate Drug) TK 1 T .378075.4. PO HS PRN 391.11.225 68 Furosemide TK 1 T PO Oral Active 20 MG Oral Reyes 2.16.840.1 ONCE DAILY .623780.4. 391.11.225 68 Pantoprazole TK 2 TS PO D Oral Active 20 MG Oral Reyes 2.16.840.1 Sodium .533027.4. 391.11.225 68 DOK TK 1 C PO HS Oral Active 100 MG Oral Reyes 2.16.840.1 .881972.4. 391.11.225 68 Hydrocodone-Thomas (Schedule II Oral Active 10-325 MG Reyes 2.16.840.1 taminophen Drug) TK 1 T Oral .079316.4. PO Q 6 H 391.11.225 PRN. 68 Ropinirole HCl TK 1 T PO TID Oral Active 1 MG Oral Reyes 2.16.840.1 PRN .976429.4. 391 68 Vancomycin HCl not defined Intravenou Active 1.75-0.9 Reyes 2.16.840.1 in NaCl s GM/300ML .098622.4. Intravenous 391 68 Protonix 1 packet Orally Active 40 MG Orally Latoya Enayet BID Rahim Protonix 2 tablets Orally Active 20 MG Orally Latoya Enayet Once a day Rahim Allergies, Adverse Reactions, Alerts Substance Category Reaction Severity Reaction Status Date Comments Source type Reported NSAIDS Adverse Info Not Adverse Active 2.16.840.1 Reaction Available Reaction 7 .930365.4. 68 Aspirin Adverse stomach Adverse Active Enayet Reaction upset Reaction 8 Rahim Fentanyl Adverse Info Not Adverse Active Enayet Reaction Available Reaction 8 Rahim penicillin Adverse Info Not Adverse Active Enayet Reaction Available Reaction 8 Rahim aspirin Assertion Drug Active allergy [place] Depo-Provera Assertion Drug Active allergy [place] fentaNYL Assertion Drug Active allergy [place] NSAIDs Assertion Drug Active allergy [place] penicillins Assertion Drug Active allergy [place] aspirin<sup> Assertion Drug Active causes MH 1</sup> allergy upset [facility] stomach, pt takes Aspirin 81 mg po daily for 2 years now Immunizations Immunization Date Site Status Last Updated Comments Source Given influenza virus Left completed [facility] vaccine, 7 deltoid inactivated pneumococcal Not Given [facility] 23-valent 6 vaccine pneumococcal Not Given 23-valent 6 [place], vaccine [facility] Results Order Name Results Value Reference Date Interpretation Comments Source Range Small Small bowel Patient Name: MARY SABA 01/16 - bowel series - [place] series DX : 1980; Age: 37 years Female MR: [id number] Read by: Seven Grover MD Dictated Date/time: [...] the abdomen are performed. FINDINGS: SMALL BOWEL: Materials Management Manager image demonstrates a normal bowel gas pattern. [...] contrast to the colon at 90 minutes. [id number] URINE CHEM U Preg Negative Negative 09/05 [facility] (09/05/17 7:46 AM) CHEM PANEL Lipase Lvl 136 unit/L 73 - 393 08/02 [facility] ELECTROLYT AGAP 13.1 meq/L 10.0 - 08/02 ES 20.0 [facility] ELECTROLYT A/G Ratio 1.0 0.7 - 1.6 08/02 [facility] ELECTROLYT Globulin 3.8 g/dL 2.7 - 4.2 08/02 [facility] ELECTROLYT B/C Ratio 30 6 - 25 08/02 [facility] ELECTROLYT eGFR 123 08/02 Result Comment: The [...] is not recommended in the following populations: [facility] 3m2 Individuals with unstable creatinine concentrations, including [...] Phos 65 unit/L 39 - 136 08/02 [facility] ELECTROLYT Bili Total 0.3 mg/dL 0.2 - 1.3 08/02 [place] ELECTROLYT Potassium 4.1 meq/L 3.5 - 5.1 08/02 ES Lvl [place] ELECTROLYT Sodium Lvl 143 meq/L 135 - 145 08/02 [place] ELECTROLYT BUN 16 mg/dL 7 - 22 08/02 [place] ELECTROLYT Glucose Lvl 68 mg/dL 70 - 99 08/02 [place] ELECTROLYT Creatinine 0.53 mg/dL 0.50 - 08/02 ES Lvl 1.40 [place] ELECTROLYT Albumin Lvl 3.7 g/dL 3.5 - 5.0 08/02 [place] ELECTROLYT Chloride Lvl 109 meq/L 95 - 109 08/02 [place] ELECTROLYT Calcium Lvl 8.9 mg/dL 8.5 - 10.5 08/02 [facility] ELECTROLYT CO2 25 meq/L 24 - 32 08/02 [place] ELECTROLYT Total 7.5 g/dL 6.4 - 8.4 08/02 [facility] ELECTROLYT AST 15 unit/L 0 - 37 08/02 [facility] ELECTROLYT ALT 25 unit/L 0 - 65 08/02 [facility] HEMATOLOGY Platelet 302 K/CMM 133 - 450 08/02 [facility] HEMATOLOGY MCHC 32.5 g/dL 32.0 - 08/02 36.0 [facility] HEMATOLOGY RDW 18.4 % 11.5 - 08/02 14. [facility] HEMATOLOGY MCH 26.4 pg 27.0 - 08/02 31.0 [facility] HEMATOLOGY Hct 41.7 % 36.0 - 08/02 48.0 [facility] HEMATOLOGY Hgb 13.5 g/dL 12.0 - 08/02 16.0 [facility] HEMATOLOGY MCV 81.4 fL 80.0 - 08/02 98.0 [facility] HEMATOLOGY MPV 9.0 fL 7.4 - 10.4 08/02 [facility] HEMATOLOGY WBC 8.8 K/CMM 3.7 - 10.4 08/02 [facility] HEMATOLOGY RBC 5.12 M/CMM 4.20 - 08/02 5.40 [facility] HEMATOLOGY Basophils # 0.1 K/CMM 0.0 - 0.2 08/02 [facility] HEMATOLOGY Monocytes # 0.5 K/CMM 0.0 - 0.8 08/02 [facility] HEMATOLOGY Lymphocytes 2.6 K/CMM 1.0 - 5.5 08/02 MH # /2018 [facility] HEMATOLOGY Segs-Bands # 5.5 K/CMM 1.5 - 8.1 08/02 [facility] HEMATOLOGY Basophils 0.7 % 0.0 - 1.0 08/02 [facility] HEMATOLOGY Eosinophils 0.5 % 0.0 - 4.0 08/02 [facility] HEMATOLOGY Lymphocytes 29.9 % 20.0 - 08/02 MH 40.0 /2017 [facility] HEMATOLOGY Segs 62.7 % 45.0 - 08/02 MH 75.0 /2017 [facility] HEMATOLOGY Monocytes 6.2 % 2.0 - 12.0 08/02 [facility] URINE AND UA RBC 51 /HPF 0 - 2 08/02 [facility] URINE AND UA WBC 2 /HPF 0 - 5 08/02 [facility] URINE AND UA Mucus Few /LPF None Seen 08/02 STOOL /LPF [facility] URINE AND UA Sq Epi Moderate Few /LPF 08/02 STOOL /LPF [facility] URINE AND UA <=1.0 0.1 - 1.0 08/02 STOOL Urobilinogen mg/dL [facility] URINE AND UA Turbidity Clear Clear 08/02 [facility] (08/02/17 5:33 PM) URINE AND UA Color Yellow Yellow 08/02 [facility] *NA* (08/02/17 5:33 PM) URINE AND UA Ketones Negative Negative 08/02 STOOL mg/dL mg/dL [facility] URINE AND UA Glucose Negative Negative 08/02 STOOL mg/dL mg/dL [facility] URINE AND UA Spec Grav 1.034 <=1.030 08/02 [facility] URINE AND UA Protein Negative Negative 08/02 STOOL mg/dL mg/dL [facility] URINE AND UA pH 5.0 5.0 - 8.0 08/02 [facility] URINE AND UA Bili Negative Negative 08/02 [facility] *NA* (08/02/17 5:33 PM) URINE AND UA Leuk Est Negative Negative 08/02 [facility] (08/02/17 5:33 PM) URINE AND UA Blood Small Negative 08/02 [facility] *ABN* (08/02/17 5:33 PM) URINE AND UA Nitrite Negative Negative 08/02 [facility] (08/02/17 5:33 PM) URINE CHEM U Preg Negative Negative 08/02 [facility] (08/02/17 5:33 PM) CARDIAC BNP 62 pg/mL <=100 03/11 ENZYMES pg/mL [facility] ELECTROLYT Chloride Lvl 110 meq/L 95 - 109 03/11 [facility] ELECTROLYT Calcium Lvl 7.7 mg/dL 8.5 - 10.5 03/11 [facility] ELECTROLYT CO2 24 meq/L 24 - 32 03/11 [facility] ELECTROLYT AGAP 12.1 meq/L 10.0 - 03/11 ES 20.0 [facility] ELECTROLYT Potassium 3.1 meq/L 3.5 - 5.1 03/11 ES Lvl [facility] ELECTROLYT Sodium Lvl 143 meq/L 135 - 145 03/11 [facility] ELECTROLYT Creatinine 0.38 mg/dL 0.50 - 03/11 ES Lvl 1.40 [facility] ELECTROLYT eGFR 137 03/11 Result Comment: The [...] is not recommended in the following populations: [facility] 3m2 Individuals with unstable creatinine concentrations, including [...] BUN 11 mg/dL 7 - 22 03/11 [facility] ELECTROLYT Glucose Lvl 95 mg/dL 70 - 99 03/11 [facility] HEMATOLOGY MPV 8.5 fL 7.4 - 10.4 03/11 [facility] HEMATOLOGY Platelet 214 K/CMM 133 - 450 03/11 [facility] HEMATOLOGY RDW 24.3 % 11.5 - 03/11 14.5 [facility] HEMATOLOGY RBC 3.78 M/CMM 4.20 - 03/11 5.40 [facility] HEMATOLOGY WBC 5.2 K/CMM 3.7 - 10.4 03/11 [facility] HEMATOLOGY MCHC 31.8 g/dL 32.0 - 03/11 36.0 [facility] HEMATOLOGY MCH 24.9 pg 27.0 - 03/11 31.0 [facility] HEMATOLOGY MCV 78.2 fL 80.0 - 03/11 98.0 [facility] HEMATOLOGY Hct 29.6 % 36.0 - 03/11 48.0 [facility] HEMATOLOGY Hgb 9.4 g/dL 12.0 - 03/11 16.0 [facility] Microcyte 1+ None Seen 03/11 [facility] *ABN* (03/11/17 4:24 AM) HEMATOLOGY Lymphocytes 2.4 K/CMM 1.0 - 5.5 03/11 # /2016 [facility] HEMATOLOGY Monocytes # 0.4 K/CMM 0.0 - 0.8 03/11 [facility] HEMATOLOGY Eosinophils 0.3 K/CMM 0.0 - 0.5 03/11 /2016 [facility] HEMATOLOGY Segs-Bands # 2.1 K/CMM 1.5 - 8.1 03/11 [facility] HEMATOLOGY Basophils 0.9 % 0.0 - 1.0 03/11 [facility] HEMATOLOGY Lymphocytes 45.6 % 20.0 - 03/11 40.0 [facility] HEMATOLOGY Eosinophils 5.0 % 0.0 - 4.0 03/11 [facility] HEMATOLOGY Monocytes 8.3 % 2.0 - 12.0 03/11 [facility] HEMATOLOGY Segs 40.2 % 45.0 - 03/11 75.0 [facility] HEMATOLOGY Plt Morph Normal 03/11 [facility] (03/11/17 4:24 AM) Chest Chest 1[facility] Clinical Indication: - anasarca 03/10 - [facility] DX - Comparison: March 06, 2017 Read by: Jarrett [...] Lvl 175 unit/L 73 - 393 03/10 [facility] CHEM PANEL BUN 12 mg/dL 7 - 22 03/10 [facility] CHEM PANEL Glucose Lvl 92 mg/dL 70 - 99 03/10 [facility] CHEM PANEL Chloride Lvl 108 meq/L 95 - 109 03/10 [facility] CHEM PANEL Potassium 3.5 meq/L 3.5 - 5.1 03/10 Lvl [facility] CHEM PANEL Sodium Lvl 141 meq/L 135 - 145 03/10 [facility] CHEM PANEL Creatinine 0.51 mg/dL 0.50 - 03/10 Lvl 1.40 [facility] CHEM PANEL eGFR 125 03/10 Result Comment: The eGFR is calculated using the CKD-EPI formula. In most young, healthy individuals the eGFR will be >90 mL/ min/1.73m2. The eGFR declines with age. An eGFR of 60-89 may be normal in mL/min/1.7 2017 some populations, particularly the elderly, for whom the CKD-EPI formula has not been extensively validated. Use of the eGFR is not recommended in the following populations: [facility] 3m2 Individuals with unstable creatinine concentrations, including [...] AST 16 unit/L 0 - 37 03/10 [facility] CHEM PANEL Alk Phos 86 unit/L 39 - 136 03/10 [facility] CHEM PANEL Bili Total 0.2 mg/dL 0.2 - 1.3 03/10 [facility] CHEM PANEL Total 7.8 g/dL 6.4 - 8.4 03/10 [facility] CHEM PANEL Albumin Lvl 3.9 g/dL 3.5 - 5.0 03/10 [facility] CHEM PANEL ALT 24 unit/L 0 - 65 03/10 [facility] CHEM PANEL CO2 26 meq/L 24 - 32 03/10 [facility] CHEM PANEL Calcium Lvl 9.1 mg/dL 8.5 - 10.5 03/10 [facility] CHEM PANEL Globulin 3.9 g/dL 2.7 - 4.2 03/10 [facility] CHEM PANEL A/G Ratio 1.0 0.7 - 1.6 03/10 [facility] CHEM PANEL AGAP 10.5 meq/L 10.0 - 03/10 20.0 /2016 [facility] CHEM PANEL B/C Ratio 24 6 - 25 03/10 [facility] HEMATOLOGY Segs-Bands # 5.8 K/CMM 1.5 - 8.1 03/10 [facility] HEMATOLOGY Basophils 0.6 % 0.0 - 1.0 03/10 [facility] HEMATOLOGY Monocytes 5.2 % 2.0 - 12.0 03/10 [facility] HEMATOLOGY Segs 77.0 % 45.0 - 03/10 75.0 [facility] HEMATOLOGY Lymphocytes 16.1 % 20.0 - 03/10 40.0 /2016 [facility] HEMATOLOGY Lymphocytes 1.2 K/CMM 1.0 - 5.5 03/10 /2016 [facility] HEMATOLOGY Monocytes # 0.4 K/CMM 0.0 - 0.8 03/10 [facility] HEMATOLOGY Anisocyte 2+ None Seen 03/10 [facility] *ABN* (03/10/17 2:17 PM) HEMATOLOGY Microcyte 1+ None Seen 03/10 [facility] *ABN* (03/10/17 2:17 PM) HEMATOLOGY Hypochrom 1+ None Seen 03/10 [facility] (03/10/17 2:17 PM) HEMATOLOGY Eosinophils 0.1 K/CMM 0.0 - 0.5 03/10 /2016 [facility] HEMATOLOGY Eosinophils 1.1 % 0.0 - 4.0 03/10 [facility] HEMATOLOGY Polychrom Slight 03/10 [facility] HEMATOLOGY Large Plt Moderate None Seen 03/10 [facility] *ABN* (03/10/17 2:17 PM) HEMATOLOGY RDW 25.1 % 11.5 - 03/10 14.5 /2016 [facility] HEMATOLOGY Platelet 296 K/CMM 133 - 450 03/10 [facility] HEMATOLOGY MPV 8.2 fL 7.4 - 10.4 03/10 [facility] HEMATOLOGY RBC 4.74 M/CMM 4.20 - 03/10 5.40 /2017 [facility] HEMATOLOGY WBC 7.5 K/CMM 3.7 - 10.4 03/10 [facility] HEMATOLOGY MCHC 31.9 g/dL 32.0 - 03/10 36.0 /2016 [facility] HEMATOLOGY MCH 25.0 pg 27.0 - 03/10 31.0 /2016 [facility] HEMATOLOGY MCV 78.3 fL 80.0 - 03/10 98.0 /2016 [facility] HEMATOLOGY Hct 37.2 % 36.0 - 03/10 48.0 /2016 [facility] HEMATOLOGY Hgb 11.9 g/dL 12.0 - 03/10 16.0 [facility] URINE AND UA <=1.0 0.1 - 1.0 03/10 STOOL Urobilinogen mg/dL /2016 [facility] URINE AND UA Color Ltyellow 03/10 [facility] URINE AND UA pH 8.0 5.0 - 8.0 03/10 [facility] URINE AND UA Protein Negative Negative 03/10 STOOL mg/dL mg/dL [facility] URINE AND UA Spec Grav 1.013 <=1.030 03/10 [facility] URINE AND UA Turbidity Clear Clear 03/10 [facility] (03/10/17 2:17 PM) URINE AND UA Nitrite Negative Negative 03/10 [facility] (03/10/17 2:17 PM) URINE AND UA Blood Negative Negative 03/10 [facility] (03/10/17 2:17 PM) URINE AND UA Bili Negative Negative 03/10 [facility] *NA* (03/10/17 2:17 PM) URINE AND UA Ketones Negative Negative 03/10 STOOL mg/dL mg/dL [facility] URINE AND UA Glucose Negative Negative 03/10 STOOL mg/dL mg/dL [facility] URINE AND UA RBC 2 /HPF 0 - 2 03/10 [facility] URINE AND UA WBC 1 /HPF 0 - 5 03/10 STOOL [facility] URINE AND UA Sq Epi Occasional Few /LPF 03/10 STOOL /LPF [facility] URINE AND UA Leuk Est Negative Negative 03/10 STOOL [facility] (03/10/17 2:17 PM) URINE CHEM U Preg Negative Negative 03/10 [facility] (03/10/17 2:17 PM) CHEM PANEL Lactic Acid 1.3 mMol/L 0.5 - 2.2 03/10 Lvl [facility] ED ED Patient Name: MARY SABA 03/10 - Abdomen/Pe Abdomen/Pelv - [facility] lvis IV is IV : 1980; Age: 36 years y/o Female contrast contrast only CT only CT MR: [id number] Read by: Andi Mulligan MD Dictated Date/time: [...] cystitis. 9. Nonobstructing left renal calculi. SL: DOMINICK-DEE Chest 2 Chest 2 Clinical Indication: - shortness of breath, fever,K59.1 Functional diarrhea 03/06 - MH views DX views - [place] Comparison: 02/13/2017 [...] is not recommended in the following populations: [facility] 3m2 Individuals with unstable creatinine concentrations, including [...] meq/L 3.5 - 5.1 02/17 MH Lvl [facility] CHEM PANEL Chloride Lvl 106 meq/L 95 - 109 02/17 [facility] CHEM PANEL Calcium Lvl 8.1 mg/dL 8.5 - 10.5 02/17 [place] CHEM PANEL CO2 28 meq/L 24 - 32 02/17 [facility] CHEM PANEL Creatinine 0.33 mg/dL 0.50 - 02/17 MH Lvl 1.40 /2016 [facility] CHEM PANEL Sodium Lvl 142 meq/L 135 - 145 02/17 [facility] CHEM PANEL Glucose Lvl 88 mg/dL 70 - 99 02/17 [facility] CHEM PANEL BUN 14 mg/dL 7 - 22 02/17 [facility] CHEM PANEL AGAP 12.1 meq/L 10.0 - 02/17 [facility] 20.0 /2017 [facility] HEMATOLOGY Eosinophils 1.7 % 0.0 - 4.0 02/17 [facility] HEMATOLOGY Lymphocytes 20.8 % 20.0 - 10 [facility] 40.0 /2017 [facility] HEMATOLOGY Basophils 1.1 % 0.0 - 1.0 02/17 [facility] HEMATOLOGY Segs-Bands # 9.0 K/CMM 1.5 - 8.1 02/17 [facility] HEMATOLOGY Monocytes 5.5 % 2.0 - 12.0 02/17 [facility] HEMATOLOGY Lymphocytes 2.6 K/CMM 1.0 - 5.5 02/17 [facility] HEMATOLOGY Monocytes # 0.7 K/CMM 0.0 - 0.8 02/17 [facility] HEMATOLOGY Anisocyte 2+ None Seen 02/17 [facility] *ABN* (02/17/17 3:51 AM) HEMATOLOGY Eosinophils 0.2 K/CMM 0.0 - 0.5 02/17 [facility] HEMATOLOGY Basophils # 0.1 K/CMM 0.0 - 0.2 02/17 [facility] HEMATOLOGY Plt Morph Normal 02/17 [facility] (02/17/17 3:51 AM) HEMATOLOGY Segs 70.9 % 45.0 - 02/17 75.0 [facility] HEMATOLOGY Microcyte 1+ None Seen 02/17 [facility] *ABN* (02/17/17 3:51 AM) HEMATOLOGY Hgb 8.5 g/dL 12.0 - 02/17 16.0 [facility] HEMATOLOGY Hct 27.2 % 36.0 - 02/17 48.0 [facility] HEMATOLOGY MCV 76.3 fL 80.0 - 02/17 98.0 [facility] HEMATOLOGY MCH 23.9 pg 27.0 - 02/17 31.0 2017 [facility] HEMATOLOGY MCHC 31.4 g/dL 32.0 - 02/17 36.0 2017 [facility] HEMATOLOGY RDW 27.4 % 11.5 - 02/17 14.5 [facility] HEMATOLOGY Platelet 381 K/CMM 133 - 450 02/17 [facility] HEMATOLOGY MPV 8.8 fL 7.4 - 10.4 02/17 [facility] HEMATOLOGY WBC 12.7 K/CMM 3.7 - 10.4 02/17 [facility] HEMATOLOGY RBC 3.57 M/CMM 4.20 - 02/17 5.40 [facility] CHEM PANEL Phosphorus 4.3 mg/dL 2.5 - 4.5 02/16 [facility] CHEM PANEL Magnesium 2.0 mg/dL 1.8 - 2.4 02/16 MH Lvl [facility] CHEM PANEL Glucose Lvl 95 mg/dL 70 - 99 02/16 [facility] CHEM PANEL eGFR 135 02/16 Result Comment: [...] is not recommended in the following populations: [facility] 3m2 Individuals with unstable creatinine concentrations, including [...] Lvl 108 meq/L 95 - 109 02/16 [facility] CHEM PANEL Sodium Lvl 141 meq/L 135 - 145 02/16 [facility] CHEM PANEL Potassium 4.4 meq/L 3.5 - 5.1 02/16 Lvl [facility] CHEM PANEL Creatinine 0.40 mg/dL 0.50 - 02/16 MH Lvl 1.40 [facility] CHEM PANEL BUN 15 mg/dL 7 - 22 02/16 [facility] CHEM PANEL AGAP 10.4 meq/L 10.0 - 02/16 MH 20.0 [facility] CHEM PANEL Calcium Lvl 8.7 mg/dL 8.5 - 10.5 02/16 [facility] CHEM PANEL CO2 27 meq/L 24 - 32 02/16 [facility] IMMUNOLOGY Prealbumin 18.5 mg/dL 18.0 - 02/16 MH 45.0 2017 [facility] IMMUNOLOGY Prealbumin 15.0 mg/dL 18.0 - 02/16 MH 45.0 2017 [facility] TOXICOLOGY Vanco Tr TND 1945 02/16 [facility] TOXICOLOGY Vanco Tr 11.2 ug/ml 02/16 [facility] ENDOCRINOL Cortisol 38.9 ug/dl 02/14 [facility] ENDOCRINOL Cortisol 29.5 ug/dl 02/14 [facility] TOXICOLOGY Vanco Tr TND 1030 02/14 [facility] TOXICOLOGY Vanco Tr 7.6 ug/ml 02/14 [facility] CHEM PANEL Globulin 3.6 g/dL [...] is not recommended in the following populations: [facility] 3m2 Individuals with unstable creatinine concentrations, including [...] PANEL Creatinine 0.33 mg/dL 0.50 - 02/14 Lvl 1.40 [facility] CHEM PANEL Sodium Lvl 141 meq/L 135 - 145 02/14 [facility] CHEM PANEL Potassium 3.6 meq/L 3.5 - 5.1 02/14 Lv [facility] CHEM PANEL Chloride Lvl 108 meq/L 95 - 109 02/14 [facility] CHEM PANEL BUN 7 mg/dL 7 - 22 02/14 [facility] CHEM PANEL Total 5.8 g/dL 6.4 - 8.4 02/14 [facility] CHEM PANEL Albumin Lvl 2.2 g/dL 3.5 - 5.0 02/14 [facility] CHEM PANEL Glucose Lvl 94 mg/dL 70 - 99 02/14 [facility] CHEM PANEL Magnesium 1.9 mg/dL 1.8 - 2.4 02/14 Lv [facility] HEMATOLOGY Platelet 347 K/CMM 133 - 450 02/14 [facility] HEMATOLOGY MPV 8.6 fL 7.4 - 10.4 02/14 [facility] HEMATOLOGY WBC 7.9 K/CMM 3.7 - 10.4 02/14 [facility] HEMATOLOGY RBC 3.60 M/CMM 4.20 - 02/14 5.40 /2016 [facility] HEMATOLOGY Hgb 8.8 g/dL 12.0 - 02/14 16.0 [facility] HEMATOLOGY MCV 76.4 fL 80.0 - 02/14 98.0 [facility] HEMATOLOGY Hct 27.5 % 36.0 - 02/14 48.0 /2016 [facility] HEMATOLOGY RDW 26.7 % 11.5 - 02/14 14.5 [facility] HEMATOLOGY MCH 24.4 pg 27.0 - 02/14 31.0 [facility] HEMATOLOGY MCHC 32.0 g/dL 32.0 - 02/14 36.0 [facility] HEMATOLOGY Monocytes # 0.6 K/CMM 0.0 - 0.8 02/14 [facility] HEMATOLOGY Lymphocytes 1.9 K/CMM 1.0 - 5.5 02/14 # /2016 [facility] HEMATOLOGY Eosinophils 0.2 K/CMM 0.0 - 0.5 02/14 # /2016 [facility] HEMATOLOGY Basophils # 0.1 K/CMM 0.0 - 0.2 02/14 [facility] HEMATOLOGY Microcyte 1+ None Seen 02/14 [facility] *ABN* (02/14/17 4:48 AM) HEMATOLOGY Monocytes 7.7 % 2.0 - 12.0 02/14 [facility] HEMATOLOGY Segs 65.5 % 45.0 - 10 MH 75.0 /2017 [facility] HEMATOLOGY Lymphocytes 23.4 % 20.0 - 02/14 MH 40.0 [facility] HEMATOLOGY Eosinophils 2.7 % 0.0 - 4.0 02/14 [facility] HEMATOLOGY Basophils 0.7 % 0.0 - 1.0 02/14 [facility] HEMATOLOGY Segs-Bands # 5.2 K/CMM 1.5 - 8.1 02/14 [facility] IMMUNOLOGY Prealbumin 9.8 mg/dL 18.0 - 02/14 45.0 [facility] ENDOCRINOL Cortisol 3.9 ug/dl 02/13 OGY [facility] Chest Chest 1view Portable chest: The PICC line tip is in good position at the cavoatrial junction. There is no other change compared to 01/31/2017. - 1view DX DX /2016 - [facility] [id number] Read by: Niranjan Choudhary MD Dictated Date/time: 02/13/17 13:49 Electronically Signed by: Niranjan Choudhary MD 02/13/17 13:50 FINAL REPORT CHEM PANEL Magnesium 1.9 mg/dL 1.8 - 2.4 02/13 Lvl [facility] CHEM PANEL Globulin 3.7 g/dL 2.7 - 4.2 02/13 [facility] CHEM PANEL A/G Ratio 0.6 0.7 - 1.6 02/13 [facility] CHEM PANEL ALT 11 unit/L 0 - 65 02/13 [facility] CHEM PANEL Albumin Lvl 2.2 g/dL 3.5 - 5.0 02/13 [facility] CHEM PANEL Total 5.9 g/dL 6.4 - 8.4 02/13 [facility] CHEM PANEL Alk Phos 68 unit/L 39 - 136 02/13 [facility] CHEM PANEL AST 6 unit/L 0 - 37 02/13 [facility] CHEM PANEL Bili Total 0.7 mg/dL 0.2 - 1.3 02/13 [facility] CHEM PANEL B/C Ratio 17 6 - 25 02/13 [facility] CHEM PANEL Phosphorus 3.8 mg/dL 2.5 - 4.5 02/13 [facility] HEMATOLOGY Microcyte 1+ None Seen 02/13 [facility] *ABN* (02/13/17 6:35 AM) HEMATOLOGY Target Cell Slight 02/13 [facility] HEMATOLOGY Anisocyte 2+ None Seen 02/13 [facility] *ABN* (02/13/17 6:35 AM) HEMATOLOGY Basophils # 0.1 K/CMM 0.0 - 0.2 02/13 [facility] HEMATOLOGY Eosinophils 0.2 K/CMM 0.0 - 0.5 02/13 [facility] HEMATOLOGY Lymphocytes 1.6 K/CMM 1.0 - 5.5 02/13 [facility] HEMATOLOGY Monocytes # 0.7 K/CMM 0.0 - 0.8 02/13 [facility] HEMATOLOGY Monocytes 7.8 % 2.0 - 12.0 02/13 [facility] HEMATOLOGY Eosinophils 2.1 % 0.0 - 4.0 02/13 [facility] HEMATOLOGY Segs-Bands # 6.0 K/CMM 1.5 - 8.1 02/13 [facility] HEMATOLOGY Basophils 0.8 % 0.0 - 1.0 02/13 [facility] HEMATOLOGY Plt Morph Normal 02/13 [facility] (02/13/17 6:35 AM) HEMATOLOGY Lymphocytes 19.2 % 20.0 - 02/13 40.0 [facility] HEMATOLOGY Segs 70.1 % 45.0 - 02/13 75.0 [facility] HEMATOLOGY MPV 8.5 fL 7.4 - 10.4 02/13 [facility] HEMATOLOGY MCHC 32.1 g/dL 32.0 - 02/13 36.0 [facility] HEMATOLOGY RDW 26.7 % 11.5 - 02/13 14.5 [facility] HEMATOLOGY Platelet 356 K/CMM 133 - 450 02/13 [facility] HEMATOLOGY MCH 24.2 pg 27.0 - 02/13 31.0 [facility] HEMATOLOGY MCV 75.3 fL 80.0 - 02/13 98.0 [facility] HEMATOLOGY Hct 29.3 % 36.0 - 02/13 48.0 [facility] HEMATOLOGY Hgb 9.4 g/dL 12.0 - 02/13 16.0 [facility] HEMATOLOGY RBC 3.89 M/CMM 4.20 - 02/13 5.40 [facility] HEMATOLOGY WBC 8.5 K/CMM 3.7 - 10.4 02/13 [facility] LIPIDS Trig 85 mg/dL <=149 02/13 mg/dL /2016 [facility] HEMATOLOGY INR 1.04 0.85 - 02/12 MH 1.17 [facility] HEMATOLOGY PT 13.8 s 12.0 - 02/12 14.7 /2016 [facility] HEMATOLOGY PTT 41.9 s 22.9 - 02/12 35.8 /2016 [facility] BLOOD BANK ABO/Rh A POS 02/12 RESULTS [facility] CHEM PANEL Lipase Lvl 97 unit/L 73 - 393 02/12 [facility] CHEM PANEL B/C Ratio 26 6 - 25 02/12 [facility] CHEM PANEL A/G Ratio 0.7 0.7 - 1.6 02/12 [facility] CHEM PANEL Globulin 4.3 g/dL 2.7 - 4.2 02/12 [facility] CHEM PANEL Alk Phos 81 unit/L 39 - 136 02/12 [facility] CHEM PANEL Bili Total 0.2 mg/dL 0.2 - 1.3 02/12 [facility] CHEM PANEL AST 9 unit/L 0 - 37 02/12 [facility] CHEM PANEL Total 7.1 g/dL 6.4 - 8.4 02/12 [facility] CHEM PANEL ALT 10 unit/L 0 - 65 02/12 [facility] CHEM PANEL Albumin Lvl 2.8 g/dL 3.5 - 5.0 02/12 [facility] CHEM PANEL Lactic Acid 1.2 mMol/L 0.5 - 2.2 02/12 Lvl [facility] HEMATOLOGY Large Plt Marked None Seen 02/12 [facility] *ABN* (02/12/17 2:20 AM) HEMATOLOGY Anisocyte 3+ None Seen 02/12 [facility] (02/12/17 2:20 AM) URINE AND UA Hyal Cast 1 /LPF 0 - 2 02/12 STOOL [facility] URINE AND UA Spec Grav 1.034 <=1.030 02/12 STOOL [facility] URINE AND UA pH 5.0 5.0 - 8.0 02/12 STOOL [facility] URINE AND UA Protein Negative Negative 02/12 [facility] mg/dL mg/dL [facility] URINE AND UA Glucose Negative Negative 02/12 [facility] mg/dL mg/dL [facility] URINE AND UA Ketones Negative Negative 02/12 [facility] mg/dL mg/dL URINE AND UA Bili Negative Negative 02/12 STOOL [facility] *NA* (02/12/17 2:20 AM) URINE AND UA Blood Negative Negative 02/12 [facility] (02/12/17 2:20 AM) URINE AND UA Leuk Est Trace Negative 02/12 [facility] *ABN* (02/12/17 2:20 AM) URINE AND UA Sq Epi Moderate Few /LPF 02/12 [facility] /LPF URINE AND UA 2.0 mg/dL 0.1 - 1.0 02/12 [facility] Urobilinogen URINE AND UA WBC 4 /HPF 0 - 5 02/12 [facility] URINE AND UA Nitrite Negative Negative 02/12 [facility] (02/12/17 2:20 AM) URINE AND UA Mucus Few /LPF None Seen 02/12 [facility] /LPF URINE AND UA RBC 4 /HPF 0 - 2 02/12 STOOL [facility] URINE AND UA Bacteria Occasional None Seen 02/12 [facility] /HPF /HPF /2016 URINE AND UA Turbidity Slight Clear 02/12 *ABN* (02/12/17 2:20 AM) URINE AND UA Color Yellow Yellow 02/12 *NA* (02/12/17 2:20 AM) URINE CHEM U Preg Negative Negative 02/12 (02/12/17 2:20 AM) Abdomen/Pe Abdomen/Pelv Clinical Indication: Abdominal pain and swelling. Abdominal surgery 01/31/2017. 02/12 - lvis w IV is w IV - [facility] contrast contrast CT Comparison: None CT Read [...] ALT 52 unit/L 0 - 65 02/03 [facility] CHEM PANEL BUN 3 mg/dL 7 - 22 02/03 [facility] CHEM PANEL Glucose Lvl 81 mg/dL 70 - 99 02/03 [facility] CHEM PANEL CO2 21 meq/L 24 - 32 02/03 [facility] CHEM PANEL Albumin Lvl 2.6 g/dL 3.5 - 5.0 02/03 [facility] CHEM PANEL Potassium 4.0 meq/L 3.5 - 5.1 02/03 MH Lvl [facility] CHEM PANEL Calcium Lvl 7.7 mg/dL 8.5 - 10.5 02/03 [facility] CHEM PANEL Sodium Lvl 138 meq/L 135 - 145 02/03 [facility] CHEM PANEL Chloride Lvl 105 meq/L 95 - 109 02/03 [facility] CHEM PANEL Alk Phos 53 unit/L 39 - 136 02/03 [facility] CHEM PANEL Total 5.1 g/dL 6.4 - 8.4 02/03 [facility] CHEM PANEL Bili Total 0.6 mg/dL 0.2 - 1.3 02/03 [facility] CHEM PANEL eGFR 158 02/03 Result Comment: [...] is not recommended in the following populations: [facility] 3m2 Individuals with unstable creatinine concentrations, including [...] 0.25 mg/dL 0.50 - 02/03 Lvl 1.40 [facility] CHEM PANEL AST 48 unit/L 0 - 37 02/03 [facility] CHEM PANEL AGAP 16.0 meq/L 10.0 - 02/03 20.0 [facility] CHEM PANEL Globulin 2.5 g/dL 2.7 - 4.2 02/03 [facility] CHEM PANEL A/G Ratio 1.0 0.7 - 1.6 02/03 [facility] CHEM PANEL B/C Ratio 12 6 - 25 02/03 [facility] HEMATOLOGY Lymphocytes 1.6 K/CMM 1.0 - 5.5 02/03 # /2016 [facility] HEMATOLOGY Monocytes # 0.8 K/CMM 0.0 - 0.8 02/03 [facility] HEMATOLOGY Segs-Bands # 5.0 K/CMM 1.5 - 8.1 02/03 [facility] HEMATOLOGY Monocytes 10.1 % 2.0 - 12.0 02/03 [facility] HEMATOLOGY Lymphocytes 21.6 % 20.0 - 02/03 40.0 [facility] HEMATOLOGY Basophils # 0.1 K/CMM 0.0 - 0.2 02/03 [facility] HEMATOLOGY Eosinophils 0.1 K/CMM 0.0 - 0.5 02/03 /2016 [facility] HEMATOLOGY Eosinophils 1.1 % 0.0 - 4.0 02/03 [facility] HEMATOLOGY Basophils 1.2 % 0.0 - 1.0 02/03 [facility] HEMATOLOGY Macrocyte 1+ None Seen 02/03 [facility] *ABN* (02/03/17 9:29 AM) HEMATOLOGY Anisocyte 3+ None Seen 02/03 [facility] (02/03/17 9:29 AM) HEMATOLOGY Microcyte 1+ None Seen 02/03 [facility] *ABN* (02/03/17 9:29 AM) HEMATOLOGY Segs 66.0 % 45.0 - 02/03 75.0 [facility] HEMATOLOGY Plt Morph Normal 02/03 [facility] (02/03/17 9:29 AM) HEMATOLOGY RBC 3.94 M/CMM 4.20 - 02/03 MH 5.40 [facility] HEMATOLOGY WBC 7.6 K/CMM 3.7 - 10.4 02/03 [facility] HEMATOLOGY Hct 30.3 % 36.0 - 02/03 48.0 [facility] HEMATOLOGY Hgb 9.7 g/dL 12.0 - 02/03 16.0 [facility] HEMATOLOGY RDW 29.1 % 11.5 - 02/03 MH 14.5 /2016 [facility] HEMATOLOGY Platelet 158 K/CMM 133 - 450 02/03 [facility] HEMATOLOGY MPV 9.9 fL 7.4 - 10.4 02/03 [facility] HEMATOLOGY MCHC 32.2 g/dL 32.0 - 02/03 MH 36.0 /2016 [facility] HEMATOLOGY MCH 24.7 pg 27.0 - 02/03 MH 31.0 [facility] HEMATOLOGY MCV 76.7 fL 80.0 - 02/03 MH 98.0 /2016 [facility] Upper GI Upper GI Patient Name: MARY SABA 02/02 - Series w Series - [facility] water water : 1980; Age: 36 years Female soluble DX soluble DX MR: [id number] Read by: Seven Grover MD Dictated Date/time: 02/02/17 16:06 Electronically Signed by: Seven Grover MD 02/02/17 16:08 FINAL REPORT Study: Upper GI Series w water soluble DX Order Time: 02/02/2017 10:28 AM CDT Clinical Indication: Fluoro time: 3.2min Total Dose: 87.493mGy Total DAP: 25.344Facq7 Dr. Grover - gastric bypass reversal 2 [...] IMPRESSION: Normal postoperative water-soluble upper GI. SL: [id number] ELECTROLYT AGAP 12.5 meq/L 10.0 - 02/02 ES 20.0 [facility] ELECTROLYT B/C Ratio 14 6 - 25 02/02 [facility] ELECTROLYT A/G Ratio 0.8 0.7 - 1.6 02/02 [facility] ELECTROLYT Globulin 3.3 g/dL 2.7 - 4.2 02/02 [facility] ELECTROLYT Total 5.9 g/dL 6.4 - 8.4 02/02 ES [facility] ELECTROLYT Albumin Lvl 2.6 g/dL 3.5 - 5.0 02/02 [facility] ELECTROLYT Alk Phos 56 unit/L 39 - 136 02/02 [facility] ELECTROLYT Bili Total 0.4 mg/dL 0.2 - 1.3 02/02 [facility] ELECTROLYT ALT 73 unit/L 0 - 65 02/02 [facility] ELECTROLYT AST 64 unit/L 0 - 37 02/02 [facility] ELECTROLYT Sodium Lvl 140 meq/L 135 - 145 02/02 [facility] ELECTROLYT Potassium 4.5 meq/L 3.5 - 5.1 02/02 ES Lvl [facility] ELECTROLYT CO2 25 meq/L 24 - 32 02/02 [facility] ELECTROLYT Calcium Lvl 8.4 mg/dL 8.5 - 10.5 02/02 [facility] ELECTROLYT Chloride Lvl 107 meq/L 95 - 109 02/02 [facility] ELECTROLYT BUN 5 mg/dL 7 - 22 02/02 [facility] ELECTROLYT Glucose Lvl 96 mg/dL 70 - 99 02/02 [facility] ELECTROLYT Creatinine 0.35 mg/dL 0.50 - 02/02 [facility] Lvl 1.40 [facility] ELECTROLYT eGFR 141 02/02 Result Comment: The [...] is not recommended in the following populations: [facility] 3m2 Individuals with unstable creatinine concentrations, including [...] PT 14.4 s 12.0 - 02/02 14.7 [facility] HEMATOLOGY PTT 38.0 s 22.9 - 02/02 35.8 /2017 [facility] HEMATOLOGY INR 1.10 0.85 - 02/02 1.17 [facility] HEMATOLOGY RBC 4.16 M/CMM 4.20 - 02/02 MH 5.40 /2016 [facility] HEMATOLOGY Hgb 10.1 g/dL 12.0 - 02/02 MH 16.0 [facility] HEMATOLOGY WBC 11.7 K/CMM 3.7 - 10.4 02/02 [facility] HEMATOLOGY Hct 31.7 % 36.0 - 02/02 MH 48.0 /2016 [facility] HEMATOLOGY MCV 76.2 fL 80.0 - 02/02 MH 98.0 /2016 [facility] MCH 24.2 pg 27.0 - 02/02 MH 31.0 [facility] MCHC 31.7 g/dL 32.0 - 02/02 MH 36.0 /2016 [facility] RDW 28.5 % 11.5 - 02/02 MH 14.5 [facility] Platelet 223 K/CMM 133 - 450 02/02 [facility] MPV 9.6 fL 7.4 - 10.4 02/02 [facility] Segs 77.1 % 45.0 - 02/02 75.0 [facility] Microcyte 1+ None Seen 02/02 [facility] *ABN* (02/02/17 6:18 AM) HEMATOLOGY Lymphocytes 1.6 K/CMM 1.0 - 5.5 02/02 /2016 [facility] HEMATOLOGY Monocytes # 1.0 K/CMM 0.0 - 0.8 02/02 [facility] Segs-Bands # 9.1 K/CMM 1.5 - 8.1 02/02 [facility] HEMATOLOGY Basophils 0.3 % 0.0 - 1.0 02/02 [facility] HEMATOLOGY Eosinophils 0.1 % 0.0 - 4.0 02/02 [facility] HEMATOLOGY Lymphocytes 14.0 % 20.0 - 02/02 MH 40.0 [facility] HEMATOLOGY Monocytes 8.5 % 2.0 - 12.0 02/02 [facility] CHEM PANEL eGFR 141 02/01 Result Comment: [...] is not recommended in the following populations: [facility] 3m2 Individuals with unstable creatinine concentrations, including [...] Lvl 3.1 g/dL 3.5 - 5.0 02/01 [facility] CHEM PANEL Globulin 2.8 g/dL 2.7 - 4.2 02/01 [facility] CHEM PANEL Total 5.9 g/dL 6.4 - 8.4 02/01 [facility] CHEM PANEL ALT 85 unit/L 0 - 65 02/01 [facility] CHEM PANEL AST 98 unit/L 0 - 37 02/01 [facility] CHEM PANEL Bili Total 0.7 mg/dL 0.2 - 1.3 02/01 [facility] CHEM PANEL Alk Phos 58 unit/L 39 - 136 02/01 [facility] CHEM PANEL A/G Ratio 1.1 0.7 - 1.6 02/01 [facility] CHEM PANEL CO2 19 meq/L 24 - 32 02/01 [facility] CHEM PANEL Calcium Lvl 8.1 mg/dL 8.5 - 10.5 02/01 [facility] CHEM PANEL B/C Ratio 14 6 - 25 02/01 [facility] CHEM PANEL AGAP 14.0 meq/L 10.0 - 02/01 20.0 [facility] CHEM PANEL Chloride Lvl 107 meq/L 95 - 109 02/01 [facility] CHEM PANEL Glucose Lvl 120 mg/dL 70 - 99 02/01 [facility] CHEM PANEL Creatinine 0.35 mg/dL 0.50 - 02/01 Lvl 1.40 [facility] CHEM PANEL Sodium Lvl 136 meq/L 135 - 145 02/01 [facility] CHEM PANEL Potassium 4.0 meq/L 3.5 - 5.1 02/01 Lvl [facility] CHEM PANEL BUN 5 mg/dL 7 - 22 02/01 [facility] HEMATOLOGY Monocytes # 0.7 K/CMM 0.0 - 0.8 02/01 [facility] HEMATOLOGY Microcyte 1+ None Seen 02/01 [facility] *ABN* (02/01/17 5:18 AM) HEMATOLOGY Basophils 0.1 % 0.0 - 1.0 02/01 [facility] HEMATOLOGY Lymphocytes 0.7 K/CMM 1.0 - 5.5 02/01 MH # /2016 [facility] HEMATOLOGY Segs-Bands # 12.1 K/CMM 1.5 - 8.1 02/01 [facility] HEMATOLOGY Monocytes 5.2 % 2.0 - 12.0 02/01 [facility] HEMATOLOGY Lymphocytes 4.9 % 20.0 - 02/01 40.0 [facility] HEMATOLOGY Segs 89.8 % 45.0 - 02/01 75.0 /2016 [facility] HEMATOLOGY MCV 75.4 fL 80.0 - 02/01 98.0 [facility] HEMATOLOGY MPV 9.4 fL 7.4 - 10.4 02/01 [facility] HEMATOLOGY Platelet 242 K/CMM 133 - 450 02/01 /2016 [facility] HEMATOLOGY MCH 23.8 pg 27.0 - 02/01 31.0 /2016 [facility] HEMATOLOGY RDW 28.2 % 11.5 - 02/01 14.5 /2016 [facility] HEMATOLOGY MCHC 31.5 g/dL 32.0 - 02/01 36.0 /2016 [facility] HEMATOLOGY Hct 33.2 % 36.0 - 02/01 48.0 /2016 [facility] HEMATOLOGY Hgb 10.5 g/dL 12.0 - 02/01 16.0 [facility] HEMATOLOGY WBC 13.4 K/CMM 3.7 - 10.4 02/01 /2016 [facility] HEMATOLOGY RBC 4.40 M/CMM 4.20 - 02/01 5.40 /2016 [facility] BLOOD BANK ABO/Rh A POS 01/31 RESULTS /2016 [facility] BLOOD BANK Antibody Negative 01/31 RESULTS Scrn [facility] (01/31/17 10:19 AM) CHEM PANEL Magnesium 2.6 mg/dL 1.8 - 2.4 01/31 Lvl /2016 [facility] ENDOCRINOL S Preg Negative Negative 01/31 OGY [facility] *NA* (01/31/17 10:19 AM) HEMATOLOGY Eosinophils 0.1 K/CMM 0.0 - 0.5 01/31 MH # /2016 [facility] HEMATOLOGY Anisocyte 2+ None Seen 01/31 [facility] *ABN* (01/31/17 10:19 AM) HEMATOLOGY Target Cell Slight 01/31 [facility] HEMATOLOGY Plt Morph Normal 01/31 [facility] (01/31/17 10:19 AM) HEMATOLOGY Eosinophils 0.9 % 0.0 - 4.0 01/31 [facility] HEMATOLOGY INR 0.98 0.85 - 01/31 1.17 [facility] HEMATOLOGY PT 13.2 s 12.0 - 01/31 14.7 [facility] HEMATOLOGY PTT 35.5 s 22.9 - 01/31 35.8 /2016 [facility] Chest Chest 1view Study: Chest 1view DX 01/31 - 1view DX - [facility] Clinical Indication: Coughing - preop exam Read [...] unremarkable. IMPRESSION: No acute cardiopulmonary disease. SL: [id number] CHEM PANEL eGFR 138 01/18 Result Comment: [...] is not recommended in the following populations: [facility] 3m2 Individuals with unstable creatinine concentrations, including [...] Lvl 113 meq/L 95 - 109 01/18 [facility] CHEM PANEL Sodium Lvl 144 meq/L 135 - 145 01/18 [facility] CHEM PANEL Potassium 3.9 meq/L 3.5 - 5.1 01/18 MH Lvl /2016 [facility] CHEM PANEL CO2 22 meq/L 24 - 32 01/18 [facility] CHEM PANEL Calcium Lvl 7.8 mg/dL 8.5 - 10.5 01/18 [facility] CHEM PANEL Glucose Lvl 74 mg/dL 70 - 99 01/18 [facility] CHEM PANEL BUN 10 mg/dL 7 - 22 01/18 [facility] CHEM PANEL Creatinine 0.38 mg/dL 0.50 - 01/18 MH Lvl 1.40 [facility] CHEM PANEL AGAP 12.9 meq/L 10.0 - 01/18 MH 20.0 [facility] HEMATOLOGY MPV 8.9 fL 7.4 - 10.4 01/18 [facility] HEMATOLOGY Platelet 243 K/CMM 133 - 450 01/18 [facility] HEMATOLOGY RDW 22.0 % 11.5 - 01/18 MH 14.5 [facility] HEMATOLOGY MCHC 31.0 g/dL 32.0 - 01/18 MH 36.0 [facility] HEMATOLOGY Hgb 9.6 g/dL 12.0 - 01/18 MH 16.0 [facility] HEMATOLOGY RBC 4.34 M/CMM 4.20 - 01/18 MH 5.40 /2016 [facility] HEMATOLOGY MCH 22.1 pg 27.0 - 01/18 MH 31.0 [facility] HEMATOLOGY MCV 71.4 fL 80.0 - 01/18 MH 98.0 /2016 [facility] HEMATOLOGY Hct 31.0 % 36.0 - 01/18 MH 48.0 [facility] HEMATOLOGY WBC 5.9 K/CMM 3.7 - 10.4 01/18 [facility] HEMATOLOGY Lymphocytes 2.6 K/CMM 1.0 - 5.5 01/18 MH # /2016 [facility] HEMATOLOGY Monocytes # 0.4 K/CMM 0.0 - 0.8 01/18 [facility] HEMATOLOGY Segs-Bands # 2.9 K/CMM 1.5 - 8.1 01/18 [facility] HEMATOLOGY Eosinophils 1.1 % 0.0 - 4.0 01/18 [facility] HEMATOLOGY Basophils 0.7 % 0.0 - 1.0 01/18 [facility] HEMATOLOGY Monocytes 6.4 % 2.0 - 12.0 01/18 [facility] HEMATOLOGY Eosinophils 0.1 K/CMM 0.0 - 0.5 01/18 # /2017 [facility] HEMATOLOGY Microcyte 1+ None Seen 01/18 [facility] *ABN* (01/18/17 4:08 AM) HEMATOLOGY Segs 48.3 % 45.0 - 01/18 MH 75.0 /2016 [facility] HEMATOLOGY Lymphocytes 43.5 % 20.0 - 01/18 40.0 /2016 [facility] BLOOD BANK Antibody Negative 01/17 RESULTS Scrn [facility] (01/17/17 1:40 PM) BLOOD BANK ABO/Rh A POS 01/17 RESULTS /2016 [facility] BLOOD BANK RBC product Product available 1 01/17 Result Comment: 2016 16:31 [id number] RESULTS spoke to fabricio at 01/17/2017 16:31 [facility] (01/17/17 12:20 PM) ANEMIA % Satur Fe 3 % 12 - 57 01/17 STUDY [facility] ANEMIA UIBC 328 ug/dl 110 - 370 01/17 STUDY [facility] ANEMIA TIBC 339 ug/dl 228 - 428 01/17 STUDY [facility] ANEMIA Iron 11 ug/dl 30 - 160 01/17 STUDY /2016 [facility] ANEMIA Ferritin Lvl 4 ng/mL 5 - 204 01/17 STUDY [facility] ANEMIA Vitamin B12 null 254 - 1320 01/17 STUDY Lvl [facility] ANEMIA Folate Lvl 43.3 ng/mL >=3.0 01/17 STUDY ng/mL [facility] CHEM PANEL Phosphorus 3.0 mg/dL 2.5 - 4.5 01/17 [facility] CHEM PANEL Magnesium 2.1 mg/dL 1.8 - 2.4 01/17 Lvl [facility] CHEM PANEL eGFR 137 01/17 Result Comment: [...] is not recommended in the following populations: [place] [facility] Individuals with unstable creatinine concentrations, including [...] Lvl 112 meq/L 95 - 109 01/17 [facility] CHEM PANEL Potassium 3.7 meq/L 3.5 - 5.1 01/17 MH Lvl /2016 [facility] CHEM PANEL Sodium Lvl 142 meq/L 135 - 145 01/17 [facility] CHEM PANEL Creatinine 0.39 mg/dL 0.50 - 01/17 MH Lvl 1.40 /2016 [facility] CHEM PANEL BUN 5 mg/dL 7 - 22 01/17 [facility] CHEM PANEL Glucose Lvl 76 mg/dL 70 - 99 01/17 [facility] CHEM PANEL Calcium Lvl 7.6 mg/dL 8.5 - 10.5 01/17 [facility] CHEM PANEL AGAP 11.7 meq/L 10.0 - 01/17 MH 20.0 /2016 [facility] CHEM PANEL CO2 22 meq/L 24 - 32 01/17 [facility] HEMATOLOGY Lymphocytes 2.1 K/CMM 1.0 - 5.5 01/17 MH # /2017 [facility] HEMATOLOGY Microcyte 3+ None Seen 01/17 [facility] *NA* (01/17/17 7:46 AM) HEMATOLOGY Monocytes # 0.3 K/CMM 0.0 - 0.8 01/17 [facility] HEMATOLOGY Monocytes 6.9 % 2.0 - 12.0 01/17 [facility] HEMATOLOGY Lymphocytes 44.7 % 20.0 - 01/17 MH 40.0 /2017 [facility] HEMATOLOGY Segs 46.8 % 45.0 - 01/17 MH 75.0 /2017 [facility] HEMATOLOGY Basophils 0.6 % 0.0 - 1.0 01/17 [facility] HEMATOLOGY Eosinophils 1.0 % 0.0 - 4.0 01/17 [facility] HEMATOLOGY Segs-Bands # 2.2 K/CMM 1.5 - 8.1 01/17 [facility] HEMATOLOGY Retic Auto 1.9 % 0.5 - 1.5 01/17 [facility] HEMATOLOGY Hct 25.8 % 36.0 - 01/17 MH 48.0 /2017 [facility] HEMATOLOGY MCV 68.4 fL 80.0 - 01/17 MH 98.0 2017 [facility] HEMATOLOGY WBC 4.8 K/CMM 3.7 - 10.4 01/17 [facility] HEMATOLOGY Hgb 7.9 g/dL 12.0 - 01/17 MH 16.0 [facility] HEMATOLOGY RBC 3.78 M/CMM 4.20 - 01/17 MH 5.40 [facility] HEMATOLOGY RDW 19.0 % 11.5 - 01/17 MH 14.5 [facility] HEMATOLOGY MCH 20.9 pg 27.0 - 01/17 MH 31.0 [facility] HEMATOLOGY MCHC 30.6 g/dL 32.0 - 01/17 MH 36.0 [facility] HEMATOLOGY MPV 9.1 fL 7.4 - 10.4 01/17 [facility] HEMATOLOGY Platelet 240 K/CMM 133 - 450 01/17 [facility] CHEM PANEL eGFR 134 01/16 Result Comment: [...] is not recommended in the following populations: [facility] 3m2 Individuals with unstable creatinine concentrations, including [...] Lvl 111 meq/L 95 - 109 01/16 [facility] CHEM PANEL CO2 25 meq/L 24 - 32 01/16 [facility] CHEM PANEL Calcium Lvl 7.6 mg/dL 8.5 - 10.5 01/16 [facility] CHEM PANEL Potassium 3.1 meq/L 3.5 - 5.1 01/16 MH Lvl [facility] CHEM PANEL Creatinine 0.41 mg/dL 0.50 - 01/16 MH Lvl 1. [facility] CHEM PANEL Sodium Lvl 142 meq/L 135 - 145 01/16 [facility] CHEM PANEL BUN 11 mg/dL 7 - 22 01/16 [facility] CHEM PANEL Glucose Lvl 78 mg/dL 70 - 99 01/16 [facility] CHEM PANEL AGAP 9.1 meq/L 10.0 - 01/16 MH 20.0 /2016 [facility] HEMATOLOGY Monocytes 6.8 % 2.0 - 12.0 01/16 [facility] HEMATOLOGY Eosinophils 0.8 % 0.0 - 4.0 01/16 [facility] HEMATOLOGY Basophils 0.5 % 0.0 - 1.0 01/16 [facility] HEMATOLOGY Lymphocytes 44.8 % 20.0 - 01/16 MH 40.0 [facility] HEMATOLOGY Segs 47.1 % 45.0 - 01/16 MH 75.0 [facility] HEMATOLOGY Plt Morph Normal 01/16 [facility] (01/16/17 3:56 AM) HEMATOLOGY Target Cell few 01/16 [facility] HEMATOLOGY Monocytes # 0.4 K/CMM 0.0 - 0.8 01/16 [facility] HEMATOLOGY Eosinophils 0.1 K/CMM 0.0 - 0.5 01/16 MH # /2016 [facility] HEMATOLOGY Microcyte 3+ None Seen 01/16 [facility] *NA* (01/16/17 3:56 AM) HEMATOLOGY Segs-Bands # 2.9 K/CMM 1.5 - 8.1 01/16 [facility] HEMATOLOGY Lymphocytes 2.8 K/CMM 1.0 - 5.5 01/16 # /2016 [facility] HEMATOLOGY Platelet 266 K/CMM 133 - 450 01/16 [facility] HEMATOLOGY MPV 8.7 fL 7.4 - 10.4 01/16 [facility] HEMATOLOGY RDW 19.6 % 11.5 - 01/16 MH 14.5 [facility] HEMATOLOGY Hct 27.3 % 36.0 - 01/16 MH 48.0 [facility] HEMATOLOGY MCV 68.3 fL 80.0 - 01/16 MH 98.0 [facility] HEMATOLOGY RBC 4.00 M/CMM 4.20 - 01/16 MH 5.40 /2016 [facility] HEMATOLOGY Hgb 8.4 g/dL 12.0 - 01/16 16.0 [facility] HEMATOLOGY MCH 20.9 pg 27.0 - 01/16 MH 31.0 [facility] HEMATOLOGY MCHC 30.7 g/dL 32.0 - 01/16 MH 36.0 [facility] HEMATOLOGY WBC 6.2 K/CMM 3.7 - 10.4 01/16 [facility] HEMATOLOGY PTT 37.4 s 22.9 - 09 MH 35.8 /2017 [facility] HEMATOLOGY INR 1.18 0.85 - 09 MH 1.17 /2017 [facility] HEMATOLOGY PT 15.2 s 12.0 - 01/16 MH 14.7 /2016 [facility] CHEM PANEL VITAMIN B1 114.9 66.5 - 01/15 Result Comment: Performed At: [facility] (THIAMINE) nMol/L 200.0 /2016 [address], [place] [id number] [facility] WHOLE BLOOD Neeraj Menjivar MD Ph:[phone] CHEM PANEL Lipase Lvl 146 unit/L 73 - 393 01/15 [facility] CHEM PANEL ALT 29 unit/L 0 - 65 01/15 [facility] CHEM PANEL Total 7.7 g/dL 6.4 - 8.4 01/15 [facility] CHEM PANEL AST 19 unit/L 0 - 37 01/15 [facility] CHEM PANEL Albumin Lvl 3.9 g/dL 3.5 - 5.0 01/15 [facility] CHEM PANEL Alk Phos 85 unit/L 39 - 136 01/15 [facility] CHEM PANEL Bili Total 0.3 mg/dL 0.2 - 1.3 01/15 [facility] CHEM PANEL A/G Ratio 1.0 0.7 - 1.6 01/15 [facility] CHEM PANEL B/C Ratio 25 6 - 25 01/15 [facility] CHEM PANEL Globulin 3.8 g/dL 2.7 - 4.2 01/15 [facility] ENDOCRINOL S Preg Negative Negative 01/15 OGY [facility] *NA* (01/15/17 2:25 PM) HEMATOLOGY Basophils # 0.1 K/CMM 0.0 - 0.2 01/15 [facility] URINE AND UA Nitrite Negative Negative 01/15 [facility] (01/15/17 2:25 PM) URINE AND UA Leuk Est Negative Negative 01/15 STOOL [facility] (01/15/17 2:25 PM) URINE AND UA Glucose Negative Negative 01/15 STOOL [facility] (01/15/17 2:25 PM) URINE AND UA Protein Trace Negative 01/15 STOOL [facility] *ABN* (01/15/17 2:25 PM) URINE AND UA Spec Grav 1.020 <=1.030 01/15 STOOL [facility] URINE AND UA pH 6.5 5.0 - 8.0 01/15 STOOL [facility] URINE AND UA Turbidity Clear Clear 01/15 STOOL [facility] (01/15/17 2:25 PM) URINE AND UA Color Yellow Yellow 01/15 STOOL [facility] *NA* (01/15/17 2:25 PM) URINE AND UA 0.2 EU/dL 0.1 - 1.0 01/15 [facility] Urobilinogen [facility] URINE AND UA Ketones 15 Negative 01/15 STOOL [facility] *ABN* (01/15/17 2:25 PM) URINE AND UA Blood Negative Negative 01/15 STOOL [facility] (01/15/17 2:25 PM) URINE AND UA Bili Small Negative 01/15 STOOL [facility] *ABN* (01/15/17 2:25 PM) URINE AND UA Mucus Many /LPF None Seen 01/15 [facility] /LPF /2016 [facility] URINE AND UA WBC null 0 - 5 01/15 [facility] URINE AND UA Bacteria Occasional None Seen 01/15 [facility] /HPF /HPF /2016 [facility] URINE AND UA Sq Epi Few /LPF Few /LPF 01/15 STOOL [facility] Abdomen/Pe Abdomen/Pelv Patient Name: MARY SABA 01/15 - lvis w IV is w IV - [facility] contrast contrast CT : 1980; Age: [address] MR: [id number] Read by: Margaret Tran MD Dictated Date/time: [...] or pelvic abnormalities. Nonobstructive left nephrolithiasis. SL: [id number] ANEMIA Folate Lvl 53.0 ng/mL >=3.0 12/16 STUDY ng/mL [facility] ANEMIA UIBC 381 ug/dl 110 - 370 12/16 STUDY [facility] ANEMIA TIBC 395 ug/dl 228 - 428 12/16 STUDY [facility] ANEMIA Iron 14 ug/dl 30 - 160 12/16 STUDY [facility] ANEMIA % Satur Fe 4 % 12 - 57 12/16 STUDY [facility] ANEMIA Vitamin B12 null 254 - 1320 12/16 STUDY Lvl [facility] CHEM PANEL Lipase Lvl 144 unit/L 73 - 393 12/16 [facility] HEMATOLOGY Eosinophils 0.3 % 0.0 - 4.0 12/16 [facility] HEMATOLOGY Monocytes 7.3 % 2.0 - 12.0 12/16 [facility] HEMATOLOGY Lymphocytes 27.8 % 20.0 - 12/16 40.0 [facility] HEMATOLOGY Segs 64.1 % 45.0 - 12/16 75.0 [facility] HEMATOLOGY Microcyte 3+ None Seen 12/16 [facility] *NA* (12/16/16 3:50 AM) HEMATOLOGY Monocytes # 0.5 K/CMM 0.0 - 0.8 12/16 [facility] HEMATOLOGY Lymphocytes 1.8 K/CMM 1.0 - 5.5 12/16 # [facility] HEMATOLOGY Segs-Bands # 4.2 K/CMM 1.5 - 8.1 12/16 [facility] HEMATOLOGY Basophils 0.5 % 0.0 - 1.0 12/16 [facility] HEMATOLOGY Hct 29.7 % 36.0 - 12/16 48.0 [facility] HEMATOLOGY Hgb 9.1 g/dL 12.0 - 12/16 16.0 /2016 [facility] RBC 4.39 M/CMM 4.20 - 12/16 MH 5.40 /2017 [facility] WBC 6.5 K/CMM 3.7 - 10.4 12/16 [facility] MCV 67.7 fL 80.0 - 12/16 98.0 /2016 [facility] MPV 8.7 fL 7.4 - 10.4 12/16 [facility] Platelet 235 K/CMM 133 - 450 12/16 [facility] RDW 19.3 % 11.5 - 12/16 14.5 /2016 [facility] MCHC 30.8 g/dL 32.0 - 12/16 36.0 /2016 [facility] MCH 20.8 pg 27.0 - 12/16 31.0 [facility] Gallbladde Gallbladder Patient Name: MARY SABA 12/16 - r [place] /2016 - [facility] : 1980; Age: 36 years y/o Female MR: [id number] Read by: Adalberto Galan MD Dictated Date/time: [...] gallbladder polyp. ( ) ( ) SL: [id number] BLOOD BANK ABO/Rh A POS 12/15 RESULTS /2017 [facility] BLOOD BANK Antibody Negative 12/15 RESULTS Scrn /2016 [facility] (12/15/16 12:23 PM) Abdomen/Pe Abdomen/Pelv Addendum: Outside institution CT dated 12/14/2016 has now been made available for review. Small bowel intussusception is visualized at the jejunojejunal anastomosis on this outside scan. No intussuscept 12/15 - lvis w IV is w IV ion was noted on the CT study of 12/15/2016 performed at [facility]. This indicates intermittent intussusception. Case discussed with the referring physician, Dr. Walker on 12/16/2016 at 1425 hours. - [facility] contrast contrast CT CT Abdomen/Pelvis w IV [...] left kidney. Small left ovarian cyst. SL: [id number] URINE CHEM U Preg Negative Negative 12/15 [facility] (12/15/16 9:02 AM) Abdomen AP Abdomen AP Abdomen AP DX 12/15 - DX - [facility] CLINICAL INDICATION: - Poss intussusception: willl see [...] the colon. No acute abnormality noted. SL: [id number] ANEMIA Folate Lvl 44.7 ng/mL >=3.0 12/15 STUDY ng/mL [facility] ANEMIA Vitamin B12 null 254 - 1320 12/15 STUDY Lvl [facility] ANEMIA Iron 17 ug/dl 30 - 160 12/15 [facility] CHEM PANEL Vitamin D 68 pg/mL 12/15 Result Comment: Reference Range: 1,25 ([place])2 Adults: 21 - 65 [facility] Total CHEM PANEL Vitamin D2 null 12/15 ,25 ([place]) [facility] CHEM PANEL Vitamin D3 68 pg/mL 12/15 Result Comment: Performed At: [facility] Endocrinology ,25 ([place]) [address] [place] [id number] [facility] Piper Diaz MD Ph:[phone] CHEM PANEL Magnesium 2.4 mg/dL 1.8 - 2.4 12/15 [facility] CHEM PANEL eGFR 139 12/15 Result [...] is not recommended in the following populations: [facility] 3m2 Individuals with unstable creatinine concentrations, including [...] Total 0.8 mg/dL 0.2 - 1.3 12/15 [facility] CHEM PANEL Creatinine 0.37 mg/dL 0.50 - 12/15 Lvl 1.40 [facility] CHEM PANEL BUN 11 [...] Alk Phos 69 unit/L 39 - 136 08 [facility] CHEM PANEL AGAP 10.3 meq/L 10.0 - 08 MH 20.0 /2016 [facility] CHEM PANEL Globulin 3.2 g/dL 2.7 - 4.2 12/15 [facility] CHEM PANEL B/C Ratio 30 6 - 25 12/15 [facility] CHEM PANEL A/G Ratio 1.0 0.7 - 1.6 12/15 [facility] CHEM PANEL VITAMIN B1 107.8 66.5 - 12/15 Result Comment: Performed At: [facility] (THIAMINE) nMol/L 200.0 /2016 [address], [place] [id number] [facility] WHOLE BLOOD Neeraj Menjivar MD Ph:[phone] HEMATOLOGY PT 13.8 s 12.0 - 12/15 14.7 [facility] HEMATOLOGY PTT 34.3 s 22.9 - 12/15 35.8 /2016 [facility] HEMATOLOGY INR 1.04 0.85 - 12/15 1.17 [facility] HEMATOLOGY Hct 27.8 % 36.0 - 12/15 48.0 /2016 [facility] HEMATOLOGY MCV 67.6 fL 80.0 - 12/15 98.0 /2016 [facility] HEMATOLOGY MCH 20.8 pg 27.0 - 08 31.0 /2016 [facility] HEMATOLOGY MCHC 30.8 g/dL 32.0 - 12/15 36.0 /2016 [facility] HEMATOLOGY RDW 19.2 % 11.5 - 12/15 14.5 /2016 [facility] HEMATOLOGY Platelet 261 K/CMM 133 - 450 12/15 [facility] HEMATOLOGY MPV 8.4 fL 7.4 - 10.4 12/15 [facility] HEMATOLOGY WBC 6.8 K/CMM 3.7 - 10.4 08 [facility] HEMATOLOGY Hgb 8.6 g/dL 12.0 - 12/15 16.0 [facility] HEMATOLOGY RBC 4.11 M/CMM 4.20 - 12/15 5.40 /2016 [facility] HEMATOLOGY Basophils # 0.1 K/CMM 0.0 - 0.2 12/15 [facility] HEMATOLOGY Microcyte 3+ None Seen 12/15 [facility] *NA* (12/15/16 5:02 AM) HEMATOLOGY Lymphocytes 2.6 K/CMM 1.0 - 5.5 08/10 MH # /2017 [facility] HEMATOLOGY Monocytes # 0.5 K/CMM 0.0 - 0.8 08/ MH /2016 [facility] HEMATOLOGY Eosinophils 0.1 K/CMM 0.0 - 0.5 08/10 MH # /2017 [facility] HEMATOLOGY Lymphocytes 37.9 % 20.0 - 08/10 MH 40.0 /2017 [facility] HEMATOLOGY Monocytes 7.8 % 2.0 - 12.0 08/ /2016 [facility] HEMATOLOGY Eosinophils 0.8 % 0.0 - 4.0 08/ MH /2016 [facility] HEMATOLOGY Basophils 0.7 % 0.0 - 1.0 08/ MH /2016 [facility] HEMATOLOGY Segs-Bands # 3.6 K/CMM 1.5 - 8.1 12/15 /2016 [facility] HEMATOLOGY Segs 52.8 % 45.0 - 08 MH 75.0 /2016 [facility] SPECIAL Hgb A1C 5.1 % <=5.6 % 04/08 CHEMISTRY /2015 [place] CARDIAC CK MB 1.9 ng/mL 0.5 - 3.6 04/07 ENZYMES /2015 [place] CARDIAC CK-MB INDEX 1.3 0.0 - 2.5 04/07 ENZYMES /2015 [place] CARDIAC Troponin-I null 0.00 - 04/07 ENZYMES 0.40 [place] CARDIAC Total CK 141 unit/L 12 - 191 04/07 ENZYMES /2015 [place] CARDIAC Troponin-I null 0.00 - 04/07 EN[facility]YMES 0.40 [place] CARDIAC Total CK 157 unit/L 12 - 191 04/07 ENZYMES [place] CARDIAC CK MB 2.4 ng/mL 0.5 - 3.6 04/07 ENZYMES /2015 [place] CARDIAC CK-MB INDEX 1.5 0.0 - 2.5 12 ENZYMES /2015 [place] HEMATOLOGY aPTT 34.7 s 22.9 - 04/07 MH 35.8 [place] HEMATOLOGY PROTIME 13.2 s 12.0 - 04/07 MH 14.7 [place] HEMATOLOGY INR 0.98 0.85 - 04/07 MH 1.17 [place] LIPIDS CHD Risk 2.96 3.90 - 12 MH 5.80 [place] LIPIDS LDL 85 mg/dL <=99 mg/dL 04/07 (Calculated) /2015 [place] LIPIDS VLDL 9 04/07 [place] LIPIDS Chol 142 mg/dL <=199 04/07 mg/dL [place] LIPIDS Trig 47 mg/dL <=149 04/07 mg/dL [place] LIPIDS HDL 48 mg/dL >=61 mg/dL 04/07 [place] CHEM PANEL Lactic Acid 0.6 mMol/L 0.5 - 2.2 03/26 [facility] CHEM PANEL Phosphorus 3.5 mg/dL 2.5 - 4.5 03/26 [facility] CHEM PANEL Magnesium 2.2 mg/dL 1.8 - 2.4 03/26 [facility] CHEM PANEL eGFR 75 03/26 1Result [...] is not recommended in the following populations: [place] [address] [facility] Individuals with unstable creatinine concentrations, including [...] BUN 18 mg/dL 7 - 22 03/26 [facility] CHEM PANEL Glucose Lvl 86 mg/dL 70 - 99 03/26 2Interpretive Data: Adult reference range values reflect the clinical guidelines of the [employer]. [facility] CHEM PANEL Chloride Lvl 101 meq/L 95 - 109 03/26 [facility] CHEM PANEL CO2 32 meq/L 24 - 32 03/26 [facility] CHEM PANEL Calcium Lvl 9.2 mg/dL 8.5 - 10.5 03/26 [facility] CHEM PANEL Creatinine 1.0 mg/dL 0.5 - 1.4 03/26 [facility] CHEM PANEL Sodium Lvl 141 meq/L 135 - 145 03/26 [facility] CHEM PANEL Potassium 3.5 meq/L 3.5 - 5.1 03/26 Lvl [facility] CHEM PANEL AGAP 11.5 meq/L 10.0 - 03/26 20.0 [facility] HEMATOLOGY Platelet 348 K/CMM 133 - 450 03/26 [facility] HEMATOLOGY MPV 8.8 fL 7.4 - 10.4 03/26 [facility] HEMATOLOGY RDW 16.1 % 11.5 - 03/26 14.5 [facility] HEMATOLOGY MCHC 34.1 g/dL 32.0 - 03/26 36.0 [facility] HEMATOLOGY MCV 83.7 fL 80.0 - 03/26 98.0 [facility] HEMATOLOGY MCH 28.5 pg 27.0 - 03/26 31.0 [facility] HEMATOLOGY Hgb 12.3 g/dL 12.0 - 03/26 16.0 [facility] HEMATOLOGY RBC 4.31 M/CMM 4.20 - 03/26 5.40 [facility] HEMATOLOGY Hct 36.1 % 36.0 - 03/26 48.0 [facility] HEMATOLOGY WBC 8.9 K/CMM 3.7 - 10.4 03/26 [facility] HEMATOLOGY Monocytes # 0.6 K/CMM 0.0 - 0.8 03/26 [facility] HEMATOLOGY Eosinophils 0.0 K/CMM 0.0 - 0.5 03/26 [facility] HEMATOLOGY Basophils # 0.1 K/CMM 0.0 - 0.2 03/26 [facility] HEMATOLOGY Lymphocytes 3.0 K/CMM 1.0 - 5.5 03/26 [facility] HEMATOLOGY Segs-Bands # 5.2 K/CMM 1.5 - 8.1 03/26 [facility] HEMATOLOGY Basophils 1.6 % 0.0 - 1.0 03/26 [facility] HEMATOLOGY Eosinophils 0.2 % 0.0 - 4.0 03/26 [facility] HEMATOLOGY Lymphocytes 33.7 % 20.0 - 03/26 [place] 40.0 /2013 [facility] HEMATOLOGY Segs 57.3 % 45.0 - 03/26 [place] 75.0 [facility] HEMATOLOGY Monocytes 7.2 % 2.0 - 12.0 03/26 [facility] TOXICOLOGY Phenytoin 4.5 ug/ml 10.0 - 03/26 [place] Total 20. [facility] URINE CHEM U Preg Negative Negative 02/24 [facility] (02/24/14 11:40 AM) Center CHEM PANEL Phosphorus 3.3 mg/dL 2.5 - 4.5 02/24 [facility] CHEM PANEL Magnesium 2.0 mg/dL 1.8 - 2.4 02/24 [facility] Lvl [facility] CHEM PANEL Alk Phos 78 unit/L 39 - 136 02/24 [facility] CHEM PANEL Total 6.2 g/dL 6.4 - 8.4 02/24 [facility] CHEM PANEL A/G Ratio 1.3 0.7 - 1.6 02/24 [facility] CHEM PANEL Globulin 2.7 g/dL 2.0 - 4.0 02/24 [facility] CHEM PANEL AST 13 unit/L 0 - 37 02/24 [facility] CHEM PANEL ALT 36 unit/L 0 - 65 02/24 [facility] CHEM PANEL Albumin Lvl 3.5 g/dL 3.5 - 5.0 02/24 [facility] CHEM PANEL Bili 0.1 mg/dL 0.0 - 1.0 02/24 [facility] CHEM PANEL Bili Total 0.2 mg/dL 0.2 - 1.3 02/24 [facility] CHEM PANEL Bili Direct 0.1 mg/dL 0.0 - 0.3 02/24 [facility] CHEM PANEL Glucose Lvl 79 mg/dL 70 - 99 02/24 4Interpretive Data: Adult reference range values reflect the clinical guidelines of the [employer]. [facility] ELECTROLYT AGAP 14.0 meq/L 10.0 - 02/24 [facility] ES . [facility] ELECTROLYT eGFR 128 02/24 1Result Comment: The eGFR is calculated using the CKD-EPI formula. In most young, healthy individuals the eGFR will be > 90 mL/min/1.73m2. The eGFR declines with age. An eGFR of 60-89 may be normal in [facility] mL/min/1. some populations, particularly the elderly, for whom the CKD-EPI formula has not been extensively validated. Use of the eGFR is not recommended in the following populations: [address] Individuals with unstable creatinine concentrations, including [...] CO2 22 meq/L 24 - 32 02/24 [facility] ELECTROLYT Sodium Lvl 141 meq/L 135 - 145 02/24 [facility] ELECTROLYT Chloride Lvl 109 meq/L 95 - 109 02/24 [facility] ELECTROLYT Potassium 4.0 meq/L 3.5 - 5.1 02/24 [facility] ELECTROLYT Calcium Lvl 8.5 mg/dL 8.5 - 10.5 02/24 [facility] ELECTROLYT Creatinine 0.5 mg/dL 0.5 - 1.4 02/24 [facility] ELECTROLYT BUN 11 mg/dL 7 - 22 02/24 [facility] ELECTROLYT Glucose Lvl 79 mg/dL 70 - 99 02/24 3Interpretive Data: Adult reference range values reflect the clinical guidelines of the [employer]. [facility] HEMATOLOGY MCH 29.7 pg 27.0 - 02/24 [place] 31.0 [facility] HEMATOLOGY MCV 87.6 fL 80.0 - 02/24 [place] 98.0 [facility] HEMATOLOGY RDW 18.0 % 11.5 - 02/24 14. [facility] HEMATOLOGY MCHC 33.9 g/dL 32.0 - 02/24 [place] 36.0 [facility] HEMATOLOGY Hgb 11.2 g/dL 12.0 - 02/24 [place] 16.0 [facility] HEMATOLOGY Hct 33.0 % 36.0 - 02/24 [place] 48.0 [facility] HEMATOLOGY RBC 3.77 M/CMM 4.20 - 02/24 [place] 5.40 /2013 [facility] HEMATOLOGY WBC 8.0 K/CMM 3.7 - 10.4 02/24 [facility] HEMATOLOGY MPV 8.0 fL 7.4 - 10.4 02/24 [facility] HEMATOLOGY Platelet 528 K/CMM 133 - 450 02/24 [facility] HEMATOLOGY Basophils # 0.1 K/CMM 0.0 - 0.2 02/24 [facility] HEMATOLOGY Basophils 0.6 % 0.0 - 1.0 02/24 [facility] HEMATOLOGY Monocytes # 0.7 K/CMM 0.0 - 0.8 02/24 [facility] HEMATOLOGY Lymphocytes 2.9 K/CMM 1.0 - 5.5 02/24 [facility] HEMATOLOGY Segs-Bands # 4.3 K/CMM 1.5 - 8.1 02/24 [facility] HEMATOLOGY Eosinophils 0.1 % 0.0 - 4.0 02/24 [facility] HEMATOLOGY Monocytes 9.0 % 2.0 - 12.0 02/24 [facility] HEMATOLOGY Lymphocytes 35.9 % 20.0 - 02/24 [place] 40.0 [facility] HEMATOLOGY Segs 54.4 % 45.0 - 02/24 [facility] 75.0 [facility] PARATHYROI Ca Ion WB 1.07 1.05 - 02/24 [facility] D PROFILE mMol/L 06.01 [facility] PARATHYROI Ca Norm WB 1.09 1.05 - 02/24 [facility] D PROFILE mMol/L 06.01 [facility] CHEM PANEL Phosphorus 3.1 mg/dL 2.5 - 4.5 02/23 [facility] CHEM PANEL Magnesium 2.1 mg/dL 1.8 - 2.4 02/23 [facility] Lvl [facility] TOXICOLOGY Phenytoin 0.21 ug/ml 1.00 - 02/23 [facility] Free [facility] URINE AND UA Protein Trace Negative 02/23 [facility] 3[facility]37 AM[facility] URINE AND UA pH 6.0 5.0 - 8.0 02/23 [facility] STOOL [facility] URINE AND UA Spec Grav 1.034 <=1.030 02/23 [facility] STOOL [facility] URINE AND UA Turbidity Clear Clear 02/23 [facility] (02/23/14 3:37 AM) [place] URINE AND UA 0.2 EU/dL 0.1 - 1.0 02/23 [facility] Urobilinogen [facility] URINE AND UA Leuk Est Negative Negative 02/23 [facility] (02/23/14 3:37 AM) [place] URINE AND UA Nitrite Negative Negative 02/23 [facility] (02/23/14 3:37 AM) [place] URINE AND UA Blood Negative Negative 02/23 [facility] (02/23/14 3:37 AM) [place] URINE AND UA Ketones Trace Negative 02/23 [facility] *ABN* [place] (02/23/14 3:37 AM) URINE AND UA Bili Small Negative 02/23 [facility] *ABN* [place] (02/23/14 3:37 AM) URINE AND UA Glucose Negative Negative 02/23 [facility] [place] (02/23/14 3:37 AM) [place] URINE AND UA Color Yellow Yellow 02/23 [facility] [place] *NA* [place] (02/23/14 3:37 AM) URINE AND UA Bacteria Few /HPF None Seen 02/23 [facility] STOOL /HPF [facility] URINE AND UA WBC 0-2 /HPF None Seen 02/23 [facility] /HPF [facility] URINE AND UA RBC 3-5 /HPF 0 - 2 02/23 [facility] URINE AND Micro? Performed 02/23 [facility] [place] (02/23/14 3:37 AM) [place] URINE AND UA Sq Epi Occasional Few /LPF 02/23 [facility] STOOL /LPF [facility] URINE AND UA Mucus Moderate None Seen 02/23 [facility] STOOL /LPF /LPF [facility] Brain wo Brain wo EXAM: MRI BRAIN WITHOUT CONTRAST 02/23 - [facility] contrast contrast MRI - [facility] MRI DATE: Feb 23, 2014 07:30:14 AM This report was dictated by a Radiator Specialist/Fellow. I have personally reviewed the images as [...] DRUG U Phencyc Negative Negative 02/23 [place] [facility] (02/23/14 1:25 AM) DRUG U Sheila Scr Negative Negative 02/23 [place] [facility] (02/23/14 1:25 AM) DRUG U Benzodia Positive Negative 02/23 [place] [facility] *ABN[facility] (02/23/14 1:25 AM) DRUG U Cocaine Negative Negative 02/23 [place] [facility] Scr [facility]NA* [facility] (02/23/14 1:25 AM) DRUG U Opiate Scr Positive Negative 02/23 [place] [facility] DRUG U Cannab Scr Negative Negative 02/23 [place] [facility]14 1:25 AM[facility] DRUG U Amph Scr Negative Negative 02/23 [place] [facility] [place] (02/23/14 1:25 AM) CARDIAC CK-MB INDEX 1.1 0.0 - 2.5 02/23 [place] ENZYMES [facility] CARDIAC CK MB 1.4 ng/mL 0.5 - 3.6 02/23 [facility] ENZYMES [facility] CARDIAC Total CK 126 unit/L 12 - 191 02/23 [facility] ENZYMES [facility] CHEM PANEL Lactic Acid 1.5 mMol/L 0.5 - 2.2 02/23 [facility] Lvl [facility] ELECTROLYT AGAP 16.4 meq/L 10.0 - 02/23 [facility] ES 20.0 [facility] ELECTROLYT Chloride Lvl 104 meq/L 95 - 109 02/23 [place] ES [facility] ELECTROLYT CO2 24 meq/L 24 - 32 02/23 [facility] ES [facility] ELECTROLYT Calcium Lvl 9.2 mg/dL 8.5 - 10.5 02/23 [facility] ES [facility] ELECTROLYT eGFR 115 02/23 2Result Comment: The eGFR is calculated using the CKD-EPI formula. In most young, healthy individuals the eGFR will be > 90 mL/min/1.73m2. The eGFR declines with age. An eGFR of 60-89 may be normal in [facility] ES mL/min/1.7 some populations, particularly the elderly, for whom the CKD-EPI formula has not been extensively validated. Use of the eGFR is not recommended in the following populations: [place] [address] [facility] Individuals with unstable creatinine concentrations, including [...] Potassium 4.4 meq/L 3.5 - 5.1 02/23 [facility] ES Lvl [facility] ELECTROLYT Sodium Lvl 140 meq/L 135 - 145 02/23 [facility] ELECTROLYT Creatinine 0.7 mg/dL 0.5 - 1.4 02/23 [facility] ES Lvl [facility] ELECTROLYT BUN 13 mg/dL 7 - 22 02/23 [facility] ELECTROLYT Glucose Lvl 134 mg/dL 70 - 99 02/23 5Interpretive Data: Adult reference range values reflect the clinical guidelines of the [place] [employer]. [facility] HEMATOLOGY WBC 14.7 K/CMM 3.7 - 10.4 02/23 [facility] HEMATOLOGY RBC 4.61 M/CMM 4.20 - 02/23 [facility] 5.40 [facility] HEMATOLOGY Hgb 13.2 g/dL 12.0 - 02/23 [facility] 16.0 [facility] HEMATOLOGY MCV 84.3 fL 80.0 - 02/23 98.0 [facility] HEMATOLOGY Hct 38.8 % 36.0 - 02/23 [place] 48.0 [facility] HEMATOLOGY MCH 28.8 pg 27.0 - 02/23 [facility] 31.0 [facility] HEMATOLOGY RDW 17.5 % 11.5 - 02/23 14.5 [facility] HEMATOLOGY MCHC 34.1 g/dL 32.0 - 02/23 [facility] 36.0 [facility] HEMATOLOGY Platelet 649 K/CMM 133 - 450 02/23 [facility] HEMATOLOGY MPV 8.8 fL 7.4 - 10.4 02/23 [facility] MYOGLOBIN U Myoglobin null 0 - 30 02/23 [facility] Brain wo Brain wo EXAM: CT BRAIN WITHOUT CONTRAST 02/23 - [facility] contrast contrast CT - [facility] Center DATE: 02/23/2014 Read by: Tahir [...] Date Comments Source Respitory Rate 18 09/17/2017 [facility] Systolic (mm Hg) 110 09/17/2017 [facility] Diastolic (mm Hg) 70 09/17/2017 [facility] Temperature Oral (F) 98.7 F 09/17/2017 [facility] Heart Rate 80 09/17/2017 [facility] Temperature Oral (F) 98.8 F 09/17/2017 [facility] Heart Rate 85 09/17/2017 [facility] Respitory Rate 18 09/17/2017 [facility] Height 152.4 cm 09/17/2017 [facility] BMI Calculated 29.36 09/17/2017 [facility] Weight 68.182 09/17/2017 [facility] Systolic (mm Hg) 112 09/17/2017 [facility] Diastolic (mm Hg) 72 09/17/2017 [facility] Weight 152 09/15/2017 [facility] Height 58 [...] 09/12/2017 [facility] Respitory Rate 16 09/05/2017 [place] Systolic (mm Hg) 102 09/05/2017 [facility] Diastolic (mm Hg) 59 09/05/2017 [facility] Respitory Rate 16 09/05/2017 [facility] Systolic (mm Hg) 87 09/05/2017 [facility] Diastolic (mm Hg) 64 09/05/2017 [facility] Respitory Rate 13 09/05/2017 [facility] Systolic (mm Hg) 68 09/05/2017 [facility] Diastolic (mm Hg) 49 09/05/2017 [facility] Heart Rate 65 09/05/2017 [facility] Height 147.32 cm 09/04/2017 [facility] BMI Calculated 31 09/04/2017 [facility] Weight 67.273 09/04/2017 [facility] Weight 149 08/03/2017 Enay[facility] Rahim Height 58 08/03/2017 [facility] Temperature Oral (F) 98.8 F 08/03/2017 En[facility] Diastolic (mm Hg) 72 08/03/2017 [facility] Rah[facility] Systolic (mm Hg) 100 08/03/2017 En[facility] Rah[facility] Weight 65.455 08/02/2017 [facility] Heart Rate 85 08/02/2017 [facility] Height 152.4 cm 08/02/2017 [facility] Temperature Oral (F) 98.7 F 08/02/2017 [facility] Respitory Rate 18 08/02/2017 [facility] BMI Calculated 28.18 08/02/2017 [facility] Systolic (mm Hg) 108 08/02/2017 [facility] Diastolic (mm Hg) 72 08/02/2017 [facility] Weight 147 07/06/2017 Enayet Rahim Height 58 07/06/2017 Enay[facility] Rahim Temperature Oral (F) 98.9 F 07/06/2017 Enay[facility] Rahim Diastolic (mm Hg) 70 07/06/2017 Enay[facility] Rahim Systolic (mm Hg) 106 07/06/2017 Enay[facility] Rahim Temperature Oral (F) 98.5 F 03/11/2017 [facility] Respitory Rate 17 03/11/2017 [facility] Systolic (mm Hg) 96 03/11/2017 [facility] Diastolic (mm Hg) 55 03/11/2017 [facility] Heart Rate 68 03/11/2017 [facility] Heart Rate 70 03/11/2017 [facility] Temperature Oral (F) 97.9 F 03/11/2017 [facility] Systolic (mm Hg) 95 03/11/2017 [facility] Diastolic (mm Hg) 57 03/11/2017 [facility] Respitory Rate 17 03/11/2017 [facility] Systolic (mm Hg) 91 03/11/2017 [facility] Diastolic (mm Hg) 57 03/11/2017 [facility] Respitory Rate 18 03/11/2017 [facility] Heart Rate 60 03/11/2017 [facility] Temperature Oral (F) 97.9 F 03/11/2017 [facility] Height 147.32 cm 03/11/2017 [facility] Weight 63.636 03/11/2017 [facility] BMI Calculated 29.32 03/11/2017 [facility] Height 147.32 cm 03/10/2017 [facility] Weight 63.636 03/10/2017 [facility] BMI Calculated 29.32 03/10/2017 [facility] Weight 137 03/09/2017 2.16.840.1.739333. 4.391.11.40646 Height 58 03/09/2017 2.16.840.1.842897. 4.391.11.99479 Temperature Oral (F) 98.5 F 03/09/2017 2.16.840.1.018069. 4.391.11.19153 Heart Rate 86 03/09/2017 2.16.840.1.738782. 4.391.11.79250 Diastolic (mm Hg) 61 03/09/2017 2.16.840.1.506822. 4.391.11.03860 Systolic (mm Hg) 99 03/09/2017 2.16.840.1.487071. 4.391.11.36153 Weight 142 02/27/2017 2.16.840.1.354176. 4.391.11.09643 Height 58 02/27/2017 2.16.840.1.189978. 4.391.11.19875 Temperature Oral (F) 98.6 F 02/27/2017 2.16.840.1.588295. 4.391.11.84396 Heart Rate 82 02/27/2017 2.16.840.1.636129. 4.391.11.52482 Diastolic (mm Hg) 71 02/27/2017 2.16.840.1.002591. 4.391.11.75220 Systolic (mm Hg) 110 02/27/2017 2.16.840.1.085333. 4.391.11.65207 Weight 148 02/24/2017 Enayet Rahim Height 58 02/24/2017 En[facility] Rah[facility] Temperature Oral (F) 97.9 F 02/24/2017 En[facility] Rah[facility] Diastolic (mm Hg) 79 02/24/2017 Enay[facility] Rah[facility] Systolic (mm Hg) 118 02/24/2017 Enay[facility] Rah[facility] Systolic (mm Hg) 110 02/18/2017 [facility] Diastolic (mm Hg) 69 02/18/2017 [facility] Heart Rate 82 02/18/2017 [facility] Temperature Oral (F) 98.1 F 02/18/2017 [facility] Systolic (mm Hg) 125 02/17/2017 [facility] Diastolic (mm Hg) 78 02/17/2017 [facility] Temperature Oral (F) 98.1 F 02/17/2017 [facility] Heart Rate 84 02/17/2017 [facility] Systolic (mm Hg) 111 02/17/2017 [facility] Diastolic (mm Hg) 69 02/17/2017 [facility] Temperature Oral (F) 98.4 F 02/17/2017 [facility] Heart Rate 91 02/17/2017 [facility] Respitory Rate 16 02/17/2017 [facility] Respitory Rate 16 02/17/2017 [facility] Respitory Rate 16 02/17/2017 [facility] Weight 60 02/12/2017 [facility] BMI Calculated 27.65 02/12/2017 [facility] Height 147.32 cm 02/12/2017 [facility] Heart Rate 69 02/03/2017 [facility] Temperature Oral (F) 98.2 F 02/03/2017 [facility] Systolic (mm Hg) 114 02/03/2017 [facility] Diastolic (mm Hg) 75 02/03/2017 [facility] Respitory Rate 16 02/03/2017 [facility] Temperature Oral (F) 98.5 F 02/03/2017 [facility] Systolic (mm Hg) 130 02/03/2017 [facility] Diastolic (mm Hg) 77 02/03/2017 [facility] Heart Rate 59 02/03/2017 [facility] Temperature Oral (F) 98.4 F 02/03/2017 [facility] Heart Rate 76 02/03/2017 [facility] Systolic (mm Hg) 118 02/03/2017 [facility] Diastolic (mm Hg) 74 02/03/2017 [facility] Respitory Rate 14 02/03/2017 [facility] Respitory Rate 14 02/02/2017 [facility] Weight 62.33 01/31/2017 [facility] BMI Calculated 28.72 01/31/2017 [facility] Height 147.32 cm 01/31/2017 [facility] Temperature Oral (F) 98.8 F 01/18/2017 [facility] Systolic (mm Hg) 100 01/18/2017 [facility] Diastolic (mm Hg) 66 01/18/2017 [facility] Respitory Rate 18 01/18/2017 [facility] Heart Rate 62 01/18/2017 [facility] Heart Rate 72 01/18/2017 [facility] Temperature Oral (F) 98.1 F 01/18/2017 [facility] Systolic (mm Hg) 112 01/18/2017 [facility] Diastolic (mm Hg) 68 01/18/2017 [facility] Respitory Rate 16 01/18/2017 [facility] Heart Rate 74 01/18/2017 [facility] Temperature Oral (F) 98.0 F 01/18/2017 [facility] Systolic (mm Hg) 103 01/18/2017 [facility] Diastolic (mm Hg) 68 01/18/2017 [facility] Respitory Rate 16 01/18/2017 [facility] Weight 61.364 01/16/2017 [facility] BMI Calculated 28.27 01/16/2017 [facility] Height 147.32 cm 01/16/2017 [facility] Height 147.32 cm 01/15/2017 [facility] BMI Calculated 27.65 01/15/2017 [facility] Weight 60 01/15/2017 [facility] Temperature Oral (F) 98.4 F 12/16/2016 [facility] Heart Rate 79 12/16/2016 [facility] Systolic (mm Hg) 111 12/16/2016 [facility] Diastolic (mm Hg) 74 12/16/2016 [facility] Respitory Rate 16 12/16/2016 [facility] Temperature Oral (F) 98.3 F 12/16/2016 [facility] Respitory Rate 16 12/16/2016 [facility] Systolic (mm Hg) 103 12/16/2016 [facility] Diastolic (mm Hg) 69 12/16/2016 [facility] Heart Rate 81 12/16/2016 [facility] Heart Rate 79 12/16/2016 [facility] Respitory Rate 16 12/16/2016 [facility] Systolic (mm Hg) 99 12/16/2016 [facility] Diastolic (mm Hg) 66 12/16/2016 [facility] Temperature Oral (F) 98.4 F 12/16/2016 [facility] BMI Calculated 28.69 12/15/2016 [facility] Weight 62.273 12/15/2016 [facility] Height 147.32 cm 12/15/2016 [facility] Systolic (mm Hg) 99 04/08/2016 [facility] Diastolic (mm Hg) 65 04/08/2016 [facility] Respitory Rate 18 04/08/2016 [facility] Temperature Oral (F) 98.1 F 04/08/2016 [facility] Heart Rate 85 04/08/2016 [facility] Systolic (mm Hg) 89 04/08/2016 [facility] Diastolic (mm Hg) 58 04/08/2016 [facility] Heart Rate 73 04/08/2016 [facility] Respitory Rate 18 04/08/2016 [facility] Temperature Oral (F) 98.5 F 04/08/2016 [facility] Systolic (mm Hg) 89 04/08/2016 [facility] Diastolic (mm Hg) 55 04/08/2016 [facility] Heart Rate 71 04/08/2016 [facility] Temperature Oral (F) 98.1 F 04/08/2016 [facility] Respitory Rate 18 04/08/2016 [facility] Weight 65.028 04/07/2016 [facility] BMI Calculated 29.97 04/07/2016 [facility] Height 147.3 cm 04/07/2016 [facility] Height 147.32 cm 04/07/2016 [facility] Respitory Rate 18 03/26/2014 [facility] Heart Rate 85 03/26/2014 [facility] Systolic (mm Hg) 94 03/26/2014 [facility] Diastolic (mm Hg) 62 03/26/2014 [facility] Height 152.4 cm 03/26/2014 [facility] Weight 61.818 03/26/2014 [facility] BMI Calculated 26.62 03/26/2014 [facility] Temperature Oral (F) 98.0 F 03/26/2014 [facility] Systolic (mm Hg) 92 03/26/2014 [facility] Heart Rate 87 03/26/2014 [facility] Diastolic (mm Hg) 66 03/26/2014 [facility] Respitory Rate 18 03/26/2014 [facility] Diastolic (mm Hg) 85 02/24/2014 [facility] Heart Rate 64 02/24/2014 [facility] Systolic (mm Hg) 111 02/24/2014 [facility] Respitory Rate 18 02/24/2014 [facility] Temperature Oral (F) 98.1 F 02/24/2014 [facility] Heart Rate 74 02/24/2014 [facility] Respitory Rate 18 02/24/2014 [facility] Diastolic (mm Hg) 85 02/24/2014 [facility] Systolic (mm Hg) 119 02/24/2014 [facility] Temperature Oral (F) 97.6 F 02/24/2014 [facility] Heart Rate 81 02/24/2014 [facility] Temperature Oral (F) 98.1 F 02/24/2014 [facility] Systolic (mm Hg) 107 02/24/2014 [facility] Diastolic (mm Hg) 69 02/24/2014 [facility] Respitory Rate 16 02/24/2014 [facility] Weight 90.909 02/23/2014 [facility] Height 157.48 cm 02/23/2014 [facility] BMI Calculated 36.66 02/23/2014 [facility] Encounters Location Location Encounter Encounter Reason Attending ADM DC Status Source Details Type Number For Provider Date Date Visit [facility] [id number] [facility] Emergency [id number] Felicia 03/26 03/26 [facility] Micky /2013 [facility] Observation [id number] Link 04/07 04/08 [facility] Marleny /2015 [facility] Inpatient [id number] Lucio 12/15 12/17 Adi Frazier /[address] [facility] Inpatient [id number] Mian Fabio 01/15 01/18 [facility] Inpatient [id number] Mian Fabio 01/31 02/03 Adi [facility] Inpatient [id number] Mian Fabio 02/12 02/18 Adi [facility] Outpatient [id number] Jigar 03/06 03/07 Adi Taylor /[address] [facility] Observation [id number] Gyanendra 03/10 03/11 Adi Roman /2016 [facility] Emergency [id number] Sebastian 08/02 08/03 Adi Martinez [facility] Bedded [id number] Sajan 09/05 09/05 [facility] Outpatient Ladarius /2017 [facility] Emergency [id number] Musa Iheme 09/17 09/17 [facility] Procedures Procedure Code Date Perfomer Comments Source Cardiac [id number] [facility] catheterization Gastric bypass [id number] [facility] operation Gastric bypass [id number] [facility] Gastric bypass [id number] [facility] Cholecystectomy [id number] [facility]
--- OUTSIDE RECORDS SUMMARY | 2018-05-03 08:09 | XMS REPORT ---
[...] Problem Coronary artery disease involving I25.10 Active morongo coronary artery of morongo heart without angina pectoris Problem Schizoaffective disorder, bipolar F25.0 Active type Assessment MRSA (methicillin resistant A49.02 Active Staphylococcus aureus) infection Assessment Coronary artery disease involving I25.10 Active morongo coronary artery of morongo heart without angina pectoris Problem MRSA (methicillin resistant A49.02 Active Staphylococcus aureus) infection Assessment Encounter to establish care Z76.89 Active Medications Medication Code Code Instructions Start End Status Dosage System Date Date Clonazepam [facility] 63719843190 1 MG Orally Active 1 tablet Twice a day Abilify [facility] 36927662274 5 MG Orally Active 1 tablet Once a day Ambien [facility] 92155368289 10 mg Orally Active 1 tablet Once a day at bedtime as needed Vancomycin NDC 0 Active not defined Aspirin Adult Low [facility] 95652825485 81 MG Orally Active 1 tablet Dose Once a day Plavix [facility] 83231047701 75 MG Orally Active 1 tablet Once a day Nitroglycerin [facility] 54745673817 0.4 MG Active 1 tablet Sublingual as needed (prn) Ranexa [facility] 57066607096 500 MG Orally Active 1 tablet Twice a day [place] [facility] 77087839551 10-325 MG Active 1 tablet Orally every 6 as needed hrs Vital Signs Date/Time: Feb 24, 2017 BMI 30.93 Index Weight 148 lbs Height 58 in Temperature 97.9 F Blood Pressure Diastolic 79 mm Hg Blood Pressure Systolic 118 mm Hg Results No Known Results Summary Purpose eClinicalWorks Submission
--- OUTSIDE RECORDS SUMMARY | 2018-05-03 08:09 | XMS REPORT ---
[...] End Status Dosage System Date Date Chlorhexidine [facility] 15475031275 2 % Externally Mar 09May 08, Active as Gluconate once a day 2016 2017 directed Bactroban Nasal ND 92103518951 2 % Nasally Mar 09May 08, Active as Twice a day 2016 2017 directed Hydrocortisone [facility] 53771604463 10 MG Oral Active not defined Carafate [facility] 33768320197 1 GM/10ML Oral Active TK 10 ML PO FOUR TIMES A DAY FOR 6 WEEKS Nitrostat ND 00793184697 0.[address] 1 T Sublingual UNDER THE TONGUE Q 5 MINUTES PRF CHEST PAIN. DO NOT EXCEED 3 DOSES IN 15 MINUTES. Ropinirole HCl [facility] 82353741108 1 MG Oral Active TK 1 T PO TID PRN Clopidogrel [facility] 19773607770 75 MG Oral Active TK 1 T PO Bisulfate ONCE D. Ferrous Sulfate [facility] 82265350440 325 (65 Fe) MG Active TK 1 T PO Oral QD Nitroglycerin [facility] 71384108120 0.[address] 1 T Sublingual UNDER THE TONGUE Q 5 MINUTES PRN FOR CHEST PAIN. DO NOT EXCEED 3 DOSES IN 15 MINUTES. Vancomycin HCl in [facility] 25733553537 1.75-0.9 Active not NaCl GM/300ML defined Intravenous Oxycodone-Acetami ND 49237854729 10-325 MG Oral Active (Schedule nophen II Drug) TK 1 T PO Q 6 H PRN Omeprazole ND 25686695716 20 MG Oral Active TK 1 C PO TWICE A DAY FOR 6 WEEKS Clonazepam ND 82492969707 1 MG Oral Active (Schedule IV Drug) TK 1 T PO BID. Hydrocodone-Aceta ND 77626870049 10-325 MG Oral Active (Schedule minophen II Drug) TK 1 T PO Q 6 H PRN. Zolpidem Tartrate [facility] 58432335610 10 MG Oral Active (Schedule IV Drug) TK 1 T PO HS PRN Furosemide ND 98182745135 20 MG Oral Active TK 1 T PO ONCE DAILY Pantoprazole ND 83395444778 20 MG Oral Active TK 2 TS PO Sodium D Doxycycline ND 47596862550 100 MG Orally Mar 09, Mar 19, Active 1 tablet Hyclate every 12 hrs 2016 2016 DOK [facility] 68664171119 100 MG Oral Active TK 1 C PO HS Aripiprazole ND 89067258689 5 MG Oral Active TK 1 T PO QD Vital Signs Date/Time: Mar 09, 2017 BMI 28.63 Index Weight 137 lbs Height 58 in Temperature 98.5 F Cardiac Monitoring Heart Rate 86 /min Blood Pressure Diastolic 61 mm Hg Blood Pressure Systolic 99 mm Hg Results No Known Results Summary Purpose eClinicalWorks Submission
--- OUTSIDE RECORDS SUMMARY | 2018-05-03 08:09 | XMS REPORT ---
[...] End Status Dosage System Date Date Hydrocortisone [facility] 03825490566 10 MG Oral Active not defined Carafate [facility] 95928897340 1 GM/10ML Oral Active TK 10 ML PO FOUR TIMES A DAY FOR 6 WEEKS Ferrous Sulfate [facility] 63788422583 325 (65 Fe) MG Active TK 1 T PO Oral QD Aripiprazole [facility] 96248919607 5 MG Oral Active TK 1 T PO QD Vancomycin HCl in [facility] [address]-70 1.75-0.9 Active not NaCl GM/300ML defined Intravenous Nitroglycerin [facility] 70580819137 0.[address] 1 T Sublingual UNDER THE TONGUE Q 5 MINUTES PRN FOR CHEST PAIN. DO NOT EXCEED 3 DOSES IN 15 MINUTES. Oxycodone-Acetami [facility] 96507038997 10-325 MG Oral Active (Schedule nophen II Drug) TK 1 T PO Q 6 H PRN Nitrostat [facility] 82447645531 0.[address] 1 T Sublingual UNDER THE TONGUE Q 5 MINUTES PRF CHEST PAIN. DO NOT EXCEED 3 DOSES IN 15 MINUTES. Clonazepam [facility] 12782488573 1 MG Oral Active (Schedule IV Drug) TK 1 T PO BID. Omeprazole [facility] 74905178195 20 MG Oral Active TK 1 C PO TWICE A DAY FOR 6 WEEKS Clopidogrel ND 87973279081 75 MG Oral Active TK 1 T PO Bisulfate ONCE D. Zolpidem Tartrate [facility] 68072669491 10 MG Oral Active (Schedule IV Drug) TK 1 T PO HS PRN Furosemide [facility] 89020169556 20 MG Oral Active TK 1 T PO ONCE DAILY Pantoprazole [facility] 50428634208 20 MG Oral Active TK 2 TS Sodium PO D DOK [facility] 98396998217 100 MG Oral Active TK 1 C PO HS Hydrocodone-Aceta [facility] 86136353519 10-325 MG Oral Active (Schedule minophen II Drug) TK 1 T PO Q 6 H PRN. Ropinirole HCl [facility] 47745671570 1 MG Oral Active TK 1 T PO TID PRN Vital Signs Date/Time: Feb 27, 2017 BMI 29.67 Index Weight 142 lbs Height 58 in Temperature 98.6 F Cardiac Monitoring Heart Rate 82 /min Blood Pressure Diastolic 71 mm Hg Blood Pressure Systolic 110 mm Hg Results No Known Results Summary Purpose eClinicalWorks Submission
--- OUTSIDE RECORDS SUMMARY | 2018-05-03 08:10 | XMS REPORT ---
[...] Problem Coronary artery disease involving I25.10 Active [place] coronary artery of [place] heart without angina pectoris Medications Medication Code Code Instructions Start End Status Dosage System Date Date Plavix [facility] 89359102091 75 MG Orally Active 1 tablet Once a day Aspirin Adult [facility] 95086534969 81 MG Orally Active 1 tablet Low Dose Once a day Ranexa [facility] 47445423173 500 MG Orally Active 1 tablet Twice a day Protonix [facility] 23092493744 20 MG Orally Active 2 tablets Once a day Nitroglycerin [facility] 55888996668 0.4 MG Active 1 tablet Sublingual as needed (prn) Abilify [facility] 92693227339 5 MG Orally Active 1 tablet Once a day Ambien [facility] 92504376197 10 mg Orally Active 1 tablet at Once a day bedtime as needed Maxalt-AUDIO TAPE LIBRARIAN [facility] 55114922099 10 MG Orally March Active 1 tablet on Once a day as 2017 the tongue needed and allow to dissolve as needed one time [place] [facility] 79351827064 10-325 MG Active 1 tablet as Orally every 6 needed hrs Clonazepam [facility] 42460582315 1 MG Orally Active 1 tablet Twice a day Vancomycin ND 0 Active not defined Vital Signs Date/Time: July 06, 2017 BMI 30.72 Index Weight 147 lbs Height 58 in Temperature 98.9 F Blood Pressure Diastolic 70 mm Hg Blood Pressure Systolic 106 mm Hg Results No Known Results Summary Purpose eClinicalWorks Submission
--- OUTSIDE RECORDS SUMMARY | 2018-05-03 08:10 | XMS REPORT ---
[...] Assessment Coronary artery disease involving I25.10 Active [place] coronary artery of [place] heart without angina pectoris Assessment Schizoaffective disorder, bipolar F25.0 Active type Problem MRSA (methicillin resistant A49.02 Active Staphylococcus aureus) infection Problem Schizoaffective disorder, bipolar F25.0 Active type Problem Intractable migraine with aura with G43.111 Active status migrainosus Assessment Lower abdominal pain R10.30 Active Assessment Primary insomnia F51.01 Active Problem Primary insomnia F51.01 Active Problem Coronary artery disease involving I25.10 Active [place] coronary artery of [place] heart without angina pectoris Medications Medication Code Code Instructions Start End Status Dosage System Date Date Clonazepam [facility] 42029018430 1 MG Orally Active 1 tablet Twice a day Nitroglycerin [facility] 69115998219 0.4 MG Active 1 tablet Sublingual as needed (prn) Ambien [facility] 25708008112 10 mg Orally Active 1 tablet at Once a day bedtime as needed Abilify [facility] 28003010211 5 MG Orally Active 1 tablet Once a day Protonix [facility] 74716460997 40 MG Orally Active 1 packet Once a day [place] [facility] 63143604047 10-325 MG Active 1 tablet as Orally every 6 needed hrs Plavix [facility] 76215999928 75 MG Orally Active 1 tablet Once a day Ranexa [facility] 48631116246 500 MG Orally Active 1 tablet Twice a day Vancomycin ND 0 Active not defined Aspirin Adult [facility] 58369907576 81 MG Orally Active 1 tablet Low Dose Once a day Maxalt-KNOTTING MACHINE OPERATOR [facility] 34321415382 10 MG Orally March Active 1 tablet [...]
--- OUTSIDE RECORDS SUMMARY | 2018-05-03 08:10 | XMS REPORT ---
:1980 Author Organization eClinicalWorks Care Team Providers Name Role Phone Ryan Klein Provider Role Unavailable Allergies No Known Allergies Problems Problem Type Condition Code Onset Dates Condition Status Problem Primary insomnia F51.01 Active Problem Coronary artery disease involving I25.10 Active [place] coronary artery of [place] heart without angina pectoris Problem Schizoaffective disorder, bipolar F25.0 Active type Problem MRSA (methicillin resistant A49.02 Active Staphylococcus aureus) infection Assessment Primary insomnia F51.01 Active Medications Medication Code System Code Instructions Start End Date Status Dosage Date Mina [facility] 80937964534 10 mg Orally Active 1 tablet at Once a day bedtime as needed Results No Known Results Summary Purpose eClinicalWorks Submission
--- OUTSIDE RECORDS SUMMARY | 2018-05-03 08:10 | XMS REPORT ---
[...] Problem Coronary artery disease involving I25.10 Active [place] coronary artery of [place] heart without angina pectoris Assessment Generalized abdominal pain R10.84 Active Problem Schizoaffective disorder, bipolar F25.0 Active type Problem Primary insomnia F51.01 Active Medications Medication Code Code Instructions Start End Status Dosage System Date Date Nitroglycerin [facility] 86239383813 0.4 MG Active 1 tablet Sublingual as needed (prn) Clonazepam [facility] 07607177868 1 MG Orally Active 1 tablet Twice a day Plavix [facility] 42360108438 75 MG Orally Active 1 tablet Once a day Ambien [facility] 85542911494 10 mg Orally Active 1 tablet at Once a day bedtime as needed Protonix [facility] 07482732792 40 MG Orally Active 1 packet BID [place] [facility] 24165333789 10-325 MG Active 1 tablet as Orally every 6 needed hrs Aspirin Adult [facility] 98901196059 81 MG Orally Active 1 tablet Low Dose Once a day Maxalt-BIOMEDICAL SPECIALIST [facility] 53595887528 10 MG Orally March Active 1 tablet [...]
--- OUTSIDE RECORDS SUMMARY | 2018-05-03 08:10 | XMS REPORT ---
[...] Problem Coronary artery disease involving I25.10 Active [place] coronary artery of [place] heart without angina pectoris Assessment Cellulitis of nose J34.0 Active Problem Schizoaffective disorder, bipolar F25.0 Active type Problem Primary insomnia F51.01 Active Medications Medication Code Code Instructions Start End Status Dosage System Date Date Plavix [facility] 58398296255 75 MG Orally Active 1 tablet Once a day Protonix [facility] 31828241317 40 MG Orally Active 1 packet BID Nitroglycerin [facility] 32135142261 0.4 MG Active 1 tablet Sublingual as needed (prn) Maxalt-RESULTS TECHNICIAN [facility] 18484605721 10 MG Orally March Active 1 tablet on Once a day as 2017 the tongue needed and allow to dissolve as needed one time Ambien [facility] 47909753938 10 mg Orally Active 1 tablet at Once a day bedtime as needed [place] [facility] 31418325312 10-325 MG Active 1 tablet as Orally every 6 needed hrs Aspirin Adult [facility] 21807804645 81 MG Orally Active 1 tablet Low Dose Once a day Clonazepam [facility] 82840034541 1 MG Orally Active 1 tablet Twice a day Bactrim DS [facility] 66404840385 800-160 MG September 15September 25, Active 1 tablet Orally Twice a 20172017 Vital Signs Date/Time: September 15, 2017 BMI 31.76 Index Weight 152 lbs Height 58 in Temperature 98.6 F Blood Pressure Diastolic 83 mm Hg Blood Pressure Systolic 126 mm Hg Results No Known Results Summary Purpose eClinicalWorks Submission
--- NOTE | 2018-05-03 08:58 | EKG ---
Test Date: 2018-05-03 Test Time: 08:03:07 Heat Treater: MARANDA MEASUREMENT RESULTS: Intervals: Rate: 75 WV: 128 QRSD: 88 QT: 388 QTc: 433 [place]: P: 62 WV: 128 QRS: 65 T: 55 INTERPRETIVE STATEMENTS: Normal sinus rhythm Normal ECG Compared to ECG 11/09/2016 19:47:30 No significant changes Electronically Signed On 05-03-18 08:57:39 PUNCH HAND by Jimmy Campbell
[2018-05-03 09:13] LABS: Absolute Lymphocytes (CBC) 1.4 K/uL (0.7-4.9); Absolute Monocytes 0.6 K/uL (0.1-1.3); Absolute Neutrophil 10.2 K/uL (1.8-8.0); Basophils % 0.3 % (0-1.3); Eosinophils % 0.4 % (0-4.4); Hematocrit 44.1 % (36.0-45.0); Lymphocytes % 11.8 % (15.3-44.8); MPV 10.1 fL (7.6-11.3); Monocytes % 4.7 % (3.3-12.3); RBC Red Blood Cell Count 4.91 M/uL (3.86-4.86)
[2018-05-03 09:15] LABS: Protime INR 1.1
[2018-05-03] MEDS ORDERED: MORPHINE 4 MG/ML SYR ONE (09:17)
[2018-05-03] MEDS ORDERED: NA CHLORIDE 0.9% 1,000 ML ONE ×2 (09:17→12:09)
[2018-05-03] MEDS ORDERED: ASPIRIN 325 MG TAB ONE (09:17)
[2018-05-03] MEDS ORDERED: ONDANSETRON 4 MG/2 ML VIAL ONE (09:17)
[2018-05-03 09:33] LABS: ALT/SGPT 25 U/L (12-78); AST/SGOT 19 U/L (15-37); Albumin 4.5 g/dL (3.4-5.0); Alkaline Phosphatase 88 U/L (45-117); BUN Blood Urea Nitrogen 18 mg/dL (7-18); Bicarbonate 27 mmol/L (21-32); Bilirubin Direct 0.1 mg/dL (0-0.2); Bilirubin Total 0.4 mg/dL (0.2-1.0); Glucose Level 95 mg/dL (74-106); Magnesium 2.4 mg/dL (1.8-2.4); NT PRO-BNP 28 pg/mL (<125); Potassium 3.2 mmol/L (3.5-5.1); Protein, Total 8.4 g/dL (6.4-8.2); Sodium Level 142 mmol/L (136-145); Troponin (Emerg Dept Use Only) < 0.02 ng/mL (0.0-0.045)
--- NOTE | 2018-05-03 09:36 | EDPHYS ---
Physician Documentation [facility] Name: Nell Shirley Age: 37 yrs Sex: Female : 1980 Arrival Date: 05/03/2018 Time: 07:50 Bed 6 Private MD: None, None ED Physician Clifton Singh HPI: 05/03 08:34 This 37 yrs old Female presents to ER via Ambulatory with complaints of Chest ma2 Pain. 08:34 The patient or guardian reports chest pain that is located primarily in the substernal ma2 area. The pain does not radiate. Associated signs and symptoms: Pertinent negatives:. The chest pain is described as a heaviness. Duration: The patient or guardian reports a single episode, The patient or guardian reports multiple episodes, approximately 2 episodes since symptom onset. Modifying factors: the symptoms are aggravated by nothing. Severity of pain: At its worst the pain was moderate in the emergency department the pain is unchanged. The patient has experienced similar episodes in the past. KNEE BOLTER: 08:00 LMP 04/29/2018 hb Historical: - Allergies: 08:02 Aspirin; hb 08:02 Depo-Provera; hb 08:02 GABAPENTIN; hb 08:02 Lyrica; hb 08:02 Neurontin; hb 08:02 NSAIDS; hb 08:02 PENICILLINS; hb - Home Meds: 08:02 Abilify 5 mg Oral tab 1 tab once daily [Active]; Ambien 10 mg Oral tab 1 tab once daily hb [Active]; clonazepam 1 mg Oral tab 1 tab 3 times per day [Active]; furosemide 20 mg Oral tab 1 tab 2 times per day [Active]; hydrocodone-acetaminophen 10-325 mg Oral tab 1 tab every 4 hours [Active]; nitroglycerin 0.4 mg SL subl [Active]; Plavix 75 mg Oral tab 1 tab once daily [Active]; - PMHx: 08:02 Anxiety; CMT; heart murmer; Schizophrenia; hb - PSHx: 08:02 Gastric Bypass; open abdominal surgery; gall bladder; hb - Immunization history:: Adult Immunizations up to date. - Social history:: Smoking status: Patient uses tobacco products, smokes one pack cigarettes per day. Patient/guardian denies using alcohol, street drugs, The patient lives with family. - Ebola Screening: : No symptoms or risks identified at this time. - Family history:: not pertinent. - Hospitalizations: : No recent hospitalization is reported. ROS: 08:34 Constitutional: Negative for fever, chills, and weight loss. ma2 08:34 Cardiovascular: Positive for chest pain, Negative for edema, palpitations, paroxysmal nocturnal dyspnea. 08:34 All other systems are negative. Exam: 08:34 Constitutional: This is a well developed, well nourished patient who is awake, alert, ma2 and in no acute distress. Chest/axilla: Normal chest wall appearance and motion. Nontender with no deformity. No lesions are appreciated. Cardiovascular: Regular rate and rhythm with a normal S1 and S2. No gallops, murmurs, or rubs. Normal PMI, no JVD. No pulse deficits. Respiratory: Lungs have equal breath sounds bilaterally, clear to auscultation and percussion. No rales, rhonchi or wheezes noted. No increased work of breathing, no retractions or nasal flaring. Abdomen/GI: Soft, non-tender, with normal bowel sounds. No distension or tympany. No guarding or rebound. No evidence of tenderness throughout. MS/ Extremity: Pulses equal, no cyanosis. Neurovascular intact. Full, normal range of motion. Neuro: Awake and alert, GCS 15, oriented to person, place, time, and situation. Cranial nerves II-XII grossly intact. Motor strength 5/5 in all extremities. Sensory grossly intact. Cerebellar exam normal. Normal gait. Psych: Awake, alert, with orientation to person, place and time. Behavior, mood, and affect are within normal limits. Vital Signs: 08:00 BP 98 / 71; Pulse 88; Resp 16; Temp 98.1; Pulse Ox 100% on R/A; Pain 7/10; hb 09:29 BP 94 / 65; Pulse 67; Resp 16; Temp 98.4; Pulse Ox 100% ; lt1 11:00 BP 90 / 64; Pulse 59; Resp 16; Pulse Ox 97% ; bp 12:00 BP 73 / 48; Pulse 58; Resp 9; Pulse Ox 98% ; bp MDM: 07:59 Patient medically screened. ma2 08:34 Differential diagnosis: abnormal EKG, acute pericarditis, anxiety, coronary artery ma2 disease congestive heart failure gastroesophageal reflux disease (GERD). TRINO Risk Score: 1- Known CAD. Data reviewed: vital signs, nurses notes. 09:34 Counseling: I had a detailed discussion with the patient and/or guardian regarding: the [facility] historical points, exam findings, and any diagnostic results supporting the discharge/admit diagnosis, the presence of at least one elevated blood pressure reading (>120/80) during this emergency department visit, the need for further work-up and treatment in the hospital. 10:14 ED course: discussed w dr ray . [facility] 05/03 08:02 Order name: Basic Metabolic Panel; Complete Time: 13:24 [facility] 05/03 08:02 Order name: CBC with Diff; Complete Time: 09:22 [facility] 05/03 08:02 Order name: LFT's; Complete Time: 13:24 [facility] 05/03 08:02 Order name: Magnesium; Complete Time: 13:24 [facility] 05/03 08:02 Order name: NT PRO-BNP; Complete Time: 13:24 [facility] 05/03 08:02 Order name: PT-INR; Complete Time: 09:22 [facility] 05/03 08:02 Order name: Troponin (emerg Dept Use Only); Complete Time: 13:24 [facility] 05/03 08:02 Order name: XRAY Chest (1 view); Complete Time: 13:24 [facility] 05/03 11:44 Order name: Test, Urine [facility] 05/03 11:44 Order name: Urinalysis W/Microscopic EDAL 05/03 08:02 Order name: EKG; Complete Time: 08:02 [facility] 05/03 08:02 Order name: Cardiac monitoring; Complete Time: 08:31 [facility] 05/03 08:02 Order name: EKG - Nurse/Tech; Complete Time: 08:31 [facility] 05/03 08:02 Order name: IV Saline Lock; Complete Time: 08:59 nd2 05/03 08:02 Order name: Labs collected and sent; Complete Time: 08:59 [facility] 05/03 08:02 Order name: O2 Per Protocol; Complete Time: 08:31 nd05/03 08:02 Order name: O2 Sat Monitoring; Complete Time: 08:31 ma Administered Medications: 09:00 Drug: NS 0.9% 1000 ml Route: IV; Rate: 1 bolus; Site: right upper arm; bp 11:13 Follow up: IV Status: Completed infusion; IV Intake: 1000ml bp 09:00 Drug: morphine 4 mg Route: IVP; Site: right upper arm; bp 11:14 Follow up: Response: Pain is decreased bp 09:00 Drug: Zofran 4 mg Route: IVP; Site: right upper arm; bp 11:14 Follow up: Response: Nausea is decreased bp 09:00 Drug: Aspirin 325 mg Route: PO; bp 11:15 Follow up: Response: No adverse reaction bp 12:04 Drug: NS 0.9% 1000 ml Route: IV; Rate: 1 bolus; Site: right upper arm; bp 13:42 Follow up: IV Status: Completed infusion bp Disposition: 05/03/18 09:35 Hospitalization ordered by Indigo Ray for Observation. Preliminary diagnosis is Chest pain, unspecified. - Bed requested for Telemetry/MedSurg (observation). - Status is Observation. bp - Condition is Stable. - Problem is new. - Symptoms are unchanged. UTI on Admission? No Signatures: Dispatcher [employer] EDCrystal Beckman RN RN Hugo Johnston RN RN bp Clifton Singh MD MD ma2 Corrections: (The following items were deleted from the chart) 13:43 09:35 Hospitalization Ordered by Indigo Ray MD for Observation. Preliminary diagnosis bp is Chest pain, unspecified. Bed requested for Telemetry/MedSurg (observation). Status is Observation. Condition is Stable. Problem is new. Symptoms are unchanged. UTI on Admission? No. ma2
--- NOTE | 2018-05-03 09:36 | ER ---
Nurse's Notes [facility] Name: Nell Shirley Age: 37 yrs Sex: Female : 1980 Arrival Date: 05/03/2018 Time: 07:50 Bed 6 Private MD: None, None Diagnosis: Chest pain, unspecified Presentation: 05/03 07:59 Presenting complaint: Patient states: Left sided chest pain that radiates to left arm hb upon walking today. Pain is described as stabbing/pressure. Nitro x 2 administered CURBER. Transition of care: patient was not received from another setting of care. Onset of symptoms was May 03, 2018. Risk Assessment: Do you want to hurt yourself or someone else? Patient reports no desire to harm self or others. Care prior to arrival: Medication(s) given: Nitroglycerin, 0.4 mg SL x 2. 07:59 Method Of Arrival: Ambulatory hb 07:59 Acuity: HERMAN 3 hb Triage Assessment: 08:00 Cardiovascular: Rhythm is sinus rhythm. bp 08:00 General: Appears in no apparent distress. comfortable, Behavior is cooperative, bp anxious. Pain: Complains of pain in chest. 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 hb Historical: - Allergies: 08:02 Aspirin; hb 08:02 Depo-Provera; hb 08:02 GABAPENTIN; hb 08:02 Lyrica; hb 08:02 Neurontin; hb 08:02 NSAIDS; hb 08:02 PENICILLINS; hb - Home Meds: 08:02 Abilify 5 mg Oral tab 1 tab once daily [Active]; Ambien 10 mg Oral tab 1 tab once daily hb [Active]; clonazepam 1 mg Oral tab 1 tab 3 times per day [Active]; furosemide 20 mg Oral tab 1 tab 2 times per day [Active]; hydrocodone-acetaminophen 10-325 mg Oral tab 1 tab every 4 hours [Active]; nitroglycerin 0.4 mg SL subl [Active]; Plavix 75 mg Oral tab 1 tab once daily [Active]; - PMHx: 08:02 Anxiety; CMT; heart murmer; Schizophrenia; hb - PSHx: 08:02 Gastric Bypass; open abdominal surgery; gall bladder; hb - Immunization history:: Adult Immunizations up to date. - Social history:: Smoking status: Patient uses tobacco products, smokes one pack cigarettes per day. Patient/guardian denies using alcohol, street drugs, The patient lives with family. - Ebola Screening: : No symptoms or risks identified at this time. - Family history:: not pertinent. - Hospitalizations: : No recent hospitalization is reported. Screenin:11 Abuse screen: Denies threats or abuse. Denies injuries from another. Nutritional bp screening: No deficits noted. Tuberculosis screening: No symptoms or risk factors identified. Fall Risk None identified. Assessment: 08:00 General: Appears in no apparent distress. comfortable, Behavior is calm, cooperative, bp appropriate for age. Pain: Complains of pain in chest Pain does not radiate. Pain began suddenly. Neuro: Level of Consciousness is awake, alert, obeys commands, Oriented to person, place, time, situation, Appropriate for age. Cardiovascular: Rhythm is sinus rhythm. Respiratory: Airway is patent Respiratory effort is even, unlabored, Respiratory pattern is regular, symmetrical. GI: No signs and/or symptoms were reported involving the gastrointestinal system. : No signs and/or symptoms were reported regarding the genitourinary system. EENT: No deficits noted. Derm: No deficits noted. Musculoskeletal: Circulation, motion, and sensation intact. Range of motion: intact in all extremities. 10:00 Reassessment: ADMIT IN PROCESS, VS STABLE ON MONITOR. bp 12:02 Reassessment: PT HYPOTENSIVE ON MONITOR, MD NOTIFIED. bp 13:40 Reassessment: PT REFUSING ADMIT. SIGNED OUT AMA. PT COUNSELED TO REMAIN BY STAFF AND MD bp BUT DECLINED. PT ADVISED TO RETURN IF S/S RETURN. Vital Signs: 08:00 BP 98 / 71; Pulse 88; Resp 16; Temp 98.1; Pulse Ox 100% on R/A; Pain 7/10; hb 09:29 BP 94 / 65; Pulse 67; Resp 16; Temp 98.4; Pulse Ox 100% ; lt1 11:00 BP 90 / 64; Pulse 59; Resp 16; Pulse Ox 97% ; bp 12:00 BP 73 / 48; Pulse 58; Resp 9; Pulse Ox 98% ; bp ED Course: 07:50 Patient arrived in ED. mr 07:51 None, None is Private Physician. mr 07:59 Clifton Singh MD is Attending Physician. ma2 08:00 Hugo Johnston, RN is Primary Nurse. bp 08:00 Triage completed. hb 08:00 Arm band placed on. hb 08:00 Patient has correct armband on for positive identification. Placed in gown. Bed in low bp position. Call light in reach. Side rails up X2. Adult w/ patient. 08:00 monitoring and evaluation advisor on. Pulse ox on. NIBP on. bp 08:17 EKG done, by genetic technologist. reviewed by Clifton Singh MD. tc 08:17 Inserted saline lock: 18 gauge in right upper arm, using aseptic technique. Blood bp collected. Patient maintains SpO2 saturation greater than 95% on room air. 08:24 X-ray completed. Portable x-ray completed in exam room. Patient tolerated procedure kp1 well. 08:26 XRAY Chest (1 view) In Process Unspecified. EDMS 09:34 Indigo Christopher MD is Hospitalizing Provider. ma2 13:41 No provider procedures requiring assistance completed. IV discontinued, intact, bp bleeding controlled, No redness/swelling at site. Pressure dressing applied. Administered Medications: 09:00 Drug: NS 0.9% 1000 ml Route: IV; Rate: 1 bolus; Site: right upper arm; bp 11:13 Follow up: IV Status: Completed infusion; IV Intake: 1000ml bp 09:00 Drug: morphine 4 mg Route: IVP; Site: right upper arm; bp 11:14 Follow up: Response: Pain is decreased bp 09:00 Drug: Zofran 4 mg Route: IVP; Site: right upper arm; bp 11:14 Follow up: Response: Nausea is decreased bp 09:00 Drug: Aspirin 325 mg Route: PO; bp 11:15 Follow up: Response: No adverse reaction bp 12:04 Drug: NS 0.9% 1000 ml Route: IV; Rate: 1 bolus; Site: right upper arm; bp 13:42 Follow up: IV Status: Completed infusion bp Intake: 11:13 IV: 1000ml; Total: 1000ml. bp Outcome: 09:35 Decision to Hospitalize by Provider. ma2 13:41 AMA AMA form signed bp 13:41 Condition: stable 13:41 Instructed on the need for admit. 13:43 Patient left the ED. bp Signatures: Dispatcher [employer] EDAK Kristel Howard GonzálezJudie, funnel setter EKG Ttc Crystal Oneil RN RN hb Poole Polly kp1 Hugo Johnston RN RN bp Clifton Singh MD MD ma2 Michelle Guerrier lt1 Corrections: (The following items were deleted from the chart) 10:04 10:02 General: Appears in no apparent distress. comfortable, Behavior is cooperative, bp anxious, bp 10:04 10:02 Pain: Complains of pain in chest bp bp 10: 10:02 Cardiovascular: Rhythm is sinus rhythm bp bp 10: 07:00 Cardiovascular: Rhythm is sinus rhythm bp bp 10:05 07:00 General: Appears in no apparent distress. comfortable, Behavior is cooperative, bp anxious, bp 10:05 07:00 Pain: Complains of pain in chest bp bp
--- NOTE | 2018-05-03 10:12 | RAD REPORT ---
EXAM DESCRIPTION: [place] Single View05/03/2018 8:27 am CLINICAL HISTORY: Chest pain COMPARISON: February 2018 FINDINGS: The lungs appear clear of acute infiltrate. The heart is normal size IMPRESSION: No acute abnormalities displayed
[2018-05-03] MEDS ORDERED: NA CHLORIDE 0.9% 1,000 ML IV ONE (11:42)
--- NOTE | 2018-05-03 17:52 | P.SSS ---
Patient History Date of Service: 05/03/18 Reason for admission: Chest pain History of Present Illness: Patient is a 37-year-old female with past medical history of smoking mitral valve prolapse and previous cardiac catheterization done by Dr. Quevedo in [place] which was normal found to have prinzmetals angina. Patient was in her usual state of health until day of admission when the patient had sudden onset of chest pain while at work at rest. Pain is similar to her previous episodes. Patient took nitro x4 however vomited twice. Came into ER for further evaluation. Workup was negative. However found to be hypotensive. Patient states her usual blood pressure is in the 90s over 60s. Patient was referred for admission to rule out ACS. Allergies medroxyprogesterone [From Depo-Provera] Allergy (Verified 02/25/18 21:05) Itching/Hives/Rash aspirin Adverse Reaction (Verified 02/25/18 21:05) Nausea/Vomiting gabapentin Adverse Reaction (Verified 02/25/18 21:05) suidcidal ideations NSAIDS (Non-Steroidal Anti-Inflamma Adverse Reaction (Verified 02/25/18 21:05) Nausea/Vomiting Penicillins Adverse Reaction (Verified 02/25/18 21:05) severe flu like symptoms pregabalin [From Lyrica] Adverse Reaction (Verified 02/25/18 21:05) suicidal ideations Home medications list reviewed: Yes Home Medications: Furosemide 20 mg PO DAILY 02/25/18 Suvorexant [Belsomra] 20 mg PO BEDTIME PRN 02/25/18 clonazePAM [Clonazepam] 1 mg PO BID 02/25/18 Codeine/APAP [Tylenol W/Codeine #3 tab] 1 tab PO Q4H #24 tab 02/27/18 Nitrofuran Macro [Macrodantin] 50 mg PO DAILY #7 cap 02/27/18 Oxybutynin Chloride [Ditropan] 5 mg PO BID PRN #10 tab 02/27/18 - Past Medical/Surgical History Diabetic: No -: Anxiety disorder -: Schizo affective disorder -: heart murmur - mitral valve prolapse -: Prinzmetal's angina -: Gastric bypass -: Cholecystectomy -: necrotic intestines removed -: Cardiac catheterization with normal coronaries - Family History Family History: Reviewed- Non-Contributory (No premature coronary artery disease ) - Social History Smoking Status: Heavy Tobacco smoker (>10 cigarettes/day) Counseled patient to stop smoking for: less than 10 minutes Alcohol use: No CD- Drugs: No Caffeine use: Yes Place of Residence: Home Review of Systems 10-point ROS is otherwise unremarkable Cardiovascular: As per HPI Physical Examination - Vital Signs Temperature: 98.4 F Blood Pressure: 73/48 Pulse: 58 Respirations: 9 - Physical Exam General: Alert, Oriented x3, Mild distress, Other (Ill-appearing female) HEENT: Atraumatic, PERRLA, Mucous membr. moist/pink, EOMI, Sclerae nonicteric Neck: Supple, 2+ carotid pulse no bruit, JVD not distended Respiratory: Clear to auscultation bilaterally, Normal air movement Cardiovascular: No edema, Normal pulses, Regular rate/rhythm, Normal S1 S2 Gastrointestinal: Normal bowel sounds, Soft and benign, Non-distended, No tenderness Musculoskeletal: No clubbing, No tenderness Integumentary: No rashes, No erythema, No cyanosis Neurological: Normal gait, Normal speech, Normal strength at 5/5 x4 extr, Normal tone, Normal affect - Studies Laboratory Data (last 24 hrs) 05/03/18 09:00: PT 13.0 H, INR 1.10 05/03/18 09:00: WBC 12.3 H, Hgb 14.9, Hct 44.1, Plt Count 309 05/03/18 09:00: Sodium 142, Potassium 3.2 L, BUN 18, Creatinine 0.73, Glucose 95 , Magnesium 2.4, Total Bilirubin 0.4, AST 19, ALT 25, Alkaline Phosphatase 88 Imagings Data: : No acute abnormalities displayed - Diagnosis (Problem(s)) (1) Chest pain Current Visit: Yes Status: Acute Qualifiers: Chest pain type: other chest pain Qualified Code(s): R07.89 - Other chest pain; R07.8 - Other chest pain (2) Prinzmetal's angina Current Visit: Yes Status: Acute (3) Hypotension Current Visit: Yes Status: Acute (4) Nicotine dependence with current use Current Visit: Yes Status: Acute Treatment Summary: Patient was started on chest pain guidelines cardiology was consulted. Patient however did not wish to stay and signed out AMA from the ER. Patient was counseled to not leave against medical advice. She understands the risks of leaving and signed out. - Disposition Discharge Date: 05/03/18 Disposition: AMA-LEFT AGAINST MEDICAL ADVIC Condition: FAIR
== END 2018-05-03 13:40 | disposition left against medical advice (07) ==
LOC: ER 07:49 → UNDOADMOB 11:41 → ERHOLD 11:41 → UNDODISOB 13:40 → ER 13:40
DX: R07.9 Chest pain, unspecified (principal); I34.1 Nonrheumatic mitral (valve) prolapse; I20.1 Angina pectoris with documented spasm; I95.9 Hypotension, unspecified; Z53.29 Procedure and treatment not carried out because of patient's decision for other reasons; F20.9 Schizophrenia, unspecified; F41.9 Anxiety disorder, unspecified; F17.210 Nicotine dependence, cigarettes, uncomplicated; Z79.02 Long term (current) use of antithrombotics/antiplatelets; Z79.899 Other long term (current) drug therapy; Z98.84 Bariatric surgery status
CPT/HCPCS: 36415; 71045; 80048; 80076; 83735; 83880; 84484; 85025; 85610; 93005; 96361 ×2; 96374 ×2; 96375 ×2; 99285; G0378 ×2; J2405; J7030 ×2